=== PATIENT | female | born 2000 | race Caucasian/White ===

== ENCOUNTER 2020-01-23 21:53 | Emergency (ER) | payer OTHER, SELFPAY ==
[2020-01-23 22:02] VITALS: BP 123/88; PULSE 100; RESP 20; TEMP 37; O2SAT 99; BMI 23.3
--- NOTE | 2020-01-23 22:08 | XR_ITS ---
PROCEDURE: XR CHEST 2V CLINICAL HISTORY: SOA Cough, asthma attack COMPARISON: CXR CHEST(2 VIEWS-NOT PORTABLE) from 03/29/2011 CXR CHEST(2 VIEWS-NOT PORTABLE) from 09/23/2014 CXR1VP XR chest portable from 11/18/2017 FINDINGS: The cardiomediastinal silhouette and pulmonary vascularity are within normal limits. The lungs are clear without infiltrates, suspicious nodules, or pleural effusions. No acute bony abnormalities. IMPRESSION: No acute findings. Dictated by: Bong Norton MD 01/24/2020 07:45 Electronically signed by Bong Norton MD in [place] 01/24/2020 07:45
[2020-01-23 22:18] VITALS: BP 106/71; PULSE 100; RESP 19; O2SAT 97
[2020-01-23 22:19] LABS: Microscopic, Urine URINE MICROSCOPIC (MICROSCOPIC)
[2020-01-23 22:22] LABS: Basophils # 0.1 K/mm3 (0-0.2); Basophils % 0.4 % (0.1-2.0); Eosinophils # 0.5 K/mm3 (0.0-0.4); Eosinophils % 4.6 % (0.1-12.0); Hematocrit 39.5 % (37.0-47.0); Hemoglobin 13.9 g/dL (12.2-16.2); Lymphocytes # 3.5 K/mm3 (0.7-4.5); Lymphocytes % 32.9 % (10-50); Mean Corpuscular HGB Conc 35.1 g/dL (31.8-35.4); Mean Corpuscular Hemoglobin 30.7 pg (27.0-31.2); Mean Corpuscular Volume 87.4 fl (81-99); Mean Platelet Volume 8.8 fl (7.4-10.4); Monocytes # 0.5 K/mm3 (0.1-1.0); Monocytes % 4.6 % (1.7-9.3); Neutrophils % 57.5 % (37.0-80.0); Platelet Count 253 K/mm3 (142-424); Red Blood Count 4.52 M/mm3 (4.20-5.40); Red Cell Distribution Width 12.7 % (11.5-17.5); White Blood Count 10.5 K/mm3 (4.5-13.0)
[2020-01-23 22:25] LABS: Appearance,Urine CLEAR (Clear); Bilirubin,Urine Negative (Negative); Blood, Urine Negative (Negative); Color,Urine YELLOW (Yellow); Glucose,Urine (UA) Negative (Negative); Ketones,Urine Negative (Negative); Leukocyte Esterase,Urine TRACE (Negative); Nitrate,Urine Negative (Negative); PH,Urine 6.5 (5.0-8.5); Protein,Urine Negative (Negative); Urobilinogen,Urine 0.2 EU/dl (0.2)
--- NOTE | 2020-01-23 22:25 | HMH.EDSOB ---
ED Disposition Clinical Impression: Reactive airway disease with acute exacerbation Qualifiers: Asthma severity: mild Asthma persistence: intermittent Qualified Code(s): J45.21 - Mild intermittent asthma with (acute) exacerbation Disposition: Home, Self-Care Condition on Discharge: Good Instructions: DI for Reactive Airway Disease-Adult Additional Instructions: use meds and f/u with pcp and dr christopher Prescriptions: predniSONE [Prednisone 20mg Tab] 20 mg PO BID #10 tab Transmission Status: Pending to [facility] Referrals: Ramiro Bianchi PA [Primary Care Provider] - Alfredito Christopher [Referring] - - Critical Care Critical Care Time: No Attestation: On 01/23/20, the high probability of a clinically significant, sudden or life threatening deterioration of the following system(s) required my full and direct attention, intervention and personal management. The time I documented below is in addition to time spent performing reported procedures but includes the following listed in this critical care notation. Medical Decision Making - Medical Records Medical records reviewed: Yes: I reviewed the patient's medical records. - Sarthak Inquiry Pt receiving controlled substance: No Vital Signs: 01/23/20 22:02 01/23/20 22:18 01/23/20 22:33 Temperature 98.6 F Temperature Source Oral Pulse Rate Pulse Rate [Right Brachial] 100 H 100 H 119 H Respiratory Rate 20 19 18 Blood Pressure [Right Arm] 123/88 106/71 L 116/70 Blood Pressure Mean [Right Arm] 99 82 85 Blood Pressure Source [Right Arm] Automatic Cuff Blood Pressure Position [Right Arm] Sitting 02 Sat by Pulse Oximetry 99 97 100 Oxygen Delivery Method Room Air Room Air Room Air 01/23/20 22:36 01/23/20 23:30 Temperature Temperature Source Pulse Rate 110 H Pulse Rate [Right Brachial] 68 Respiratory Rate Blood Pressure [Right Arm] 104/55 L Blood Pressure Mean [Right Arm] 71 Blood Pressure Source [Right Arm] Automatic Cuff Blood Pressure Position [Right Arm] Sitting 02 Sat by Pulse Oximetry 100 Oxygen Delivery Method - Lab Data Lab results reviewed: Yes: I reviewed the patient's lab results. Lab Results 01/23/20 22:10: WBC 10.5, RBC 4.52, Hgb 13.9, Hct 39.5, MCV 87.4, MCH 30.7, MCHC 35.1, RDW 12.7, Plt Count 253, MPV 8.8, Neut % (Auto) 57.5, Lymph % (Auto) 32.9, [place] % (Auto) 4.6, Eos % (Auto) 4.6, Baso % (Auto) 0.4, Neut # (Auto) 6.0, Lymph # (Auto) 3.5, [place] # (Auto) 0.5, Eos # (Auto) 0.5 H, Baso # (Auto) 0.1 01/23/20 22:10: Urine HCG, Qual Negative 01/23/20 22:10: Sodium 135 L, Potassium 3.7, Chloride 105, Carbon Dioxide 26, Anion Gap 7.7, BUN 8, Creatinine 0.90, Estimated Creat Clear 101, Estimated GFR 81, Est GFR ( Amer) 98, Glucose 98, Calcium 9.1, Total Bilirubin 0.4, AST 28, ALT 17, Alkaline Phosphatase 56, Total Protein 6.8, Albumin 3.9, Globulin 2.9, Albumin/Globulin Ratio 1.3 01/23/20 22:13: Urine Color Yellow, Urine Appearance Clear, Urine pH 6.5, Ur Specific [place] 1.020, Urine Protein Negative, Urine Glucose (UA) Negative, Urine Ketones Negative, Urine Blood Negative, Urine Nitrate Negative, Urine Bilirubin Negative, Urine Urobilinogen 0.2, Ur Leukocyte Esterase Trace, Urine WBC Occasional, Ur Squamous Epith Cells Occasional, Urine Bacteria Trace Result diagrams: 01/23/20 22:10 01/23/20 22:10 Orders (Tests/Meds): ED MEDICATIONS Generic Name Dose Route Start Last Admin Trade Name Freq PRN Reason Stop Dose Admin Sodium Chloride 1,000 mls @ 999 mls/hr 01/23/20 22:30 01/23/20 22:19 Sod Chlor 0.9% 1000ml Bag IV 01/23/20 23:30 999 mls/hr .Q1H1M ELYSE Administration Levalbuterol HCl 1.25 mg 01/23/20 22:32 01/23/20 22:35 Xopenex 1.25mg/3ml Neb IH 02/22/20 22:31 1.25 mg TIDP PRN Administration Shortness Of Breath Discontinued Medications Generic Name Dose Route Start Last Admin Trade Name Freq PRN Reason Stop Dose Admin Diphenhydramine HCl 25 mg 01/23/20 22:16 0
[2020-01-23 22:28] LABS: Urine Pregnancy, HCG Qual. Negative (Negative)
[2020-01-23 22:29] LABS: Chloride 105 mmol/L (98-107); Potassium 3.7 mmoL/L (3.5-5.1); Sodium 135 mmol/L (136-145)
[2020-01-23 22:31] LABS: Alanine Aminotransferase 17 U/L (12-78); Aspartate Amino Transferase 28 U/L (14-36); Blood Urea Nitrogen 8 mg/dl (7-17); Creatinine Clearance Estimated 101 mL/min (50-200); Estimated Glomerular Filt Rate 81 ml/min (>60); GFR (African American) 98 ML/MIN (>60)
[2020-01-23 22:32] LABS: Albumin Level 3.9 g/dl (3.5-5.0); Albumin/Globulin Ratio 1.3 (1.1-1.8); Alkaline Phosphatase 56 U/L (38-126); Anion Gap 7.7 mEq/L (5-15); Bilirubin,Total 0.4 mg/dl (0.2-1.3); Calcium 9.1 mg/dl (8.4-10.2); Carbon Dioxide 26 mmol/L (22.0-30.0); Globulin 2.9 g/dL (1.3-3.2); Glucose 98 mg/dl (74-100); Total Protein,Serum 6.8 g/dl (6.3-8.2)
[2020-01-23 22:33] VITALS: BP 116/70; PULSE 119; RESP 18; O2SAT 100
[2020-01-23 22:33] LABS: Bacteria,Urine Trace /lpf; Squamous Epithelial Cell,Urine Occasional #/hpf (0-5); WBC,Urine Occasional #/hpf (0-3)
[2020-01-23 22:36] VITALS: PULSE 110; PULSE 117
[2020-01-23 23:30] VITALS: BP 104/55; PULSE 68; O2SAT 100
[2020-01-24 00:28] VITALS: BP 104/51; PULSE 69; RESP 18; TEMP 36.9; O2SAT 99
== END 2020-01-24 00:31 | disposition home or self-care (01) ==
PROVIDERS: Emergency Provider Emergency Medicine; PCP Physician Assistant
DX: J45.21 Mild intermittent asthma with (acute) exacerbation (principal); G43.709 Chronic migraine without aura, not intractable, without status migrainosus; F41.8 Other specified anxiety disorders; Z90.09 Acquired absence of other part of head and neck
CPT/HCPCS: 71046; 80053; 81001; 81025; 85025; 96365; 96375; 99284

== ENCOUNTER 2020-02-21 13:30 | Emergency (ER) | payer OTHER, SELFPAY ==
[2020-02-21 13:45] VITALS: BP 111/72; PULSE 87; RESP 19; TEMP 37.1; O2SAT 99; BMI 25.0
--- NOTE | 2020-02-21 14:05 | HMH.EDUTC ---
[facility] [place] Impression: Poison claudia Disposition: Home, Self-Care Condition on Discharge: Good Instructions: DI for Poison Claudia Allergy Additional Instructions: Avoid contact with the offending substance (poison claudia). Don't start the oral steroids until tomorrow. Don't put the topical steroids (triamcinolone) on your face or your groin. Follow up with your regular doctor. GO TO THE ER FOR ANY WORSENING SYMPTOMS OR CONCERNS Prescriptions: methylPREDNISolone [Medrol] 4 mg PO DIRECTED 6 Days #21 tab.ds.pk Transmission Status: Received by [facility] Triamcinolone Acetonide 1 applicatio TP TIDP PRN 7 Days #1 tube PRN Reason: Itching Transmission Status: Received by [facility] Referrals: Ramiro Bianchi PA [Primary Care Provider] - Time of Disposition: 14:31 Medical Decision Making - Medical Records Medical records reviewed: No: I reviewed the patient's medical records. - Sarthak Inquiry Pt receiving controlled substance: No Vital Signs: 02/21/20 13:45 02/21/20 14:35 Temperature 98.7 F 98.7 F Temperature Source Oral Pulse Rate 87 Pulse Rate [Right Brachial] 87 Respiratory Rate 19 19 Blood Pressure 111/72 Blood Pressure [Right Arm] 111/72 Blood Pressure Mean [Right Arm] 85 Blood Pressure Source [Right Arm] Automatic Cuff Blood Pressure Position [Right Arm] Sitting 02 Sat by Pulse Oximetry 99 Oxygen Delivery Method Room Air Orders (Tests/Meds): ED MEDICATIONS Discontinued Medications Generic Name Dose Route Start Last Admin Trade Name Freq PRN Reason Stop Dose Admin Methylprednisolone Sodium Succinate 125 mg 02/21/20 14:04 02/21/20 14:15 Solu-Medrol 125mg/2ml Vial IM 02/21/20 14:05 125 mg ONCE ONE Administration [facility] [place] - General Stated complaint: Rash Time Seen by Provider: 02/21/20 14:05 Mode of Arrival: Ambulatory Source of Information: Patient Limitations: No Limitations Description of Symptoms (Recalled from Triage Doc. by RN): PATIENT C/O POISON CLAUDIA X 1 WEEK. STATES SHE RECEIVED A STERIOD SHOT BUT IT IS NO BETTER HEENT Symptoms (Recalled from RN notes): No Resp Symptoms (Recalled from RN notes): No Skin Symptoms (Recalled from RN notes): Yes MS Symptoms (Recalled from RN notes): No Functional Status (Recalled from RN notes): WNL - History of Present Illness Provider Complaint: She c/o poison claudia for the past 4 days or so. She has had a steroid injection by her pcp. She states the shot did not help. The poison claudia is on her right leg and right arm. - Related Data Home Medications Medication Instructions Recorded Confirmed Venlafaxine HCl [Effexor Xr] 75 mg PO DAILY 11/18/17 08/24/19 Erenumab-Aooe [Aimovig 140 mg IM DIRECTED 09/27/18 08/24/19 Autoinjector] SUMAtriptan succinate [Imitrex] 100 mg PO NEEDED PRN 09/27/18 08/24/19 Previous Rx's Medication Instructions Recorded norgestimate 0.25 mg-ethinyl 1 tab PO DAILY #28 tab 08/24/19 estradiol 35 mcg tablet predniSONE [Prednisone 20mg 20 mg PO BID #10 tab 01/24/20 Tab] Triamcinolone Acetonide 1 applicatio TP TIDP PRN 7 Days #1 02/21/20 tube methylPREDNISolone [Medrol] 4 mg PO DIRECTED 6 Days #21 02/21/20 tab.ds.pk Allergies Allergy/AdvReac Type Severity Reaction Status Date / Time soy AdvReac Intermediate Vomiting Verified 01/23/20 22:10 SHELLFISH (FOOD) Allergy Severe S-SWELLS-OR Uncoded 08/24/19 09:54 AL/THROAT - Worker's Comp Is this a Worker's Comp case?: No H History - Hepatitis A Screen Drug use history?: No High risk sexual behaviors?: No History of sexually transmitted infection?: No Currently employed?: No Childcare worker?: No Do you have indoor plumbing?: Yes Do you have electricity?: Yes Attestation statement:: This patient has been screened for Hepatitis A risk factors. I have reviewed the patient's past medical history: Yes Medical History: Reports:: Migraine Denies
[2020-02-21 14:35] VITALS: BP 111/72; PULSE 87; RESP 19; TEMP 37.1; O2SAT 99
== END 2020-02-21 14:37 | disposition home or self-care (01) ==
PROVIDERS: Emergency Provider Nurse Practitioner Family; PCP Physician Assistant
DX: L23.7 Allergic contact dermatitis due to plants, except food (principal); G43.709 Chronic migraine without aura, not intractable, without status migrainosus
CPT/HCPCS: 96372; 99201

== ENCOUNTER 2020-03-26 16:16 | Emergency (ER) | payer OTHER, SELFPAY ==
[2020-03-26 16:25] VITALS: BP 146/79; PULSE 76; RESP 16; TEMP 36.7; O2SAT 98; BMI 23.3
[2020-03-26 16:31] VITALS: BP 109/65; PULSE 94; RESP 19; TEMP 36.7; O2SAT 100; BMI 22.6
--- NOTE | 2020-03-26 16:47 | HMH.EDUTC ---
[facility] [place] Clinical Impression: Positive test Migraine Qualifiers: Migraine type: unspecified Status migrainosus presence: without status migrainosus Intractability: not intractable Qualified Code(s): G43.909 - Migraine, unspecified, not intractable, without status migrainosus Disposition: Home, Self-Care Condition on Discharge: Good Instructions: Common Discomforts and Bodily Changes During , Medications and , Migraine -- Adult Additional Instructions: Go home and lay down and sleep off remainder of headache *Call Family Doctor that prescribes you Imitrex and make appointment Imitrex is Category C during Call OBGYN and make appointment for further evaluation and examination to see how far along you are Make sure that you are drinking plenty of fluids and eating healthy No drinking or smoking Return if needed Straight to ER if any life threatening symptoms Referrals: PCP,No [Primary Care Provider] - Kelsey Odom MD [Staff Physician] - Donnie Restrepo MD [Staff Physician] - Time of Disposition: 17:54 Medical Decision Making - Sarthak Inquiry Pt receiving controlled substance: No Sarthak was queried for this patient: No Vital Signs: 03/26/20 16:25 03/26/20 16:31 Temperature 98.0 F 98.0 F Temperature Source Temporal Artery Scan Oral Pulse Rate [Right] 76 94 H Respiratory Rate 16 19 Blood Pressure [Right Arm] 146/79 H 109/65 L Blood Pressure Mean [Right Arm] 101 79 Blood Pressure Source [Right Arm] Automatic Cuff Blood Pressure Position [Right Arm] Sitting 02 Sat by Pulse Oximetry 98 100 Oxygen Delivery Method Room Air - Lab Data Lab Results 03/26/20 16:44: [facility] Positive 03/26/20 16:58: Serum HCG, Qual Positive Orders (Tests/Meds): ED MEDICATIONS Generic Name Dose Route Start Last Admin Trade Name Freq PRN Reason Stop Dose Admin Metoclopramide HCl 5 mg 03/27/20 06:00 Reglan 5mg Tablet PO 04/26/20 05:59 AC ELYSE Discontinued Medications Generic Name Dose Route Start Last Admin Trade Name Freq PRN Reason Stop Dose Admin Acetaminophen 650 mg 03/26/20 17:51 03/26/20 18:01 Acetaminophen 325mg Tab PO 03/26/20 17:52 650 mg ONCE ONE Administration Diphenhydramine HCl 25 mg 03/26/20 16:36 03/26/20 17:52 Benadryl 50mg/1ml Vial IM 03/26/20 16:37 Not Given ONCE ONE Diphenhydramine HCl 25 mg 03/26/20 17:52 03/26/20 17:58 Benadryl 25mg Capsule PO 03/26/20 17:53 25 mg ONCE ONE Administration Ketorolac Tromethamine 30 mg 03/26/20 16:36 03/26/20 17:50 Toradol 30mg/Ml Vial IM 03/26/20 16:37 Not Given ONCE ONE Metoclopramide HCl 10 mg 03/26/20 18:02 03/26/20 18:02 Metoclopramide 10mg Tablet PO 03/26/20 18:03 10 mg ONCE ONE Administration Medical Decision Narrative: Patient denies chance of however medication held at this time Pending urine test Urine appears positive Beta HCG Qual ordered awaiting Beta HCG Qualatative test Positve discussed with patient informed her to call OBGYN tomorrow and make appointment for further evaluation and examination to see how far along she may be and further treatment, Call Prescribing physician for her imitrex and inform them of positive Beta HCG back and positive, Torodol not given awaiting pharmacy to call back with appropriate treatment, pharmacy called back and discussed prescribed imitrex and agreed patient informed of risk cat C of imitrex and recommended making appointment bautista with PCP. Tylenol, Benadryl and Reglan for migraine due to Patient states that headache is much better and patient dc'd home [facility] [place] HPI - General Stated complaint: CHONG Time Seen by Provider: 03/26/20 16:47 Mode of Arrival: Ambulatory Limitations: No Limitations Description of Symptoms (Recalled from Triage Doc. by RN): Migraine since last night, take IBU 400mg 2 hours ago. H
--- NOTE | 2020-03-26 17:00 | PC.NURSE ---
Medication held d/t pt having a positive urine preg test, blood test drawn to be certain, pt updated in POC
[2020-03-26 17:08] LABS: UTC Pregnancy Test, Urine Positive (Negative)
[2020-03-26 17:36] LABS: HCG Qualitative, Serum Positive (Negative)
[2020-03-26 18:11] VITALS: BP 102/87; PULSE 90; RESP 17; TEMP 36.7; O2SAT 100
== END 2020-03-26 18:12 | disposition home or self-care (01) ==
PROVIDERS: Emergency Provider Nurse Practitioner
DX: G43.909 Migraine, unspecified, not intractable, without status migrainosus (principal); Z32.01 Encounter for pregnancy test, result positive
CPT/HCPCS: 81025; 84703; 99202

== ENCOUNTER → 2020-03-28 16:29 | Outpatient (CLI) | payer OTHER, SELFPAY ==
[2020-03-28 17:42] LABS: HCG,Quantitative 86 mIU/ml (0-5.42)
== END ==
PROVIDERS: Visit Provider Obstetrics & Gynecology
DX: Z32.00 Encounter for pregnancy test, result unknown (principal)
CPT/HCPCS: 36415; 84702

== ENCOUNTER 2020-03-28 20:35 | Emergency (ER) | payer OTHER, SELFPAY ==
[2020-03-28 20:42] VITALS: BP 152/84; PULSE 109; RESP 18; O2SAT 98; BMI 22.6
--- NOTE | 2020-03-28 20:59 | HMH.EDUTC ---
[facility] [place] Disposition Clinical Impression: Qualifiers: Weeks of gestation: 10 weeks Qualified Code(s): Z3A.10 - 10 weeks gestation of Nausea & vomiting Qualifiers: Vomiting type: unspecified Vomiting Intractability: non-intractable Qualified Code(s): R11.2 - Nausea with vomiting, unspecified Disposition: Home, Self-Care Condition on Discharge: Good Instructions: Diet Additional Instructions: follow up with your primary care physician. 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 GO TO THE ER FOR ANY WORSENING SYMPTOMS OR CONCERNS Prescriptions: Promethazine HCl [Phenergan 25mg tab] 25 mg PO Q6H PRN #30 tab PRN Reason: Nausea And Vomiting Transmission Status: Received by [facility] Referrals: PCP,No [Primary Care Provider] - Time of Disposition: 21:11 Medical Decision Making - Medical Records Medical records reviewed: No: I reviewed the patient's medical records. - Sarthak Inquiry Pt receiving controlled substance: No Vital Signs: 03/28/20 20:42 03/28/20 21:13 03/28/20 21:16 Temperature 98.0 F 98.0 F Temperature Source Oral Pulse Rate 109 H Pulse Rate [Left] 109 H 109 H Respiratory Rate 18 18 18 Blood Pressure 152/84 H Blood Pressure [Left Arm] 152/84 H 152/84 H Blood Pressure Mean [Left Arm] 106 106 Blood Pressure Source [Left Arm] Automatic Cuff Automatic Cuff Blood Pressure Position [Left Arm] Sitting Sitting 02 Sat by Pulse Oximetry 98 98 Oxygen Delivery Method Room Air Room Air Orders (Tests/Meds): ED MEDICATIONS Discontinued Medications Generic Name Dose Route Start Last Admin Trade Name Freq PRN Reason Stop Dose Admin Promethazine HCl 25 mg 03/28/20 21:03 03/28/20 21:07 Phenergan 25mg Tablet PO 03/28/20 21:04 25 mg ONCE ONE Administration [facility] [place] HPI - General Stated complaint: vomitting and nausea Time Seen by Provider: 03/28/20 20:59 Mode of Arrival: Ambulatory Source of Information: Patient, Spouse Limitations: No Limitations Description of Symptoms (Recalled from Triage Doc. by RN): pt states she is . lmp february 23. says she had a confirmed urine last week in [facility]. states shes been n/v all day and unable to keep anything down. - History of Present Illness Provider Complaint: She c/o n/v. She just found out she is 2 days ago. She has not saw her control integration engineer doctor yet. She denies any abdominal pain or back pain. She denies any vaginal bleeding or discharge. - Related Data Home Medications Medication Instructions Recorded Confirmed Venlafaxine HCl [Effexor Xr] 75 mg PO DAILY 11/18/17 08/24/19 Erenumab-Aooe [Aimovig 140 mg IM DIRECTED 09/27/18 08/24/19 Autoinjector] SUMAtriptan succinate [Imitrex] 100 mg PO NEEDED PRN 09/27/18 08/24/19 Previous Rx's Medication Instructions Recorded norgestimate 0.25 mg-ethinyl 1 tab PO DAILY #28 tab 08/24/19 estradiol 35 mcg tablet predniSONE [Prednisone 20mg 20 mg PO BID #10 tab 01/24/20 Tab] Triamcinolone Acetonide 1 applicatio TP TIDP PRN 7 Days #1 02/21/20 tube methylPREDNISolone [Medrol] 4 mg PO DIRECTED 6 Days #21 02/21/20 tab.ds.pk Promethazine HCl [Phenergan 25mg 25 mg PO Q6H PRN #30 tab 03/28/20 tab] Allergies Allergy/AdvReac Type Severity Reaction Status Date / Time soy AdvReac Intermediate Vomiting Verified 01/23/20 22:10 SHELLFISH (FOOD) Allergy Severe S-SWELLS-OR Uncoded 08/24/19 09:54 AL/THROAT [facility] History - Hepatitis A Screen Attestation statement:: This patient has been screened for Hepatitis A risk factors. I have reviewed the patient's past medical history: Yes Medical History: Reports:: Migraine Denies:: Anxiety, Depression, Diabetes Mellitus Type 1, Diabetes Mellitus Type 2, Hyperlipidemia, Hypertension, MRSA Laterality Cases: Bilateral: Tonsillectomy Amputation: No Fractures: No Comment: Tonsilectomy - Social History Smoking Status: Never smoker Alc
[2020-03-28 21:13] VITALS: BP 152/84; PULSE 109; RESP 18; TEMP 36.7; O2SAT 98; BMI 22.5
[2020-03-28 21:16] VITALS: BP 152/84; PULSE 109; RESP 18; TEMP 36.7; O2SAT 98
== END 2020-03-28 21:18 | disposition home or self-care (01) ==
LOC: ER 20:44 → UTC 20:45
PROVIDERS: Emergency Provider Nurse Practitioner Family
DX: O21.0 Mild hyperemesis gravidarum (principal); Z3A.10 10 weeks gestation of pregnancy; G43.709 Chronic migraine without aura, not intractable, without status migrainosus; Z90.09 Acquired absence of other part of head and neck
CPT/HCPCS: 99201

== ENCOUNTER → 2020-03-31 11:21 | Outpatient (CLI) | payer OTHER, SELFPAY ==
[2020-03-31 13:32] LABS: HCG,Quantitative 294 mIU/ml (0-5.42)
== END ==
PROVIDERS: Visit Provider Obstetrics & Gynecology
DX: Z34.90 Encounter for supervision of normal pregnancy, unspecified, unspecified trimester (principal); R10.9 Unspecified abdominal pain
CPT/HCPCS: 36415; 84702

== ENCOUNTER → 2020-04-23 15:05 | Outpatient (CLI) | payer OTHER, SELFPAY ==
--- NOTE | 2020-04-23 15:05 | US_ITS ---
PROCEDURE: US OB TRANSVAGINAL CLINICAL INDICATION: OB for dates COMPARISON: No exams were available for comparison FINDINGS: An intrauterine gestational sac is present with a pole with a crown-rump length of 1.28cm correlating to gestational age of 7weeks 4days. heart tones are present with an FHR of 158bpm. Yolk sac is noted. There is a 5.6 cm left ovarian cyst. A 2.3 cm corpus luteum cyst is present on the left IMPRESSION: Live intrauterine gestation at 7 weeks 4 days Estimated due date by Ultrasound is 12/06/2020 Dictated by: Bong Norton MD 04/23/2020 16:57 Bong Norton MD in [place] 04/23/2020 16:57
== END ==
PROVIDERS: Visit Provider Obstetrics & Gynecology
DX: O26.841 Uterine size-date discrepancy, first trimester (principal)
CPT/HCPCS: 76817

== ENCOUNTER → 2020-04-28 16:24 | Outpatient (CLI) | payer OTHER, SELFPAY ==
[2020-04-28 16:49] LABS: Basophils % 0.3 % (0.1-2.0); Eosinophils # 0.2 K/mm3 (0.0-0.4); Eosinophils % 1.8 % (0.1-12.0); Hematocrit 38.1 % (37.0-47.0); Hemoglobin 13.3 g/dL (12.2-16.2); Lymphocytes # 2.1 K/mm3 (0.7-4.5); Lymphocytes % 17.9 % (10-50); Mean Corpuscular HGB Conc 34.9 g/dL (31.8-35.4); Mean Corpuscular Hemoglobin 31.2 pg (27.0-31.2); Mean Corpuscular Volume 89.3 fl (81-99); Mean Platelet Volume 7.7 fl (7.4-10.4); Monocytes # 0.5 K/mm3 (0.1-1.0); Monocytes % 4.6 % (1.7-9.3); Neutrophils # 8.7 K/mm3 (1.8-7.8); Neutrophils % 75.3 % (37.0-80.0); Platelet Count 263 K/mm3 (142-424); Red Blood Count 4.27 M/mm3 (4.20-5.40); White Blood Count 11.6 K/mm3 (4.5-13.0)
[2020-04-28 20:16] LABS: Amphetamine/Metha Screen,Urine Negative ng/ml (<1000); Benzodiazepines Screen,Urine Negative ng/ml (<200)
[2020-04-28 20:17] LABS: Barbiturates Screen,Urine Negative ng/ml (<200); Cannabinoid Screen,Urine Negative ng/ml (<50)
[2020-04-28 20:18] LABS: Cocaine Screen,Urine Negative ng/ml (<300)
[2020-04-28 20:19] LABS: Methadone Screen,Urine Negative ng/ml (<300); Opiate Screen,Urine Negative ng/ml (<300)
[2020-04-28 20:20] LABS: Phencyclidine Screen,Urine Negative ng/ml (<25)
[2020-04-30 09:19] LABS: HIV Screen 4th Generation wRfx Non Reactive (Non Reactive); Hepatitis B Surface Antigen Negative (Negative); Hepatitis C Antibody <0.1 s/co ratio (0.0-0.9); Rubella Antibodies, IgG 4.53 index (Immune >0.99)
[2020-04-30 11:44] LABS: Rapid Plasma Reagin Ab Titer Non Reactive (NonRea<1:1)
== END ==
PROVIDERS: Visit Provider Obstetrics & Gynecology
DX: Z34.90 Encounter for supervision of normal pregnancy, unspecified, unspecified trimester (principal)
CPT/HCPCS: 36415; 80305; 85025; 86592; 86703; 86762; 86850; 87340; 87380; G0432

== ENCOUNTER 2020-04-28 20:47 | Emergency (ER) | payer OTHER, SELFPAY ==
[2020-04-28 20:49] VITALS: BP 113/68; PULSE 96; RESP 16; TEMP 36.9; O2SAT 99; BMI 27.4
[2020-04-28 21:13] LABS: Microscopic, Urine URINE MICROSCOPIC (MICROSCOPIC)
[2020-04-28 21:14] LABS: Appearance,Urine CLEAR (Clear); Bilirubin,Urine Negative (Negative); Blood, Urine Negative (Negative); Color,Urine YELLOW (Yellow); Glucose,Urine (UA) Negative (Negative); Ketones,Urine Negative (Negative); Leukocyte Esterase,Urine TRACE (Negative); Nitrate,Urine Negative (Negative); PH,Urine 7.5 (5.0-8.5); Protein,Urine Negative (Negative); Urobilinogen,Urine 0.2 EU/dl (0.2)
[2020-04-28 21:15] LABS: Urine Pregnancy, HCG Qual. Positive (Negative)
--- NOTE | 2020-04-28 21:22 | HMH.EDGENADL ---
ED Disposition Clinical Impression: Qualifiers: Weeks of gestation: 8 weeks Qualified Code(s): Z3A.08 - 8 weeks gestation of Disposition: Home, Self-Care Condition on Discharge: Good Instructions: DI for -- Discomforts and Remedies Additional Instructions: see pcp and ob for follow up Referrals: PCP,No [Primary Care Provider] - - Critical Care Critical Care Time: No Attestation: On 04/28/20, the high probability of a clinically significant, sudden or life threatening deterioration of the following system(s) required my full and direct attention, intervention and personal management. The time I documented below is in addition to time spent performing reported procedures but includes the following listed in this critical care notation. Medical Decision Making - Medical Records Medical records reviewed: Yes: I reviewed the patient's medical records. - Sarthak Inquiry Pt receiving controlled substance: No Vital Signs: 04/28/20 20:49 04/28/20 21:28 Temperature 98.5 F Temperature Source Oral Pulse Rate [Left Radial] 96 H 83 Respiratory Rate 16 15 Blood Pressure [Right Arm] 113/68 110/70 Blood Pressure Mean [Right Arm] 83 83 Blood Pressure Source [Right Arm] Automatic Cuff Automatic Cuff Blood Pressure Position [Right Arm] Sitting 02 Sat by Pulse Oximetry 99 100 Oxygen Delivery Method Room Air Room Air - Lab Data Lab results reviewed: Yes: I reviewed the patient's lab results. Lab Results 04/28/20 21:08: Urine Color Yellow, Urine Appearance Clear, Urine pH 7.5, Ur Specific [employer] 1.010, Urine Protein Negative, Urine Glucose (UA) Negative, Urine Ketones Negative, Urine Blood Negative, Urine Nitrate Negative, Urine Bilirubin Negative, Urine Urobilinogen 0.2, Ur Leukocyte Esterase Trace, Urine WBC 3-5, Ur Squamous Epith Cells 10-20, Urine Bacteria 1+ 04/28/20 21:08: Urine HCG, Qual Positive Orders (Tests/Meds): ORDERS Category Date Time Status Beta HCG, Quant [HCG,Quantitative] Stat Lab 04/28/20 21:18 Received Complete Blood Count Auto Diff Stat Lab 04/28/20 21:18 Received Comprehensive Metabolic Panel Stat Lab 04/28/20 21:18 Received General Adult HPI - General Chief complaint: PAIN Stated complaint: 8 or 9 wk preg abd pain Time Seen by Provider: 04/28/20 21:05 Mode of Arrival: Ambulatory Source of Information: Patient, Significant Other, Medical Record Limitations: No Limitations Description of Symptoms (Recalled from ER Triage Doc. by RN): pt stated she is approx. 8 weeks and is complaining of right sided pelvic pain since yesterday. pt denies any abd. pain, nausea or vomiting. pt stated she took tylenol at 1900 and hasnt had any relief. - History of Present Illness HPI narrative: rt sided abd pain today w/o fever or vomiting and no diarrhea - no vag bleeding has had u/s with iup Onset (ago): hour(s) Location: abdomen Severity: moderate Associated symptoms: denies other symptoms Treatments prior to arrival: none - Related Data Home Medications Medication Instructions Recorded Confirmed Venlafaxine HCl [Effexor Xr] 75 mg PO DAILY 11/18/17 08/24/19 Erenumab-Aooe [Aimovig 140 mg IM DIRECTED 09/27/18 08/24/19 Autoinjector] SUMAtriptan succinate [Imitrex] 100 mg PO NEEDED PRN 09/27/18 08/24/19 Previous Rx's Medication Instructions Recorded norgestimate 0.25 mg-ethinyl 1 tab PO DAILY #28 tab 08/24/19 estradiol 35 mcg tablet predniSONE [Prednisone 20mg 20 mg PO BID #10 tab 01/24/20 Tab] Triamcinolone Acetonide 1 applicatio TP TIDP PRN 7 Days #1 02/21/20 tube methylPREDNISolone [Medrol] 4 mg PO DIRECTED 6 Days #21 02/21/20 tab.ds.pk Promethazine HCl [Phenergan 25mg 25 mg PO Q6H PRN #30 tab 03/28/20 tab] Allergies Allergy/AdvReac Type Severity Reaction Status Date / Time soy AdvReac Intermediate Vomiting Verified 01/23/20 22:10 SHELLFISH (FOOD) Allergy Severe S-SWELLS-OR Uncoded 08/24/19 0
[2020-04-28 21:24] LABS: Bacteria,Urine 1+ /lpf
[2020-04-28 21:28] VITALS: BP 110/70; PULSE 83; RESP 15; O2SAT 100
[2020-04-28 21:29] LABS: Basophils % 0.2 % (0.1-2.0); Eosinophils # 0.3 K/mm3 (0.0-0.4); Eosinophils % 2.2 % (0.1-12.0); Hematocrit 36.7 % (37.0-47.0); Hemoglobin 13.2 g/dL (12.2-16.2); Lymphocytes # 2.8 K/mm3 (0.7-4.5); Lymphocytes % 21.3 % (10-50); Mean Corpuscular HGB Conc 35.9 g/dL (31.8-35.4); Mean Corpuscular Hemoglobin 31.1 pg (27.0-31.2); Mean Corpuscular Volume 86.8 fl (81-99); Mean Platelet Volume 8.2 fl (7.4-10.4); Monocytes # 0.7 K/mm3 (0.1-1.0); Monocytes % 5.5 % (1.7-9.3); Neutrophils # 9.3 K/mm3 (1.8-7.8); Neutrophils % 70.9 % (37.0-80.0); Platelet Count 253 K/mm3 (142-424); Red Blood Count 4.23 M/mm3 (4.20-5.40); Red Cell Distribution Width 12.8 % (11.5-17.5); White Blood Count 13.1 K/mm3 (4.5-13.0)
[2020-04-28 21:33] LABS: Chloride 104 mmol/L (98-107); Potassium 3.7 mmoL/L (3.5-5.1); Sodium 137 mmol/L (136-145)
[2020-04-28 21:36] LABS: Alanine Aminotransferase 20 U/L (12-78); Albumin Level 3.8 g/dl (3.5-5.0); Albumin/Globulin Ratio 1.3 (1.1-1.8); Alkaline Phosphatase 60 U/L (38-126); Anion Gap 9.7 mEq/L (5-15); Aspartate Amino Transferase 31 U/L (14-36); Bilirubin,Total 0.2 mg/dl (0.2-1.3); Blood Urea Nitrogen 5 mg/dl (7-17); Carbon Dioxide 27 mmol/L (22.0-30.0); Creatinine Clearance Estimated 156 mL/min (50-200); Estimated Glomerular Filt Rate 107 ml/min (>60); GFR (African American) 129 ML/MIN (>60); Total Protein,Serum 6.8 g/dl (6.3-8.2)
[2020-04-28 21:37] LABS: Calcium 9.4 mg/dl (8.4-10.2); Glucose 93 mg/dl (74-100)
[2020-04-28 21:38] VITALS: BP 111/77; PULSE 81; RESP 16; TEMP 36.6; O2SAT 99
== END 2020-04-28 21:42 | disposition home or self-care (01) ==
PROVIDERS: Emergency Provider Emergency Medicine
DX: R10.31 Right lower quadrant pain (principal); Z3A.08 8 weeks gestation of pregnancy; G43.709 Chronic migraine without aura, not intractable, without status migrainosus
CPT/HCPCS: 80053; 81001; 81025; 84702; 85025; 99283

== ENCOUNTER → 2020-05-02 16:19 | Outpatient (CLI) | payer OTHER, SELFPAY ==
[2020-05-06 04:24] LABS: Neisseria gonorrhoeae, NAA Negative (Negative)
== END ==
PROVIDERS: Visit Provider Obstetrics & Gynecology
DX: Z34.90 Encounter for supervision of normal pregnancy, unspecified, unspecified trimester (principal)
CPT/HCPCS: 87491; 87591

== ENCOUNTER 2020-05-27 16:17 | Emergency (ER) | payer OTHER, SELFPAY ==
[2020-05-27 16:20] VITALS: BP 94/50; PULSE 77; RESP 18; TEMP 37.1; O2SAT 100; BMI 25.8
--- NOTE | 2020-05-27 16:42 | HMH.EDGENADL ---
ED Disposition Clinical Impression: Vomiting affecting Disposition: Home, Self-Care Condition on Discharge: Good Instructions: DI for Vomiting -- Adult Additional Instructions: Reglan as prescribed for May take Zofran as previously prescribed. Follow-up urine culture results with Dr. Odom's office in 2 to [address] Odom's office for worsening of symptoms or if not improving. Prescriptions: Metoclopramide HCl [Reglan 5mg Tablet] 5 mg PO TIDP PRN #10 tab PRN Reason: Nausea And Vomiting Transmission Status: Pending to [facility] Referrals: Kelsey Odom MD [Primary Care Provider] - - Critical Care Critical Care Time: No Attestation: On 05/27/20, the high probability of a clinically significant, sudden or life threatening deterioration of the following system(s) required my full and direct attention, intervention and personal management. The time I documented below is in addition to time spent performing reported procedures but includes the following listed in this critical care notation. Medical Decision Making - Sarthak Inquiry Pt receiving controlled substance: No Vital Signs: 05/27/20 16:20 05/27/20 17:30 Temperature 98.7 F Temperature Source Oral Pulse Rate [Left Brachial] 77 79 Respiratory Rate 18 18 Blood Pressure [Left Arm] 94/50 L 94/50 L Blood Pressure Mean [Left Arm] 64 64 Blood Pressure Source [Left Arm] Automatic Cuff Automatic Cuff Blood Pressure Position [Left Arm] Right Lateral Supine 02 Sat by Pulse Oximetry 100 100 Oxygen Delivery Method Room Air - Lab Data Lab Results 05/27/20 17:00: Urine Color Yellow, Urine Appearance Sl cloudy, Urine pH 7.0, Ur Specific [place] 1.020, Urine Protein Negative, Urine Glucose (UA) Negative, Urine Ketones Negative, Urine Blood Negative, Urine Nitrate Negative, Urine Bilirubin Negative, Urine Urobilinogen 0.2, Ur Leukocyte Esterase 1+ A, Urine RBC 3-5, Urine WBC 10-20, Ur Squamous Epith Cells 10-20, Urine Bacteria 4+ 05/27/20 17:15: WBC 5.4, RBC 4.85, Hgb 14.5, Hct 43.7, MCV 90.0, MCH 29.8, MCHC 33.1, RDW 12.7, Plt Count 227, MPV 8.0, Neut % (Auto) 62.9, Lymph % (Auto) 30.0, [place] % (Auto) 6.0, Eos % (Auto) 0.7, Baso % (Auto) 0.4, Neut # (Auto) 3.4, Lymph # (Auto) 1.6, [place] # (Auto) 0.3, Eos # (Auto) 0.0, Baso # (Auto) 0.0 05/27/20 17:15: Sodium 137, Potassium 3.9, Chloride 101, Carbon Dioxide 28, Anion Gap 11.9, BUN 6 L, Creatinine 0.60, Estimated Creat Clear 171, Estimated GFR 127, Est GFR ( Amer) 154, Glucose 84, Calcium 9.7, Total Bilirubin 0.3, AST 35, ALT 20, Alkaline Phosphatase 87, Total Protein 7.7, Albumin 4.2, Globulin 3.5 H, Albumin/Globulin Ratio 1.2 Result diagrams: 05/27/20 17:15 05/27/20 17:15 Orders (Tests/Meds): ED MEDICATIONS Generic Name Dose Route Start Last Admin Trade Name Freq PRN Reason Stop Dose Admin Sodium Chloride 1,000 mls @ 999 mls/hr 05/27/20 17:00 05/27/20 17:21 Sod Chlor 0.9% 1000ml Bag IV 05/27/20 18:00 999 mls/hr .[id number] ELYSE Administration Discontinued Medications Generic Name Dose Route Start Last Admin Trade Name Freq PRN Reason Stop Dose Admin Metoclopramide HCl 5 mg 05/27/20 17:39 05/27/20 17:42 Metoclopramide Hcl 10mg/2ml Vial IVP 05/27/20 17:40 5 mg ONCE ONE Administration ORDERS Category Date Time Status Urine Culture Stat Micro 05/27/20 17:00 Received - Physician Consults Physician Consulted: Lei Time: 18:23 Reason -: Obstetrical Eval/Care Comment/Response: May send home on Reglan. No antibiotics, await urine culture results. General Adult HPI - General Stated complaint: 11 wks Preg vomiting for 4 days Time Seen by Provider: 05/27/20 17:36 - History of Present Illness HPI narrative: Primigravida 11 weeks gestation complains of nausea and vomiting. Symptoms started about a week ago but worse for the past 4 days. She has been on Zofran and Phenergan, she says the Phenergan was stopped. Symptoms [place]
[2020-05-27 17:27] LABS: Basophils % 0.4 % (0.1-2.0); Eosinophils % 0.7 % (0.1-12.0); Hematocrit 43.7 % (37.0-47.0); Hemoglobin 14.5 g/dL (12.2-16.2); Lymphocytes # 1.6 K/mm3 (0.7-4.5); Mean Corpuscular HGB Conc 33.1 g/dL (31.8-35.4); Mean Corpuscular Hemoglobin 29.8 pg (27.0-31.2); Monocytes # 0.3 K/mm3 (0.1-1.0); Neutrophils # 3.4 K/mm3 (1.8-7.8); Neutrophils % 62.9 % (37.0-80.0); Platelet Count 227 K/mm3 (142-424); Red Blood Count 4.85 M/mm3 (4.20-5.40); Red Cell Distribution Width 12.7 % (11.5-17.5); White Blood Count 5.4 K/mm3 (4.5-13.0)
[2020-05-27 17:30] VITALS: BP 94/50; PULSE 79; RESP 18; O2SAT 100
[2020-05-27 17:31] LABS: Microscopic, Urine URINE MICROSCOPIC (MICROSCOPIC)
[2020-05-27 17:32] LABS: Appearance,Urine SL CLOUDY (Clear); Bilirubin,Urine Negative (Negative); Blood, Urine Negative (Negative); Color,Urine YELLOW (Yellow); Glucose,Urine (UA) Negative (Negative); Ketones,Urine Negative (Negative); Leukocyte Esterase,Urine 1+ (Negative); Nitrate,Urine Negative (Negative); Protein,Urine Negative (Negative); Urobilinogen,Urine 0.2 EU/dl (0.2)
[2020-05-27 17:34] LABS: Alanine Aminotransferase 20 U/L (12-78); Albumin Level 4.2 g/dl (3.5-5.0); Albumin/Globulin Ratio 1.2 (1.1-1.8); Alkaline Phosphatase 87 U/L (38-126); Anion Gap 11.9 mEq/L (5-15); Aspartate Amino Transferase 35 U/L (14-36); Bilirubin,Total 0.3 mg/dl (0.2-1.3); Blood Urea Nitrogen 6 mg/dl (7-17); Calcium 9.7 mg/dl (8.4-10.2); Carbon Dioxide 28 mmol/L (22.0-30.0); Chloride 101 mmol/L (98-107); Creatinine Clearance Estimated 171 mL/min (50-200); Estimated Glomerular Filt Rate 127 ml/min (>60); GFR (African American) 154 ML/MIN (>60); Globulin 3.5 g/dL (1.3-3.2); Glucose 84 mg/dl (74-100); Potassium 3.9 mmoL/L (3.5-5.1); Sodium 137 mmol/L (136-145); Total Protein,Serum 7.7 g/dl (6.3-8.2)
--- NOTE | 2020-05-27 18:01 | PC.NURSE ---
1800 FHTs audible with doppler at 159.
[2020-05-27 18:12] LABS: Bacteria,Urine 4+ /lpf
[2020-05-27 18:37] VITALS: BP 92/44; PULSE 78; RESP 18; O2SAT 100
[2020-05-27 18:51] VITALS: BP 92/44; PULSE 78; RESP 20; TEMP 37.1; O2SAT 100
== END 2020-05-27 18:55 | disposition home or self-care (01) ==
PROVIDERS: Emergency Provider Emergency Medicine; PCP Obstetrics & Gynecology
DX: O21.9 Vomiting of pregnancy, unspecified (principal); Z3A.11 11 weeks gestation of pregnancy; G43.709 Chronic migraine without aura, not intractable, without status migrainosus
CPT/HCPCS: 80053; 81001; 85025; 87086; 99283

== ENCOUNTER 2020-07-15 18:56 | Emergency (ER) | payer OTHER, SELFPAY ==
[2020-07-15 18:57] VITALS: BP 110/62; PULSE 94; RESP 16; TEMP 36.8; O2SAT 99; BMI 29.3
--- NOTE | 2020-07-15 19:25 | HMH.EDGENADL ---
ED Disposition Condition on Discharge: Good - Critical Care Critical Care Time: No <Mikhail Torres - Last Filed: 07/15/20 20:07> <Bear Marks - Last Filed: 07/15/20 20:34> Clinical Impression: Abdominal pain affecting Disposition: Home, Self-Care Instructions: DI for -- Discomforts and Remedies Additional Instructions: call dr odom for follow up and urine culture results Referrals: PCP,No [Primary Care Provider] - Attestation: On 07/15/20, the high probability of a clinically significant, sudden or life threatening deterioration of the following system(s) required my full and direct attention, intervention and personal management. The time I documented below is in addition to time spent performing reported procedures but includes the following listed in this critical care notation. Medical Decision Making - Medical Records Medical records reviewed: Yes: I reviewed the patient's medical records. MR Comment: Reviewed last OB visit to Dr. Odom on 06/26/2020. - Sarthak Inquiry Pt receiving controlled substance: No - Physician Consults Physician Consulted: Lei Time: 20:08 Reason -: Obstetrical Eval/Care Comment/Response: If labs negative, discharged for follow-up in the office <Mikhail Torres - Last Filed: 07/15/20 20:07> - Lab Data Result diagrams: 07/15/20 19:44 07/15/20 19:44 <Bear Marks - Last Filed: 07/15/20 20:34> Vital Signs: 07/15/20 18:57 Temperature 98.2 F Temperature Source Oral Pulse Rate [Left Radial] 94 H Respiratory Rate 16 Blood Pressure [Right Arm] 110/62 Blood Pressure Mean [Right Arm] 78 Blood Pressure Source [Right Arm] Automatic Cuff Blood Pressure Position [Right Arm] Sitting 02 Sat by Pulse Oximetry 99 Oxygen Delivery Method Room Air - Lab Data Lab Results 07/15/20 19:00: Urine Color Yellow, Urine Appearance Sl cloudy, Urine pH 8.5, Ur Specific [place] 1.020, Urine Protein Negative, Urine Glucose (UA) Negative, Urine Ketones Negative, Urine Blood Negative, Urine Nitrate Negative, Urine Bilirubin Negative, Urine Urobilinogen 0.2, Ur Leukocyte Esterase Trace, Urine WBC 3-5, Ur Squamous Epith Cells 3-5, Amorphous Sediment 2+, Urine Bacteria 3+ 07/15/20 19:44: WBC 11.9, RBC 4.14 L, Hgb 12.5, Hct 36.0 L, MCV 87.0, MCH 30.2, MCHC 34.7, RDW 13.7, Plt Count 275, MPV 8.6, Neut % (Auto) 70.7, Lymph % (Auto) 22.9, [place] % (Auto) 4.7, Eos % (Auto) 1.4, Baso % (Auto) 0.3, Neut # (Auto) 8.4 H, Lymph # (Auto) 2.7, [place] # (Auto) 0.6, Eos # (Auto) 0.2, Baso # (Auto) 0.0 07/15/20 19:44: Sodium 135 L, Potassium 3.6, Chloride 106, Carbon Dioxide 25, Anion Gap 7.6, BUN 5 L, Creatinine 0.60, Estimated Creat Clear 195, Estimated GFR 127, Est GFR ( Amer) 154, Glucose 96, Calcium 8.9, Total Bilirubin 0.2, AST 27, ALT 14, Alkaline Phosphatase 67, Total Protein 6.3, Albumin 3.4 L, Globulin 2.9, Albumin/Globulin Ratio 1.2, Amylase 63, Lipase 110 Orders (Tests/Meds): ORDERS Category Date Time Status Urine Culture Stat Micro 07/15/20 19:00 Received Medical Decision Narrative: 8:00 PM: At shift change, I have discussed the patient with Dr. Marks, who will assume care of the patient at this time. I have discussed all clinical information including history, physical and diagnostic study results. Preliminary diagnoses based on information available at this point have been recorded by me. Controlled substance administration and critical care statement are also preliminary, as of the time of handoff. (Mikhail Torres) General Adult HPI <Mikhail Torres - Last Filed: 07/15/20 20:07> <Bear Marks - Last Filed: 07/15/20 20:34> - General Stated complaint: 19 weeks abdominal pain Time Seen by Provider: 07/15/20 19:25 - History of Present Illness HPI narrative: Prima 19 weeks gestation with last menstrual period of 01/18/2020, her registered medical transcriptionist is Dr. Odom. Now complains of generalized abdominal discomfort all d
--- NOTE | 2020-07-15 19:32 | PC.NURSE ---
heart tones 155bpm at this time.
[2020-07-15 19:40] LABS: Microscopic, Urine URINE MICROSCOPIC (MICROSCOPIC)
[2020-07-15 19:42] LABS: Appearance,Urine SL CLOUDY (Clear); Bilirubin,Urine Negative (Negative); Blood, Urine Negative (Negative); Color,Urine YELLOW (Yellow); Glucose,Urine (UA) Negative (Negative); Ketones,Urine Negative (Negative); Leukocyte Esterase,Urine TRACE (Negative); Nitrate,Urine Negative (Negative); PH,Urine 8.5 (5.0-8.5); Protein,Urine Negative (Negative); Urobilinogen,Urine 0.2 EU/dl (0.2)
[2020-07-15 19:54] LABS: Basophils % 0.3 % (0.1-2.0); Eosinophils # 0.2 K/mm3 (0.0-0.4); Eosinophils % 1.4 % (0.1-12.0); Hemoglobin 12.5 g/dL (12.2-16.2); Lymphocytes # 2.7 K/mm3 (0.7-4.5); Lymphocytes % 22.9 % (10-50); Mean Corpuscular HGB Conc 34.7 g/dL (31.8-35.4); Mean Corpuscular Hemoglobin 30.2 pg (27.0-31.2); Mean Platelet Volume 8.6 fl (7.4-10.4); Monocytes # 0.6 K/mm3 (0.1-1.0); Monocytes % 4.7 % (1.7-9.3); Neutrophils # 8.4 K/mm3 (1.8-7.8); Neutrophils % 70.7 % (37.0-80.0); Platelet Count 275 K/mm3 (142-424); Red Blood Count 4.14 M/mm3 (4.20-5.40); Red Cell Distribution Width 13.7 % (11.5-17.5); White Blood Count 11.9 K/mm3 (4.5-13.0)
[2020-07-15 19:56] LABS: Chloride 106 mmol/L (98-107)
[2020-07-15 19:57] LABS: Potassium 3.6 mmoL/L (3.5-5.1); Sodium 135 mmol/L (136-145)
[2020-07-15 19:59] LABS: Alanine Aminotransferase 14 U/L (12-78); Alkaline Phosphatase 67 U/L (38-126); Amylase 63 U/L (30-110); Anion Gap 7.6 mEq/L (5-15); Aspartate Amino Transferase 27 U/L (14-36); Bilirubin,Total 0.2 mg/dl (0.2-1.3); Blood Urea Nitrogen 5 mg/dl (7-17); Carbon Dioxide 25 mmol/L (22.0-30.0); Creatinine Clearance Estimated 195 mL/min (50-200); Estimated Glomerular Filt Rate 127 ml/min (>60); GFR (African American) 154 ML/MIN (>60)
[2020-07-15 20:00] LABS: Albumin Level 3.4 g/dl (3.5-5.0); Albumin/Globulin Ratio 1.2 (1.1-1.8); Calcium 8.9 mg/dl (8.4-10.2); Globulin 2.9 g/dL (1.3-3.2); Glucose 96 mg/dl (74-100); Lipase 110 U/L (23-300); Total Protein,Serum 6.3 g/dl (6.3-8.2)
--- NOTE | 2020-07-15 20:04 | PC.NURSE ---
speaking to at this time
[2020-07-15 20:18] LABS: Amorphous Sediment,Urine 2+ /lpf; Bacteria,Urine 3+ /lpf
[2020-07-15 20:43] VITALS: BP 102/63; PULSE 74; RESP 14; TEMP 36.6; O2SAT 97
== END 2020-07-15 20:45 | disposition home or self-care (01) ==
PROVIDERS: Emergency Provider Emergency Medicine
DX: O26.892 Other specified pregnancy related conditions, second trimester (principal); R10.84 Generalized abdominal pain; J45.909 Unspecified asthma, uncomplicated; F41.8 Other specified anxiety disorders
CPT/HCPCS: 80053; 81001; 82150; 83690; 85025; 87086; 99282

== ENCOUNTER → 2020-07-25 14:34 | Outpatient (CLI) | payer OTHER, SELFPAY ==
--- NOTE | 2020-07-25 14:35 | US_ITS ---
PROCEDURE: US OB >= 14 WEEKS FETUS CLINICAL INDICATION: US OB Complete COMPARISON: US US OB TRANSVAGINAL from 04/23/2020 FINDINGS: There is a single live fetus which is in cephalic presentation. heart and body motion noted. The placenta is anterior in implantation and grade 1. Cervix is closed and measures 3.4 cm in length. Complete survey performed and was unremarkable on the submitted images as in PACS. No discrete anomalies identified on survey imaging by technologist. Active fetus. Three-vessel cord with satisfactory umbilical cord insertion. 4- chamber heart noted. Survey of brain & ventricles Unremarkable. Face and neck survey unremarkable. Diaphragm and chest views unremarkable. Abdomen: Both kidneys noted and unremarkable. Stomach noted and satisfactory. Spine: Survey of the spine satisfactory with no anomalies identified nor imaged. Both arms and legs noted. Amniotic Fluid: Adequate. Maternal adnexa: No significant findings. Measurements: Average ultrasound age 20weeks 6days. Gestational Age 20weeks 6days Estimated due date by ultrasound age 0412/06/2020. Estimated weight 370g BPD = 20weeks 6days OFD = 21 weeks 6 days HC = 20weeks 5days AC = 20weeks 5days FL = 20weeks 6days Growth Percentile= 35% Heart Rate = 156bpm Cerebellum = 20weeks 6days Humerus = 21weeks 1day HC/AC is 1.19 CI is 0.74 FL/BPD is 0.7 FL/AC is 0.22 IMPRESSION: Live IUP in cephalic presentation at 20 weeks 6 days. No obvious anomalies. Please see above for detail. Dictated by: Bong Norton MD 07/26/2020 06:47 Bong Norton MD in [place] 07/26/2020 06:47
== END ==
PROVIDERS: Visit Provider Obstetrics & Gynecology
DX: Z34.90 Encounter for supervision of normal pregnancy, unspecified, unspecified trimester (principal); Z36.0 Encounter for antenatal screening for chromosomal anomalies
CPT/HCPCS: 76805

== ENCOUNTER → 2020-09-18 09:59 | Outpatient (CLI) | payer OTHER, SELFPAY ==
[2020-09-18 11:01] LABS: Glucose,Fasting 102 mg/dl (74-100)
[2020-09-18 12:13] LABS: Glucose 1 Hour 132 mg/dL (74-100)
== END ==
PROVIDERS: Visit Provider Obstetrics & Gynecology
DX: Z34.90 Encounter for supervision of normal pregnancy, unspecified, unspecified trimester (principal)
CPT/HCPCS: 36415; 82951

== ENCOUNTER 2020-10-07 19:43 | Emergency (ER) | payer OTHER, SELFPAY ==
[2020-10-07 19:44] VITALS: BP 119/71; PULSE 112; RESP 14; TEMP 36.4; O2SAT 99; BMI 33.6
[2020-10-07 20:00] LABS: Microscopic, Urine URINE MICROSCOPIC (MICROSCOPIC)
[2020-10-07 20:05] LABS: Basophils % 0.1 % (0.1-2.0); Eosinophils # 0.1 K/mm3 (0.0-0.4); Eosinophils % 0.6 % (0.1-12.0); Hematocrit 33.9 % (37.0-47.0); Lymphocytes # 2.4 K/mm3 (0.7-4.5); Lymphocytes % 16.9 % (10-50); Mean Corpuscular HGB Conc 32.5 g/dL (31.8-35.4); Mean Corpuscular Hemoglobin 29.3 pg (27.0-31.2); Mean Corpuscular Volume 90.4 fl (81-99); Mean Platelet Volume 10.1 fl (7.4-10.4); Monocytes # 0.8 K/mm3 (0.1-1.0); Monocytes % 5.4 % (1.7-9.3); Neutrophils # 11.2 K/mm3 (1.8-7.8); Neutrophils % 76.9 % (37.0-80.0); Platelet Count 188 K/mm3 (142-424); Red Blood Count 3.75 M/mm3 (4.20-5.40); Red Cell Distribution Width 13.5 % (11.5-17.5); White Blood Count 14.5 K/mm3 (4.5-13.0)
--- NOTE | 2020-10-07 20:06 | XR_ITS ---
PROCEDURE: XR CHEST 2V CLINICAL HISTORY: chest pain COMPARISON: CR CXR CHEST(2 VIEWS-NOT PORTABLE) from 09/23/2014 CR CXR1VP XR chest portable from 11/18/2017 CR XR CHEST 2V from 01/23/2020 FINDINGS: The cardiomediastinal silhouette and pulmonary vascularity are within normal limits. Increased markings are present in the left lung base consistent with left basilar infiltrate. The remaining lungs are clear. No acute bony abnormalities. IMPRESSION: Left lower lobe infiltrate Dictated by: Bong Norton MD 10/08/2020 06:12 Bong Norton MD in [place] 10/08/2020 06:12
[2020-10-07 20:07] LABS: Appearance,Urine CLEAR (Clear); Bilirubin,Urine Negative (Negative); Blood, Urine Negative (Negative); Color,Urine YELLOW (Yellow); Glucose,Urine (UA) Negative (Negative); Ketones,Urine Negative (Negative); Leukocyte Esterase,Urine Negative (Negative); Nitrate,Urine Negative (Negative); PH,Urine 6.5 (5.0-8.5); Protein,Urine Negative (Negative); Specific Gravity, Urine <= 1.005 (1.005-1.030); Urobilinogen,Urine 0.2 EU/dl (0.2)
[2020-10-07 20:08] LABS: Chloride 106 mmol/L (98-107); Sodium 136 mmol/L (136-145)
[2020-10-07 20:09] LABS: Potassium 3.2 mmoL/L (3.5-5.1)
[2020-10-07 20:11] LABS: Blood Urea Nitrogen 2 mg/dl (7-17)
[2020-10-07 20:12] LABS: Anion Gap 8.2 mEq/L (5-15); Calcium 9.4 mg/dl (8.4-10.2); Carbon Dioxide 25 mmol/L (22.0-30.0); Creatinine Clearance Estimated 216 mL/min (50-200); Estimated Glomerular Filt Rate 127 ml/min (>60); GFR (African American) 154 ML/MIN (>60); Glucose 104 mg/dl (74-100)
[2020-10-07 20:17] LABS: C-Reactive Protein 21.6 mg/L (0-4)
--- NOTE | 2020-10-07 20:18 | ECG_ITS ---
APPROVED REPORT Exam: Resting ECG HR:102 bpm ECG Measurements Heart Rate 102 AXES VA 144 P 46 QRSd 82 QRS 76 QT 352 T 31 QTc 458 Conclusion Sinus tachycardia Otherwise normal ECG Electronically signed by : Mauricio Valle, 10/08/2020 17:47:20
--- NOTE | 2020-10-07 20:18 | HMH.EDCP ---
ED Disposition Clinical Impression: Atypical chest pain Qualifiers: Weeks of gestation: 31 weeks Qualified Code(s): Z3A.31 - 31 weeks gestation of Disposition: Home, Self-Care Condition on Discharge: Good Instructions: DI for Atypical Chest Pain Additional Instructions: call pcp and ob in am Referrals: PCP,Aracely [Primary Care Provider] - Kelsey Odom MD [Staff Physician] - - Critical Care Critical Care Time: No Attestation: On 10/07/20, the high probability of a clinically significant, sudden or life threatening deterioration of the following system(s) required my full and direct attention, intervention and personal management. The time I documented below is in addition to time spent performing reported procedures but includes the following listed in this critical care notation. Medical Decision Making - Medical Records Medical records reviewed: Yes: I reviewed the patient's medical records. - Sarthak Inquiry Pt receiving controlled substance: No Vital Signs: 10/07/20 19:44 Temperature 97.6 F Temperature Source Oral Pulse Rate [Right] 112 H Respiratory Rate 14 Blood Pressure [Right Arm] 119/71 Blood Pressure Mean [Right Arm] 87 02 Sat by Pulse Oximetry 99 - Lab Data Lab results reviewed: Yes: I reviewed the patient's lab results. Lab Results 10/07/20 19:55: Urine Color Yellow, Urine Appearance Clear, Urine pH 6.5, Ur Specific [place] <= 1.005, Urine Protein Negative, Urine Glucose (UA) Negative, Urine Ketones Negative, Urine Blood Negative, Urine Nitrate Negative, Urine Bilirubin Negative, Urine Urobilinogen 0.2, Ur Leukocyte Esterase Negative, Urine WBC 3-5, Ur Squamous Epith Cells 3-5, Urine Bacteria 1+ 10/07/20 19:55: WBC 14.5 H, RBC 3.75 L, Hgb 11.0 L, Hct 33.9 L, MCV 90.4, MCH 29.3, MCHC 32.5, RDW 13.5, Plt Count 188, MPV 10.1, Neut % (Auto) 76.9, Lymph % (Auto) 16.9, [place] % (Auto) 5.4, Eos % (Auto) 0.6, Baso % (Auto) 0.1, Neut # (Auto) 11.2 H, Lymph # (Auto) 2.4, [place] # (Auto) 0.8, Eos # (Auto) 0.1, Baso # (Auto) 0.0 10/07/20 19:55: Sodium 136, Potassium 3.2 L, Chloride 106, Carbon Dioxide 25, Anion Gap 8.2, BUN 2 L, Creatinine 0.60, Estimated Creat Clear 216, Estimated GFR 127, Est GFR ( Amer) 154, Glucose 104 H, Calcium 9.4, Troponin I < 0.01, C-Reactive Protein 21.6 H 10/07/20 19:55: ESR 134 H 10/07/20 19:55: Procalcitonin 0.057 Result diagrams: 10/07/20 19:55 10/07/20 19:55 Orders (Tests/Meds): ORDERS Category Date Time Status Chest XR 2 view (NOT portable) [XR chest 2V] Stat Exams 10/07/20 20:06 Taken Troponin I Q3H Lab 10/07/20 23:00 Ordered Troponin I Q3H Lab 10/08/20 02:00 Ordered - Radiology Data #1 Image(s): Chest Image Reviewed: Yes I reviewed the patient's radiology image Preliminary Findings: Normal/NAD - ECG Data Tracing #1 Arrhythmias present: sinus tach Ischemic changes: non-specific ST-T wave changes - Physician Consults Physician Consulted: kanika Reason -: Pt condition Medical Decision Narrative: pt with no evid of cardiac disease Chest Pain HPI - General Chief Complaint: Chest Pain Stated Complaint: CP Time Seen by Provider: 10/07/20 20:00 Mode of Arrival: Ambulatory Source of Information: Patient, Medical Record Limitations: No Limitations Description of Symptoms (Recalled from ER Triage Doc. by RN): pt states been having CP for 2 days at intervals. today @ 6pm CP that midline that doesn't radiate started and hasn't went away/ pain rating 6/10. pt is 31 weeks . - History of Present Illness HPI narrative: over the last 2 days has upper abd pain/lower chest pain with no fever or sig cough and no positional issues - she has no known trauma or recent viral illness and no rash - she is 31 weeks MD complaint: chest pain Onset (ago): day(s) Duration: intermittent Activity at onset: during rest Pain location: epigastric Severity: moderate Quality: sharp - RICH Score for Non-Stemi
[2020-10-07 20:31] LABS: Procalcitonin 0.057 ng/mL (0.0-2.0)
[2020-10-07 20:43] LABS: Troponin I < 0.01 ng/ml (0.00-0.034)
--- NOTE | 2020-10-07 20:44 | PC.NURSE ---
FHT 161
[2020-10-07 20:54] LABS: Erythrocyte Sedimentation Rate 134 mm/hr (0-20)
[2020-10-07 21:19] LABS: Bacteria,Urine 1+ /lpf
--- NOTE | 2020-10-07 21:39 | PC.NURSE ---
Dr pérez spoke with pharmacy and Dr boudreaux for dosing on Pepcid and reglan
[2020-10-07 21:54] VITALS: BP 124/74; PULSE 100; RESP 14; TEMP 36.4; O2SAT 99
== END 2020-10-07 21:56 | disposition home or self-care (01) ==
PROVIDERS: Emergency Provider Emergency Medicine
DX: R07.89 Other chest pain (principal); Z3A.31 31 weeks gestation of pregnancy; F41.8 Other specified anxiety disorders; G43.709 Chronic migraine without aura, not intractable, without status migrainosus; Z79.899 Other long term (current) drug therapy
CPT/HCPCS: 71046; 80048; 81001; 84145; 84484; 85025; 85651; 86140; 93005; 96375; 99283

== ENCOUNTER 2020-10-13 11:27 | Observation (INO) | payer OTHER, SELFPAY ==
--- NOTE | 2020-10-13 10:10 | XR_ITS ---
PROCEDURE: XR CHEST 2V CLINICAL HISTORY: Chest XRay- Shortness of Breath/pain COMPARISON: CR CXR1VP XR chest portable from 11/18/2017 CR XR CHEST 2V from 01/23/2020 CR XR CHEST 2V from 10/07/2020 FINDINGS: The cardiomediastinal silhouette and pulmonary vascularity are within normal limits. There remains patchy infiltrate in the left lower lobe not significantly changed. Increased markings are also present in the right lower lobe suspicious for atelectasis or infiltrate which has developed since the previous exam. IMPRESSION: No change patchy infiltrate left lower lobe with new infiltrate in the right lower lobe medially. Dictated by: Bong Norton MD 10/13/2020 11:09 Bong Norton MD in [place] 10/13/2020 11:09
[2020-10-13 11:48] VITALS: BMI 33.9
[2020-10-13 12:35] VITALS: BP 99/62; PULSE 96; RESP 19; TEMP 37; O2SAT 97; BMI 33.9
[2020-10-13 12:38] LABS: Appearance,Urine CLEAR (Clear); Bilirubin,Urine Negative (Negative); Blood, Urine Negative (Negative); Color,Urine YELLOW (Yellow); Glucose,Urine (UA) Negative (Negative); Ketones,Urine Negative (Negative); Leukocyte Esterase,Urine 3+ (Negative); Nitrate,Urine Negative (Negative); Protein,Urine Negative (Negative); Specific Gravity, Urine 1.015 (1.005-1.030); Urobilinogen,Urine 0.2 EU/dl (0.2)
[2020-10-13 12:39] LABS: Microscopic, Urine URINE MICROSCOPIC (MICROSCOPIC)
[2020-10-13 12:43] LABS: Basophils % 0.2 % (0.1-2.0); Eosinophils # 0.1 K/mm3 (0.0-0.4); Eosinophils % 0.6 % (0.1-12.0); Hematocrit 32.8 % (37.0-47.0); Hemoglobin 11.3 g/dL (12.2-16.2); Lymphocytes # 2.1 K/mm3 (0.7-4.5); Lymphocytes % 16.7 % (10-50); Mean Corpuscular HGB Conc 34.4 g/dL (31.8-35.4); Mean Corpuscular Hemoglobin 29.7 pg (27.0-31.2); Mean Corpuscular Volume 86.6 fl (81-99); Mean Platelet Volume 9.8 fl (7.4-10.4); Monocytes # 0.6 K/mm3 (0.1-1.0); Monocytes % 4.4 % (1.7-9.3); Neutrophils # 9.9 K/mm3 (1.8-7.8); Neutrophils % 78.1 % (37.0-80.0); Platelet Count 187 K/mm3 (142-424); Red Blood Count 3.79 M/mm3 (4.20-5.40); Red Cell Distribution Width 13.5 % (11.5-17.5); White Blood Count 12.6 K/mm3 (4.5-13.0)
[2020-10-13 12:49] LABS: Chloride 108 mmol/L (98-107); Sodium 135 mmol/L (136-145)
[2020-10-13 12:50] LABS: Potassium 3.9 mmoL/L (3.5-5.1)
[2020-10-13 12:50] LABS: Amphetamine/Metha Screen,Urine Negative ng/ml (<1000)
[2020-10-13 12:51] LABS: Barbiturates Screen,Urine Negative ng/ml (<200)
[2020-10-13 12:52] LABS: Benzodiazepines Screen,Urine Negative ng/ml (<200); Cannabinoid Screen,Urine Negative ng/ml (<50)
[2020-10-13 12:52] LABS: Alanine Aminotransferase 11 U/L (12-78); Albumin Level 3.3 g/dl (3.5-5.0); Alkaline Phosphatase 139 U/L (38-126); Aspartate Amino Transferase 26 U/L (14-36); Bilirubin,Total 0.4 mg/dl (0.2-1.3); Blood Urea Nitrogen 3 mg/dl (7-17); Creatinine Clearance Estimated 262 mL/min (50-200); Estimated Glomerular Filt Rate 157 ml/min (>60); GFR (African American) 190 ML/MIN (>60)
[2020-10-13 12:53] LABS: Cocaine Screen,Urine Negative ng/ml (<300); Methadone Screen,Urine Negative ng/ml (<300)
[2020-10-13 12:53] LABS: Anion Gap 5.9 mEq/L (5-15); Calcium 9.2 mg/dl (8.4-10.2); Carbon Dioxide 25 mmol/L (22.0-30.0); Globulin 3.2 g/dL (1.3-3.2); Glucose 103 mg/dl (74-100); Total Protein,Serum 6.5 g/dl (6.3-8.2)
[2020-10-13 12:54] LABS: Opiate Screen,Urine Negative ng/ml (<300)
[2020-10-13 12:55] LABS: Phencyclidine Screen,Urine Negative ng/ml (<25)
[2020-10-13 13:01] LABS: Bacteria,Urine 2+ /lpf
--- NOTE | 2020-10-13 13:11 | HMH.OBAPHP ---
OB - H&P: HPI Antepartum - History of Present Illness Chief complaint: chest pain History of present illness: 20 yo G1 @ 32 09/21 admitted with bilateral lower lobe pneumonia patient was seen in ED 10/07/20 with complaint of chest pain work up included EKG and CXR, which were both read as normal by ED physician and she was discharged home with diagnosis of GERD During follow up appointment in office a few days later, official CXR report indicated LLL pneumonia, which was confirmed by speaking to radiologist she was clinically well at that time, although WBC in ED had been mildly elevated at 14 vital signs were normal, she was afebrile and SaO2 was 100% she was given po zithromax to treat as outpatient she reports increasing symptoms of chest discomfort and was brought into office today for follow up imaging and clinical assessment she denies any fever and doesn't report significant shortness of breath, but mostly complains of pain in chest region in office today pulse 114 and SaO2 97%, with BP 92/64 previous bp readings during this normal but not this low (106-110/68-74) CXR was repeated today and reports new consolidation in RLQ, with minimal change to previous LLL lesion; she is on day 5 of zithromax today status reassuring has otherwise been uncomplicated current medical management for depression with effexor and recent Rx omeprazole for presumed GERD symptoms in ED labs 04/28/20: blood type B positive, antibody negative, Rubella immune, HBsAg negative, HCV negative, HIV negative, RPR negative, GC/CT negative 20 wk ultrasound showed normal anatomy, anterior placenta and 3VC 1 hr GCT: 132 [facility] History I have reviewed the patient's past medical history: Yes Medical History: Reports:: Anxiety, Asthma, Depression, Migraine Denies:: Diabetes Mellitus Type 1, Diabetes Mellitus Type 2, Hyperlipidemia, Hypertension, MRSA *Have you ever received a pneumonia vaccine?: No *Have you received a flu vaccine this season?: No Laterality Cases: Bilateral: Tonsillectomy Other Surgeries: No: Amputation: No Fractures: No - *Social History Smoking Status: Never smoker Alcohol Intake: never Substance Use Type: denies use *Occupational Status:: employed Housing: house Household Members: family *Travel in the last 8 weeks: None - Psychiatric History Pschychiatric History:: Reports:: Anxiety, Depression Family Hx:: Diabetes, Cancer Para: 0 Review of Systems - Review of Systems Review of systems:: pertinent systems reviewed and negative unless documented below - Constitutional Denies chills, Denies fever(s) - *Cardiovascular Reports chest pain - *Respiratory Reports chest congestion, Reports shortness of breath - *Genitourinary Denies abnormal vaginal bleeding - Integumentary/Breasts Denies rash - Psychiatric Reports anxiety, Reports depression Meds Home Medications Medication Instructions Recorded Confirmed Type buspirone 7.5 mg tablet 7.5 mg PO ONCE tab 05/02/20 10/13/20 History cetirizine 10 mg capsule 10 mg PO DAILY 05/02/20 10/13/20 History vcibmarjot-ugdfbxfbubysn-pqwjnnzo 1 cap PO Q8H PRN #20 cap 05/20/20 10/13/20 Rx 50 mg-300 mg-40 mg capsule magnesium hydroxide 400 mg (170 mg 400 mg PO DAILY tab 06/03/20 10/13/20 History magnesium) chewable tablet ondansetron 4 mg disintegrating 4 mg PO Q4H PRN #30 tab 06/13/20 10/13/20 Rx tablet albuterol sulfate 90 mcg/actuation 2 puff INHALATION Q4-6H PRN #6.7 g 10/09/20 10/13/20 Rx aerosol inhaler Azithromycin See Rx Instructions PO .COMPLEX 10/13/20 10/13/20 History Labetalol HCl 50 mg PO BID 10/13/20 10/13/20 History Metoclopramide HCl [Metoclopramide 5 mg PO ONCE MDD 5 mg 10/13/20 10/13/20 History 5mg Tab] Omeprazole 20 mg PO DAILY 10/13/20 10/13/20 History Vit Calc,Iron,Folic [Kpn] 1 tab PO DAILY 10/13/20 10/13/20 History Venlafaxine HCl [Effexor Xr] 75 mg PO DAILY 10/13/20 10/13/20 History Allergies
[2020-10-13 16:19] VITALS: BP 98/56; PULSE 89; RESP 18; TEMP 37; O2SAT 99
--- NOTE | 2020-10-13 16:44 | HMH.HP ---
*Admission Date: 10/13/20 *Chief complaint: cough *History of present illness: Ms. Resendiz is a 20-year-old G1, P0 female who presented to clinic today for follow-up after recent visit to the ER. Was diagnosed with pneumonia based on chest tightness and imaging. Treated as an outpatient with azithromycin. On follow-up today, still has some mild chest tightness across her lower anterior thorax. Denies significant cough, shortness of breath, productive of sputum. Afebrile. Repeat imaging showed questionable progression with bilateral airspace disease. Patient was admitted for concern for pneumonia complicating her . Labs on admission with normal white cell count. Patient is stable on room air. Blood pressure little soft for her but no changes in mentation, dizziness, fatigue, palpitations. Medicine was consulted to assist with management of her pneumonia by [employer]. We appreciate their consult. Of note, patient is on medications at home consisting of an albuterol inhaler (history of asthma), BuSpar for anxiety, Zyrtec for allergies, magnesium, vitamins, omeprazole, and Effexor for migraine prophylaxis and mood. [facility] History I have reviewed the patient's past medical history: Yes Medical History: Reports:: Anxiety, Asthma, Depression, Migraine Denies:: Diabetes Mellitus Type 1, Diabetes Mellitus Type 2, Hyperlipidemia, Hypertension, MRSA *Have you ever received a pneumonia vaccine?: No *Have you received a flu vaccine this season?: No Laterality Cases: Bilateral: Tonsillectomy Other Surgeries: No: Amputation: No Fractures: No - *Social History Smoking Status: Never smoker Alcohol Intake: never Substance Use Type: denies use *Occupational Status:: employed Housing: house Household Members: family *Travel in the last 8 weeks: None - Psychiatric History Pschychiatric History:: Reports:: Anxiety, Depression Family Hx:: Diabetes, Cancer Para: 0 Review of Systems - Review of Systems Review of systems:: pertinent systems reviewed and negative unless documented below (14 point review of systems performed, pertinent positives and negatives as per HPI) Meds Home Medications Medication Instructions Recorded Confirmed Type buspirone 7.5 mg tablet 7.5 mg PO ONCE tab 05/02/20 10/13/20 History cetirizine 10 mg capsule 10 mg PO DAILY 05/02/20 10/13/20 History obfcdpgeyu-krfmjrpfkavue-fjcxlvig 1 cap PO Q8H PRN #20 cap 05/20/20 10/13/20 Rx 50 mg-300 mg-40 mg capsule magnesium hydroxide 400 mg (170 mg 400 mg PO DAILY tab 06/03/20 10/13/20 History magnesium) chewable tablet ondansetron 4 mg disintegrating 4 mg PO Q4H PRN #30 tab 06/13/20 10/13/20 Rx tablet albuterol sulfate 90 mcg/actuation 2 puff INHALATION Q4-6H PRN #6.7 g 10/09/20 10/13/20 Rx aerosol inhaler Azithromycin See Rx Instructions PO .COMPLEX 10/13/20 10/13/20 History Labetalol HCl 50 mg PO BID 10/13/20 10/13/20 History Metoclopramide HCl [Metoclopramide 5 mg PO ONCE MDD 5 mg 10/13/20 10/13/20 History 5mg Tab] Omeprazole 20 mg PO DAILY 10/13/20 10/13/20 History Vit Calc,Iron,Folic [Kpn] 1 tab PO DAILY 10/13/20 10/13/20 History Venlafaxine HCl [Effexor Xr] 75 mg PO DAILY 10/13/20 10/13/20 History Allergies Allergy/AdvReac Type Severity Reaction Status Date / Time povidone-iodine Allergy Severe anaphylaxis Verified 10/13/20 10:53 [From Betadine] soap [From Betadine] Allergy Severe anaphylaxis Verified 10/13/20 10:53 shellfish derived Allergy Swelling Verified 10/13/20 14:08 of Lip/Tongue/Throat soy AdvReac Intermediate Vomiting Verified 10/13/20 10:53 Exam Vital signs and Labs for Last 24 Hours: Temp Pulse Resp BP Pulse Ox 98.6 F 89 18 98/56 L 99 10/13/20 16:19 10/13/20 16:19 10/13/20 16:19 10/13/20 16:19 10/13/20 16:19 Laboratory Results - last 24 hr 10/13/20 11:45: Urine Color Yellow, Urine Appearance Clear, Urine pH 7.0, Ur Specific [place] 1.015, Urine Protein Negative, Ur
[2020-10-13 19:34] VITALS: BP 109/65; PULSE 106; RESP 18; TEMP 36.8; O2SAT 100
[2020-10-13 23:20] VITALS: BP 89/52; PULSE 90; RESP 18; TEMP 36.4; O2SAT 98
[2020-10-14 05:13] VITALS: BP 95/50; PULSE 89; RESP 18; TEMP 36.6; O2SAT 99
[2020-10-14 08:00] VITALS: BP 102/67; PULSE 89; RESP 18; TEMP 36.7; O2SAT 100
--- NOTE | 2020-10-14 09:04 | HMH.ACPN2 ---
Internal Medicine - PN: Subj *Date: 10/14/20 *Time: 09:04 Interval history: 20-year-old G1, P0 female who remained hemodynamically stable overnight. Afebrile. Tolerating good p.o. intake. Stable oxygen saturations on room air. No cough. No acute events. Denies any chest pain, fever, shortness of breath, nausea or vomiting this morning Exam Vital signs and Labs for Last 24 Hours: Temp Pulse Resp BP Pulse Ox 98.0 F 89 18 102/67 L 100 10/14/20 08:00 10/14/20 08:00 10/14/20 08:00 10/14/20 08:00 10/14/20 08:00 Laboratory Results - last 24 hr 10/13/20 11:45: Urine Color Yellow, Urine Appearance Clear, Urine pH 7.0, Ur Specific [place] 1.015, Urine Protein Negative, Urine Glucose (UA) Negative, Urine Ketones Negative, Urine Blood Negative, Urine Nitrate Negative, Urine Bilirubin Negative, Urine Urobilinogen 0.2, Ur Leukocyte Esterase 3+ A, Urine RBC 5-10, Urine WBC 10-20, Ur Squamous Epith Cells 5-10, Urine Bacteria 2+ 10/13/20 11:45: Urine Opiates Screen Negative, Urine Methadone Screen Negative, Ur Barbituates Screen Negative, Ur Phencyclidine Scrn Negative, Ur Amphetamines Screen Negative, U Benzodiazepines Scrn Negative, Urine Cocaine Screen Negative, U Marijuana (THC) Screen Negative 10/13/20 12:15: WBC 12.6, RBC 3.79 L, Hgb 11.3 L, Hct 32.8 L, MCV 86.6, MCH 29.7, MCHC 34.4, RDW 13.5, Plt Count 187, MPV 9.8, Neut % (Auto) 78.1, Lymph % (Auto) 16.7, [place] % (Auto) 4.4, Eos % (Auto) 0.6, Baso % (Auto) 0.2, Neut # (Auto) 9.9 H, Lymph # (Auto) 2.1, [place] # (Auto) 0.6, Eos # (Auto) 0.1, Baso # (Auto) 0.0 10/13/20 12:15: Sodium 135 L, Potassium 3.9, Chloride 108 H, Carbon Dioxide 25, Anion Gap 5.9, BUN 3 L, Creatinine 0.50 L, Estimated Creat Clear 262, Estimated GFR 157, Est GFR ( Amer) 190, Glucose 103 H, Calcium 9.2, Total Bilirubin 0.4, AST 26, ALT 11 L, Alkaline Phosphatase 139 H, Total Protein 6.5, Albumin 3.3 L, Globulin 3.2, Albumin/Globulin Ratio 1.0 L I & O for Last 24 hours: Intake & Output 10/11/20 10/12/20 10/13/20 10/14/20 23:59 23:59 23:59 23:59 Weight 92.533 kg Microbiology Reports for the Last 24 Hours: Microbiology 10/13/20 11:50 Nasopharyngeal Coronavirus COVID-19 PCR - Final Narrative: - Constitutional no acute distress - *Routine HEENT Exam Head: Present: normocephalic Eye: Present: EOMI, PERRL ENT: Present: mucous membranes moist - *Routine Neck Exam Present: supple. Absent: lymphadenopathy - *Routine Respiratory Exam Present: CTA bilaterally. Absent: rhonchi, wheezes, crackles - *Routine Cardiovascular Exam Present: RRR - *Routine Abdominal Exam Present: normoactive bowel sounds, tenderness Comments: Gravid abdomen - *Routine Extremities Exam Present: edema (trace BLE). Absent: cyanosis, clubbing - *Routine Skin Exam Present: warm. Absent: rash - *Routine Neurological Exam Present: alert, oriented X3 Assessment and Plan (1) 32 weeks gestation of Status: Acute Category: Medical Code(s): Z3A.32 - 32 weeks gestation of (2) Pneumonia affecting Problem details: LLL Status: Acute Category: Medical Code(s): O99.519 - Diseases of the respiratory system complicating , unspecified trimester; J18.9 - Pneumonia, unspecified organism (3) UTI in Status: Acute Category: Medical Code(s): O23.40 - Unspecified infection of urinary tract in , unspecified trimester (4) Anxiety and depression Status: Acute Category: Medical Code(s): F41.9 - Anxiety disorder, unspecified; F32.9 - Major depressive disorder, single episode, unspecified - Assessment and plan all Dx Assessment and Plan for all problems:: 20-year-old G1, P0 female admitted for concern for failure of outpatient therapy for pneumonia. Exam benign. Has remained afebrile without an oxygen requirement during admission. Switched antibiotics to ceftriaxone for an additional dose today as this will provide c
--- NOTE | 2020-10-14 09:13 | HMH.ACPN2 ---
Internal Medicine - PN: Subj *Date: 10/14/20 *Time: 09:13 Interval history: HD #2 32 10/19 admitted with unresolved LLQ pneumonia and new onset RLQ pneumonia clinically, she has been well, with stable vital signs and no O2 requirement chest pain is improved and she denies this symptom today WBC had actually decreased from 14 in ED to 12 at admission yesterday No new complaints Reassuring status on NST Exam Vital signs and Labs for Last 24 Hours: Temp Pulse Resp BP Pulse Ox 98.0 F 89 18 102/67 L 100 10/14/20 08:00 10/14/20 08:00 10/14/20 08:00 10/14/20 08:00 10/14/20 08:00 Laboratory Results - last 24 hr 10/13/20 11:45: Urine Color Yellow, Urine Appearance Clear, Urine pH 7.0, Ur Specific [place] 1.015, Urine Protein Negative, Urine Glucose (UA) Negative, Urine Ketones Negative, Urine Blood Negative, Urine Nitrate Negative, Urine Bilirubin Negative, Urine Urobilinogen 0.2, Ur Leukocyte Esterase 3+ A, Urine RBC 5-10, Urine WBC 10-20, Ur Squamous Epith Cells 5-10, Urine Bacteria 2+ 10/13/20 11:45: Urine Opiates Screen Negative, Urine Methadone Screen Negative, Ur Barbituates Screen Negative, Ur Phencyclidine Scrn Negative, Ur Amphetamines Screen Negative, U Benzodiazepines Scrn Negative, Urine Cocaine Screen Negative, U Marijuana (THC) Screen Negative 10/13/20 12:15: WBC 12.6, RBC 3.79 L, Hgb 11.3 L, Hct 32.8 L, MCV 86.6, MCH 29.7, MCHC 34.4, RDW 13.5, Plt Count 187, MPV 9.8, Neut % (Auto) 78.1, Lymph % (Auto) 16.7, [place] % (Auto) 4.4, Eos % (Auto) 0.6, Baso % (Auto) 0.2, Neut # (Auto) 9.9 H, Lymph # (Auto) 2.1, [place] # (Auto) 0.6, Eos # (Auto) 0.1, Baso # (Auto) 0.0 10/13/20 12:15: Sodium 135 L, Potassium 3.9, Chloride 108 H, Carbon Dioxide 25, Anion Gap 5.9, BUN 3 L, Creatinine 0.50 L, Estimated Creat Clear 262, Estimated GFR 157, Est GFR ( Amer) 190, Glucose 103 H, Calcium 9.2, Total Bilirubin 0.4, AST 26, ALT 11 L, Alkaline Phosphatase 139 H, Total Protein 6.5, Albumin 3.3 L, Globulin 3.2, Albumin/Globulin Ratio 1.0 L I & O for Last 24 hours: Intake & Output 10/11/20 10/12/20 10/13/20 10/14/20 11:59 11:59 11:59 11:59 Weight 204 lb 204 lb Microbiology Reports for the Last 24 Hours: Microbiology 10/13/20 11:50 Nasopharyngeal Coronavirus COVID-19 PCR - Final Narrative: CONSTITUTIONAL: no acute distress HEENT: mucous membranes moist PULMONARY: breathing unlabored without rales, ronchi or wheezes CV: no tachycardia or visible JVD; normal LE peripheral pulses ABD: soft, NT/ND, no guarding : fundal height approppriate 32cm SKIN: no visible rash or lesions EXT: no edema LEs NEURO: alert/oriented, no altered mental status PSYCH: appropriate mood and demeanor without visible anxiety/depression Assessment and Plan (1) 32 weeks gestation of Status: Acute Category: Medical Code(s): Z3A.32 - 32 weeks gestation of (2) Pneumonia affecting Problem details: LLL Status: Acute Category: Medical Code(s): O99.519 - Diseases of the respiratory system complicating , unspecified trimester; J18.9 - Pneumonia, unspecified organism (3) UTI in Status: Acute Category: Medical Code(s): O23.40 - Unspecified infection of urinary tract in , unspecified trimester (4) Anxiety and depression Status: Acute Category: Medical Code(s): F41.9 - Anxiety disorder, unspecified; F32.9 - Major depressive disorder, single episode, unspecified - Assessment and plan all Dx Assessment and Plan for all problems:: Antibiotic coverage changed from levaquin to ceftriaxone, to accomodate urinary coverage in addition to pulmonary Second dose will be today at 1300 Per medicine consult, reasonable for discharge home later today, with 5 days po omnicef will reassess for possible discharge later this afternoon
--- NOTE | 2020-10-14 10:55 | P.CONPHA_ITS ---
[facility] Pharmacy VTE Monitoring - Patient Demographics Admission date: 10/13/20 Report Date: 10/14/20 Time: 10:55 Allergies/Adverse Reactions: Patient Allergies povidone-iodine [From Betadine] Allergy (Severe, Verified 10/13/20 10:53) anaphylaxis soap [From Betadine] Allergy (Severe, Verified 10/13/20 10:53) anaphylaxis shellfish derived Allergy (Verified 10/13/20 14:08) Swelling of Lip/Tongue/Throat soy Adverse Reaction (Intermediate, Verified 10/13/20 10:53) Vomiting Height: 1.65 m Weight: 92.533 kg Patient Problems: Current Active Problems UTI in (Acute) 32 weeks gestation of (Acute) Pneumonia affecting (Acute) Anxiety and depression (Acute) - VTE Risk Labs: VTE Related Lab Results Hgb 11.3 g/dL (12.2-16.2) L 10/13/20 12:15 Hct 32.8 % (37.0-47.0) L 10/13/20 12:15 Plt Count 187 K/mm3 (142-424) 10/13/20 12:15 BUN 3 mg/dl (7-17) L 10/13/20 12:15 Creatinine 0.50 mg/dl (0.52-1.04) L 10/13/20 12:15 Estimated Creat Clear 262 mL/min (50-200) 10/13/20 12:15 - Prophylaxis VTE Prophylaxis Ordered?: Yes Types of VTE Prophylaxis: TEDS Knee High Location of Applied Device: Bilateral Lower Extremeties
--- NOTE | 2020-10-14 11:36 | HMH.PHAINT ---
MEDICATION RECONCILIATION COMPLETED ON PATIENT USING EXTERNAL FILL HISTORY FROM PHARMACY. -LAURYN RIGGS, WESLEYD
[2020-10-14 12:00] VITALS: BP 109/67; PULSE 96; RESP 18; TEMP 36.7; O2SAT 99
--- NOTE | 2020-10-14 16:20 | HMH.DCSUM ---
General - General Admission date:: 10/13/20 Discharge date: 10/14/20 HPI HPI: Ms. Resendiz is a 20-year-old G1, P0 female who presented to clinic today for follow-up after recent visit to the ER. Was diagnosed with pneumonia based on chest tightness and imaging. Treated as an outpatient with azithromycin. On follow-up today, still has some mild chest tightness across her lower anterior thorax. Denies significant cough, shortness of breath, productive of sputum. Afebrile. Repeat imaging showed questionable progression with bilateral airspace disease. Patient was admitted for concern for pneumonia complicating her . Labs on admission with normal white cell count. Patient is stable on room air. Blood pressure little soft for her but no changes in mentation, dizziness, fatigue, palpitations. Medicine was consulted to assist with management of her pneumonia by TRAINING DESIGNER. We appreciate their consult. Of note, patient is on medications at home consisting of an albuterol inhaler (history of asthma), BuSpar for anxiety, Zyrtec for allergies, magnesium, vitamins, omeprazole, and Effexor for migraine prophylaxis and mood. Hospital Course Hospital Course: Admitted at 32 2/7 with bilateral lower lobe pneumonia started on IV levaquin but converted to rocephin for better urinary coverage vital signs have remained stable since admission and labs normal no oxygen requirement since admission inpatient medicine consult obtained and assessment is that she is stable for discharge home on po antibiotics on HD #2 status reassuring with reactive NST Rhogam Administration: Not Indicated Objective Vital signs: Temp Pulse Resp BP Pulse Ox 98.0 F 96 H 18 109/67 L 99 10/14/20 12:00 10/14/20 12:00 10/14/20 12:00 10/14/20 12:00 10/14/20 12:00 Narrative: CONSTITUTIONAL: no acute distress HEENT: mucous membranes moist PULMONARY: breathing unlabored without rales, ronchi or wheezes CV: no tachycardia or visible JVD; normal LE peripheral pulses ABD: soft, NT/ND, no guarding SKIN: no visible rash or lesions EXT: no edema LEs NEURO: alert/oriented, no altered mental status PSYCH: appropriate mood and demeanor without visible anxiety/depression Results Labs on day of discharge: Preliminary micro results at discharge 10/13/20 11:45 Urine Culture - Preliminary Urine,Clean Catch DS: Diagnosis - Discharge Diagnosis (1) 32 weeks gestation of Status: Acute (2) Pneumonia affecting Status: Acute Problem details: LLL (3) UTI in Status: Acute (4) Anxiety and depression Status: Acute Discharge Plan - Patient Discharge Instructions ACTIVITY: Continue current activity DIET: regular diet - Follow up Plan Disposition: Home, Self-Snf Medications: Home Medications Medication Instructions Recorded Confirmed Type buspirone 7.5 mg tablet 7.5 mg PO TID tab 05/02/20 10/14/20 History cetirizine 10 mg capsule 10 mg PO DAILY 05/02/20 10/13/20 History nalzqpypwv-ihtbmnshowluj-nqrdvmro 1 cap PO Q8H PRN #20 cap 05/20/20 10/13/20 Rx 50 mg-300 mg-40 mg capsule magnesium hydroxide 400 mg (170 mg 400 mg PO DAILY tab 06/03/20 10/13/20 History magnesium) chewable tablet ondansetron 4 mg disintegrating 4 mg PO Q4H PRN #30 tab 06/13/20 10/13/20 Rx tablet Azithromycin See Rx Instructions PO .COMPLEX 10/13/20 10/13/20 History Labetalol HCl 50 mg PO BID 10/13/20 10/13/20 History Metoclopramide HCl [Metoclopramide 5 mg PO DAILYP PRN 10/13/20 10/14/20 History 5mg Tab] Omeprazole 20 mg PO DAILY 10/13/20 10/13/20 History Vit Calc,Iron,Folic [Kpn] 1 tab PO DAILY 10/13/20 10/13/20 History Venlafaxine HCl [Effexor Xr] 75 mg PO DAILY 10/13/20 10/13/20 History Albuterol Sulfate [Proventil Hfa] 2 puff IH Q4-6H PRN 10/14/20 10/14/20 History Cefdinir [Omnicef 300mg Capsule] 300 mg PO BID 5 Days #10 cap 10/14/20 Rx Presc
== END 2020-10-14 16:56 | disposition home or self-care (01) ==
LOC: OB 11:27
PROVIDERS: Admitting Provider Obstetrics & Gynecology; Visit Provider Obstetrics & Gynecology
DX: O99.513 Diseases of the respiratory system complicating pregnancy, third trimester (principal); O23.43 Unspecified infection of urinary tract in pregnancy, third trimester; Z3A.32 32 weeks gestation of pregnancy; J18.9 Pneumonia, unspecified organism
CPT/HCPCS: 59025; 71046; 80053; 80305; 81001; 85025; 87040; 87086; G0378; J1956; J2405; U0003

== ENCOUNTER 2020-10-20 17:04 | Outpatient (CLI) | payer OTHER, SELFPAY ==
[2020-10-20 17:35] VITALS: BMI 33.9
[2020-10-20 18:01] LABS: Microscopic, Urine URINE MICROSCOPIC (MICROSCOPIC)
[2020-10-20 18:09] VITALS: BP 111/69; PULSE 106; RESP 16; TEMP 36.7; O2SAT 97; BMI 33.9
[2020-10-20 18:19] LABS: Appearance,Urine CLEAR (Clear); Bilirubin,Urine Negative (Negative); Blood, Urine Negative (Negative); Color,Urine YELLOW (Yellow); Glucose,Urine (UA) Negative (Negative); Ketones,Urine Negative (Negative); Leukocyte Esterase,Urine Negative (Negative); Nitrate,Urine Negative (Negative); Protein,Urine Negative (Negative); Specific Gravity, Urine 1.015 (1.005-1.030); Urobilinogen,Urine 0.2 EU/dl (0.2)
[2020-10-20 18:25] LABS: WBC,Urine Occasional #/hpf (0-3)
[2020-10-20 18:31] LABS: Amphetamine/Metha Screen,Urine Negative ng/ml (<1000)
[2020-10-20 18:32] LABS: Barbiturates Screen,Urine Negative ng/ml (<200); Benzodiazepines Screen,Urine Negative ng/ml (<200)
[2020-10-20 18:33] LABS: Cannabinoid Screen,Urine Negative ng/ml (<50); Cocaine Screen,Urine Negative ng/ml (<300)
[2020-10-20 18:34] LABS: Methadone Screen,Urine Negative ng/ml (<300)
[2020-10-20 18:35] LABS: Opiate Screen,Urine Negative ng/ml (<300)
[2020-10-20 18:36] LABS: Phencyclidine Screen,Urine Negative ng/ml (<25)
--- NOTE | 2020-10-20 19:26 | HMH.ACPN2 ---
Internal Medicine - PN: Subj *Date: 10/20/20 *Time: 19:26 Interval history: She is a 20-year-old 1 para 0 at 33 weeks gestational age. She was feeling contractions and came into labor and delivery. Urinalysis was negative for UTI. Examination revealed that her cervix was long and closed. She was having a few contractions on the monitor. Exam Vital signs and Labs for Last 24 Hours: Temp Pulse Resp BP Pulse Ox 98.1 F 106 H 16 111/69 97 10/20/20 18:09 10/20/20 18:09 10/20/20 18:09 10/20/20 18:09 10/20/20 18:09 Laboratory Results - last 24 hr 10/20/20 17:36: Urine Color Yellow, Urine Appearance Clear, Urine pH 7.0, Ur Specific [place] 1.015, Urine Protein Negative, Urine Glucose (UA) Negative, Urine Ketones Negative, Urine Blood Negative, Urine Nitrate Negative, Urine Bilirubin Negative, Urine Urobilinogen 0.2, Ur Leukocyte Esterase Negative, Urine RBC None, Urine WBC Occasional, Ur Squamous Epith Cells 3-5, Urine Bacteria None 10/20/20 17:36: Urine Opiates Screen Negative, Urine Methadone Screen Negative, Ur Barbituates Screen Negative, Ur Phencyclidine Scrn Negative, Ur Amphetamines Screen Negative, U Benzodiazepines Scrn Negative, Urine Cocaine Screen Negative, U Marijuana (THC) Screen Negative I & O for Last 24 hours: Intake & Output 10/18/20 10/19/20 10/20/20 10/21/20 11:59 11:59 11:59 11:59 Weight 204 lb - Constitutional no acute distress - *Routine HEENT Exam Head: Present: normocephalic Eye: Present: EOMI, PERRL ENT: Present: mucous membranes moist Assessment and Plan (1) False labor before 37 completed weeks of gestation during in second trimester, antepartum Status: Acute Category: Medical Code(s): O47.02 - False labor before 37 completed weeks of gestation, second trimester - Assessment and plan all Dx Assessment and Plan for all problems:: She was having a few contractions and received IV fluids. This settled her contractions. Her cervix has not changed. Given the fact that she was having contractions and she has before 36 weeks we elected to give her steroids. She will return for second dose tomorrow. She will continue on bedrest and will drink plenty of fluids. She has an appoint with Dr. Odom in 48 hours.
== END 2020-10-20 19:10 | disposition home or self-care (01) ==
LOC: OBOUT 17:07 → OB 17:14
PROVIDERS: PCP Nurse Practitioner Obstetrics & Gynecology; Visit Provider Obstetrics & Gynecology
DX: O47.03 False labor before 37 completed weeks of gestation, third trimester (principal); Z3A.33 33 weeks gestation of pregnancy
CPT/HCPCS: 59025; 80305; 81001; 96365; 96372; G0463

== ENCOUNTER 2020-10-21 17:02 | Outpatient (CLI) | payer OTHER, SELFPAY ==
[2020-10-21 17:10] VITALS: BP 119/68; PULSE 102; RESP 20; TEMP 36.5; O2SAT 99; BMI 36.1
== END 2020-10-21 17:28 | disposition home or self-care (01) ==
LOC: OBOUT 17:04 → OB 17:17
PROVIDERS: PCP Obstetrics & Gynecology; Visit Provider Obstetrics & Gynecology
DX: O47.03 False labor before 37 completed weeks of gestation, third trimester (principal); Z3A.33 33 weeks gestation of pregnancy
CPT/HCPCS: 96372; G0463

== ENCOUNTER 2020-10-27 17:44 | Outpatient (CLI) | payer OTHER, SELFPAY ==
[2020-10-27 18:21] VITALS: BP 110/62; PULSE 105; RESP 18; TEMP 36.9; O2SAT 96; BMI 35.1
[2020-10-27 18:54] LABS: Microscopic, Urine URINE MICROSCOPIC (MICROSCOPIC)
[2020-10-27 18:54] LABS: Basophils % 0.2 % (0.1-2.0); Eosinophils # 0.1 K/mm3 (0.0-0.4); Eosinophils % 0.9 % (0.1-12.0); Hematocrit 31.3 % (37.0-47.0); Hemoglobin 10.4 g/dL (12.2-16.2); Lymphocytes % 19.8 % (10-50); Mean Corpuscular HGB Conc 33.3 g/dL (31.8-35.4); Mean Corpuscular Hemoglobin 28.5 pg (27.0-31.2); Mean Corpuscular Volume 85.6 fl (81-99); Mean Platelet Volume 10.5 fl (7.4-10.4); Monocytes # 0.8 K/mm3 (0.1-1.0); Monocytes % 5.5 % (1.7-9.3); Neutrophils % 73.6 % (37.0-80.0); Platelet Count 189 K/mm3 (142-424); Red Blood Count 3.65 M/mm3 (4.20-5.40); Red Cell Distribution Width 13.3 % (11.5-17.5)
[2020-10-27 18:56] LABS: MANUAL DIFFERENTIAL MANUAL DIFFERENTIAL (MANUAL DIFF)
[2020-10-27 18:57] LABS: Chloride 105 mmol/L (98-107); Potassium 3.7 mmoL/L (3.5-5.1); Sodium 134 mmol/L (136-145)
[2020-10-27 19:00] LABS: Alanine Aminotransferase 14 U/L (12-78); Albumin Level 3.1 g/dl (3.5-5.0); Alkaline Phosphatase 160 U/L (38-126); Anion Gap 6.7 mEq/L (5-15); Aspartate Amino Transferase 28 U/L (14-36); Bilirubin,Total 0.4 mg/dl (0.2-1.3); Blood Urea Nitrogen 3 mg/dl (7-17); Carbon Dioxide 26 mmol/L (22.0-30.0); Creatinine Clearance Estimated 271 mL/min (50-200); Estimated Glomerular Filt Rate 157 ml/min (>60); GFR (African American) 190 ML/MIN (>60); Total Protein,Serum 6.1 g/dl (6.3-8.2)
[2020-10-27 19:01] LABS: Glucose 92 mg/dl (74-100)
[2020-10-27 19:05] LABS: Appearance,Urine CLEAR (Clear); Bilirubin,Urine Negative (Negative); Blood, Urine Negative (Negative); Color,Urine YELLOW (Yellow); Glucose,Urine (UA) Negative (Negative); Ketones,Urine Negative (Negative); Leukocyte Esterase,Urine TRACE (Negative); Nitrate,Urine Negative (Negative); PH,Urine 7.5 (5.0-8.5); Protein,Urine Negative (Negative); Urobilinogen,Urine 0.2 EU/dl (0.2)
[2020-10-27 19:17] LABS: Amphetamine/Metha Screen,Urine Negative ng/ml (<1000); Barbiturates Screen,Urine Positive ng/ml (<200)
[2020-10-27 19:18] LABS: Benzodiazepines Screen,Urine Negative ng/ml (<200)
[2020-10-27 19:19] LABS: Cannabinoid Screen,Urine Negative ng/ml (<50); Cocaine Screen,Urine Negative ng/ml (<300)
[2020-10-27 19:20] LABS: Methadone Screen,Urine Negative ng/ml (<300)
[2020-10-27 19:21] LABS: Opiate Screen,Urine Negative ng/ml (<300); Phencyclidine Screen,Urine Negative ng/ml (<25)
[2020-10-27 19:53] LABS: Eosinophils % 3 % (0-3); Lymphocytes % 12 % (10-50); Monocytes % 8 % (2-9); Neutrophils % 77 % (42-76); Platelet Estimate Normal; RBC Morphology Normal; Total Cells Counted 100
[2020-10-27 20:04] LABS: Bacteria,Urine 2+ /lpf
== END 2020-10-27 20:00 | disposition home or self-care (01) ==
LOC: OBOUT 17:45 → OB 17:47
PROVIDERS: Visit Provider Obstetrics & Gynecology
DX: O47.03 False labor before 37 completed weeks of gestation, third trimester (principal); Z3A.34 34 weeks gestation of pregnancy
CPT/HCPCS: 36415; 59025; 80053; 80305; 81001; 85007; 85025; 87086; 96365; G0463

== ENCOUNTER → 2020-10-29 09:16 | Outpatient (CLI) | payer OTHER, SELFPAY ==
--- NOTE | 2020-10-29 09:20 | US_ITS ---
PROCEDURE: US OB BIOPHYSICAL PROFILE CLINICAL INDICATION: tachcardia TECHNIQUE: FINDINGS: There is a single live fetus present which is in cephalic presentation. heart and body motion is noted. Heart rate is 152 BPM. Placenta is anterior in implantation and grade 2. The cervix is closed and measures 5 cm. Amniotic fluid index: 11.52cm Qualitative AFV: 2 breathing movements: 2 Gross body movements: 2 Tone: 2 Biophysical profile score: 8 IMPRESSION: Live IUP in cephalic presentation. TERENCE is 12 cm. Biophysical profile 8 of 8 Dictated by: Bong Norton MD 10/29/2020 18:38 Bong Norton MD in [place] 10/29/2020 18:38
== END ==
PROVIDERS: Visit Provider Obstetrics & Gynecology
DX: O36.8390 Maternal care for abnormalities of the fetal heart rate or rhythm, unspecified trimester, not applicable or unspecified (principal)
CPT/HCPCS: 76819

== ENCOUNTER → 2020-11-03 10:05 | Outpatient (CLI) | payer OTHER, SELFPAY ==
--- NOTE | 2020-11-03 10:05 | US_ITS ---
PROCEDURE: US OB BIOPHYSICAL PROFILE CLINICAL INDICATION: BPP Growth Evaluate growth TECHNIQUE: FINDINGS: There is a single live fetus present which is in cephalic presentation. The cervix is closed and measures 3 cm. The placenta is anterior and grade 2-3. The following parameters are obtained: Average ultrasound age is Average 36weeks 2days estimated due date by ultrasound is 11/29/2020. Estimated weight is 2855g. This is 72 percentile. BPD: 36 weeks 3 days HC: 36 weeks 1 day AC: 36 weeks 1 day FL: 35 weeks 6 days heart rate: 149 bpm. HC/AC: 0.99 Cephalic index: 0.81 FL/BPD: 0.77 FL/AC: 0.22 Amniotic fluid index: 11 cm Qualitative AFV: 2 breathing movements: 2 Gross body movements: 2 Tone: 2 Biophysical profile score: 8 IMPRESSION: Live IUP with an average ultrasound age of 36 weeks 2 days. Estimated weight is 2855 g which is 72 percentile. Biophysical profile 8 of 8 with normal amniotic fluid index of 11 cm. Anterior placenta grade 2-3 Dictated by: Bong Norton MD 11/04/2020 10:41 Bong Norton MD in [place] 11/04/2020 10:41
== END ==
PROVIDERS: Visit Provider Obstetrics & Gynecology
DX: O36.5990 Maternal care for other known or suspected poor fetal growth, unspecified trimester, not applicable or unspecified (principal); Z34.90 Encounter for supervision of normal pregnancy, unspecified, unspecified trimester
CPT/HCPCS: 76816; 76819

== ENCOUNTER 2020-11-03 19:10 | Outpatient (CLI) | payer OTHER, SELFPAY ==
[2020-11-03 19:22] VITALS: BMI 34.4
[2020-11-03 19:29] LABS: Microscopic, Urine URINE MICROSCOPIC (MICROSCOPIC)
[2020-11-03 19:34] VITALS: BP 113/65; PULSE 111; RESP 18; TEMP 36.8; O2SAT 95; BMI 34.4
[2020-11-03 19:34] LABS: Appearance,Urine CLEAR (Clear); Bilirubin,Urine Negative (Negative); Blood, Urine Negative (Negative); Color,Urine YELLOW (Yellow); Glucose,Urine (UA) Negative (Negative); Ketones,Urine Negative (Negative); Leukocyte Esterase,Urine 1+ (Negative); Nitrate,Urine Negative (Negative); Protein,Urine Negative (Negative); Urobilinogen,Urine 0.2 EU/dl (0.2)
[2020-11-03 19:45] LABS: Barbiturates Screen,Urine Negative ng/ml (<200)
[2020-11-03 19:46] LABS: Amphetamine/Metha Screen,Urine Negative ng/ml (<1000); Benzodiazepines Screen,Urine Negative ng/ml (<200)
[2020-11-03 19:47] LABS: Methadone Screen,Urine Negative ng/ml (<300)
[2020-11-03 19:48] LABS: Cannabinoid Screen,Urine Negative ng/ml (<50); Cocaine Screen,Urine Negative ng/ml (<300)
[2020-11-03 19:49] LABS: Opiate Screen,Urine Negative ng/ml (<300)
[2020-11-03 19:50] LABS: Phencyclidine Screen,Urine Negative ng/ml (<25)
[2020-11-03 20:23] LABS: Bacteria,Urine 2+ /lpf
== END 2020-11-03 20:50 | disposition home or self-care (01) ==
LOC: OBOUT 19:11 → OB 19:12
PROVIDERS: Visit Provider Nurse Practitioner Obstetrics & Gynecology
DX: O47.03 False labor before 37 completed weeks of gestation, third trimester (principal); Z3A.35 35 weeks gestation of pregnancy
CPT/HCPCS: 59025; 80305; 81001; 87086; 96365; G0463

== ENCOUNTER 2020-11-05 17:06 | Outpatient (CLI) | payer OTHER, SELFPAY ==
[2020-11-05 17:11] VITALS: BMI 35.1
[2020-11-05 17:20] VITALS: BP 105/66; PULSE 98; RESP 20; TEMP 36.7; O2SAT 98; BMI 35.1
[2020-11-05 17:29] LABS: Microscopic, Urine URINE MICROSCOPIC (MICROSCOPIC)
[2020-11-05 17:42] LABS: Appearance,Urine CLEAR (Clear); Bilirubin,Urine Negative (Negative); Blood, Urine Negative (Negative); Color,Urine STRAW (Yellow); Glucose,Urine (UA) Negative (Negative); Ketones,Urine Negative (Negative); Leukocyte Esterase,Urine Negative (Negative); Nitrate,Urine Negative (Negative); Protein,Urine Negative (Negative); Urobilinogen,Urine 0.2 EU/dl (0.2)
[2020-11-05 17:45] LABS: Amphetamine/Metha Screen,Urine Negative ng/ml (<1000); Benzodiazepines Screen,Urine Negative ng/ml (<200)
[2020-11-05 17:46] LABS: Barbiturates Screen,Urine Negative ng/ml (<200)
[2020-11-05 17:47] LABS: Cannabinoid Screen,Urine Negative ng/ml (<50); Cocaine Screen,Urine Negative ng/ml (<300)
[2020-11-05 17:48] LABS: Methadone Screen,Urine Negative ng/ml (<300)
[2020-11-05 17:49] LABS: Opiate Screen,Urine Negative ng/ml (<300); Phencyclidine Screen,Urine Negative ng/ml (<25)
[2020-11-05 18:00] LABS: Bacteria,Urine 1+ /lpf; WBC,Urine Occasional #/hpf (0-3)
== END 2020-11-05 18:10 | disposition home or self-care (01) ==
LOC: OBOUT 17:09 → OB 17:10
PROVIDERS: Visit Provider Obstetrics & Gynecology
DX: Z3A.35 35 weeks gestation of pregnancy; O47.03 False labor before 37 completed weeks of gestation, third trimester; R11.0 Nausea
CPT/HCPCS: 59025; 80305; 81001; G0463

== ENCOUNTER → 2020-11-06 16:57 | Outpatient (CLI) | payer OTHER, SELFPAY | PROVIDERS: Visit Provider Obstetrics & Gynecology | DX: Z34.90 Encounter for supervision of normal pregnancy, unspecified, unspecified trimester (principal) | CPT/HCPCS: 86403 ==

== ENCOUNTER 2020-11-07 17:43 | Outpatient (CLI) | payer OTHER, SELFPAY ==
[2020-11-07 17:51] VITALS: BMI 35.2
[2020-11-07 18:15] VITALS: BP 113/70; PULSE 105; RESP 18; TEMP 36.7; O2SAT 96; BMI 35.2
[2020-11-07 18:36] LABS: Microscopic, Urine URINE MICROSCOPIC (MICROSCOPIC)
[2020-11-07 18:43] LABS: Appearance,Urine CLEAR (Clear); Bilirubin,Urine Negative (Negative); Blood, Urine Negative (Negative); Color,Urine YELLOW (Yellow); Glucose,Urine (UA) Negative (Negative); Ketones,Urine Negative (Negative); Leukocyte Esterase,Urine TRACE (Negative); Nitrate,Urine Negative (Negative); PH,Urine 6.5 (5.0-8.5); Protein,Urine Negative (Negative); Specific Gravity, Urine 1.015 (1.005-1.030); Urobilinogen,Urine 0.2 EU/dl (0.2)
[2020-11-07 18:49] LABS: Barbiturates Screen,Urine Negative ng/ml (<200); Benzodiazepines Screen,Urine Negative ng/ml (<200)
[2020-11-07 18:50] LABS: Amphetamine/Metha Screen,Urine Negative ng/ml (<1000)
[2020-11-07 18:51] LABS: Cannabinoid Screen,Urine Negative ng/ml (<50); Cocaine Screen,Urine Negative ng/ml (<300)
[2020-11-07 18:52] LABS: Methadone Screen,Urine Negative ng/ml (<300); Opiate Screen,Urine Negative ng/ml (<300)
[2020-11-07 18:53] LABS: Phencyclidine Screen,Urine Negative ng/ml (<25)
== END 2020-11-07 19:00 | disposition home or self-care (01) ==
LOC: OBOUT 17:46 → OB 17:46
PROVIDERS: PCP Obstetrics & Gynecology; Visit Provider Obstetrics & Gynecology
DX: Z34.90 Encounter for supervision of normal pregnancy, unspecified, unspecified trimester (principal)
CPT/HCPCS: 80305; 81001

== ENCOUNTER 2020-11-09 20:30 | Outpatient (CLI) | payer OTHER, SELFPAY ==
[2020-11-09 20:43] VITALS: BMI 35.1
[2020-11-09 20:52] LABS: Microscopic, Urine URINE MICROSCOPIC (MICROSCOPIC)
[2020-11-09 21:17] VITALS: BP 116/70; PULSE 99; RESP 18; O2SAT 97; BMI 35.1
[2020-11-09 21:17] LABS: Appearance,Urine CLEAR (Clear); Bilirubin,Urine Negative (Negative); Blood, Urine Negative (Negative); Color,Urine YELLOW (Yellow); Glucose,Urine (UA) Negative (Negative); Ketones,Urine Negative (Negative); Leukocyte Esterase,Urine Negative (Negative); Nitrate,Urine Negative (Negative); Protein,Urine Negative (Negative); Specific Gravity, Urine 1.015 (1.005-1.030); Urobilinogen,Urine 0.2 EU/dl (0.2)
[2020-11-09 21:26] LABS: Amphetamine/Metha Screen,Urine Negative ng/ml (<1000)
[2020-11-09 21:27] LABS: Barbiturates Screen,Urine Negative ng/ml (<200)
[2020-11-09 21:28] LABS: Benzodiazepines Screen,Urine Negative ng/ml (<200); Cannabinoid Screen,Urine Negative ng/ml (<50)
[2020-11-09 21:29] LABS: Cocaine Screen,Urine Negative ng/ml (<300); Methadone Screen,Urine Negative ng/ml (<300)
[2020-11-09 21:30] LABS: Phencyclidine Screen,Urine Negative ng/ml (<25)
[2020-11-09 21:31] LABS: Opiate Screen,Urine Negative ng/ml (<300)
== END 2020-11-09 22:40 | disposition home or self-care (01) ==
LOC: OBOUT 20:32 → OB 20:32
PROVIDERS: PCP Obstetrics & Gynecology; Visit Provider Obstetrics & Gynecology
DX: O26.892 Other specified pregnancy related conditions, second trimester (principal); Z3A.36 36 weeks gestation of pregnancy; R10.30 Lower abdominal pain, unspecified; M54.5 Low back pain; R11.2 Nausea with vomiting, unspecified
CPT/HCPCS: 59025; 80305; 81001; 96365; 96367; G0463; J2405

== ENCOUNTER 2020-11-12 06:33 | Outpatient (CLI) | payer OTHER, SELFPAY ==
[2020-11-12 07:33] VITALS: BP 114/84; PULSE 99; RESP 17; TEMP 36.8; O2SAT 99
[2020-11-12 07:35] VITALS: BMI 35.1
[2020-11-12 07:54] LABS: Microscopic, Urine URINE MICROSCOPIC (MICROSCOPIC)
[2020-11-12 07:56] LABS: Appearance,Urine CLEAR (Clear); Bilirubin,Urine Negative (Negative); Blood, Urine Negative (Negative); Color,Urine YELLOW (Yellow); Glucose,Urine (UA) Negative (Negative); Ketones,Urine Negative (Negative); Leukocyte Esterase,Urine 2+ (Negative); Nitrate,Urine Negative (Negative); Protein,Urine Negative (Negative); Urobilinogen,Urine 0.2 EU/dl (0.2)
[2020-11-12 08:07] LABS: Bacteria,Urine Trace /lpf; RBC,Urine Occasional #/hpf (0-3)
[2020-11-12 08:17] LABS: Amphetamine/Metha Screen,Urine Negative ng/ml (<1000); Barbiturates Screen,Urine Negative ng/ml (<200)
[2020-11-12 08:18] LABS: Benzodiazepines Screen,Urine Negative ng/ml (<200)
[2020-11-12 08:21] LABS: Cannabinoid Screen,Urine Negative ng/ml (<50); Cocaine Screen,Urine Negative ng/ml (<300)
[2020-11-12 08:22] LABS: Methadone Screen,Urine Negative ng/ml (<300); Opiate Screen,Urine Negative ng/ml (<300)
[2020-11-12 08:23] LABS: Phencyclidine Screen,Urine Negative ng/ml (<25)
== END 2020-11-12 10:15 | disposition home or self-care (01) ==
LOC: OBOUT 06:35 → OB 06:37
PROVIDERS: Visit Provider Obstetrics & Gynecology
DX: Z34.90 Encounter for supervision of normal pregnancy, unspecified, unspecified trimester (principal)
CPT/HCPCS: 59025; 80305; 81001; 87086; 96365; G0463

== ENCOUNTER 2020-11-13 18:32 | Inpatient (IN) | payer OTHER, SELFPAY ==
[2020-11-13 17:51] VITALS: BMI 45.1
[2020-11-13 17:52] VITALS: BMI 45.1
[2020-11-13 18:01] VITALS: BP 122/69; PULSE 106; RESP 18; TEMP 36.4; O2SAT 99
--- NOTE | 2020-11-13 19:00 | HMH.OBAPHP ---
OB - H&P: HPI Antepartum - History of Present Illness Chief complaint: leakage of fluid History of present illness: 20 yo G1 @ 36 5/7 presented with complaint of leakage of fluid approximately 4:30pm on 11/13/20 irregular contractions; denies vaginal bleeding grossly ruptured on exam, clear fluid; cervix 1cm dilated and 75% effaced tracing category 1 Good care; complicated by mild anemia and depression (stable on meds) [facility] History I have reviewed the patient's past medical history: Yes Medical History: Reports:: Anxiety, Asthma, Depression, Migraine Denies:: Diabetes Mellitus Type 1, Diabetes Mellitus Type 2, Hyperlipidemia, Hypertension, MRSA *Have you ever received a pneumonia vaccine?: No *Have you received a flu vaccine this season?: No Anesthesia experience/problems:: None Laterality Cases: Bilateral: Tonsillectomy Other Surgeries: No: Amputation: No Fractures: No - *Social History Smoking Status: Never smoker Alcohol Intake: never Substance Use Type: denies use *Occupational Status:: other Housing: house Household Members: family *Travel in the last 8 weeks: None - Psychiatric History Pschychiatric History:: Reports:: Anxiety, Depression Family Hx:: Diabetes, Cancer Review of Systems - Review of Systems Review of systems:: pertinent systems reviewed and negative unless documented below - Constitutional Denies chills, Denies fever(s) - *Genitourinary Reports other (+ leakage of fluid + irregular contractions), Denies abnormal vaginal bleeding Meds Home Medications Medication Instructions Recorded Confirmed Type buspirone 7.5 mg tablet 7.5 mg PO TID tab 05/02/20 11/14/20 History cetirizine 10 mg capsule 10 mg PO DAILY 05/02/20 11/13/20 History magnesium hydroxide 400 mg (170 mg 400 mg PO HS tab 06/03/20 11/13/20 History magnesium) chewable tablet Omeprazole 20 mg PO DAILY 10/13/20 11/13/20 History Vit Calc,Iron,Folic [Kpn] 1 tab PO DAILY 10/13/20 11/13/20 History Albuterol Sulfate [Proventil Hfa] 2 puff IH Q4-6H PRN 10/14/20 11/13/20 History Ferrous Sulfate [Ferrous Sulfate 325 mg PO DAILY 11/13/20 11/13/20 History 325mg Tab] Venlafaxine HCl [Effexor Xr] 75 mg PO DAILY 11/13/20 11/13/20 History Ondansetron [Zofran 4mg ODT] 4 mg PO TIDP PRN 11/14/20 11/14/20 History Allergies Allergy/AdvReac Type Severity Reaction Status Date / Time povidone-iodine Allergy Severe anaphylaxis Verified 11/13/20 09:04 [From Betadine] soap [From Betadine] Allergy Severe anaphylaxis Verified 11/13/20 09:04 shellfish derived Allergy Swelling Verified 11/13/20 09:04 of Lip/Tongue/Throat soy AdvReac Intermediate Vomiting Verified 11/13/20 09:04 OB - H&P: Exam - Physical Exam Vital signs: Temp Pulse Resp BP Pulse Ox 97.9 F 94 H 18 108/57 L 100 11/14/20 08:00 11/14/20 08:00 11/14/20 08:00 11/14/20 08:00 11/14/20 08:00 - Constitutional no acute distress - Routine HEENT Exam Head: Present: normocephalic, atraumatic Eye: Absent: conjunctival icterus, scleral injection ENT: Present: mucous membranes moist - Routine Neck Exam Present: supple - Routine Chest/Breast/Axilla Exam Chest wall: Absent: tenderness - Routine Respiratory Exam Present: CTA bilaterally - Routine Cardiovascular Exam Present: RRR - Routine Abdominal Exam Present: soft. Absent: tenderness, distended - Routine Exam Comments: cervix 1/75 - Routine Extremities Exam Present: edema (1+) - Routine Back/Spine/Pelvis Exam Back/Spine: Absent: CVA tenderness - Routine Skin Exam Absent: rash - Routine Neurological Exam Present: alert, oriented X3 - Routine Psychiatric Exam Present: normal affect OB - Results - Labs Labs: Short CBC 11/13/20 Range/Units 19:07 WBC 10.0 (4.5-13.0) K/mm3 Hgb 11.6 L (12.2-16.2) g/dL Hct 34.1 L (37.0-47.0) % Plt Count 172 (142-424) K/mm3 OB - A/P Antepa
[2020-11-13 19:18] LABS: Basophils % 0.2 % (0.1-2.0); Eosinophils # 0.1 K/mm3 (0.0-0.4); Eosinophils % 0.9 % (0.1-12.0); Hematocrit 34.1 % (37.0-47.0); Hemoglobin 11.6 g/dL (12.2-16.2); Lymphocytes # 2.7 K/mm3 (0.7-4.5); Lymphocytes % 26.8 % (10-50); Mean Corpuscular HGB Conc 33.9 g/dL (31.8-35.4); Mean Corpuscular Hemoglobin 28.8 pg (27.0-31.2); Mean Corpuscular Volume 84.9 fl (81-99); Mean Platelet Volume 11.2 fl (7.4-10.4); Monocytes # 0.6 K/mm3 (0.1-1.0); Monocytes % 5.8 % (1.7-9.3); Neutrophils # 6.6 K/mm3 (1.8-7.8); Neutrophils % 66.3 % (37.0-80.0); Platelet Count 172 K/mm3 (142-424); Red Blood Count 4.01 M/mm3 (4.20-5.40); Red Cell Distribution Width 14.6 % (11.5-17.5)
[2020-11-14] VITALS (18 sets, daily range): BP systolic 94–123; BP diastolic 51–70; PULSE 93–114; RESP 12–18; TEMP 36.1–36.8; O2SAT 97–100
--- NOTE | 2020-11-14 07:50 | HMH.ANESCL ---
[facility] Anesthesia Checklist - Patient Identification Patient Identification: Arm Band - Structural Data Admitted From: Inpatient Planned Operative Procedure/s: Labor epidural Consent for Planned Operative Procedure(s) Verified: Yes - Airway Assessment C-Spine Mobility Assessed: Yes TMJ Mobility Assessed: Yes Dentition: Good Dentition - Neurological Assessment Level of Consciousness: Awake, Alert, Appropriate - Anesthesia Plan Anesthesia Risk discussed: Yes Anesthesia Plan: Verified ASA Class: II Anesthesia Type: Epidural [facility] History I have reviewed the patient's past medical history: Yes Medical History: Reports:: Anxiety, Asthma, Depression, Migraine Denies:: Diabetes Mellitus Type 1, Diabetes Mellitus Type 2, Hyperlipidemia, Hypertension, MRSA *Have you ever received a pneumonia vaccine?: No *Have you received a flu vaccine this season?: No Comment:: None Anesthesia experience/problems:: None Laterality Cases: Bilateral: Tonsillectomy Other Surgeries: No: Amputation: No Fractures: No - *Social History Smoking Status: Never smoker Alcohol Intake: never Substance Use Type: denies use *Occupational Status:: other Housing: house Household Members: family *Travel in the last 8 weeks: None - Psychiatric History Pschychiatric History:: Reports:: Anxiety, Depression Family Hx:: Diabetes, Cancer
--- NOTE | 2020-11-14 08:22 | HMH.PHAINT ---
MEDICATION RECONCILIATION COMPLETED ON PATIENT USING EXTERNAL FILL HISTORY FROM PHARMACY, LIST FROM MD OFFICE, AND DISCHARGE SUMMARY FROM PREVIOUS ADMISSION. -WESLEY CASTROD
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
[2020-11-14 11:07] LABS: Microscopic, Urine URINE MICROSCOPIC (MICROSCOPIC)
[2020-11-14 11:11] LABS: Appearance,Urine CLEAR (Clear); Bilirubin,Urine Negative (Negative); Blood, Urine 2+ (Negative); Color,Urine YELLOW (Yellow); Glucose,Urine (UA) Negative (Negative); Ketones,Urine Negative (Negative); Leukocyte Esterase,Urine Negative (Negative); Nitrate,Urine Negative (Negative); Protein,Urine Negative (Negative); Specific Gravity, Urine <= 1.005 (1.005-1.030); Urobilinogen,Urine 0.2 EU/dl (0.2)
[2020-11-14 11:22] LABS: Phencyclidine Screen,Urine Negative ng/ml (<25)
[2020-11-14 11:29] LABS: Amphetamine/Metha Screen,Urine Negative ng/ml (<1000)
[2020-11-14 11:30] LABS: Barbiturates Screen,Urine Negative ng/ml (<200); Benzodiazepines Screen,Urine Negative ng/ml (<200)
[2020-11-14 11:31] LABS: Cannabinoid Screen,Urine Negative ng/ml (<50)
[2020-11-14 11:32] LABS: Cocaine Screen,Urine Negative ng/ml (<300); Opiate Screen,Urine Negative ng/ml (<300)
[2020-11-14 11:33] LABS: Methadone Screen,Urine Negative ng/ml (<300)
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
[2020-11-14 12:28] LABS: Chloride 111 mmol/L (98-107); Potassium 3.8 mmoL/L (3.5-5.1); Sodium 139 mmol/L (136-145)
[2020-11-14 12:30] LABS: Blood Urea Nitrogen 2 mg/dl (7-17); Creatinine Clearance Estimated 115 mL/min (50-200); Estimated Glomerular Filt Rate 107 ml/min (>60); GFR (African American) 129 ML/MIN (>60)
[2020-11-14 12:31] LABS: Anion Gap 3.8 mEq/L (5-15); Calcium 9.4 mg/dl (8.4-10.2); Carbon Dioxide 28 mmol/L (22.0-30.0); Glucose 105 mg/dl (74-100)
--- NOTE | 2020-11-14 14:26 | HMH.OPNOTE ---
Date of procedure: 11/14/20 Pre-op Diagnosis:: 1. PROM @ 36 12/19 2. Failure to progress in labor Post-op Diagnosis:: same Procedure performed:: Primary Low Transverse C Section Surgeon:: Kelsey Odom MD RECYCLING TECHNICIAN:: Guille Chatterjee Anesthesia: epidural Estimated blood loss (mL): 900 Operative findings:: male infant vertex presentation nuchal cord x 1 Operative note:: The patient was taken to the OR and prepped and draped in normal sterile fashion. Adequate epidural anesthesia was confirmed. A pfannenstiel skin incision was made with the scalpel and carried down to the fascia. The fascia was incised in the midline and sharply dissected off the rectus muscles. The muscles were in the midline and the peritoneum was entered sharply and extended bluntly. The Yonsa-O self retaining retractor was placed in the abdomen and a bladder flap was created. The uterus was incised in the lower uterine segment in a transverse fashion and extended bluntly. The was delivered in controlled fashion, without complication or shoulder dystocia. Nuchal cord x 1 was noted and reduced at delivery. The was vigorous at and handed to awaiting cardiopulmonary specialist & nursing staff for evaluation after cord clamped and cut. Cord blood was collected and a cord segment was preserved. The placenta was manually extracted and noted to be intact. The uterus was repaired with 0-vicryl in a running/locked fashion. The bladder flap was closed with 2-0 vicryl in running fashion. The peritoneum was closed with 2-0 vicryl in a running fashion. The fascia was closed with #1 vicryl in a running fashion. The subcutaneous fat was closed with 2-0 vicryl in an interrupted fashion. The skin was closed with 3-0 stratafix barbed suture. The patient tolerated the procedure well. Sponge, lap, needle and instrument counts were correct x 2. She was taken to PACU awake and in stable condition. Condition: stable Disposition: PACU Specimens:: placenta Complications:: none
--- NOTE | 2020-11-14 14:31 | P.PN_ITS ---
[facility] Anesthesia Record Part I Intake, IV Amount: 1,700 Estimated blood loss (mL): 900 Urine output (mL): 250 Blood Pressure: 102/53 SaO2: 100 Pulse Rate: 108 Respiratory Rate: 12 Temperature: 97.8 F Patient is:: Awake, Stable Stable to PACU at:: 14:25
--- NOTE | 2020-11-14 15:39 | SUR.OPER ---
1330-viable infant male born at this time
--- NOTE | 2020-11-14 15:48 | SUR.PHASEI ---
1429-Pt's QBL noted to be 1499.6 ml in OR - 2nd IV started in pacu #20 ga to left hand per MARY Milligan, LR's with Pitocin 30 units infusing to right hand w/out difficulty, pt's vss, fundal massage performed and noted to be firm @ 1 below umbilicus small-mod blood tinged lochia noted w/small blood clot, notified Dr. Odom at this time who ordered for pt to be type and crossmatched for 2 units to be put on hold, ordered for pt to have h/h @ 1800 and continue to monitor fundus and pt vital signs. Dr. Odom did not want to initiate any further orders based on PPH protocol at this time, notified MARY Powell who will be assuming care of pt upon arrival to OB floor. Willl continue to monitor. 1500-detailed report called to MARY Powell. Pt's fundus remains firm and @ 1 below umbilicus, scant blood tinged lochia noted w/out blood clots, vss, pt has had total of 63.0 ml QBL noted, notified Dr. Odom-did not further order anything at this time, pt stable. 1505-pt transported to OB department room 276 via hospital bed w/raulito rails up, pt left in care of MARY Powell with bed locked in lowest position, vss, family at bedside, pt stable
[2020-11-14 18:15] LABS: Hematocrit 29.2 % (37.0-47.0)
[2020-11-14 18:51] LABS: Hemoglobin 9.5 g/dL (12.2-16.2)
--- NOTE | 2020-11-15 06:33 | P.PN_ITS ---
Internal Medicine - PN: Subj *Date: 11/15/20 *Time: 06:33 (This is and postop day #1. The patient is afebrile. Vital signs stable. Wound clean. Abdomen soft. Lochia normal. Hemoglobin 9.5 g, but clinically stable. The baby is being worked up for sepsis by Dr. Ricks, status uncertain at this time. Maternal impression: Stable.) Exam Vital signs and Labs for Last 24 Hours: Temp Pulse Resp BP Pulse Ox 97.6 F 107 H 18 115/68 100 11/14/20 17:15 11/14/20 19:05 11/14/20 19:05 11/14/20 19:05 11/14/20 19:05 Laboratory Results - last 24 hr 11/13/20 10:30: Urine Color Yellow, Urine Appearance Clear, Urine pH 7.0, Ur Specific [place] <= 1.005, Urine Protein Negative, Urine Glucose (UA) Negative, Urine Ketones Negative, Urine Blood 2+, Urine Nitrate Negative, Urine Bilirubin Negative, Urine Urobilinogen 0.2, Ur Leukocyte Esterase Negative, Urine RBC 5- 10, Urine WBC None, Ur Squamous Epith Cells 3-5, Urine Bacteria None 11/13/20 10:30: Urine Opiates Screen Negative, Urine Methadone Screen Negative, Ur Barbituates Screen Negative, Ur Phencyclidine Scrn Negative, Ur Amphetamines Screen Negative, U Benzodiazepines Scrn Negative, Urine Cocaine Screen Negative, U Marijuana (THC) Screen Negative 11/13/20 19:07: Blood Type B Positive, Antibody Screen Negative, Crossmatch (AHG) See Detail 11/14/20 12:05: Sodium 139, Potassium 3.8, Chloride 111 H, Carbon Dioxide 28, Anion Gap 3.8 L, BUN 2 L, Creatinine 0.70, Estimated Creat Clear 115, Estimated GFR 107, Est GFR ( Amer) 129, Glucose 105 H, Calcium 9.4 11/14/20 18:03: Hgb 9.5 L D, Hct 29.2 L I & O for Last 24 hours: Intake & Output 11/12/20 11/13/20 11/14/20 11/15/20 11:59 11:59 11:59 11:59 Intake Total 2074 / 2074 Output Total 700 / 700 Balance 1375 / 1375 Weight 271 lb
[2020-11-15 08:00] VITALS: BP 91/51; PULSE 93; RESP 18; TEMP 36.5; O2SAT 100
[2020-11-15 10:01] LABS: Hemoglobin 8.7 g/dL (12.2-16.2)
--- NOTE | 2020-11-15 12:11 | P.CONPHA_ITS ---
[facility] Pharmacy VTE Monitoring - Patient Demographics Admission date: 11/14/20 Report Date: 11/15/20 Time: 12:11 Allergies/Adverse Reactions: Patient Allergies povidone-iodine [From Betadine] Allergy (Severe, Verified 11/13/20 09:04) anaphylaxis soap [From Betadine] Allergy (Severe, Verified 11/13/20 09:04) anaphylaxis shellfish derived Allergy (Verified 11/13/20 09:04) Swelling of Lip/Tongue/Throat soy Adverse Reaction (Intermediate, Verified 11/13/20 09:04) Vomiting Height: 1.65 m Weight: 122.924 kg - VTE Risk Labs: VTE Related Lab Results Hgb 8.7 g/dL (12.2-16.2) L 11/15/20 09:48 Hct 27.0 % (37.0-47.0) L 11/15/20 09:48 Plt Count 172 K/mm3 (142-424) 11/13/20 19:07 BUN 2 mg/dl (7-17) L 11/14/20 12:05 Creatinine 0.70 mg/dl (0.52-1.04) 11/14/20 12:05 Estimated Creat Clear 115 mL/min (50-200) 11/14/20 12:05 - Prophylaxis VTE Prophylaxis Ordered?: Yes Types of VTE Prophylaxis: IPCS Thigh High Location of Applied Device: Bilateral Lower Extremeties
[2020-11-15 16:00] VITALS: BP 99/59; PULSE 79; RESP 20; TEMP 36.8; O2SAT 100
[2020-11-16 08:00] VITALS: BP 103/62; PULSE 114; RESP 20; TEMP 36.8; O2SAT 97
--- NOTE | 2020-11-16 08:45 | HMH.ACPN2 ---
Internal Medicine - PN: Subj *Date: 11/16/20 *Time: 08:45 (This is and postop day #2. The patient is afebrile. Her vital signs are stable. Her wound is clean. Abdomen soft. Lochia normal. Uterine fundus is involuting well. Her hemoglobin is 8.7 g, but she is clinically stable. The baby has been transferred to , where we understand he is improving. The patient had been waiting for a compassionate care bed but none has become available. She is anxious for early discharge and I will discharge her today on oral iron and with appropriate instructions.) Exam Vital signs and Labs for Last 24 Hours: Temp Pulse Resp BP Pulse Ox 98.3 F 79 20 99/59 L 100 11/15/20 16:00 11/15/20 16:00 11/15/20 16:00 11/15/20 16:00 11/15/20 16:00 Laboratory Results - last 24 hr 11/15/20 09:48: Hgb 8.7 L, Hct 27.0 L I & O for Last 24 hours: Intake & Output 11/13/20 11/14/20 11/15/20 11/16/20 11:59 11:59 11:59 11:59 Intake Total 2074 / 2075 Output Total 700 / 700 Balance 1375 / 1375 Weight 271 lb
--- NOTE | 2020-11-16 08:55 | HMH.DCSUM ---
General - General Admission date:: 11/13/20 Discharge date: 11/16/20 (20-year-old 1, now para 1, Ab0 white female was admitted after spontaneous rupture of membranes at home at 36-5/7 weeks of gestation. She was subsequently augmented with intravenous Pitocin, but failed to progress appropriately and was taken to the operating room for a primary section, which was accomplished without complications. The baby was an 5, 6, 7 (at 1, 5, 10 minutes) male infant, born at 1338 on 11/14/2020, who was subsequently has been transferred to because of respiratory issues. Patient's initial hemoglobin was 11.6 g, postoperatively it is 8.7 g, but she is clinically stable. and postoperatively, the patient is clinically done well. Her wound is clean. Her abdomen is soft. Her lochia is normal. She is eating and ambulating and passing flatus. Because the baby was transferred to , the patient had been waiting for a compassionate care bed, but none has become available and she is anxious for early discharge. I feel she is clinically stable and am discharging her on postop and day #2, on iron 3 times a day and vitamins once a day, and Tylenol and Motrin, as needed for pain. She is given appropriate instructions as to diet, exercise, and wound care, and she is to return to Dr. Chamberlain's office in 1 week for follow-up. Her blood type is B+. Her rubella titer is immune. She is bottlefeeding.) Hospital Course Rhogam Administration: Not Indicated Objective Vital signs: Temp Pulse Resp BP Pulse Ox 98.3 F 79 20 99/59 L 100 11/15/20 16:00 11/15/20 16:00 11/15/20 16:00 11/15/20 16:00 11/15/20 16:00 Results Labs on day of discharge: Labs from last 24 hours 11/15/20 09:48 Hgb 8.7 L Hct 27.0 L Discharge Plan - Patient Discharge Instructions ACTIVITY: Limited activity DIET: advance to your usual diet Additional Instructions: *NO Heavy Lifting *NO Strenuous activity *NOTHING in the Vagina for 6 WEEKS Call the office Tuesday to setup a appointment Patient Instructions: Depression, Hemorrhage, DI for , DI for Pre-eclampsia, [facility] Post Discharge Instructions, Preventing the Spread of Coronavirus Discharge Instructions - Follow up Plan Follow up with: Kelsey Odom MD [Primary Care Provider] - 1 week Disposition: Home, Self-Residential Medications: Home Medications Medication Instructions Recorded Confirmed Type buspirone 7.5 mg tablet 7.5 mg PO TID tab 05/02/20 11/14/20 History cetirizine 10 mg capsule 10 mg PO DAILY 05/02/20 11/13/20 History magnesium hydroxide 400 mg (170 mg 400 mg PO HS tab 06/03/20 11/13/20 History magnesium) chewable tablet Omeprazole 20 mg PO DAILY 10/13/20 11/13/20 History Vit Calc,Iron,Folic [Kpn] 1 tab PO DAILY 10/13/20 11/13/20 History Albuterol Sulfate [Proventil Hfa] 2 puff IH Q4-6H PRN 10/14/20 11/13/20 History Ferrous Sulfate [Ferrous Sulfate 325 mg PO DAILY 11/13/20 11/13/20 History 325mg Tab] Venlafaxine HCl [Effexor Xr] 75 mg PO DAILY 11/13/20 11/13/20 History Ondansetron [Zofran 4mg ODT] 4 mg PO TIDP PRN 11/14/20 11/14/20 History Prescriptions/Medication Reconciliation: Continued buspirone 7.5 mg tablet 7.5 mg PO TID tab cetirizine 10 mg capsule 10 mg PO DAILY Vit Calc,Iron,Folic [Kpn] 1 tab PO DAILY Albuterol Sulfate [Proventil Hfa] 2 puff IH Q4-6H PRN PRN Reason: shortness of breath or wheezing Venlafaxine HCl [Effexor Xr] 75 mg PO DAILY Ferrous Sulfate [Ferrous Sulfate 325mg Tab] 325 mg PO DAILY Discontinued magnesium hydroxide 400 mg (170 mg magnesium) chewable tablet 400 mg PO HS tab Omeprazole 20 mg PO DAILY Ondansetron [Zofran 4mg ODT] 4 mg PO TIDP PRN PRN Reason: nausea and vomiting - Problem Reconciliation Problems Reviewed?: Yes
--- NOTE | 2020-11-16 09:03 | HMH.DCSUM ---
General - General Admission date:: 11/13/20 Hospital Course Rhogam Administration: Not Indicated Objective Vital signs: Temp Pulse Resp BP Pulse Ox 98.3 F 79 20 99/59 L 100 11/15/20 16:00 11/15/20 16:00 11/15/20 16:00 11/15/20 16:00 11/15/20 16:00 no acute distress - *Routine HEENT Exam Head: Present: normocephalic Eye: Present: EOMI, PERRL ENT: Present: mucous membranes moist - *Routine Neck Exam Present: supple - *Routine Respiratory Exam Present: CTA bilaterally - *Routine Cardiovascular Exam Present: RRR - *Routine Abdominal Exam Present: soft, normoactive bowel sounds. Absent: tenderness - *Routine Extremities Exam Absent: cyanosis, clubbing, edema - *Routine Skin Exam Present: warm. Absent: rash - Detailed Eye Exam Eyelids: Bilateral normal inspection Results Labs on day of discharge: Labs from last 24 hours 11/15/20 09:48 Hgb 8.7 L Hct 27.0 L Discharge Plan - Patient Discharge Instructions ACTIVITY: Limited activity DIET: advance to your usual diet Additional Instructions: *NO Heavy Lifting *NO Strenuous activity *NOTHING in the Vagina for 6 WEEKS Call the office Tuesday to setup a appointment Patient Instructions: Depression, Hemorrhage, DI for , DI for Pre-eclampsia, [facility] Post Discharge Instructions, Preventing the Spread of Coronavirus Discharge Instructions - Follow up Plan Follow up with: Kelsey Odom MD [Primary Care Provider] - 1 week Disposition: Home, Self-Fci Medications: Home Medications Medication Instructions Recorded Confirmed Type buspirone 7.5 mg tablet 7.5 mg PO TID tab 05/02/20 11/14/20 History cetirizine 10 mg capsule 10 mg PO DAILY 05/02/20 11/13/20 History magnesium hydroxide 400 mg (170 mg 400 mg PO HS tab 06/03/20 11/13/20 History magnesium) chewable tablet Omeprazole 20 mg PO DAILY 10/13/20 11/13/20 History Vit Calc,Iron,Folic [Kpn] 1 tab PO DAILY 10/13/20 11/13/20 History Albuterol Sulfate [Proventil Hfa] 2 puff IH Q4-6H PRN 10/14/20 11/13/20 History Ferrous Sulfate [Ferrous Sulfate 325 mg PO DAILY 11/13/20 11/13/20 History 325mg Tab] Venlafaxine HCl [Effexor Xr] 75 mg PO DAILY 11/13/20 11/13/20 History Ondansetron [Zofran 4mg ODT] 4 mg PO TIDP PRN 11/14/20 11/14/20 History Prescriptions/Medication Reconciliation: Continued buspirone 7.5 mg tablet 7.5 mg PO TID tab cetirizine 10 mg capsule 10 mg PO DAILY Vit Calc,Iron,Folic [Kpn] 1 tab PO DAILY Albuterol Sulfate [Proventil Hfa] 2 puff IH Q4-6H PRN PRN Reason: shortness of breath or wheezing Venlafaxine HCl [Effexor Xr] 75 mg PO DAILY Ferrous Sulfate [Ferrous Sulfate 325mg Tab] 325 mg PO DAILY Discontinued magnesium hydroxide 400 mg (170 mg magnesium) chewable tablet 400 mg PO HS tab Omeprazole 20 mg PO DAILY Ondansetron [Zofran 4mg ODT] 4 mg PO TIDP PRN PRN Reason: nausea and vomiting - Problem Reconciliation Problems Reviewed?: Yes
--- NOTE | 2020-11-17 07:30 | HMH.ANESII ---
[facility] [place] Anesthesia Record Part II Discharge Time: 15:05 Destination: Obstetric PACU nurse assessment reviewed?: Yes Patient Condition:: Good Anesthesia Complications:: None Swallowing reflex intact?: Yes Cyanosis?: No Blood Pressure: 104/60 Pulse Rate: 102 Temperature: 97.7 F Mental Status: Alert & Oriented Pain level:: 0 Nausea and/or vomitting:: None Intake, IV Amount: 0
[2020-11-17 07:31] VITALS: BP 104/60; PULSE 102; TEMP 36.5
== END 2020-11-16 09:56 | disposition home or self-care (01) | DRG 788 ==
LOC: OBOUT 18:34 → OB 18:34
PROVIDERS: Admitting Provider Obstetrics & Gynecology; PCP Obstetrics & Gynecology; Visit Provider Obstetrics & Gynecology
PROC: (CPT 59514; principal; 2020-11-14 12:55)
DX: O42.013 Preterm premature rupture of membranes, onset of labor within 24 hours of rupture, third trimester (principal); Z3A.36 36 weeks gestation of pregnancy; Z37.0 Single live birth; O69.81X0 Labor and delivery complicated by cord around neck, without compression, not applicable or unspecified
CPT/HCPCS: 59514; 36415; 59025; 80048; 80305; 81001; 85014; 85018; 85025; 86850; 87086; 94761; 96365; C1758; G0283; G0463; J0290; J2405; U0003

== ENCOUNTER 2021-01-12 15:33 | Emergency (ER) | payer OTHER, SELFPAY ==
[2021-01-12 15:50] VITALS: BP 109/69; PULSE 108; RESP 20; TEMP 37.1; O2SAT 99; BMI 33.3
--- NOTE | 2021-01-12 16:04 | HMH.EDUTC ---
[facility] [place] Clinical Impression: Strep throat UTI (urinary tract infection) Qualifiers: Urinary tract infection type: site unspecified Hematuria presence: with hematuria Qualified Code(s): N39.0 - Urinary tract infection, site not specified Disposition: Home, Self-Care Condition on Discharge: Good Instructions: Urine Culture, DI for Strep Throat, DI for Urinary Tract Infection (UTI) Additional Instructions: Drink plenty of fluids. Take tylenol or ibuprofen for pain or fever. Take the medications as directed. Follow up with your regular doctor. GO TO THE ER FOR ANY WORSENING SYMPTOMS The pyridium will make your urine turn orange, this is an expected side effect. It will stain your clothes if it comes into contact with them. Prescriptions: Cefdinir [Omnicef 300mg Capsule] 300 mg PO BID #20 cap Transmission Status: Received by [facility] Phenazopyridine HCl [Pyridium 200mg Tablet] 200 pow PO TID #6 tab Transmission Status: Received by [facility] Referrals: Provider,Referral, [Primary Care Provider] - Forms: Work/School Release Time of Disposition: 16:36 Medical Decision Making - Medical Records Medical records reviewed: No: I reviewed the patient's medical records. - Sarthak Inquiry Pt receiving controlled substance: No Vital Signs: 01/12/21 15:50 01/12/21 16:34 Temperature 98.8 F 98.8 F Temperature Source Oral Pulse Rate 108 H Pulse Rate [Right Brachial] 108 H Respiratory Rate 20 20 Blood Pressure 109/69 L Blood Pressure [Right Arm] 109/69 L Blood Pressure Mean [Right Arm] 82 Blood Pressure Source [Right Arm] Automatic Cuff Blood Pressure Position [Right Arm] Sitting 02 Sat by Pulse Oximetry 99 Oxygen Delivery Method Room Air - Lab Data Lab results reviewed: Yes: I reviewed the patient's lab results. Orders (Tests/Meds): ED MEDICATIONS Discontinued Medications Generic Name Dose Route Start Last Admin Trade Name Freq PRN Reason Stop Dose Admin Ceftriaxone Sodium 1 gm 01/12/21 16:07 01/12/21 16:24 Ceftriaxone 1gm Vial IM 01/12/21 16:08 1 gm ONCE ONE Administration Protocol Lidocaine HCl 0 ml 01/12/21 16:07 01/12/21 16:24 Lidocaine 1% 5ml Pf Vial IM 01/12/21 16:08 2.1 ml ONCE ONE Administration ORDERS Category Date Time Status Urine Culture Stat Micro 01/12/21 15:45 Received [facility] [place] HPI - General Stated complaint: possible UTI Time Seen by Provider: 01/12/21 16:04 - History of Present Illness Provider Complaint: She states that since yesterday she has had sore throat and burning while urinating. - Related Data Home Medications Medication Instructions Recorded Confirmed buspirone 7.5 mg tablet 7.5 mg PO TID tab 05/02/20 11/14/20 cetirizine 10 mg capsule 10 mg PO DAILY 05/02/20 11/13/20 Vit Calc,Iron,Folic [Kpn] 1 tab PO DAILY 10/13/20 11/13/20 Albuterol Sulfate [Proventil Hfa] 2 puff IH Q4-6H PRN 10/14/20 11/13/20 Ferrous Sulfate [Ferrous Sulfate 325 mg PO DAILY 11/13/20 11/13/20 325mg Tablet] Venlafaxine HCl [Effexor Xr] 75 mg PO DAILY 11/13/20 11/13/20 Previous Rx's Medication Instructions Recorded Cefdinir [Omnicef 300mg Capsule] 300 mg PO BID #20 cap 01/12/21 Phenazopyridine HCl [Pyridium 200 pow PO TID #6 tab 01/12/21 200mg Tablet] Allergies Allergy/AdvReac Type Severity Reaction Status Date / Time povidone-iodine Allergy Severe anaphylaxis Verified 01/02/21 11:19 [From Betadine] soap [From Betadine] Allergy Severe anaphylaxis Verified 01/02/21 11:19 shellfish derived Allergy Swelling Verified 01/02/21 11:19 of Lip/Tongue/Throat soy AdvReac Intermediate Vomiting Verified 01/02/21 11:19 [facility] History - Hepatitis A Screen Attestation statement:: This patient has been screened for Hepatitis A risk factors. I have reviewed the patient's past medical history: Yes Medical History: Reports:: Anxiety, Asthma, Depressio
[2021-01-12 16:34] VITALS: BP 109/69; PULSE 108; RESP 20; TEMP 37.1; O2SAT 99
[2021-01-12 19:52] LABS: UTC Strep Screen (Rapid) Positive (Negative)
[2021-01-12 20:51] LABS: Apearance,Urine Clear (Clear); Blood, Urine 3+ (Negative); Color,Urine Orange (Yellow); Glucose,Urine (UA) 250 (Negative); Ketones,Urine 40 (Negative); Protein,Urine 3+ (Negative)
[2021-01-12 20:52] LABS: Bilirubin,Urine 2+ (Negative); UTC Leukocyte Esterase,Urine 3+ (Negative); UTC Nitrate,Urine Positive (Negative); Urobilinogen,Urine >=8 EU/dl (0.2)
== END 2021-01-12 16:44 | disposition home or self-care (01) ==
PROVIDERS: Emergency Provider Nurse Practitioner Family
DX: N30.00 Acute cystitis without hematuria (principal); J02.0 Streptococcal pharyngitis; F41.8 Other specified anxiety disorders; J45.909 Unspecified asthma, uncomplicated
CPT/HCPCS: 81003; 87086; 87880; 96372; 99202; G0463

== ENCOUNTER 2021-01-27 17:15 | Emergency (ER) | payer OTHER, SELFPAY ==
[2021-01-27 17:25] VITALS: BP 133/80; PULSE 76; RESP 16; TEMP 36.9; O2SAT 100; BMI 32.3
[2021-01-27 17:30] VITALS: BP 145/89; PULSE 89; RESP 20; O2SAT 100
--- NOTE | 2021-01-27 17:45 | HMH.EDGENADL ---
ED Disposition Clinical Impression: Vertigo Disposition: Home, Self-Care Condition on Discharge: Good Instructions: Nausea and Vomiting-Adult Prescriptions: Meclizine HCl [Meclizine 25mg Tab] 50 mg PO Q6 PRN #20 tab PRN Reason: Dizziness Prescription Printed Ondansetron [Zofran 4mg ODT] 4 mg PO TIDP PRN #14 tab PRN Reason: Nausea And Vomiting Prescription Printed Referrals: Provider,Referral, MD [Primary Care Provider] - - Critical Care Critical Care Time: No Attestation: On 01/27/21, the high probability of a clinically significant, sudden or life threatening deterioration of the following system(s) required my full and direct attention, intervention and personal management. The time I documented below is in addition to time spent performing reported procedures but includes the following listed in this critical care notation. Medical Decision Making - Medical Records Medical records reviewed: Yes: I reviewed the patient's medical records. - Sarthak Inquiry Pt receiving controlled substance: No Vital Signs: 01/27/21 17:25 01/27/21 17:30 01/27/21 18:22 Temperature 98.4 F Temperature Source Oral Pulse Rate 89 81 Pulse Rate [Right] 76 Respiratory Rate 16 20 20 Blood Pressure 145/89 H 162/90 H Blood Pressure [Right Arm] 133/80 Blood Pressure Mean [Right Arm] 97 Blood Pressure Source [Right Arm] Automatic Cuff Blood Pressure Position [Right Arm] Sitting 02 Sat by Pulse Oximetry 100 100 99 01/27/21 19:06 Temperature 98.6 F Temperature Source Pulse Rate 79 Pulse Rate [Right] Respiratory Rate 16 Blood Pressure 162/90 H Blood Pressure [Right Arm] Blood Pressure Mean [Right Arm] Blood Pressure Source [Right Arm] Blood Pressure Position [Right Arm] 02 Sat by Pulse Oximetry - Lab Data Lab Results 01/27/21 18:11: Urine HCG, Qual Negative Orders (Tests/Meds): ED MEDICATIONS Discontinued Medications Generic Name Dose Route Start Last Admin Trade Name Freq PRN Reason Stop Dose Admin Meclizine HCl 50 mg 01/27/21 17:44 01/27/21 17:58 Meclizine 25mg Tablet PO 01/27/21 17:45 50 mg ONCE ONE Administration Ondansetron HCl 4 mg 01/27/21 17:44 01/27/21 17:58 Ondansetron 4mg Odt SL 01/27/21 17:45 4 mg ONCE ONE Administration Medical Decision Narrative: Patient presents with vertigo, nausea and vomiting. Most likely inner ear vestibular labyrinthitis. No other signs of respiratory infection, otitis media on exam. No stroke symptoms. Patient is not ataxic. Will treat symptomatically and reassess. improved on reassessment. tolerating po. will dc with meclizine and zofran rx and f/u withy pcp. return indications reviewed General Adult HPI - General Chief complaint: Nausea/Vomiting/Diarrhea Stated complaint: Vomiting,dizziness Time Seen by Provider: 01/27/21 17:45 Mode of Arrival: Ambulatory Limitations: No Limitations Description of Symptoms (Recalled from ER Triage Doc. by RN): pt c/o something in her throat since she tried to eat pot pie for lunch. pt also c/o cough, the room spinning, and N/V. pt is unable to even drink water. - History of Present Illness HPI narrative: 20-year-old female presents emergency department with 5 hours of nausea, vomiting and vertigo. She reports the vertigo occurs when she is up and walking and moving her head. She has never had this happen before. No medicines taken at home. No sick contacts. Reports that her throat is sore now since vomiting. Also has a mild cough. Denies abdominal pain, headache, difficulty breathing, chest pain. - Related Data Home Medications Medication Instructions Recorded Confirmed buspirone 7.5 mg tablet 7.5 mg PO TID tab 05/02/20 11/14/20 cetirizine 10 mg capsule 10 mg PO DAILY 05/02/20 11/13/20 Vit Calc,Iron,Folic [Kpn] 1 tab PO DAILY 10/13/20 11/13/20 Albuterol Sulfate [Proventil Hfa] 2 puff IH Q4-6H PRN 10/14/20 11/13/20 Ferrous Sulfate
[2021-01-27 18:22] VITALS: BP 162/90; PULSE 81; RESP 20; O2SAT 99
[2021-01-27 18:32] LABS: Urine Pregnancy, HCG Qual. Negative (Negative)
[2021-01-27 19:06] VITALS: BP 162/90; PULSE 79; RESP 16; TEMP 37
== END 2021-01-27 19:11 | disposition home or self-care (01) ==
PROVIDERS: Emergency Provider Emergency Medicine
DX: H83.03 Labyrinthitis, bilateral (principal); F41.8 Other specified anxiety disorders; Z79.899 Other long term (current) drug therapy
CPT/HCPCS: 81025; 99281

== ENCOUNTER 2021-04-06 16:04 | Emergency (ER) | payer OTHER, SELFPAY ==
[2021-04-06 16:06] VITALS: BP 102/89; PULSE 96; RESP 16; TEMP 36.7; O2SAT 97; BMI 28.3
--- NOTE | 2021-04-06 16:40 | HMH.EDGENADL ---
ED Disposition Clinical Impression: Migraine Qualifiers: Migraine type: without aura Status migrainosus presence: without status migrainosus Intractability: not intractable Qualified Code(s): G43.009 - Migraine without aura, not intractable, without status migrainosus Disposition: Home, Self-Care Condition on Discharge: Good Instructions: Migraine -- Adult Prescriptions: Promethazine HCl 12.5 mg PO BID #10 tab Transmission Status: Pending to [facility] Referrals: Ramiro Bianchi PA [Primary Care Provider] - - Critical Care Critical Care Time: No Attestation: On 04/06/21, the high probability of a clinically significant, sudden or life threatening deterioration of the following system(s) required my full and direct attention, intervention and personal management. The time I documented below is in addition to time spent performing reported procedures but includes the following listed in this critical care notation. Medical Decision Making - Medical Records Medical records reviewed: Yes: I reviewed the patient's medical records. - Sarthak Inquiry Pt receiving controlled substance: No Vital Signs: 04/06/21 16:06 Temperature 98.1 F Temperature Source Oral Pulse Rate [Right] 96 H Respiratory Rate 16 Blood Pressure [Right Arm] 102/89 L Blood Pressure Mean [Right Arm] 93 02 Sat by Pulse Oximetry 97 - Lab Data Lab Results 04/06/21 16:51: WBC 11.2 H, RBC 4.89, Hgb 14.1, Hct 42.6, MCV 87.1, MCH 28.8, MCHC 33.0, RDW 13.5, Plt Count 250, MPV 8.8, Neut % (Auto) 76.3, Lymph % (Auto) 17.6, [place] % (Auto) 4.6, Eos % (Auto) 1.1, Baso % (Auto) 0.5, Neut # (Auto) 8.6 H, Lymph # (Auto) 2.0, [place] # (Auto) 0.5, Eos # (Auto) 0.1, Baso # (Auto) 0.1 04/06/21 16:51: Urine HCG, Qual Negative 04/06/21 16:51: Sodium 139, Potassium 3.9, Chloride 103, Carbon Dioxide 29, Anion Gap 10.9, BUN 9, Creatinine 0.90, Estimated Creat Clear 120, Estimated GFR 79, Est GFR ( Amer) 96, Glucose 96, Calcium 9.2, Total Bilirubin 0.6, AST 36, ALT 35, Alkaline Phosphatase 112, Total Protein 7.2, Albumin 4.2, Globulin 3.0, Albumin/Globulin Ratio 1.4, Lipase 105 04/06/21 17:00: Urine Color Yellow, Urine Appearance Sl cloudy, Urine pH 6.0, Ur Specific Elmo >= 1.030, Urine Protein Trace, Urine Glucose (UA) Negative, Urine Ketones Trace, Urine Blood Trace-i, Urine Nitrate Negative, Urine Bilirubin Negative, Urine Urobilinogen 0.2, Ur Leukocyte Esterase Negative, Urine RBC None, Urine WBC Occasional, Ur Squamous Epith Cells 3-5, Urine Bacteria None Result diagrams: 04/06/21 16:51 04/06/21 16:51 Orders (Tests/Meds): ED MEDICATIONS Discontinued Medications Generic Name Dose Route Start Last Admin Trade Name Freq PRN Reason Stop Dose Admin Diphenhydramine HCl 25 mg 04/06/21 16:20 04/06/21 17:04 Diphenhydramine 50mg/Ml Vial IV 04/06/21 16:21 25 mg ONCE ONE Administration Sodium Chloride 1,000 mls @ 999 mls/hr 04/06/21 16:30 04/06/21 17:04 Sod Chlor 0.9% 1000ml Bag IV 04/06/21 17:30 999 mls/hr .Q1H1M ELYSE Administration Ketorolac Tromethamine 30 mg 04/06/21 16:20 04/06/21 17:04 Ketorolac 30mg/Ml Vial IV 04/06/21 16:21 30 mg ONCE ONE Administration Ondansetron HCl 4 mg 04/06/21 16:20 04/06/21 17:04 Ondansetron 4mg/2ml Vial IV 04/06/21 16:21 4 mg ONCE ONE Administration - Reevaluation(s) Time: 17:55 Reevaluation #1: On reevaluation, the patient is feeling much better. Headache is improved. Repeat neurologic exam is normal. Patient would like to be discharged home and follow-up with her PCP. She has no evidence of subarachnoid or meningitis. Patient was given strict return precautions. Verbalized understanding. Medical Decision Narrative: 21-year-old female with history of migraines. Symptoms are consistent with acute exacerbation of chronic migraines. There is no neurologic deficit. Patient treated symptomatically. Work-up initiated. General Adult HPI - General C
[2021-04-06 17:04] LABS: Chloride 103 mmol/L (98-107)
[2021-04-06 17:05] LABS: Potassium 3.9 mmoL/L (3.5-5.1); Sodium 139 mmol/L (136-145)
[2021-04-06 17:08] LABS: Microscopic, Urine URINE MICROSCOPIC (MICROSCOPIC)
[2021-04-06 17:08] LABS: Alanine Aminotransferase 35 U/L (12-78); Albumin Level 4.2 g/dl (3.5-5.0); Albumin/Globulin Ratio 1.4 (1.1-1.8); Alkaline Phosphatase 112 U/L (38-126); Anion Gap 10.9 mEq/L (5-15); Aspartate Amino Transferase 36 U/L (14-36); Bilirubin,Total 0.6 mg/dl (0.2-1.3); Blood Urea Nitrogen 9 mg/dl (7-17); Calcium 9.2 mg/dl (8.4-10.2); Carbon Dioxide 29 mmol/L (22.0-30.0); Creatinine Clearance Estimated 120 mL/min (50-200); Estimated Glomerular Filt Rate 79 ml/min (>60); GFR (African American) 96 ML/MIN (>60); Glucose 96 mg/dl (74-100); Lipase 105 U/L (23-300); Total Protein,Serum 7.2 g/dl (6.3-8.2)
[2021-04-06 17:14] LABS: Appearance,Urine SL CLOUDY (Clear); Bilirubin,Urine Negative (Negative); Blood, Urine TRACE-I (Negative); Color,Urine YELLOW (Yellow); Glucose,Urine (UA) Negative (Negative); Ketones,Urine TRACE (Negative); Leukocyte Esterase,Urine Negative (Negative); Nitrate,Urine Negative (Negative); Protein,Urine TRACE (Negative); Specific Gravity, Urine >= 1.030 (1.005-1.030); Urobilinogen,Urine 0.2 EU/dl (0.2)
[2021-04-06 17:16] LABS: Urine Pregnancy, HCG Qual. Negative (Negative)
[2021-04-06 17:33] LABS: WBC,Urine Occasional #/hpf (0-3)
[2021-04-06 17:36] LABS: Basophils # 0.1 K/mm3 (0-0.2); Basophils % 0.5 % (0.1-2.0); Eosinophils # 0.1 K/mm3 (0.0-0.4); Eosinophils % 1.1 % (0.1-12.0); Hematocrit 42.6 % (37.0-47.0); Hemoglobin 14.1 g/dL (12.2-16.2); Lymphocytes % 17.6 % (10-50); Mean Corpuscular Hemoglobin 28.8 pg (27.0-31.2); Mean Corpuscular Volume 87.1 fl (81-99); Mean Platelet Volume 8.8 fl (7.4-10.4); Monocytes # 0.5 K/mm3 (0.1-1.0); Monocytes % 4.6 % (1.7-9.3); Neutrophils # 8.6 K/mm3 (1.8-7.8); Neutrophils % 76.3 % (37.0-80.0); Platelet Count 250 K/mm3 (142-424); Red Blood Count 4.89 M/mm3 (4.20-5.40); Red Cell Distribution Width 13.5 % (11.5-17.5); White Blood Count 11.2 K/mm3 (4.8-10.8)
[2021-04-06 18:09] VITALS: BP 95/48; PULSE 80; RESP 16; TEMP 36.9; O2SAT 100
== END 2021-04-06 18:11 | disposition home or self-care (01) ==
PROVIDERS: Emergency Provider Emergency Medicine; PCP Physician Assistant
DX: G43.009 Migraine without aura, not intractable, without status migrainosus (principal); F41.8 Other specified anxiety disorders
CPT/HCPCS: 80053; 81001; 81025; 83690; 85025; 96365; 96375; 99281; J2405

== ENCOUNTER → 2021-07-27 12:08 | Outpatient (CLI) | payer OTHER, SELFPAY | PROVIDERS: Visit Provider Nurse Practitioner | DX: Z20.822 Contact with and (suspected) exposure to COVID-19 (principal) | CPT/HCPCS: C9803; U0003; U0005 ==

== ENCOUNTER → 2021-07-29 11:05 | Outpatient (CLI) | payer OTHER, SELFPAY | PROVIDERS: Visit Provider Nurse Practitioner | DX: U07.1 COVID-19 (principal) | CPT/HCPCS: C9803; U0003; U0005 ==

== ENCOUNTER 2021-09-28 11:02 | Emergency (ER) | payer OTHER, SELFPAY ==
[2021-09-28 11:17] VITALS: BP 112/71; PULSE 109; RESP 18; TEMP 36.8; O2SAT 95; BMI 25.8
[2021-09-28 11:28] VITALS: BP 112/71; PULSE 109; O2SAT 97
--- NOTE | 2021-09-28 12:49 | HMH.EDGENADL ---
ED Disposition Clinical Impression: Viral gastroenteritis Disposition: Home, Self-Care Condition on Discharge: Good Instructions: Viral Gastroenteritis Prescriptions: Ondansetron [Zofran 4mg ODT] 4 mg PO TIDP PRN #20 tab PRN Reason: Vomiting Transmission Status: Received by [facility] Referrals: Ramiro Bianchi PA [Primary Care Provider] - Time of Disposition: 13:20 - Critical Care Critical Care Time: No Attestation: On 09/28/21, the high probability of a clinically significant, sudden or life threatening deterioration of the following system(s) required my full and direct attention, intervention and personal management. The time I documented below is in addition to time spent performing reported procedures but includes the following listed in this critical care notation. Medical Decision Making - Medical Records Medical records reviewed: Yes: I reviewed the patient's medical records. - Sarthak Inquiry Pt receiving controlled substance: No Vital Signs: 09/28/21 11:17 09/28/21 11:28 09/28/21 13:09 Temperature 98.2 F 98.3 F Temperature Source Oral Oral Pulse Rate 109 H 70 Pulse Rate [Left Radial] 109 H Respiratory Rate 18 16 Blood Pressure 112/71 114/64 Blood Pressure [Right Arm] 112/71 Blood Pressure Mean [Right Arm] 84 Blood Pressure Source Automatic Cuff Blood Pressure Source [Right Arm] Automatic Cuff Blood Pressure Position Sitting Blood Pressure Position [Right Arm] Sitting 02 Sat by Pulse Oximetry 95 97 Oxygen Delivery Method Room Air Room Air Room Air - Lab Data Lab results reviewed: Yes: I reviewed the patient's lab results. Lab Results 09/28/21 11:35: Serum HCG, Qual Negative 09/28/21 11:35: Influenza Type A Ag Negative, Influenza Type B Ag Negative Orders (Tests/Meds): ED MEDICATIONS Discontinued Medications Generic Name Dose Route Start Last Admin Trade Name Freq PRN Reason Stop Dose Admin Lactated Ringer's 1,000 mls @ 999 mls/hr 09/28/21 11:30 09/28/21 11:26 Lactated Ringer's 1000 Ml Bag IV 09/28/21 12:30 999 mls/hr .Q1H1M ELYSE Administration Ondansetron HCl 4 mg 09/28/21 11:23 09/28/21 11:26 Ondansetron 4mg/2ml Vial IV 09/28/21 11:24 4 mg ONCE ONE Administration Ondansetron HCl 4 mg 09/28/21 12:19 09/28/21 12:39 Ondansetron 4mg/2ml Vial IV 09/28/21 12:20 4 mg ONCE ONE Administration ORDERS Category Date Time Status Covid-19 Nasal PCR ([facility]) Routine Lab 09/28/21 11:35 Received Medical Decision Narrative: Miss Resendiz is a 21 yo female w/ no significant PMH who presents to the ED with N/V, cough and diffuse myalgias. Patient is afebrile and hemodynamically stable on arrival, non toxic appearing. Physical exam patient has no clinical signs of dehydration. Abdomen is non tender to palpation. Patient is otherwise well appearing. Differentials to consider include: Viral mediated illness including covid 19, test. Patient is swabbed for COVID 19 and flu. Flu negative. COVID pending patient instructed to follow up on results in 24 hours. Patient is given bolus of fluid and zofran 4mg IV for symptomatic relief. Patient reports symptoms have completelyt resolved. Patient is given script for zofran and instructed to take as prescribed. Patient is discharged in stable condition and informed to return if unable to tolerate po or if symptoms don't improve. Patient is discharged in stable condition. General Adult HPI - General Chief complaint: Headache Stated complaint: vomiting, headache, chest tightness Time Seen by Provider: 09/28/21 11:25 Mode of Arrival: Ambulatory Source of Information: Patient Limitations: No Limitations Description of Symptoms (Recalled from ER Triage Doc. by RN): c/o CHONG, back pain when moving, cough, vomiting, dry hives and weak since last night - History of Present Illness HPI narrative: Miss resendiz is a 21 yo female w/ no significant PMH who presents to the ED for hea
[2021-09-28 13:09] VITALS: BP 114/64; PULSE 70; RESP 16; TEMP 36.8; O2SAT 98
[2021-09-28 13:09] LABS: HCG Qualitative, Serum Negative (Negative)
== END 2021-09-28 13:10 | disposition home or self-care (01) ==
PROVIDERS: Emergency Provider Student in an Organized Health Care Education/Training Program; PCP Physician Assistant
DX: K52.9 Noninfective gastroenteritis and colitis, unspecified (principal); F41.8 Other specified anxiety disorders; F33.1 Major depressive disorder, recurrent, moderate; Z20.822 Contact with and (suspected) exposure to COVID-19
CPT/HCPCS: 84703; 87275; 87276; 96365; 96375; 96376; 99283; C9803; J2405; U0003; U0005

== ENCOUNTER 2021-12-11 11:07 | Emergency (ER) | payer OTHER, SELFPAY ==
[2021-12-11 11:18] VITALS: BP 102/58; PULSE 86; RESP 16; TEMP 36.8; O2SAT 98; BMI 32.4
--- NOTE | 2021-12-11 11:30 | XR_ITS ---
FINAL REPORT CLINICAL HISTORY: PAIN. pt fell and twisted ankle. heard a pop. lateral sided foot and ankle pain. pt shielded. FINDINGS: RIGHT ANKLE: Three views of the right ankle were obtained. There is no acute ankle fracture or dislocation. The joint spaces and mortise are intact. There is no soft tissue abnormality. IMPRESSION: No acute process. Reviewed, Interpreted and Dictated by Law Rao MD Transcribed by Hossein Chaves Authenticated by Law Rao MD on 12/11/2021 01:27:12 PM [facility]
--- NOTE | 2021-12-11 11:30 | XR_ITS ---
FINAL REPORT CLINICAL HISTORY: PAIN. pt fell and twisted ankle. heard a pop. lateral sided foot and ankle pain. pt shielded. FINDINGS: 3 views of the right foot were obtained. There is a transverse nondisplaced fracture through the base of the 5th metatarsal. The joint spaces are intact. The soft tissues are unremarkable. IMPRESSION: Nondisplaced 5th metatarsal fracture. Reviewed, Interpreted and Dictated by Law Rao MD Transcribed by Hossein Chaves Authenticated by Law Rao MD on 12/11/2021 01:27:01 PM [facility]
[2021-12-11 11:40] VITALS: BP 102/58; PULSE 86; RESP 16; TEMP 36.8; O2SAT 98; BMI 32.3
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
[2021-12-11 12:05] VITALS: BP 102/58; PULSE 86; RESP 16; TEMP 36.8; O2SAT 98
== END 2021-12-11 12:15 | disposition home or self-care (01) ==
PROVIDERS: Emergency Provider Nurse Practitioner; PCP Physician Assistant
DX: S93.401A Sprain of unspecified ligament of right ankle, initial encounter (principal); S92.351A Displaced fracture of fifth metatarsal bone, right foot, initial encounter for closed fracture; W17.89XA Other fall from one level to another, initial encounter; Y92.019 Unspecified place in single-family (private) house as the place of occurrence of the external cause; F41.8 Other specified anxiety disorders
CPT/HCPCS: 73610; 73630; 99212; G0463

== ENCOUNTER → 2021-12-23 14:23 | Outpatient (CLI) | payer OTHER, SELFPAY ==
--- NOTE | 2021-12-23 14:29 | XR_ITS ---
FINAL REPORT CLINICAL HISTORY: foot fx. f/u to initial fracture which was 12/11/2021. Patient has mirena IUD device. States not . Shielded. COMPARISON: December 11, 2021 FINDINGS: RIGHT FOOT Three views of the left foot demonstrate a stable nondisplaced transverse fracture of the proximal 5th metatarsal. There is no significant callus formation at the fracture site. The visualized joint spaces are normally aligned. The soft tissues are unremarkable. IMPRESSION: Stable fracture as above. Reviewed, Interpreted and Dictated by Shay Mojica III, MD Transcribed by Suzie Rosen Authenticated by Shay Mojica III, MD on 12/23/2021 03:21:16 PM [facility]
== END ==
PROVIDERS: PCP Physician Assistant; Visit Provider Orthopaedic Surgery
DX: S92.901A Unspecified fracture of right foot, initial encounter for closed fracture (principal)
CPT/HCPCS: 73630

== ENCOUNTER → 2022-02-04 15:04 | Outpatient (CLI) | payer OTHER, SELFPAY ==
--- NOTE | 2022-02-04 15:04 | US_ITS ---
FINAL REPORT CLINICAL HISTORY: Acute pelvic pain FINDINGS: Transvaginal sonographic images of the pelvis were obtained. The uterus is retroverted and measures 6.7 x 4.4 x 3.8 cm. The endometrium measures 7 mm, which is within normal limits. An IUD is present within the uterus. The right ovary measures 3.3 cm in length and left ovary measures 3.4 cm in length. Normal blood flow seen to the ovaries. There is a 1.4 cm follicle in the left ovary. There is a small amount of free fluid which may be physiologic. IMPRESSION: IUD present within the uterus. 1.4 cm follicle in the left ovary. Small amount of free fluid, may be physiologic. Reviewed, Interpreted and Dictated by Shay Mojica III, MD Transcribed by Melia Dinh Authenticated and . [facility]
== END ==
PROVIDERS: PCP Physician Assistant; Visit Provider Obstetrics & Gynecology
DX: R10.2 Pelvic and perineal pain (principal)
CPT/HCPCS: 76830

== ENCOUNTER 2022-03-18 12:39 | Emergency (ER) | payer OTHER, SELFPAY ==
[2022-03-18 13:01] VITALS: BP 118/69; PULSE 86; RESP 18; TEMP 37.1; O2SAT 98; BMI 29.8
--- NOTE | 2022-03-18 13:03 | HMH.EDUTC ---
[facility] [place] Disposition Clinical Impression: Viral syndrome Sinusitis Qualifiers: Sinusitis location: unspecified location Chronicity: acute Recurrence: non-recurrent Qualified Code(s): J01.90 - Acute sinusitis, unspecified Disposition: Home, Self-Care Condition on Discharge: Good Instructions: DI for COVID-19 (Suspected or Confirmed ), Preventing the Spread of Coronavirus Discharge Instructions Additional Instructions: Drink plenty of fluids. Take tylenol or ibuprofen for pain or fever. Take the medications as directed. Follow up with your regular doctor. GO TO THE ER FOR ANY WORSENING SYMPTOMS Quarantine until you know the results of your covid-19 test. Notify your school or workplace of your results and follow their instructions regarding return to work/school. Prescriptions: Brompheniramine/Pseudoephed/Dm [Bromfed Dm Cough Syrup] 5 ml PO Q6HP PRN #240 ml PRN Reason: Cough Transmission Status: Received by [facility] methylPREDNISolone [Medrol] 4 mg PO DIRECTED 6 Days #21 packet Transmission Status: Received by [facility] Azithromycin [Z-Ethan 250mg Tab*] 250 mg PO UD DOSE PK #6 tab Transmission Status: Received by [facility] Referrals: Ramiro Bianchi PA [Primary Care Provider] - Time of Disposition: 13:31 Medical Decision Making - Medical Records Medical records reviewed: No: I reviewed the patient's medical records. - Sarthak Inquiry Pt receiving controlled substance: No Vital Signs: 03/18/22 13:01 03/18/22 13:36 Temperature 98.7 F 98.7 F Temperature Source Oral Pulse Rate 86 Pulse Rate [Left] 86 Respiratory Rate 18 18 Blood Pressure 118/69 Blood Pressure [Right Arm] 118/69 Blood Pressure Mean [Right Arm] 85 02 Sat by Pulse Oximetry 98 - Lab Data Lab Results 03/18/22 12:49: Strep Scn Rapid Clinic Negative Orders (Tests/Meds): ORDERS Category Date Time Status Covid-19 Nasal PCR ([facility]) Routine Lab 03/18/22 12:47 Received Strep Screen Confirmation Stat Micro 03/18/22 12:49 Received [facility] HPI - General Stated complaint: Sinus pressure; congestion Time Seen by Provider: 03/18/22 13:03 Mode of Arrival: Ambulatory Source of Information: Patient Limitations: No Limitations Description of Symptoms (Recalled from Triage Doc. by RN): patient comes in with complaints of headache, nasal drainage. symptoms began today. patient was exposed to covid last week. HEENT Symptoms (Recalled from RN notes): Yes Resp Symptoms (Recalled from RN notes): No Skin Symptoms (Recalled from RN notes): No MS Symptoms (Recalled from RN notes): No Functional Status (Recalled from RN notes): n/a - History of Present Illness Provider Complaint: She states that she has been having sinus congestion and sinus pressure for the past 2 days. She believes she is getting a sinus infection. She denies any known exposure to covid-19 - Related Data Home Medications Medication Instructions Recorded Confirmed buspirone 7.5 mg tablet 7.5 mg PO TID tab 05/02/20 02/01/22 cetirizine 10 mg capsule 10 mg PO DAILY 05/02/20 02/01/22 Albuterol Sulfate [Proventil Hfa] 2 puff IH Q4-6H PRN 10/14/20 02/01/22 Venlafaxine HCl [Effexor Xr] 75 mg PO DAILY 11/13/20 02/01/22 levonorgestrel 20 mcg/24 hours (7 INTRAUTERI 02/02/21 02/01/22 yrs) 52 mg intrauterine device Previous Rx's Medication Instructions Recorded Meclizine HCl [Meclizine 25mg Tab] 50 mg PO Q6 PRN #20 tab 01/27/21 doxycycline hyclate 100 mg capsule 100 mg PO BID #14 cap 02/05/22 fluconazole 150 mg tablet 150 mg PO ONCE #2 tab 03/12/22 Azithromycin [Z-Ethan 250mg Tab*] 250 mg PO UD DOSE PK #6 tab 03/18/22 Brompheniramine/Pseudoephed/Dm 5 ml PO Q6HP PRN #240 ml 03/18/22 [Bromfed Dm Cough Syrup] methylPREDNISolone [Medrol] 4 mg PO DIRECTED 6 Days #21 03/18/22 packet Allergies Allergy/AdvReac Type Severity Reaction Status Date / Time povidone-iodine Allergy Severe anaphylaxis Verified
[2022-03-18 13:04] LABS: UTC Strep Screen (Rapid) Negative (Negative)
[2022-03-18 13:36] VITALS: BP 118/69; PULSE 86; RESP 18; TEMP 37.1
== END 2022-03-18 13:40 | disposition home or self-care (01) ==
PROVIDERS: Emergency Provider Nurse Practitioner Family; PCP Physician Assistant
DX: J01.90 Acute sinusitis, unspecified (principal); B34.9 Viral infection, unspecified
CPT/HCPCS: 87880; 99212; C9803; G0463; U0003; U0005

== ENCOUNTER 2022-04-14 13:18 | Emergency (ER) | payer OTHER, SELFPAY ==
[2022-04-14 13:19] VITALS: BP 121/78; PULSE 96; RESP 18; TEMP 36.8; O2SAT 100; BMI 32.3
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
[2022-04-14 14:56] VITALS: BP 109/74; PULSE 95; O2SAT 99
[2022-04-14 16:50] VITALS: BP 110/75; PULSE 101; RESP 18; TEMP 36.8; O2SAT 97
== END 2022-04-14 16:52 | disposition home or self-care (01) ==
PROVIDERS: Emergency Provider Emergency Medicine; PCP Physician Assistant
DX: M54.50 Low back pain, unspecified (principal); R51.9 Headache, unspecified; V43.53XA Car driver injured in collision with pick-up truck in traffic accident, initial encounter
CPT/HCPCS: 99283

== ENCOUNTER 2022-04-21 11:08 | Emergency (ER) | payer OTHER, SELFPAY ==
[2022-04-21 11:45] VITALS: BP 108/67; PULSE 82; RESP 18; TEMP 36.8; O2SAT 99; BMI 33.4
--- NOTE | 2022-04-21 12:11 | EXP.UTC ---
Discharge Plan Disposition Patient Disposition: Home, Self-Care Condition: Good Prescriptions Prescriptions: New cefdinir 300 mg capsule 300 mg PO BID 7 Days Qty: 14 0RF methylprednisolone [Medrol (Ethan)] 4 mg tablets,dose pack See Rx Instructions .Route .COMPLEX 6 Days Qty: 21 0RF Rx Instructions: taper pack; ondansetron 4 mg tablet,disintegrating 4 mg PO Q8H PRN (Reason: Nausea) Qty: 20 0RF No Action Mirena 20 mcg/24 hours (6 yrs) 52 mg intrauterine device INTRAUTERI doxycycline hyclate 100 mg capsule 100 mg PO BID Qty: 14 0RF buspirone 7.5 mg tablet 7.5 mg PO TID cetirizine 10 mg capsule 10 mg PO DAILY fluconazole [Diflucan] 150 mg tablet 150 mg PO ONCE Qty: 2 0RF Rx Instructions: may repeat second dose 72 hrs after first dose if symptoms persist meclizine 25 MG tablet,chewable 50 mg PO Q6 PRN (Reason: Dizziness) Qty: 20 0RF azithromycin 250 MG tablet 250 mg PO UD DOSE PK Qty: 6 0RF Rx Instructions: Take two (2) tablets today, then one (1) tablet days #2 thru #5 methylprednisolone 4 MG tablets,dose pack 4 mg PO DIRECTED 6 Days Qty: 21 0RF [id number]-haxbjnhjr-JR 118 ML syrup 5 ml PO Q6HP PRN (Reason: Cough) Qty: 240 0RF methocarbamol 500 mg tablet 500 mg PO TID Qty: 10 0RF albuterol sulfate 6.7 GM HFA aerosol inhaler 2 puff IH Q4-6H PRN (Reason: shortness of breath or wheezing) venlafaxine 75 MG capsule,extended release 24hr 75 mg PO DAILY Referrals Follow up/Referrals: Provider,Referral, MD [Primary Care Provider] - See instructions Activity Restrictions/Add. Instructions Additional Instructions/Restrictions: *Monitor Temp, Over the counter Motrin or Tylenol as directed/as needed Tylenol every 4 hours and Motrin every 6 hours (as long as your family doctor has told you that you can take it) for fever or pain. and straight to ER if unable to lower temp less than 101.0 after medication given *Warm salt water gargles may help to soothe the throat *Throat Lozenges? *Warm fluids like tea with honey may help to soothe the throat? *Sleep elevated *Humidifier/Vaporizer Take medication as prescribed Follow up IMMEDIATELY for new or worsening symptoms or no Noticeable improvement over the next 48-72 hours. 911 for difficulty breathing or swallowing Clinical Impressions Clinical Impression: Sinusitis Instructions Patient Instructions: DI for Sinusitis, Sinusitis Discharge ED Provider: Rosa Elena Lawler [facility] [place] HPI General Stated complaint: head congestion,headache,vomiting Mode of Arrival: Ambulatory Source of Information: Patient Limitations: No Limitations Time Seen by Provider: 04/21/22 12:11 Description of Symptoms (Recalled from Triage Doc. by RN): PATIENT C/O VOMITING, HEADACHE, CONGESTION, AND SINUS PRESSURE SINCE TUESDAY HEENT Symptoms (Recalled from RN notes): Yes Resp Symptoms (Recalled from RN notes): No Skin Symptoms (Recalled from RN notes): No MS Symptoms (Recalled from RN notes): No Functional Status (Recalled from RN notes): WNL History of Present Illness Provider Complaint: Patient states that she has been having sinus congestion for close to a week that got worse on Tuesday States that she is having sinus pain and pressure along with headache and N/V States that her stomach feels upset Related Data Home Medications Medication Instructions Recorded Confirmed buspirone 7.5 mg tablet 7.5 mg PO TID Depression 05/02/20 02/01/22 cetirizine 10 mg capsule 10 mg PO DAILY Allergy symptoms 05/02/20 02/01/22 albuterol sulfate 90 mcg/actuation 2 puff inhalation Q4-6H PRN 10/14/20 02/01/22 aerosol inhaler shortness of breath or wheezing venlafaxine 75 mg capsule,extended 75 mg PO DAILY Depression 11/13/20 02/01/22 release 24 hr levonorgestrel 20 mcg/24 hours (7 intrauterine 02/02/21 02/01/22 yrs) 52 mg intrauterine device (Mirena) Previous Rx's
[2022-04-21 12:16] VITALS: BP 108/67; PULSE 82; RESP 18; TEMP 36.8; O2SAT 99
== END 2022-04-21 12:19 | disposition home or self-care (01) ==
PROVIDERS: Emergency Provider Nurse Practitioner
DX: J32.9 Chronic sinusitis, unspecified (principal)
CPT/HCPCS: 99212; G0463

== ENCOUNTER → 2022-06-16 12:09 | Outpatient (CLI) | payer OTHER, SELFPAY ==
--- NOTE | 2022-06-16 12:20 | XR_ITS ---
FINAL REPORT CLINICAL HISTORY: RT KNEE PAIN x1 WEEK FINDINGS: RIGHT KNEE Two views of the right knee were obtained. There is no evidence of fracture or dislocation. The bony alignment is normal. The joint spaces are preserved. There is no evidence of joint effusion. No localized soft tissue abnormality is identified. IMPRESSION: No acute abnormality identified. Reviewed, Interpreted and Dictated by Shay Mojica III, MD Transcribed by Melia Dinh Authenticated and [facility]
== END ==
PROVIDERS: PCP Physician Assistant; Visit Provider Physician Assistant
DX: M25.561 Pain in right knee (principal); V89.2XXD Person injured in unspecified motor-vehicle accident, traffic, subsequent encounter
CPT/HCPCS: 73560

== ENCOUNTER 2022-06-17 16:17 | Emergency (ER) | payer OTHER, SELFPAY ==
[2022-06-17 16:30] VITALS: BP 120/71; PULSE 99; RESP 18; TEMP 36.8; O2SAT 96; BMI 32.3
--- NOTE | 2022-06-17 16:57 | PC.NURSE ---
PATIENT SENT BACK TO ER PER Russ TALAMANTES APRN FOR C/O RLQ PAIN AND NAUSEA THAT STARTED LAST NIGHT
[2022-06-17 17:06] VITALS: BP 120/71; PULSE 99; RESP 18; TEMP 36.8; O2SAT 96; BMI 32.3
--- NOTE | 2022-06-17 17:21 | HMH.EDGENADL ---
Discharge Plan Disposition Patient Disposition: Home, Self-Care Condition: Good Chief Complaint: Abdominal Pain Prescriptions Prescriptions: No Action Mirena 20 mcg/24 hours (6 yrs) 52 mg intrauterine device INTRAUTERI doxycycline hyclate 100 mg capsule 100 mg PO BID Qty: 14 0RF buspirone 7.5 mg tablet 7.5 mg PO TID cetirizine 10 mg capsule 10 mg PO DAILY fluconazole [Diflucan] 150 mg tablet 150 mg PO ONCE Qty: 2 0RF Rx Instructions: may repeat second dose 72 hrs after first dose if symptoms persist meclizine 25 MG tablet,chewable 50 mg PO Q6 PRN (Reason: Dizziness) Qty: 20 0RF azithromycin 250 MG tablet 250 mg PO UD DOSE PK Qty: 6 0RF Rx Instructions: Take two (2) tablets today, then one (1) tablet days #2 thru #5 methylprednisolone 4 MG tablets,dose pack 4 mg PO DIRECTED 6 Days Qty: 21 0RF [id number] 118 ML syrup 5 ml PO Q6HP PRN (Reason: Cough) Qty: 240 0RF methocarbamol 500 mg tablet 500 mg PO TID Qty: 10 0RF cefdinir 300 mg capsule 300 mg PO BID 7 Days Qty: 14 0RF methylprednisolone [Medrol (Ethan)] 4 mg tablets,dose pack See Rx Instructions .Route .COMPLEX 6 Days Qty: 21 0RF Rx Instructions: taper pack; ondansetron 4 mg tablet,disintegrating 4 mg PO Q8H PRN (Reason: Nausea) Qty: 20 0RF albuterol sulfate 6.7 GM HFA aerosol inhaler 2 puff IH Q4-6H PRN (Reason: shortness of breath or wheezing) venlafaxine 75 MG capsule,extended release 24hr 75 mg PO DAILY Referrals Follow up/Referrals: Ramiro Bianchi PA [Primary Care Provider] - See instructions Activity Restrictions/Add. Instructions Additional Instructions/Restrictions: Ibuprofen as needed for pain. Additional instructions for ABDOMINAL PAIN: See your physician as soon as possible for further evaluation. Return immediately if worsening abdominal pain, vomiting, shortness of breath, fever, vomiting of blood or abdominal distention. Clinical Impressions Clinical Impression: Abdominal pain, right lower quadrant Instructions Patient Instructions: DI for Acute Abdominal Pain Discharge ED Provider: Lawler,Erin General Adult HPI General Chief complaint: Abdominal Pain Stated complaint: RIGHT SIDE PAIN AND NA Time Seen by Provider: 06/17/22 17:21 Mode of Arrival: Ambulatory Source of Information: Patient Limitations: No Limitations Description of Symptoms (Recalled from ER Triage Doc. by RN): Patient reports constant right sided pain and being neuseous since last night. History of Present Illness HPI narrative: States she has had severe right lower quadrant pain since last night. She has nausea, but no vomiting. No fever. No urinary symptoms. No diarrhea. She states she does not have menses because she has an IUD. Denies previous similar pain. She has had previous section, no other abdominal surgeries. She last ate at about 1 PM, states that she had chicken from [employer]. No vomiting afterwards. No worsening of pain afterwards. Related Data Home Medications Medication Instructions Recorded Confirmed buspirone 7.5 mg tablet 7.5 mg PO TID Depression 05/02/20 02/01/22 cetirizine 10 mg capsule 10 mg PO DAILY Allergy symptoms 05/02/20 02/01/22 albuterol sulfate 90 mcg/actuation 2 puff inhalation Q4-6H PRN 10/14/20 02/01/22 aerosol inhaler shortness of breath or wheezing venlafaxine 75 mg capsule,extended 75 mg PO DAILY Depression 11/13/20 02/01/22 release 24 hr levonorgestrel 20 mcg/24 hours (8 intrauterine 02/02/21 02/01/22 yrs) 52 mg intrauterine device (Mirena) Previous Rx's Medication Instructions Recorded meclizine 25 mg chewable tablet 50 mg PO Q6 PRN Dizziness #20 tabs 01/27/21 doxycycline hyclate 100 mg capsule 100 mg PO BID #14 caps 02/05/22 fluconazole 150 mg tablet 150 mg PO ONCE #2 tabs 03/12/22 (Diflucan) azithromycin 250 mg tablet 250 mg PO UD DOSE PK #6 t
--- NOTE | 2022-06-17 17:39 | CT_ITS ---
PROCEDURE INFORMATION: Exam: CT Abdomen And Pelvis With Contrast Exam date and time: 06/17/2022 6:30 PM Age: 22 years old Clinical indication: Abdominal pain; Localized; Right lower quadrant (rlq); Prior surgery; Surgery date: 6+ months; Surgery type: 19 months ago. ; Additional info: Rlq abdo pain TECHNIQUE: Imaging protocol: Computed tomography of the abdomen and pelvis with contrast. Radiation optimization: All CT scans at this facility use at least one of these dose optimization techniques: automated exposure control; mA and/or kV adjustment per patient size (includes targeted exams where dose is matched to clinical indication); or iterative reconstruction. Contrast material: ISOVUE; Contrast volume: 75 ml; Contrast route: IV; COMPARISON: CT ABDOMEN PELVIS W CON 08/26/2019 1:28 PM FINDINGS: Liver: Normal. No mass. Gallbladder and bile ducts: Normal. No calcified stones. No ductal dilation. Pancreas: Normal. No ductal dilation. Spleen: Normal. No splenomegaly. Adrenal glands: Normal. No mass. Kidneys and ureters: Normal. No hydronephrosis. Stomach and bowel: Unremarkable. No obstruction. No mucosal thickening. Appendix: No evidence of appendicitis. Intraperitoneal space: Unremarkable. No free air. No significant fluid collection. Vasculature: Unremarkable. No abdominal aortic aneurysm. Lymph nodes: Unremarkable. No enlarged lymph nodes. Urinary bladder: Unremarkable as visualized. Reproductive: IUD. Bones/joints: Unremarkable. No acute fracture. Soft tissues: Unremarkable. IMPRESSION: No acute findings.
[2022-06-17 18:09] LABS: Microscopic, Urine URINE MICROSCOPIC (MICROSCOPIC)
[2022-06-17 18:15] LABS: Appearance,Urine CLEAR (Clear); Bilirubin,Urine Negative (Negative); Blood, Urine Negative (Negative); Color,Urine YELLOW (Yellow); Glucose,Urine (UA) Negative (Negative); Ketones,Urine Negative (Negative); Leukocyte Esterase,Urine Negative (Negative); Nitrate,Urine Negative (Negative); Protein,Urine Negative (Negative); Specific Gravity, Urine 1.025 (1.005-1.030); Urobilinogen,Urine 0.2 EU/dl (0.2)
[2022-06-17 18:17] LABS: Urine Pregnancy, HCG Qual. Negative (Negative)
[2022-06-17 18:20] LABS: Basophils # 0.1 K/mm3 (0-0.2); Eosinophils # 0.2 K/mm3 (0.0-0.4); Eosinophils % 2.6 % (0.1-12.0); Hematocrit 45.7 % (37.0-47.0); Lymphocytes # 2.3 K/mm3 (0.7-4.5); Lymphocytes % 27.8 % (10-50); Mean Corpuscular HGB Conc 32.7 g/dL (31.8-35.4); Mean Corpuscular Volume 91.7 fl (81-99); Mean Platelet Volume 8.5 fl (7.4-10.4); Monocytes # 0.5 K/mm3 (0.1-1.0); Monocytes % 5.3 % (1.7-9.3); Neutrophils # 5.3 K/mm3 (1.8-7.8); Neutrophils % 63.3 % (37.0-80.0); Platelet Count 282 K/mm3 (142-424); Red Blood Count 4.98 M/mm3 (4.20-5.40); White Blood Count 8.4 K/mm3 (4.8-10.8)
[2022-06-17 18:27] LABS: Bacteria,Urine 1+ /lpf
[2022-06-17 18:27] LABS: Chloride 100 mmol/L (98-107); Potassium 3.8 mmoL/L (3.5-5.1); Sodium 140 mmol/L (136-145)
[2022-06-17 18:29] LABS: Blood Urea Nitrogen 8 mg/dl (7-17); Creatinine Clearance Estimated 140 mL/min (50-200); Estimated Glomerular Filt Rate 78 ml/min (>60); GFR (African American) 95 ML/MIN (>60)
[2022-06-17 18:30] LABS: Alanine Aminotransferase 26 U/L (12-78); Albumin Level 4.3 g/dl (3.5-5.0); Albumin/Globulin Ratio 1.4 (1.1-1.8); Alkaline Phosphatase 106 U/L (38-126); Anion Gap 11.8 mEq/L (5-15); Aspartate Amino Transferase 38 U/L (14-36); Bilirubin,Total 0.4 mg/dl (0.2-1.3); Calcium 9.8 mg/dl (8.4-10.2); Carbon Dioxide 32 mmol/L (22.0-30.0); Glucose 92 mg/dl (74-100); Lipase 124 U/L (23-300); Total Protein,Serum 7.3 g/dl (6.3-8.2)
--- NOTE | 2022-06-17 19:36 | PC.NURSE ---
Rechecked pt condition. No needs or complaints voiced at this time.
[2022-06-17 19:46] VITALS: BP 122/74; PULSE 80; RESP 18; TEMP 36.8; O2SAT 96
== END 2022-06-17 19:47 | disposition home or self-care (01) ==
LOC: UTC 16:30 → ER 16:51
PROVIDERS: Emergency Medicine; Emergency Provider Nurse Practitioner; PCP Physician Assistant
DX: R10.31 Right lower quadrant pain (principal)
CPT/HCPCS: 74177; 80053; 81001; 81025; 83690; 85025; 96374; 99284; Q9967

== ENCOUNTER 2022-07-13 16:45 | Emergency (ER) | payer OTHER, SELFPAY ==
[2022-07-13 18:08] VITALS: BP 112/69; PULSE 84; RESP 16; TEMP 36.8; O2SAT 95; BMI 32.3
[2022-07-13 18:25] LABS: Coronavirus 19, PCR Not Detected (NotDetected); Influenza A, PCR Not Detected (NotDetected); Influenza B, PCR Not Detected (NotDetected)
--- NOTE | 2022-07-13 18:38 | HMH.EDGENADL ---
Discharge Plan Disposition Patient Disposition: Home, Self-Care Condition: Fair Prescriptions Prescriptions: New dicyclomine 20 mg tablet 20 mg PO TID PRN (Reason: cramps) Qty: 10 0RF No Action Mirena 20 mcg/24 hours (6 yrs) 52 mg intrauterine device INTRAUTERI doxycycline hyclate 100 mg capsule 100 mg PO BID Qty: 14 0RF buspirone 7.5 mg tablet 7.5 mg PO TID cetirizine 10 mg capsule 10 mg PO DAILY fluconazole [Diflucan] 150 mg tablet 150 mg PO ONCE Qty: 2 0RF Rx Instructions: may repeat second dose 72 hrs after first dose if symptoms persist meclizine 25 MG tablet,chewable 50 mg PO Q6 PRN (Reason: Dizziness) Qty: 20 0RF azithromycin 250 MG tablet 250 mg PO UD DOSE PK Qty: 6 0RF Rx Instructions: Take two (2) tablets today, then one (1) tablet days #2 thru #5 methylprednisolone 4 MG tablets,dose pack 4 mg PO DIRECTED 6 Days Qty: 21 0RF [id number]-thykcwtay-[place] 118 ML syrup 5 ml PO Q6HP PRN (Reason: Cough) Qty: 240 0RF methocarbamol 500 mg tablet 500 mg PO TID Qty: 10 0RF cefdinir 300 mg capsule 300 mg PO BID 7 Days Qty: 14 0RF methylprednisolone [Medrol (Ethan)] 4 mg tablets,dose pack See Rx Instructions .Route .COMPLEX 6 Days Qty: 21 0RF Rx Instructions: taper pack; ondansetron 4 mg tablet,disintegrating 4 mg PO Q8H PRN (Reason: Nausea) Qty: 20 0RF albuterol sulfate 6.7 GM HFA aerosol inhaler 2 puff IH Q4-6H PRN (Reason: shortness of breath or wheezing) venlafaxine 75 MG capsule,extended release 24hr 75 mg PO DAILY Referrals Follow up/Referrals: Provider,Referral, MD [Primary Care Provider] - See instructions Activity Restrictions/Add. Instructions Additional Instructions/Restrictions: You have been evaluated for abdominal pain and vomiting. Please take Bentyl for cramps. Zofran for nausea. Follow-up with your primary care doctor in 1 to 2 days for symptom recheck. Follow bland diet. Return to the emergency department at once for any new or worsening symptoms. Clinical Impressions Clinical Impression: Enteritis, Abdominal pain Instructions Patient Instructions: DI for Nausea -- Adult, DI for Enteritis Discharge ED Provider: Elsa Jones Adult HPI General Chief complaint: Nausea/Vomiting/Diarrhea Stated complaint: Vomiting,Chilles,stomach pain Time Seen by Provider: 07/13/22 18:19 Mode of Arrival: Ambulatory Source of Information: Patient Limitations: No Limitations Description of Symptoms (Recalled from ER Triage Doc. by RN): Pt c/o vomiting, lower abd cramping, sweats and chills that began today. Pt reports exposed to flu recently. History of Present Illness HPI narrative: 22-year-old female presenting to the emergency department with fever, chills, nausea, abdominal pain. Symptom started earlier today. She would feel very hot and then have chills. She has cramping upper abdominal pain that started after an episode of vomiting. She has been unable to eat or drink much. She was exposed to influenza recently. No medications prior to arrival. No lower abdominal pain. No dysuria, hematuria. History of 1 . No other abdominal surgeries. Denies concern for . Related Data Home Medications Medication Instructions Recorded Confirmed buspirone 7.5 mg tablet 7.5 mg PO TID Depression 05/02/20 02/01/22 cetirizine 10 mg capsule 10 mg PO DAILY Allergy symptoms 05/02/20 02/01/22 albuterol sulfate 90 mcg/actuation 2 puff inhalation Q4-6H PRN 10/14/20 02/01/22 aerosol inhaler shortness of breath or wheezing venlafaxine 75 mg capsule,extended 75 mg PO DAILY Depression 11/13/20 02/01/22 release 24 hr levonorgestrel 20 mcg/24 hours (8 intrauterine 02/02/21 02/01/22 yrs) 52 mg intrauterine device (Mirena) Previous Rx's Medication Instructions Recorded meclizine 25 mg chewable tablet 50 mg PO Q6 PRN Dizziness #20 tabs 01/27/21 doxycycline hycl
--- NOTE | 2022-07-13 19:01 | PC.NURSE ---
Blood sent to lab
[2022-07-13 19:07] LABS: Basophils # 0.1 K/mm3 (0-0.2); Basophils % 0.8 % (0.1-2.0); Eosinophils # 0.2 K/mm3 (0.0-0.4); Eosinophils % 2.5 % (0.1-12.0); Hematocrit 45.7 % (37.0-47.0); Hemoglobin 14.6 g/dL (12.2-16.2); Lymphocytes # 2.3 K/mm3 (0.7-4.5); Lymphocytes % 24.1 % (10-50); Mean Corpuscular HGB Conc 32.1 g/dL (31.8-35.4); Mean Corpuscular Hemoglobin 29.4 pg (27.0-31.2); Mean Corpuscular Volume 91.5 fl (81-99); Mean Platelet Volume 8.5 fl (7.4-10.4); Monocytes # 0.5 K/mm3 (0.1-1.0); Neutrophils # 6.4 K/mm3 (1.8-7.8); Neutrophils % 67.6 % (37.0-80.0); Platelet Count 261 K/mm3 (142-424); Red Blood Count 4.99 M/mm3 (4.20-5.40); White Blood Count 9.5 K/mm3 (4.8-10.8)
[2022-07-13 19:07] LABS: Microscopic, Urine URINE MICROSCOPIC (MICROSCOPIC)
[2022-07-13 19:10] LABS: Appearance,Urine CLEAR (Clear); Bilirubin,Urine Negative (Negative); Blood, Urine Negative (Negative); Color,Urine YELLOW (Yellow); Glucose,Urine (UA) Negative (Negative); Ketones,Urine Negative (Negative); Leukocyte Esterase,Urine Negative (Negative); Nitrate,Urine Negative (Negative); PH,Urine 6.5 (5.0-8.5); Protein,Urine Negative (Negative); Specific Gravity, Urine 1.025 (1.005-1.030); Urobilinogen,Urine 0.2 EU/dl (0.2)
[2022-07-13 19:14] LABS: Urine Pregnancy, HCG Qual. Negative (Negative)
[2022-07-13 19:17] LABS: Alanine Aminotransferase 37 U/L (12-78); Albumin Level 4.2 g/dl (3.5-5.0); Albumin/Globulin Ratio 1.4 (1.1-1.8); Alkaline Phosphatase 132 U/L (38-126); Anion Gap 16.8 mEq/L (5-15); Aspartate Amino Transferase 45 U/L (14-36); Bilirubin,Total 0.4 mg/dl (0.2-1.3); Blood Urea Nitrogen 8 mg/dl (7-17); Calcium 9.5 mg/dl (8.4-10.2); Carbon Dioxide 29 mmol/L (22.0-30.0); Chloride 97 mmol/L (98-107); Creatinine Clearance Estimated 140 mL/min (50-200); Estimated Glomerular Filt Rate 78 ml/min (>60); GFR (African American) 95 ML/MIN (>60); Globulin 2.9 g/dL (1.3-3.2); Glucose 98 mg/dl (74-100); Lipase 90 U/L (23-300); Potassium 3.8 mmoL/L (3.5-5.1); Sodium 139 mmol/L (136-145); Total Protein,Serum 7.1 g/dl (6.3-8.2)
[2022-07-13 19:30] VITALS: BP 122/78; PULSE 76; O2SAT 100
--- NOTE | 2022-07-13 19:31 | CT_ITS ---
PROCEDURE INFORMATION: Exam: CT Abdomen And Pelvis With Contrast Exam date and time: 07/13/2022 8:08 PM Age: 22 years old Clinical indication: Prior surgery; Surgery date: 6+ months; Surgery type: , mirena iud placed. Patient HX: Nausea, vomiting, diarrhea all day with generalized abdominal pain. TECHNIQUE: Imaging protocol: Computed tomography of the abdomen and pelvis with contrast. Radiation optimization: All CT scans at this facility use at least one of these dose optimization techniques: automated exposure control; mA and/or kV adjustment per patient size (includes targeted exams where dose is matched to clinical indication); or iterative reconstruction. Contrast material: ISOVUE; Contrast volume: 75 ml; Contrast route: IV; COMPARISON: CT ABDOMEN PELVIS W CON 06/17/2022 6:30 PM FINDINGS: Tubes, catheters and devices: Intrauterine device is in the expected location. Liver: Normal. No mass. Gallbladder and bile ducts: Normal. No calcified stones. No ductal dilation. Pancreas: Normal. No ductal dilation. Spleen: Normal. No splenomegaly. Adrenal glands: Normal. No mass. Kidneys and ureters: Normal. No hydronephrosis. Stomach and bowel: Nonspecific bowel wall thickening of portions of the small bowel. Appendix: While the appendix is not clearly identified, there are no secondary findings to correlate with acute appendicitis. Intraperitoneal space: Unremarkable. No free air. No significant fluid collection. Vasculature: Unremarkable. No abdominal aortic aneurysm. Lymph nodes: Unremarkable. No enlarged lymph nodes. Urinary bladder: Unremarkable as visualized. Reproductive: Unremarkable as visualized. Bones/joints: Unremarkable. No acute fracture. Soft tissues: Tiny fat containing umbilical hernia. IMPRESSION: Nonspecific bowel wall thickening of portions of the small bowel. Please exclude enteritis.
[2022-07-13 19:40] LABS: WBC,Urine Occasional #/hpf (0-3)
--- NOTE | 2022-07-13 19:48 | PC.NURSE ---
shift change report given to learn and karlirn
--- NOTE | 2022-07-13 19:52 | PC.NURSE ---
Pt gone to RAD
[2022-07-13 21:40] VITALS: BP 120/75; PULSE 74; RESP 18; TEMP 36.6; O2SAT 99
== END 2022-07-13 21:54 | disposition home or self-care (01) ==
PROVIDERS: Emergency Provider Emergency Medicine
DX: R10.9 Unspecified abdominal pain (principal); R42 Dizziness and giddiness; R06.02 Shortness of breath; R50.9 Fever, unspecified; R61 Generalized hyperhidrosis; R11.2 Nausea with vomiting, unspecified; R19.7 Diarrhea, unspecified; R05.9 Cough, unspecified; M19.90 Unspecified osteoarthritis, unspecified site; G43.909 Migraine, unspecified, not intractable, without status migrainosus; Z79.3 Long term (current) use of hormonal contraceptives; Z79.51 Long term (current) use of inhaled steroids; Z79.52 Long term (current) use of systemic steroids; Z79.899 Other long term (current) drug therapy; Z88.8 Allergy status to other drugs, medicaments and biological substances; Z91.013 Allergy to seafood; Z91.048 Other nonmedicinal substance allergy status
CPT/HCPCS: 74177; 80053; 81001; 81025; 83690; 85025; 96374; 96375; 99285; C9803; J2405; Q9967; U0003; U0005

== ENCOUNTER 2022-07-21 14:25 | Emergency (ER) | payer OTHER, SELFPAY ==
[2022-07-21] VITALS (7 sets, daily range): BP systolic 96–103; BP diastolic 43–60; PULSE 83–92; RESP 18; TEMP 36.4; O2SAT 99–100; BMI 32.3
--- NOTE | 2022-07-21 14:20 | ECG_ITS ---
APPROVED REPORT Exam: Resting ECG HR:86 bpm ECG Measurements Heart Rate 86 AXES IN 134 P 48 QRSd 106 QRS 78 QT 352 T 34 QTc 396 Conclusion SINUS RHYTHM NORMAL ECG UNCONFIRMED REPORT Electronically signed by : Mauricio Valle MD 07/22/2022 20:17:30
--- NOTE | 2022-07-21 14:49 | HMH.EDGENADL ---
Discharge Plan Disposition Patient Disposition: Home, Self-Care Condition: Good Prescriptions Prescriptions: No Action Mirena 20 mcg/24 hours (6 yrs) 52 mg intrauterine device INTRAUTERI doxycycline hyclate 100 mg capsule 100 mg PO BID Qty: 14 0RF buspirone 7.5 mg tablet 7.5 mg PO TID cetirizine 10 mg capsule 10 mg PO DAILY fluconazole [Diflucan] 150 mg tablet 150 mg PO ONCE Qty: 2 0RF Rx Instructions: may repeat second dose 72 hrs after first dose if symptoms persist meclizine 25 MG tablet,chewable 50 mg PO Q6 PRN (Reason: Dizziness) Qty: 20 0RF azithromycin 250 MG tablet 250 mg PO UD DOSE PK Qty: 6 0RF Rx Instructions: Take two (2) tablets today, then one (1) tablet days #2 thru #5 methylprednisolone 4 MG tablets,dose pack 4 mg PO DIRECTED 6 Days Qty: 21 0RF [id number]-hqptriyfg-GE 118 ML syrup 5 ml PO Q6HP PRN (Reason: Cough) Qty: 240 0RF methocarbamol 500 mg tablet 500 mg PO TID Qty: 10 0RF cefdinir 300 mg capsule 300 mg PO BID 7 Days Qty: 14 0RF methylprednisolone [Medrol (Ethan)] 4 mg tablets,dose pack See Rx Instructions .Route .COMPLEX 6 Days Qty: 21 0RF Rx Instructions: taper pack; ondansetron 4 mg tablet,disintegrating 4 mg PO Q8H PRN (Reason: Nausea) Qty: 20 0RF dicyclomine 20 mg tablet 20 mg PO TID PRN (Reason: cramps) Qty: 10 0RF ondansetron 4 mg tablet,disintegrating 4 mg PO Q6H PRN (Reason: nausea and vomiting) Qty: 10 0RF albuterol sulfate 6.7 GM HFA aerosol inhaler 2 puff IH Q4-6H PRN (Reason: shortness of breath or wheezing) venlafaxine 75 MG capsule,extended release 24hr 75 mg PO DAILY Referrals Follow up/Referrals: Provider,Referral, MD [Referring] - See instructions Activity Restrictions/Add. Instructions Additional Instructions/Restrictions: Please follow-up with your primary care physician within the next 1 to 2 days. Please continue to take your antiemetic as prescribed. Please continue to drink plenty of fluids. May also take Tylenol and ibuprofen for pain control. Clinical Impressions Clinical Impression: Acute viral syndrome Instructions Patient Instructions: DI for Viral Syndrome Print Language Print Language: Welsh Discharge ED Provider: Poly Mason General Adult HPI General Chief complaint: Chest Pain Stated complaint: chest pain Time Seen by Provider: 07/21/22 14:30 Mode of Arrival: Ambulatory Source of Information: Patient Limitations: No Limitations History of Present Illness HPI narrative: Miss ramirez is a 22 yo presenting to the emergency department for chest pain. Patient reports chest pain, cough and generalzied body aches for 1-2 days. Patient denies abdominal pain, N/V/D. No known sick contacts. No recent trauma chest. Symptoms are no exacerbated by food intake. MD complaint: chest pain in setting of cough Onset (ago): day(s) Location: chest Radiation: non-radiation Severity: mild Severity scale (1-10): 3 Quality: sharp Consistency: intermittent Relieving factors: none Exacerbating factors: none Associated symptoms: cough Treatments prior to arrival: none Related Data Home Medications Medication Instructions Recorded Confirmed buspirone 7.5 mg tablet 7.5 mg PO TID Depression 05/02/20 02/01/22 cetirizine 10 mg capsule 10 mg PO DAILY Allergy symptoms 05/02/20 02/01/22 albuterol sulfate 90 mcg/actuation 2 puff inhalation Q4-6H PRN 10/14/20 02/01/22 aerosol inhaler shortness of breath or wheezing venlafaxine 75 mg capsule,extended 75 mg PO DAILY Depression 11/13/20 02/01/22 release 24 hr levonorgestrel 20 mcg/24 hours (8 intrauterine 02/02/21 02/01/22 yrs) 52 mg intrauterine device (Mirena) Previous Rx's Medication Instructions Recorded meclizine 25 mg chewable tablet 50 mg PO Q6 PRN Dizziness #20 tabs 01/27/21 doxycycline hyclate 100 mg capsule 100 mg PO BID #14 caps 02/05/22 fluconazole 150 mg tablet 15
--- NOTE | 2022-07-21 15:03 | XR_ITS ---
FINAL REPORT TECHNIQUE: Chest PA & Lateral CLINICAL HISTORY: chest pain COMPARISON: 10/2020 FINDINGS: 2 views of the chest were performed. The heart size is normal. The mediastinum is within normal limits. There is no acute cardiopulmonary process. There are no pleural effusions. There is no pneumothorax. The bony thorax appears intact. IMPRESSION: No acute cardiopulmonary process. Reviewed, Interpreted and Dictated by Shay Mojica III, MD Transcribed by Hossein Chaves Authenticated and [facility]
[2022-07-21 15:18] LABS: Basophils # 0.1 K/mm3 (0-0.2); Basophils % 0.7 % (0.1-2.0); Eosinophils # 0.2 K/mm3 (0.0-0.4); Eosinophils % 2.3 % (0.1-12.0); Hematocrit 45.2 % (37.0-47.0); Hemoglobin 14.3 g/dL (12.2-16.2); Lymphocytes # 2.1 K/mm3 (0.7-4.5); Lymphocytes % 20.2 % (10-50); Mean Corpuscular HGB Conc 31.6 g/dL (31.8-35.4); Mean Corpuscular Hemoglobin 28.8 pg (27.0-31.2); Mean Corpuscular Volume 91.1 fl (81-99); Monocytes # 0.6 K/mm3 (0.1-1.0); Monocytes % 6.1 % (1.7-9.3); Neutrophils # 7.5 K/mm3 (1.8-7.8); Neutrophils % 70.8 % (37.0-80.0); Platelet Count 286 K/mm3 (142-424); Red Blood Count 4.96 M/mm3 (4.20-5.40); White Blood Count 10.6 K/mm3 (4.8-10.8)
[2022-07-21 15:20] LABS: Amylase 61 U/L (30-110); Anion Gap 8.7 mEq/L (5-15); Blood Urea Nitrogen 6 mg/dl (7-17); Calcium 9.2 mg/dl (8.4-10.2); Carbon Dioxide 29 mmol/L (22.0-30.0); Chloride 104 mmol/L (98-107); Creatinine Clearance Estimated 126 mL/min (50-200); Estimated Glomerular Filt Rate 69 ml/min (>60); GFR (African American) 84 ML/MIN (>60); Glucose 79 mg/dl (74-100); Lipase 115 U/L (23-300); Potassium 3.7 mmoL/L (3.5-5.1); Sodium 138 mmol/L (136-145)
[2022-07-21 15:51] LABS: Troponin I < 0.01 ng/ml (0.00-0.034)
== END 2022-07-21 16:40 | disposition home or self-care (01) ==
PROVIDERS: Emergency Provider Student in an Organized Health Care Education/Training Program; PCP Pediatrics
DX: R07.9 Chest pain, unspecified (principal); B34.9 Viral infection, unspecified
CPT/HCPCS: 71046; 80048; 82150; 83690; 84484; 85025; 93005; 99284

== ENCOUNTER 2022-08-12 10:00 | Outpatient (RCR) | payer OTHER, SELFPAY | END 2022-08-12 10:05 | disposition home or self-care (01) | LOC: PT 10:00 | PROVIDERS: PCP Physician Assistant; Visit Provider Physician Assistant | DX: M54.2 Cervicalgia (principal); M54.50 Low back pain, unspecified; V89.2XXD Person injured in unspecified motor-vehicle accident, traffic, subsequent encounter | CPT/HCPCS: 97010; 97014; 97035; 97110; 97140; 97163; 97164; G0283 ==

== ENCOUNTER 2022-08-30 09:30 | Outpatient (RCR) | payer OTHER, SELFPAY | END 2022-08-30 09:35 | disposition home or self-care (01) | LOC: PT 09:30 | PROVIDERS: Visit Provider Physician Assistant | DX: M25.561 Pain in right knee (principal); V89.2XXA Person injured in unspecified motor-vehicle accident, traffic, initial encounter | CPT/HCPCS: 97010; 97014; 97016; 97033; 97035; 97110; 97163; 97164; G0283 ==

== ENCOUNTER → 2022-09-06 10:46 | Outpatient (CLI) | payer OTHER, SELFPAY ==
[2022-09-06 15:18] LABS: Basophils # 0.2 K/mm3 (0-0.2); Basophils % 3.4 % (0.1-2.0); Eosinophils # 0.1 K/mm3 (0.0-0.4); Eosinophils % 1.5 % (0.1-12.0); Hematocrit 41.9 % (37.0-47.0); Hemoglobin 14.3 g/dL (12.2-16.2); Lymphocytes # 1.7 K/mm3 (0.7-4.5); Lymphocytes % 24.6 % (10-50); Mean Corpuscular HGB Conc 34.2 g/dL (31.8-35.4); Mean Corpuscular Hemoglobin 30.1 pg (27.0-31.2); Mean Corpuscular Volume 87.9 fl (81-99); Mean Platelet Volume 8.6 fl (7.4-10.4); Monocytes # 0.4 K/mm3 (0.1-1.0); Monocytes % 5.8 % (1.7-9.3); Neutrophils # 4.4 K/mm3 (1.8-7.8); Neutrophils % 64.7 % (37.0-80.0); Platelet Count 262 K/mm3 (142-424); Red Blood Count 4.77 M/mm3 (4.20-5.40); Red Cell Distribution Width 13.2 % (11.5-17.5); White Blood Count 6.8 K/mm3 (4.8-10.8)
[2022-09-06 15:39] LABS: Alanine Aminotransferase 28 U/L (12-78); Albumin/Globulin Ratio 1.4 (1.1-1.8); Alkaline Phosphatase 92 U/L (38-126); Amylase 57 U/L (30-110); Anion Gap 10.4 mEq/L (5-15); Aspartate Amino Transferase 32 U/L (14-36); Bilirubin,Total 0.5 mg/dl (0.2-1.3); Blood Urea Nitrogen 6 mg/dl (7-17); Calcium 8.9 mg/dl (8.4-10.2); Carbon Dioxide 30 mmol/L (22.0-30.0); Chloride 104 mmol/L (98-107); Estimated Glomerular Filt Rate 78 ml/min (>60); GFR (African American) 95 ML/MIN (>60); Globulin 2.8 g/dL (1.3-3.2); Glucose 89 mg/dl (74-100); Lipase 111 U/L (23-300); Potassium 4.4 mmoL/L (3.5-5.1); Sodium 140 mmol/L (136-145); Total Protein,Serum 6.8 g/dl (6.3-8.2)
== END ==
PROVIDERS: Visit Provider Obstetrics & Gynecology
DX: R10.9 Unspecified abdominal pain (principal); M54.9 Dorsalgia, unspecified
CPT/HCPCS: 36415; 80053; 82150; 83690; 85025

== ENCOUNTER → 2022-09-10 13:44 | Outpatient (CLI) | payer OTHER, SELFPAY ==
--- NOTE | 2022-09-10 13:47 | US_ITS ---
FINAL REPORT TECHNIQUE: Transvaginal sonographic imaging of the pelvis was obtained. CLINICAL HISTORY: pelvic pain FINDINGS: An IUD is seen in good position in the uterus. Uterus is otherwise unremarkable. Ovaries are normal with appropriate flow by Doppler imaging. Follicular cysts noted bilaterally. Endometrium is within normal limits. IMPRESSION: Unremarkable exam. Reviewed, Interpreted and Dictated by Deja Saenz MD Transcribed by Rossy Rivas Authenticated and . [facility]
--- NOTE | 2022-09-10 13:47 | US_ITS ---
FINAL REPORT TECHNIQUE: Ultrasound images of the kidneys and bladder were obtained. CLINICAL HISTORY: . Right-sided back/flank pain x2 weeks FINDINGS: The right kidney measures 10 cm in length. It is normal in echogenicity. There is no hydronephrosis. The left kidney measures 12 cm in length. It is normal in echogenicity. There is no hydronephrosis. The urinary bladder is unremarkable. Liver is within normal limits. Spleen is unremarkable. Color flow is identified to the kidneys bilaterally. IMPRESSION: Unremarkable exam. Reviewed, Interpreted and Dictated by Shay Mojica III, MD Transcribed by Rossy Rivas Authenticated and [facility]
== END ==
PROVIDERS: Visit Provider Obstetrics & Gynecology
DX: R10.2 Pelvic and perineal pain (principal)
CPT/HCPCS: 76770; 76830

== ENCOUNTER → 2022-09-15 15:49 | Outpatient (CLI) | payer OTHER, SELFPAY ==
--- NOTE | 2022-09-15 15:57 | MR_ITS ---
PROCEDURE INFORMATION: Exam: MR Right Lower Extremity Joint Without Contrast, Knee Exam date and time: 09/15/2022 3:57 PM Age: 22 years old Clinical indication: Pain; Knee; Right; Additional info: Patellofemoral instability of right knee w/ pain TECHNIQUE: Imaging protocol: Magnetic resonance imaging of the Right lower extremity joint without contrast. Exam focused on the knee. COMPARISON: CR XR KNEE RT 2V 06/16/2022 12:22 PM FINDINGS: Bones and cartilage: There is minimal lateral subluxation of the patella, with a 6 mm focus of moderate to severe loss articular cartilage of the lateral facet. Good preservation of articular cartilage elsewhere. Small effusion. Joint spaces: No joint effusion. Medial meniscus: Unremarkable. No tear. Lateral meniscus: Unremarkable. No tear. Anterior cruciate ligament: Unremarkable. No tear. Posterior cruciate ligament: Unremarkable. No tear. Medial capsule and supporting structures: Unremarkable. No tear. Lateral capsule and supporting structures: Unremarkable. No tear. Extensor mechanism of knee: Unremarkable. No tear. Muscles: Unremarkable. Soft tissues: Unremarkable. IMPRESSION: 1. There is minimal lateral subluxation of the patella, with a 6 mm focus of moderate to severe loss articular cartilage of the lateral facet. Good preservation of articular cartilage elsewhere. 2. Small effusion.
== END ==
PROVIDERS: Visit Provider Family Medicine
DX: M25.561 Pain in right knee (principal); M25.361 Other instability, right knee
CPT/HCPCS: 73721

== ENCOUNTER 2022-09-16 12:04 | Emergency (ER) | payer OTHER, SELFPAY ==
[2022-09-16 12:15] VITALS: BP 113/70; PULSE 97; RESP 20; TEMP 36.6; O2SAT 99; BMI 33.9
--- NOTE | 2022-09-16 12:52 | XR_ITS ---
FINAL REPORT CLINICAL HISTORY: lungs hurt COMPARISON: 07/21/2022 FINDINGS: Two views of the chest were obtained. The heart size and pulmonary vascularity are within normal limits. The mediastinum is normal. No acute pulmonary abnormality is identified. There is no pneumothorax. The bony thorax is intact. IMPRESSION: No active cardiopulmonary disease. Reviewed, Interpreted and Dictated by Shay Mojica III, MD Transcribed by Melia Dinh Authenticated and [facility]
--- NOTE | 2022-09-16 12:59 | EXP.UTC ---
Discharge Plan Disposition Patient Disposition: Home, Self-Care Condition: Good Prescriptions Prescriptions: New albuterol sulfate 1.25 mg/3 mL solution for nebulization 1.25 mg inhalation QID PRN (Reason: shortness of breath or wheezing) Qty: 75 0RF methylprednisolone 4 mg Tablets,Dose Pack 4 mg PO DIRECTED Qty: 21 0RF No Action Mirena 20 mcg/24 hours (6 yrs) 52 mg intrauterine device INTRAUTERI buspirone 7.5 mg tablet 7.5 mg PO TID cetirizine 10 mg capsule 10 mg PO DAILY naproxen 500 mg tablet 500 mg PO BID PRN (Reason: pain) Qty: 20 0RF metronidazole 500 mg tablet 500 mg PO BID 7 Days Qty: 14 0RF albuterol sulfate 6.7 GM HFA aerosol inhaler 2 puff IH Q4-6H PRN (Reason: shortness of breath or wheezing) venlafaxine 75 MG capsule,extended release 24hr 75 mg PO DAILY Referrals Follow up/Referrals: Provider,Referral, MD [Primary Care Provider] - See instructions Activity Restrictions/Add. Instructions Additional Instructions/Restrictions: Drink plenty of fluids. Take the medications as directed. Follow up with your regular doctor. GO TO THE ER FOR ANY WORSENING SYMPTOMS Clinical Impressions Clinical Impression: Acute bronchitis due to chemical Stand Alone Forms Stand Alone Forms: Work/School Release Instructions Patient Instructions: DI for Acute Bronchitis Discharge ED Provider: Matt Morales [facility] General Stated complaint: chest congestion cough Mode of Arrival: Ambulatory Source of Information: Patient Limitations: No Limitations Time Seen by Provider: 09/16/22 12:59 Description of Symptoms (Recalled from Triage Doc. by RN): congested, lungs hurt. She was cleaning with bleached and caused her to cough and produced bloody mucus History of Present Illness Provider Complaint: She states that since yesterday she has had a cough and chest congestion. Her symptoms began after she cleaned with bleach. She thinks that the bleach has irritated her lungs. She does have a history of asthma. She denies shortness of breath. Related Data Home Medications Medication Instructions Recorded Confirmed buspirone 7.5 mg tablet 7.5 mg PO TID Depression 05/02/20 09/06/22 cetirizine 10 mg capsule 10 mg PO DAILY Allergy symptoms 05/02/20 09/06/22 albuterol sulfate 90 mcg/actuation 2 puff inhalation Q4-6H PRN 10/14/20 09/06/22 aerosol inhaler shortness of breath or wheezing venlafaxine 75 mg capsule,extended 75 mg PO DAILY Depression 11/13/20 09/06/22 release 24 hr levonorgestrel 21 mcg/24 hours (8 intrauterine 02/02/21 09/06/22 yrs) 52 mg intrauterine device (Mirena) Previous Rx's Medication Instructions Recorded naproxen 500 mg tablet 500 mg PO BID PRN pain #20 tabs 09/06/22 metronidazole 500 mg tablet 500 mg PO BID 7 days #14 tabs 09/08/22 albuterol sulfate 1.25 mg/3 mL 1.25 mg (3 mL) inhalation QID PRN 09/16/22 solution for nebulization shortness of breath or wheezing #75 mL methylprednisolone 4 mg tablets in 4 mg PO DIRECTED #21 tabs 09/16/22 a dose pack Allergies Allergy/AdvReac Type Severity Reaction Status Date / Time povidone-iodine Allergy Severe anaphylaxis Verified 09/16/22 13:19 [From Betadine] soap [From Betadine] Allergy Severe anaphylaxis Verified 09/16/22 13:19 shellfish derived Allergy Swelling Verified 09/16/22 13:19 of Lip/Tongue/Throat soy AdvReac Intermediate Vomiting Verified 09/16/22 13:19 PFSH PFS Disclaimer: The information contained in this section may have been updated after the patient was seen, as this information can be updated by other users. Medical History Acute adjustment disorder with depressed mood Anxiety Migraine Family History Other Diabetes Heart attack Social History Smoking Status: Marcelina
[2022-09-16 13:00] VITALS: BP 113/70; PULSE 97; RESP 20; TEMP 36.6; O2SAT 99; BMI 15.3
[2022-09-16 14:00] VITALS: BP 113/70; PULSE 97; RESP 20; TEMP 36.6; O2SAT 99
== END 2022-09-16 14:00 | disposition home or self-care (01) ==
LOC: ER 12:15 → UTC 12:16
PROVIDERS: Emergency Provider Nurse Practitioner Family
DX: T54.91XA Toxic effect of unspecified corrosive substance, accidental (unintentional), initial encounter (principal); J68.0 Bronchitis and pneumonitis due to chemicals, gases, fumes and vapors
CPT/HCPCS: 71046; 99212; 99213; 99214; G0463

== ENCOUNTER 2022-12-13 14:02 | Emergency (ER) | payer OTHER, SELFPAY ==
--- NOTE | 2022-12-13 14:23 | EXP.UTC ---
Discharge Plan Disposition Patient Disposition: Home, Self-Care Condition: Good Prescriptions Prescriptions: New sulfamethoxazole-trimethoprim [Bactrim DS] 800-160 mg Tablet 1 tab PO BID Qty: 20 0RF cephalexin 500 mg capsule 500 mg PO QID Qty: 40 0RF mupirocin 2 % ointment 1 applic topical TID 7 Days Qty: 15 0RF No Action Mirena 20 mcg/24 hours (6 yrs) 52 mg intrauterine device INTRAUTERI buspirone 7.5 mg tablet 7.5 mg PO TID cetirizine 10 mg capsule 10 mg PO DAILY naproxen 500 mg tablet 500 mg PO BID PRN (Reason: pain) Qty: 20 0RF metronidazole 500 mg tablet 500 mg PO BID 7 Days Qty: 14 0RF albuterol sulfate 6.7 GM HFA aerosol inhaler 2 puff IH Q4-6H PRN (Reason: shortness of breath or wheezing) venlafaxine 75 MG capsule,extended release 24hr 75 mg PO DAILY albuterol sulfate 1.25 mg/3 mL solution for nebulization 1.25 mg inhalation QID PRN (Reason: shortness of breath or wheezing) Qty: 75 0RF methylprednisolone 4 mg Tablets,Dose Pack 4 mg PO DIRECTED Qty: 21 0RF Referrals Follow up/Referrals: Ramiro Monroy PA [Primary Care Provider] - See instructions Activity Restrictions/Add. Instructions Additional Instructions/Restrictions: Apply warm wet compresses to the affected sites three or four times per day for 15 minutes as tolerated. Take the antibiotics as directed. Follow up with your regular doctor. Don't shave your underarms until this is well healed. Wait at least 1 to 2 months. GO TO THE ER FOR ANY WORSENING SYMPTOMS OR CONCERNS Clinical Impressions Clinical Impression: Cutaneous abscess of left axilla, Cellulitis Instructions Patient Instructions: DI for Cellulitis -- Adult, DI for Skin Abscess Discharge ED Provider: Matt Morales [facility] General Stated complaint: razor bumps armpit Time Seen by Provider: 12/13/22 14:22 History of Present Illness Provider Complaint: She states that for the past 4 days she has had worsening swelling and pain of her left axilla. She states that she shaved and then began to have skin rash in that area. It has got worse and worse since it started. Now there is multiple swollen areas. Related Data Home Medications Medication Instructions Recorded Confirmed buspirone 7.5 mg tablet 7.5 mg PO TID Depression 05/02/20 09/06/22 cetirizine 10 mg capsule 10 mg PO DAILY Allergy symptoms 05/02/20 09/06/22 albuterol sulfate 90 mcg/actuation 2 puff inhalation Q4-6H PRN 10/14/20 09/06/22 aerosol inhaler shortness of breath or wheezing venlafaxine 75 mg capsule,extended 75 mg PO DAILY Depression 11/13/20 09/06/22 release 24 hr levonorgestrel 21 mcg/24 hours (8 intrauterine 02/02/21 09/06/22 yrs) 52 mg intrauterine device (Mirena) Previous Rx's Medication Instructions Recorded naproxen 500 mg tablet 500 mg PO BID PRN pain #20 tabs 09/06/22 metronidazole 500 mg tablet 500 mg PO BID 7 days #14 tabs 09/08/22 albuterol sulfate 1.25 mg/3 mL 1.25 mg (3 mL) inhalation QID PRN 09/16/22 solution for nebulization shortness of breath or wheezing #75 mL methylprednisolone 4 mg tablets in 4 mg PO DIRECTED #21 tabs 09/16/22 a dose pack cephalexin 500 mg capsule 500 mg PO QID #40 caps 12/13/22 mupirocin 2 % topical ointment 1 applic topical TID 7 days #15 12/13/22 grams sulfamethoxazole 800 1 tab PO BID #20 tabs 12/13/22 mg-trimethoprim 160 mg tablet (Bactrim DS) Allergies Allergy/AdvReac Type Severity Reaction Status Date / Time povidone-iodine Allergy Severe anaphylaxis Verified 09/16/22 13:19 [From Betadine] soap [From Betadine] Allergy Severe anaphylaxis Verified 09/16/22 13:19 shellfish derived Allergy Swelling Verified 09/16/22 13:19 of Lip/Tongue/Throat soy AdvReac Intermediate Vomiting Verified 09/16/22 13:19 [facility] Disclaimer: The information contained in this section may have been updated after the patient was seen, as this
[2022-12-13 14:34] VITALS: BP 106/60; PULSE 73; RESP 20; TEMP 36.8; O2SAT 100; BMI 46.0
[2022-12-13 14:43] VITALS: BP 106/60; PULSE 73; RESP 16; TEMP 36.8; O2SAT 100
== END 2022-12-13 14:38 | disposition home or self-care (01) ==
PROVIDERS: Emergency Provider Nurse Practitioner Family; PCP Physician Assistant
DX: L02.412 Cutaneous abscess of left axilla (principal)
CPT/HCPCS: 99212; 99214; G0463; J0696

== ENCOUNTER 2022-12-15 17:30 | Outpatient (RCR) | payer OTHER, SELFPAY | END 2022-12-15 17:35 | disposition home or self-care (01) | LOC: PT 17:30 | PROVIDERS: Visit Provider Physician Assistant Surgical | DX: Z98.890 Other specified postprocedural states (principal); M95.8 Other specified acquired deformities of musculoskeletal system; M25.561 Pain in right knee | CPT/HCPCS: 97010; 97014; 97016; 97035; 97110; 97112; 97140; 97163; 97164; 97530; G0283 ==

== ENCOUNTER → 2023-01-19 16:09 | Outpatient (CLI) | payer OTHER, SELFPAY ==
[2023-01-21 21:08] LABS: Neisseria gonorrhoeae, NAA Negative (Negative)
== END ==
PROVIDERS: Visit Provider Nurse Practitioner Family
DX: R30.0 Dysuria (principal); R10.2 Pelvic and perineal pain
CPT/HCPCS: 87086; 87491; 87591

== ENCOUNTER 2023-01-27 19:42 | Emergency (ER) | payer OTHER, SELFPAY ==
[2023-01-27 20:03] VITALS: BP 119/68; PULSE 97; RESP 16; TEMP 36.8; O2SAT 99; BMI 34.7
--- NOTE | 2023-01-27 20:08 | CT_ITS ---
PROCEDURE INFORMATION: Exam: CT Abdomen And Pelvis Without Contrast Exam date and time: 01/27/2023 9:27 PM Age: 22 years old Clinical indication: Abdominal pain; Flank; Right; Additional info: R flank pain TECHNIQUE: Imaging protocol: Computed tomography of the abdomen and pelvis without contrast. Radiation optimization: All CT scans at this facility use at least one of these dose optimization techniques: automated exposure control; mA and/or kV adjustment per patient size (includes targeted exams where dose is matched to clinical indication); or iterative reconstruction. REPORTING DATA: Count of CT and Cardiac NM exams in prior 12 months: This patient has received 2 known CTs and 0 known cardiac nuclear medicine studies in the 12 months prior to the current study. COMPARISON: CT ABDOMEN PELVIS W CON 13/07/2022 20:08 FINDINGS: Tubes, catheters and devices: Intrauterine device is in the expected location. Liver: Normal. No mass. Gallbladder and bile ducts: Normal. No calcified stones. No ductal dilation. Pancreas: Normal. No ductal dilation. Spleen: Normal. No splenomegaly. Adrenal glands: Normal. No mass. Kidneys and ureters: Normal. No hydronephrosis. Stomach and bowel: Unremarkable. No obstruction. No mucosal thickening. Appendix: Unremarkable appendix. Intraperitoneal space: Unremarkable. No free air. No significant fluid collection. Vasculature: Unremarkable. No abdominal aortic aneurysm. Lymph nodes: Unremarkable. No enlarged lymph nodes. Urinary bladder: Nonspecific urinary bladder wall thickening likely due to low urine volume. Reproductive: Unremarkable as visualized. Bones/joints: Unremarkable. No acute fracture. Soft tissues: Tiny fat containing umbilical hernia. IMPRESSION: Nonspecific urinary bladder wall thickening likely due to low urine volume. Please exclude infection clinically. Otherwise, no acute findings.
[2023-01-27 20:12] LABS: Microscopic, Urine URINE MICROSCOPIC (MICROSCOPIC)
[2023-01-27 20:22] LABS: Basophils % 0.2 % (0.1-2.0); Eosinophils # 0.2 K/mm3 (0.0-0.4); Hemoglobin 14.4 g/dL (12.2-16.2); Lymphocytes % 16.9 % (10-50); Mean Corpuscular Hemoglobin 28.1 pg (27.0-31.2); Mean Corpuscular Volume 87.8 fl (81-99); Mean Platelet Volume 8.8 fl (7.4-10.4); Monocytes # 0.6 K/mm3 (0.1-1.0); Monocytes % 4.7 % (1.7-9.3); Neutrophils # 9.1 K/mm3 (1.8-7.8); Neutrophils % 76.1 % (37.0-80.0); Platelet Count 261 K/mm3 (142-424); Red Blood Count 5.13 M/mm3 (4.20-5.40)
[2023-01-27 20:23] LABS: Appearance,Urine CLEAR (Clear); Blood, Urine Negative (Negative); Color,Urine YELLOW (Yellow); Glucose,Urine (UA) Negative (Negative); Ketones,Urine Negative (Negative); Leukocyte Esterase,Urine TRACE (Negative); Nitrate,Urine Negative (Negative); Protein,Urine Negative (Negative); Specific Gravity, Urine >= 1.030 (1.005-1.030); Urobilinogen,Urine 0.2 EU/dl (0.2)
[2023-01-27 20:24] LABS: Chloride 102 mmol/L (98-107); Potassium 3.6 mmoL/L (3.5-5.1); Sodium 139 mmol/L (136-145)
[2023-01-27 20:26] LABS: Bilirubin,Urine 1+ (Negative)
[2023-01-27 20:27] LABS: Alanine Aminotransferase 43 U/L (12-78); Albumin Level 4.1 g/dl (3.5-5.0); Albumin/Globulin Ratio 1.3 (1.1-1.8); Alkaline Phosphatase 103 U/L (38-126); Amylase 78 U/L (30-110); Anion Gap 10.6 mEq/L (5-15); Aspartate Amino Transferase 40 U/L (14-36); Bilirubin,Total 0.6 mg/dl (0.2-1.3); Blood Urea Nitrogen 9 mg/dl (7-17); Calcium 9.1 mg/dl (8.4-10.2); Carbon Dioxide 30 mmol/L (22.0-30.0); Creatinine Clearance Estimated 151 mL/min (50-200); Estimated Glomerular Filt Rate 78 ml/min (>60); GFR (African American) 95 ML/MIN (>60); Globulin 3.1 g/dL (1.3-3.2); Glucose 94 mg/dl (74-100); Lipase 92 U/L (23-300); Total Protein,Serum 7.2 g/dl (6.3-8.2)
[2023-01-27 20:46] LABS: Erythrocyte Sedimentation Rate 16 mm/hr (0-20)
[2023-01-27 20:52] LABS: Bacteria,Urine 1+ /lpf; RBC,Urine Occasional #/hpf (0-3)
[2023-01-27 21:12] LABS: Urine Pregnancy, HCG Qual. Negative (Negative)
--- NOTE | 2023-01-27 21:21 | PC.NURSE ---
Johanna with pharmacy consulted for vanc consult. Vanc 2grams IV.
--- NOTE | 2023-01-27 21:29 | HMH.EDABDPAI ---
Discharge Plan Disposition Patient Disposition: Home, Self-Care Prescriptions Prescriptions: New sulfamethoxazole-trimethoprim [Bactrim DS] 800-160 mg Tablet 1 tab PO Q12H Qty: 20 0RF cephalexin [cephalexin] 500 mg capsule 500 mg PO TID Qty: 30 0RF No Action Mirena 20 mcg/24 hours (6 yrs) 52 mg intrauterine device INTRAUTERI cetirizine 10 mg capsule 10 mg PO DAILY Aimovig Autoinjector 140 mg/mL auto-injector 70 mg SQ QMONTH buspirone 15 mg tablet 15 mg PO BID ibuprofen 600 mg tablet 600 mg PO Q6H PRN (Reason: migraines) sumatriptan succinate 100 mg tablet 100 mg PO ONCE PRN (Reason: migraines) nitrofurantoin monohyd/m-cryst [Macrobid] 100 mg capsule 100 mg PO BID 7 Days Qty: 14 0RF Rx Instructions: must administer with a meal/food albuterol sulfate 6.7 GM HFA aerosol inhaler 2 puff IH Q4-6H PRN (Reason: shortness of breath or wheezing) venlafaxine 75 MG capsule,extended release 24hr 75 mg PO DAILY albuterol sulfate 1.25 mg/3 mL solution for nebulization 1.25 mg inhalation QID PRN (Reason: shortness of breath or wheezing) Qty: 75 0RF Referrals Follow up/Referrals: Ramiro Monroy PA [Primary Care Provider] - See instructions Clinical Impressions Clinical Impression: Abscess of skin, Abdominal pain Instructions Patient Instructions: DI for Skin Abscess Discharge ED Provider: Kendrick (ED)Bear Abdominal Pain HPI General Chief Complaint: Abdominal Pain Stated Complaint: spot under right arm, upset stomach Time Seen by Provider: 01/27/23 21:00 Mode of Arrival: Ambulatory Source of Information: Patient and Medical Record Limitations: No Limitations Description of Symptoms (Recalled from ER Triage Doc. by RN): pt c/o intermittant R flank pain, urinary frequency, nausea, and a abcess on her R axilla. all ongoing x2d History of Present Illness HPI narrative: pt with some rt flank pain assoc with urinary sx and rt axilla swelling /reddness and drainage - over the last 2 days - MD complaint: abdominal pain Onset (ago): day(s) Consistency: intermittent Location: R flank Severity: moderate Associated symptoms: denies other symptoms Related Data Home Medications Medication Instructions Recorded Confirmed cetirizine 10 mg capsule 10 mg PO DAILY Allergy symptoms 05/02/20 01/19/23 albuterol sulfate 90 mcg/actuation 2 puff inhalation Q4-6H PRN 10/14/20 01/19/23 aerosol inhaler shortness of breath or wheezing venlafaxine 75 mg capsule,extended 75 mg PO DAILY Depression 11/13/20 01/19/23 release 24 hr levonorgestrel 21 mcg/24 hours (8 intrauterine 02/02/21 01/19/23 yrs) 52 mg intrauterine device (Mirena) buspirone 15 mg tablet 15 mg PO BID anxiety 01/19/23 01/19/23 erenumab-aooe 140 mg/mL 70 mg SQ QMONTH migraines 01/19/23 01/19/23 subcutaneous auto-injector (Aimovig Autoinjector) ibuprofen 600 mg tablet 600 mg PO Q6H PRN migraines 01/19/23 01/19/23 sumatriptan succinate 100 mg tablet 100 mg PO ONCE PRN migraines 01/19/23 01/19/23 Previous Rx's Medication Instructions Recorded albuterol sulfate 1.25 mg/3 mL 1.25 mg (3 mL) inhalation QID PRN 09/16/22 solution for nebulization shortness of breath or wheezing #75 mL nitrofurantoin 100 mg PO BID 7 days #14 caps 01/19/23 monohydrate/macrocrystals 100 mg capsule (Macrobid) cephalexin 500 mg capsule 500 mg PO TID #30 caps 01/27/23 sulfamethoxazole 800 1 tab PO Q12H #20 tabs 01/27/23 mg-trimethoprim 160 mg tablet (Bactrim DS) Allergies Allergy/AdvReac Type Severity Reaction Status Date / Time povidone-iodine Allergy Severe anaphylaxis Verified 01/27/23 20:07 [From Betadine] soap [From Betadine] Allergy Severe anaphylaxis Verified 01/27/23 20:07 shellfish derived Allergy Swelling Verified 01/27/23 20:07 of Lip/Tongue/Throat soy AdvReac Intermediate Vomiting Verified 01/27/23 20:07 [facility] Disclaimer: The information cont
--- NOTE | 2023-01-27 22:43 | PC.NURSE ---
notified md of patient flushing red, itching. benadryl ordered. md then decided we could turn off the antibiotic at this point if necessary. patient was able to receive approx 125ml of the 250 ml filled bag. discussed with patient. iv stopped.
[2023-01-27 22:45] VITALS: BP 132/70; BP 93/48; PULSE 79; PULSE 82; RESP 16; RESP 18; TEMP 36.7; TEMP 36.8; O2SAT 99
== END 2023-01-27 23:05 | disposition home or self-care (01) ==
PROVIDERS: Emergency Provider Emergency Medicine; PCP Physician Assistant
DX: L02.411 Cutaneous abscess of right axilla (principal); R10.9 Unspecified abdominal pain; R11.0 Nausea; R35.0 Frequency of micturition; G43.909 Migraine, unspecified, not intractable, without status migrainosus; F41.9 Anxiety disorder, unspecified
CPT/HCPCS: 74176; 80053; 81001; 81025; 82150; 83690; 85025; 85651; 86140; 87070; 87077; 87186; 87205; 96361; 96365; 96366; 96375; 99284; 99285; J3370

== ENCOUNTER 2023-04-26 13:25 | Emergency (ER) | payer OTHER, SELFPAY ==
[2023-04-26 13:45] VITALS: BP 127/64; PULSE 57; RESP 17; TEMP 37.2; O2SAT 99; BMI 34.8
[2023-04-26 14:00] LABS: Microscopic, Urine URINE MICROSCOPIC (MICROSCOPIC)
[2023-04-26 14:05] LABS: Appearance,Urine CLEAR (Clear); Bilirubin,Urine Negative (Negative); Blood, Urine TRACE-I (Negative); Color,Urine YELLOW (Yellow); Glucose,Urine (UA) Negative (Negative); Ketones,Urine Negative (Negative); Leukocyte Esterase,Urine 1+ (Negative); Nitrate,Urine Negative (Negative); Protein,Urine 1+ (Negative); Urobilinogen,Urine 0.2 EU/dl (0.2)
[2023-04-26 14:14] LABS: Bacteria,Urine 4+ /lpf; Squamous Epithelial Cell,Urine TNTC #/hpf (0-5); WBC,Urine TNTC #/hpf (0-3)
--- NOTE | 2023-04-26 14:26 | EXP.UTC ---
Discharge Plan Disposition Patient Disposition: Home, Self-Care Condition: Good Prescriptions Prescriptions: New cephalexin 500 mg capsule 500 mg PO BID 10 Days Qty: 20 0RF No Action Mirena 20 mcg/24 hours (6 yrs) 52 mg intrauterine device INTRAUTERI cetirizine 10 mg capsule 10 mg PO DAILY Aimovig Autoinjector 140 mg/mL auto-injector 70 mg SQ QMONTH buspirone 15 mg tablet 15 mg PO BID ibuprofen 600 mg tablet 600 mg PO Q6H PRN (Reason: migraines) sumatriptan succinate 100 mg tablet 100 mg PO ONCE PRN (Reason: migraines) nitrofurantoin monohyd/m-cryst [Macrobid] 100 mg capsule 100 mg PO BID 7 Days Qty: 14 0RF Rx Instructions: must administer with a meal/food albuterol sulfate 6.7 GM HFA aerosol inhaler 2 puff IH Q4-6H PRN (Reason: shortness of breath or wheezing) venlafaxine 75 MG capsule,extended release 24hr 75 mg PO DAILY albuterol sulfate 1.25 mg/3 mL solution for nebulization 1.25 mg inhalation QID PRN (Reason: shortness of breath or wheezing) Qty: 75 0RF sulfamethoxazole-trimethoprim [Bactrim DS] 800-160 mg Tablet 1 tab PO Q12H Qty: 20 0RF cephalexin [cephalexin] 500 mg capsule 500 mg PO TID Qty: 30 0RF Referrals Follow up/Referrals: Provider,Referral, MD [Primary Care Provider] - See instructions Activity Restrictions/Add. Instructions Additional Instructions/Restrictions: *Increase fluids. Water not Soda or Tea *Start antibiotic immediately and be sure to take as ordered for the FULL length of time although you should start to see improvement over the next 48 hours *Be SURE to follow up anytime for new or worsening symptoms with your family doctor. AND in 48 hours for urine culture results with your family doctor, if you do not have a doctor then you may call back to the [facility] for urine culture results and further treatment. We do recommend that you choose and establish care with a Primary Care Physician. ?AND follow up with them ?in 10-14 days to repeat UA to ensure infection is resolved and blood no longer present *Be sure to let your PCP know that we sent urine cultures from the [facility] so they can follow up to ensure that you area the on the correct antibiotic Call your doctor office and make appointment for 48 hours (2 days from today) ?to follow up and get the results of your urine culture and further treatment Clinical Impressions Clinical Impression: UTI (urinary tract infection) Qualifiers: Urinary tract infection type: site unspecified Hematuria presence: with hematuria Qualified Code(s): N39.0 - Urinary tract infection, site not specified; R31.9 - Hematuria, unspecified Instructions Patient Instructions: DI for Urinary Tract Infection (UTI), Urinary Tract Infection, Cephalexin Discharge ED Provider: Rosa Elena Lawler [facility] General Stated complaint: Pain in your left side lower back. Mode of Arrival: Ambulatory Source of Information: Patient Limitations: No Limitations Time Seen by Provider: 04/26/23 14:27 Description of Symptoms (Recalled from Triage Doc. by RN): PATIENT C/O RIGHT FLANK PAIN AND BACK PAIN SINCE LAST NIGHT HEENT Symptoms (Recalled from RN notes): No Resp Symptoms (Recalled from RN notes): No Skin Symptoms (Recalled from RN notes): No MS Symptoms (Recalled from RN notes): Yes Functional Status (Recalled from RN notes): WNL History of Present Illness Provider Complaint: Patient states that she thinks she may have a UTI States that she has been having achy like feeling in her lower back/flank area and burning with urination and feeling of urgency and frequency Related Data Home Medications Medication Instructions Recorded Confirmed cetirizine 10 mg capsule 10 mg PO DAILY Allergy symptoms 05/02/20 01/19/23 albuterol sulfate 90 mcg/actuation 2 puff inhalation Q4-6H PRN 10/14/20 01/19/23 aerosol inhaler shortness of breath or wheezing venlafaxine 75 mg capsule,extended 75 mg PO DAILY Depre
[2023-04-26 14:36] VITALS: BP 127/64; PULSE 57; RESP 17; TEMP 37.2; O2SAT 99
== END 2023-04-26 14:37 | disposition home or self-care (01) ==
PROVIDERS: Emergency Provider Nurse Practitioner
DX: N39.0 Urinary tract infection, site not specified (principal); R31.9 Hematuria, unspecified; M54.59 Other low back pain; F43.21 Adjustment disorder with depressed mood
CPT/HCPCS: 81001; 87086; 99212; 99214; G0463

== ENCOUNTER 2023-05-05 10:59 | Emergency (ER) | payer OTHER, SELFPAY ==
[2023-05-05 11:02] VITALS: BP 113/70; PULSE 95; RESP 17; TEMP 36.8; O2SAT 98; BMI 33.9
[2023-05-05 11:06] VITALS: BP 113/70; PULSE 92; O2SAT 98
--- NOTE | 2023-05-05 11:13 | PC.NURSE ---
Dr. Groves at BS for pt eval
--- NOTE | 2023-05-05 11:13 | PC.NURSE ---
DR CASTILLO AT BEDSIDE
--- NOTE | 2023-05-05 11:15 | XR_ITS ---
FINAL REPORT CLINICAL HISTORY: swelling/pain FINDINGS: Left ankle Three views were obtained. There is no acute fracture or dislocation. The joint spaces appear normal. There is a rounded metallic foreign body in the plantar aspect of the foot measuring 4 mm. IMPRESSION: Soft tissue foreign body. Reviewed, Interpreted and Dictated by Law Rao MD Transcribed by Suzie Rosen Authenticated and [facility]
--- NOTE | 2023-05-05 11:18 | HMH.EDGENADL ---
Discharge Plan Disposition Patient Disposition: Home, Self-Care Condition: Good Prescriptions Prescriptions: No Action Mirena 20 mcg/24 hours (6 yrs) 52 mg intrauterine device INTRAUTERI cetirizine 10 mg capsule 10 mg PO DAILY Aimovig Autoinjector 140 mg/mL auto-injector 70 mg SQ QMONTH buspirone 15 mg tablet 15 mg PO BID ibuprofen 600 mg tablet 600 mg PO Q6H PRN (Reason: migraines) sumatriptan succinate 100 mg tablet 100 mg PO ONCE PRN (Reason: migraines) nitrofurantoin monohyd/m-cryst [Macrobid] 100 mg capsule 100 mg PO BID 7 Days Qty: 14 0RF Rx Instructions: must administer with a meal/food albuterol sulfate 6.7 GM HFA aerosol inhaler 2 puff IH Q4-6H PRN (Reason: shortness of breath or wheezing) venlafaxine 75 MG capsule,extended release 24hr 75 mg PO DAILY albuterol sulfate 1.25 mg/3 mL solution for nebulization 1.25 mg inhalation QID PRN (Reason: shortness of breath or wheezing) Qty: 75 0RF sulfamethoxazole-trimethoprim [Bactrim DS] 800-160 mg Tablet 1 tab PO Q12H Qty: 20 0RF cephalexin [cephalexin] 500 mg capsule 500 mg PO TID Qty: 30 0RF cephalexin 500 mg capsule 500 mg PO BID 10 Days Qty: 20 0RF Referrals Follow up/Referrals: Phoenix Monroy [Primary Care Provider] - See instructions Activity Restrictions/Add. Instructions Additional Instructions/Restrictions: You were evaluated in the emergency department today. There appears to be a small foreign body in the sole of your left foot. Given that you did not have any wounds or other concerns, I feel that this is likely chronic. Please keep your ankle iced, elevated, and use a compression wrap to reduce swelling. Take Tylenol and ibuprofen at home as needed for pain. Follow-up with your primary care provider. Return to the emergency department for any new or worsening symptoms. Clinical Impressions Clinical Impression: Left ankle sprain, Foreign body in foot, left Instructions Patient Instructions: DI for Ankle Sprain Discharge ED Provider: Yolanda Groves General Adult HPI General Chief complaint: Extremity Injury, Lower Stated complaint: suspected left ankle sprain Time Seen by Provider: 05/05/23 11:07 Mode of Arrival: Wheelchair Source of Information: Patient Limitations: No Limitations Description of Symptoms (Recalled from ER Triage Doc. 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 She reports that just prior to arrival, she stepped in a hole on a sidewalk and twisted her left ankle. She felt a pop. Since then, she has had significant pain with attempts at weightbearing. She has not taken any medications prior to arrival. She was well prior to this with no other concerns. She denies any numbness, tingling, or other injuries. Related Data Home Medications Medication Instructions Recorded Confirmed cetirizine 10 mg capsule 10 mg PO DAILY Allergy symptoms 05/02/20 01/19/23 albuterol sulfate 90 mcg/actuation 2 puff inhalation Q4-6H PRN 10/14/20 01/19/23 aerosol inhaler shortness of breath or wheezing venlafaxine 75 mg capsule,extended 75 mg PO DAILY Depression 11/13/20 01/19/23 release 24 hr levonorgestrel 21 mcg/24 hours (8 intrauterine 02/02/21 01/19/23 yrs) 52 mg intrauterine device (Mirena) buspirone 15 mg tablet 15 mg PO BID anxiety 01/19/23 01/19/23 erenumab-aooe 140 mg/mL 70 mg SQ QMONTH migraines 01/19/23 01/19/23 subcutaneous auto-injector (Aimovig Autoinjector) ibuprofen 600 mg tablet 600 mg PO Q6H PRN migraines 01/19/23 01/19/23 sumatriptan succinate 100 mg tablet 100 mg PO ONCE PRN migraines 01/19/23 01/19/23 Previous Rx's Medication Instructions Recorded albuterol sul
--- NOTE | 2023-05-05 11:30 | PC.NURSE ---
PT TO XR
--- NOTE | 2023-05-05 11:34 | PC.NURSE ---
PT RETURNED FROM XR
[2023-05-05 12:00] VITALS: BP 109/61; PULSE 87; O2SAT 97
--- NOTE | 2023-05-05 12:04 | PC.NURSE ---
Rounded on pt. Pt updated on expected wait times and warm blanket provided. No other needs voiced.
--- NOTE | 2023-05-05 12:28 | PC.NURSE ---
ROUNDED ON PT, PEPSI PROVIDED. UPDATED ON POC. NO NEEDS AT THIS TIME. CALL LIGHT WITHIN REACH
[2023-05-05 12:30] VITALS: BP 116/64; PULSE 77; O2SAT 97
--- NOTE | 2023-05-05 13:18 | PC.NURSE ---
Assumed patient care at this time
[2023-05-05 13:24] VITALS: BP 107/66; PULSE 78; RESP 16; TEMP 36.8; O2SAT 98
== END 2023-05-05 13:24 | disposition home or self-care (01) ==
PROVIDERS: Emergency Provider Emergency Medicine; PCP Internal Medicine Endocrinology, Diabetes & Metabolism
DX: S93.402A Sprain of unspecified ligament of left ankle, initial encounter (principal); W18.42XA Slipping, tripping and stumbling without falling due to stepping into hole or opening, initial encounter
CPT/HCPCS: 73610; 99283

== ENCOUNTER → 2023-05-13 14:51 | Outpatient (CLI) | payer OTHER, SELFPAY ==
[2023-05-18 23:12] LABS: F002-IgE Milk <0.10 kU/L (Class 0); F026-IgE Pork 0.14 kU/L (Class 0/I); F027-IgE Beef 0.15 kU/L (Class 0/I)
== END ==
PROVIDERS: Nurse Practitioner; PCP Allergy & Immunology; Visit Provider Allergy & Immunology
DX: L50.9 Urticaria, unspecified (principal); Z91.018 Allergy to other foods
CPT/HCPCS: 36415; 86003

== ENCOUNTER 2023-06-30 11:56 | Emergency (ER) | payer OTHER, SELFPAY ==
[2023-06-30 11:58] VITALS: BP 116/67; PULSE 95; RESP 16; TEMP 36.9; O2SAT 100; BMI 33.9
--- NOTE | 2023-06-30 12:25 | HMH.EDGENADL ---
Discharge Plan Disposition Patient Disposition: Home, Self-Care Prescriptions Prescriptions: New cefdinir 300 mg capsule 300 mg PO BID 5 Days Qty: 10 0RF No Action Mirena 20 mcg/24 hours (6 yrs) 52 mg intrauterine device INTRAUTERI cetirizine 10 mg capsule 10 mg PO DAILY Aimovig Autoinjector 140 mg/mL auto-injector 70 mg SQ QMONTH buspirone 15 mg tablet 15 mg PO BID ibuprofen 600 mg tablet 600 mg PO Q6H PRN (Reason: migraines) sumatriptan succinate 100 mg tablet 100 mg PO ONCE PRN (Reason: migraines) nitrofurantoin monohyd/m-cryst [Macrobid] 100 mg capsule 100 mg PO BID 7 Days Qty: 14 0RF Rx Instructions: must administer with a meal/food albuterol sulfate 6.7 GM HFA aerosol inhaler 2 puff IH Q4-6H PRN (Reason: shortness of breath or wheezing) venlafaxine 75 MG capsule,extended release 24hr 75 mg PO DAILY albuterol sulfate 1.25 mg/3 mL solution for nebulization 1.25 mg inhalation QID PRN (Reason: shortness of breath or wheezing) Qty: 75 0RF sulfamethoxazole-trimethoprim [Bactrim DS] 800-160 mg Tablet 1 tab PO Q12H Qty: 20 0RF cephalexin [cephalexin] 500 mg capsule 500 mg PO TID Qty: 30 0RF cephalexin 500 mg capsule 500 mg PO BID 10 Days Qty: 20 0RF Referrals Follow up/Referrals: Provider,Referral, MD [Primary Care Provider] - See instructions Activity Restrictions/Add. Instructions Additional Instructions/Restrictions: Call your family doctor to establish care for this visit to the emergency department and schedule follow-up within 48 hours to ensure improvement. If you have any worsening of your condition or any other concerning signs or symptoms, return to the emergency department or your primary care doctor for further evaluation. Clinical Impressions Clinical Impression: UTI (urinary tract infection) Instructions Patient Instructions: DI for Acute Abdominal Pain Discharge ED Provider: Tomas Starr General Adult HPI General Chief complaint: Abdominal Pain Stated complaint: STOMACH PAIN AND CONSTIPATION Time Seen by Provider: 06/30/23 12:00 Mode of Arrival: Ambulatory Source of Information: Patient Limitations: No Limitations Description of Symptoms (Recalled from ER Triage Doc. by RN): pt presents to ED with c/o lower belly pain, lower back pain and constipation. pt reports inability to poop for 4 days. pt has tried suppository, mag citrate, and mirilax. History of Present Illness HPI narrative: 23-year-old female history of IUD placement presenting with abdominal pain, cramping. Patient states that this has been going on for about 4 days. Last bowel movement was 4 days prior. She has tried suppositories, magnesium citrate, MiraLAX, none of these of help. Has had vomiting that is nonbloody, nonbilious x1 and decreased p.o. intake. Last menstrual period was a couple of years ago prior to IUD placement. No history of abdominal surgeries other than . Still passing gas. Related Data Home Medications Medication Instructions Recorded Confirmed cetirizine 10 mg capsule 10 mg PO DAILY Allergy symptoms 05/02/20 01/19/23 albuterol sulfate 90 mcg/actuation 2 puff inhalation Q4-6H PRN 10/14/20 01/19/23 aerosol inhaler shortness of breath or wheezing venlafaxine 75 mg capsule,extended 75 mg PO DAILY Depression 11/13/20 01/19/23 release 24 hr levonorgestrel 21 mcg/24 hours (8 intrauterine 02/02/21 01/19/23 yrs) 52 mg intrauterine device (Mirena) buspirone 15 mg tablet 15 mg PO BID anxiety 01/19/23 01/19/23 erenumab-aooe 140 mg/mL 70 mg SQ QMONTH migraines 01/19/23 01/19/23 subcutaneous auto-injector (Aimovig Autoinjector) ibuprofen 600 mg tablet 600 mg PO Q6H PRN migraines 01/19/23 01/19/23 sumatriptan succinate 100 mg tablet 100 mg PO ONCE PRN migraines 01/19/23 01/19/23 Previous Rx's Medication Instructions Recorded albuterol sulfate 1.25 mg/3 mL 1.25 mg (3 mL) inhalation QID PRN /
[2023-06-30 12:58] LABS: Microscopic, Urine URINE MICROSCOPIC (MICROSCOPIC)
[2023-06-30 13:04] LABS: Appearance,Urine CLEAR (Clear); Bilirubin,Urine Negative (Negative); Blood, Urine Negative (Negative); Color,Urine YELLOW (Yellow); Glucose,Urine (UA) Negative (Negative); Ketones,Urine Negative (Negative); Leukocyte Esterase,Urine 1+ (Negative); Nitrate,Urine Negative (Negative); PH,Urine 7.5 (5.0-8.5); Protein,Urine Negative (Negative); Specific Gravity, Urine 1.015 (1.005-1.030); Urobilinogen,Urine 0.2 EU/dl (0.2)
[2023-06-30 13:12] LABS: Bacteria,Urine 1+ /lpf
[2023-06-30 13:13] LABS: Basophils % 0.5 % (0.1-2.0); Eosinophils # 0.2 K/mm3 (0.0-0.4); Eosinophils % 2.9 % (0.1-12.0); Hematocrit 43.3 % (37.0-47.0); Hemoglobin 15.2 g/dL (12.2-16.2); Lymphocytes # 1.9 K/mm3 (0.7-4.5); Lymphocytes % 23.2 % (10-50); Mean Corpuscular Hemoglobin 30.9 pg (27.0-31.2); Mean Corpuscular Volume 88.1 fl (81-99); Mean Platelet Volume 8.8 fl (7.4-10.4); Monocytes # 0.4 K/mm3 (0.1-1.0); Monocytes % 4.9 % (1.7-9.3); Neutrophils # 5.5 K/mm3 (1.8-7.8); Neutrophils % 68.5 % (37.0-80.0); Platelet Count 221 K/mm3 (142-424); Red Blood Count 4.91 M/mm3 (4.20-5.40); White Blood Count 8.1 K/mm3 (4.8-10.8)
[2023-06-30 13:21] LABS: Chloride 102 mmol/L (98-107); Potassium 4.2 mmoL/L (3.5-5.1); Sodium 140 mmol/L (136-145)
[2023-06-30 13:24] LABS: Alanine Aminotransferase 48 U/L (12-78); Albumin Level 4.3 g/dl (3.5-5.0); Albumin/Globulin Ratio 1.3 (1.1-1.8); Alkaline Phosphatase 93 U/L (38-126); Anion Gap 9.2 mEq/L (5-15); Aspartate Amino Transferase 46 U/L (14-36); Bilirubin,Total 0.3 mg/dl (0.2-1.3); Blood Urea Nitrogen 8 mg/dl (7-17); Calcium 8.9 mg/dl (8.4-10.2); Carbon Dioxide 33 mmol/L (22.0-30.0); Creatinine Clearance Estimated 132 mL/min (50-200); Estimated Glomerular Filt Rate 69 ml/min (>60); GFR (African American) 83 ML/MIN (>60); Globulin 3.2 g/dL (1.3-3.2); Glucose 98 mg/dl (74-100); Lipase 125 U/L (23-300); Total Protein,Serum 7.5 g/dl (6.3-8.2)
[2023-06-30 13:48] VITALS: BP 97/67; PULSE 107; TEMP 36.8; O2SAT 96
[2023-06-30 13:50] LABS: HCG,Quantitative < 2 mIU/ml (0-5.42)
[2023-06-30 14:24] VITALS: BP 106/62; PULSE 96; RESP 16; TEMP 36.8
--- NOTE | 2023-07-03 08:04 | PC.NURSE ---
urine culture on worklist, notified dr. paez, states no treatment needed.
== END 2023-06-30 14:25 | disposition home or self-care (01) ==
PROVIDERS: Emergency Provider Emergency Medicine
DX: N39.0 Urinary tract infection, site not specified (principal); B96.89 Other specified bacterial agents as the cause of diseases classified elsewhere; R10.9 Unspecified abdominal pain; R11.10 Vomiting, unspecified; K59.00 Constipation, unspecified
CPT/HCPCS: 80053; 81001; 83690; 84702; 85025; 87086; 96361; 96374; 96375; 99284; J2405

== ENCOUNTER 2023-07-02 14:48 | Emergency (ER) | payer OTHER, SELFPAY ==
[2023-07-02 14:55] VITALS: BP 107/59; PULSE 90; RESP 20; TEMP 37.1; O2SAT 99; BMI 35.3
--- NOTE | 2023-07-02 15:01 | EXP.UTC ---
Discharge Plan Disposition Patient Disposition: Home, Self-Care Condition: Good Prescriptions Prescriptions: No Action Mirena 20 mcg/24 hours (6 yrs) 52 mg intrauterine device INTRAUTERI cetirizine 10 mg capsule 10 mg PO DAILY Aimovig Autoinjector 140 mg/mL auto-injector 70 mg SQ QMONTH buspirone 15 mg tablet 15 mg PO BID ibuprofen 600 mg tablet 600 mg PO Q6H PRN (Reason: migraines) sumatriptan succinate 100 mg tablet 100 mg PO ONCE PRN (Reason: migraines) nitrofurantoin monohyd/m-cryst [Macrobid] 100 mg capsule 100 mg PO BID 7 Days Qty: 14 0RF Rx Instructions: must administer with a meal/food cefdinir 300 mg capsule 300 mg PO BID 5 Days Qty: 10 0RF albuterol sulfate 6.7 GM HFA aerosol inhaler 2 puff IH Q4-6H PRN (Reason: shortness of breath or wheezing) venlafaxine 75 MG capsule,extended release 24hr 75 mg PO DAILY albuterol sulfate 1.25 mg/3 mL solution for nebulization 1.25 mg inhalation QID PRN (Reason: shortness of breath or wheezing) Qty: 75 0RF sulfamethoxazole-trimethoprim [Bactrim DS] 800-160 mg Tablet 1 tab PO Q12H Qty: 20 0RF cephalexin [cephalexin] 500 mg capsule 500 mg PO TID Qty: 30 0RF cephalexin 500 mg capsule 500 mg PO BID 10 Days Qty: 20 0RF Referrals Follow up/Referrals: Ramiro Monroy PA [Primary Care Provider] - See instructions Activity Restrictions/Add. Instructions Additional Instructions/Restrictions: Keep the wound clean and dry. Continue the antibiotic that you are already on. Watch the wound for signs of infection, such as redness, swelling, drainage, fever. etc. Take tylenol or ibuprofen for pain. Follow up with your regular doctor. GO TO THE ER FOR ANY WORSENING SYMPTOMS OR CONCERNS. Clinical Impressions Clinical Impression: Puncture wound of foot, right, Need for Tdap vaccination Instructions Patient Instructions: Tetanus, Diphtheria, and Pertussis Vaccine, DI for Puncture Wound Discharge ED Provider: Matt Morales [facility] General Stated complaint: AO 07/01, right foot pain Time Seen by Provider: 11/18/23 15:01 History of Present Illness Provider Complaint: She states that she stepped on a small nail with her right foot last night. She received a puncture wound to that foot. Her tetanus immunization is not up to date. She denies the possibility there might be a foreign body left in the wound. She refuses an x-ray of the foot. Related Data Home Medications Medication Instructions Recorded Confirmed cetirizine 10 mg capsule 10 mg PO DAILY Allergy symptoms 05/02/20 01/19/23 albuterol sulfate 90 mcg/actuation 2 puff inhalation Q4-6H PRN 10/14/20 01/19/23 aerosol inhaler shortness of breath or wheezing venlafaxine 75 mg capsule,extended 75 mg PO DAILY Depression 11/13/20 01/19/23 release 24 hr levonorgestrel 21 mcg/24 hours (8 intrauterine 02/02/21 01/19/23 yrs) 52 mg intrauterine device (Mirena) buspirone 15 mg tablet 15 mg PO BID anxiety 01/19/23 01/19/23 erenumab-aooe 140 mg/mL 70 mg SQ QMONTH migraines 01/19/23 01/19/23 subcutaneous auto-injector (Aimovig Autoinjector) ibuprofen 600 mg tablet 600 mg PO Q6H PRN migraines 01/19/23 01/19/23 sumatriptan succinate 100 mg tablet 100 mg PO ONCE PRN migraines 01/19/23 01/19/23 Previous Rx's Medication Instructions Recorded albuterol sulfate 1.25 mg/3 mL 1.25 mg (3 mL) inhalation QID PRN 09/16/22 solution for nebulization shortness of breath or wheezing #75 mL nitrofurantoin 100 mg PO BID 7 days #14 caps 01/19/23 monohydrate/macrocrystals 100 mg capsule (Macrobid) cephalexin 500 mg capsule 500 mg PO TID #30 caps 01/27/23 sulfamethoxazole 800 1 tab PO Q12H #20 tabs 01/27/23 mg-trimethoprim 160 mg tablet (Bactrim DS) cephalexin 500 mg capsule 500 mg PO BID 10 days #20 caps 04/26/23 cefdinir 300 mg capsule 300 mg PO BID 5 days #10 caps 06/30/23 Allergies Allergy/AdvReac Type
[2023-07-02 15:21] VITALS: BP 107/59; PULSE 90; RESP 20; TEMP 37.1; O2SAT 99
== END 2023-07-02 15:26 | disposition home or self-care (01) ==
PROVIDERS: Emergency Provider Nurse Practitioner Family; PCP Physician Assistant
DX: S91.331A Puncture wound without foreign body, right foot, initial encounter (principal); Z23 Encounter for immunization; W45.0XXA Nail entering through skin, initial encounter
CPT/HCPCS: 90715; 96372; 99212; 99214; G0463

== ENCOUNTER 2023-07-25 15:34 | Emergency (ER) | payer OTHER, SELFPAY ==
[2023-07-25 15:40] VITALS: BP 111/65; PULSE 76; RESP 18; TEMP 36.8; O2SAT 97; BMI 33.9
--- NOTE | 2023-07-25 15:58 | EXP.UTC ---
Discharge Plan Disposition Patient Disposition: Home, Self-Care Condition: Good Prescriptions Prescriptions: New azithromycin [Zithromax] 250 mg tablet 250 mg PO UD DOSE PK Qty: 6 0RF Rx Instructions: Take two (2) tablets today, then one (1) tablet days #2 thru #5 [id number]-ijbnbchjv-TF [Bromfed DM] 2-30-10 mg/5 mL Syrup 5 ml PO Q6H PRN (Reason: Cough) Qty: 240 0RF ondansetron 4 mg Tablet,Disintegrating 4 mg PO Q8H PRN (Reason: Nausea) Qty: 12 0RF No Action Mirena 20 mcg/24 hours (6 yrs) 52 mg intrauterine device 1 device INTRAUTERI ONCE cetirizine 10 mg capsule 10 mg PO DAILY Aimovig Autoinjector 140 mg/mL auto-injector 70 mg SQ QMONTH buspirone 15 mg tablet 15 mg PO BID sumatriptan succinate 100 mg tablet 100 mg PO ONCE PRN (Reason: migraines) albuterol sulfate 6.7 GM HFA aerosol inhaler 2 puff IH Q4-6H PRN (Reason: shortness of breath or wheezing) venlafaxine 75 MG capsule,extended release 24hr 75 mg PO DAILY albuterol sulfate 1.25 mg/3 mL solution for nebulization 1.25 mg inhalation QID PRN (Reason: shortness of breath or wheezing) Qty: 75 0RF Referrals Follow up/Referrals: Ramiro Monroy PA [Primary Care Provider] - See instructions Activity Restrictions/Add. Instructions Additional Instructions/Restrictions: Encourage her to drink fluids Watch her temperature and give her tylenol or ibuprofen for pain/fever Give the medication as prescribed. Follow up with her foot and ankle surgeon. GO TO THE EMERGENCY ROOM FOR ANY WORSENING OR LIFE THREATENING SYMPTOMS. Clinical Impressions Clinical Impression: Acute viral syndrome, Pharyngitis Stand Alone Forms Stand Alone Forms: Work/School Release Instructions Patient Instructions: DI for Pharyngitis/Tonsillopharyngitis -- Child, DI for Viral Syndrome Discharge ED Provider: Matt Morales [facility] HPI General Stated complaint: Vomiting,Body Cramping,Diarrhea Mode of Arrival: Ambulatory Source of Information: Patient Limitations: No Limitations Time Seen by Provider: 07/25/23 15:57 Description of Symptoms (Recalled from Triage Doc. by RN): vomiting, fatigue, and body aches HEENT Symptoms (Recalled from RN notes): Yes Resp Symptoms (Recalled from RN notes): No Skin Symptoms (Recalled from RN notes): No MS Symptoms (Recalled from RN notes): No Functional Status (Recalled from RN notes): n/a History of Present Illness Provider Complaint: She states that for the past 1 days she has had n/v/d and low grade fever. She denies any abdominal pain. Related Data Home Medications Medication Instructions Recorded Confirmed cetirizine 10 mg capsule 10 mg PO DAILY Allergy symptoms 05/02/20 07/25/23 albuterol sulfate 90 mcg/actuation 2 puff inhalation Q4-6H PRN 10/14/20 07/25/23 aerosol inhaler shortness of breath or wheezing venlafaxine 75 mg capsule,extended 75 mg PO DAILY Depression 11/13/20 07/25/23 release 24 hr levonorgestrel 21 mcg/24 hours (8 1 device intrauterine ONCE 02/02/21 07/25/23 yrs) 52 mg intrauterine device (Mirena) buspirone 15 mg tablet 15 mg PO BID anxiety 01/19/23 07/25/23 erenumab-aooe 140 mg/mL 70 mg SQ QMONTH migraines 01/19/23 07/25/23 subcutaneous auto-injector (Aimovig Autoinjector) sumatriptan succinate 100 mg tablet 100 mg PO ONCE PRN migraines 01/19/23 01/19/23 Previous Rx's Medication Instructions Recorded albuterol sulfate 1.25 mg/3 mL 1.25 mg (3 mL) inhalation QID PRN 09/16/22 solution for nebulization shortness of breath or wheezing #75 mL azithromycin 250 mg tablet 250 mg PO UD DOSE PK #6 tabs 07/25/23 (Zithromax) azpbrskasmuaaaq-[id number]-FS 5 ml PO Q6H PRN Cough #240 mL 07/25/23 2 mg-30 mg-10 mg/5 mL oral syrup (Bromfed DM) ondansetron 4 mg disintegrating 4 mg PO Q8H PRN Nausea #12 tabs 07/25/23 tablet Allergies Allergy/AdvReac Type Severity Reaction Status Date / Time povidone-iodine Allergy Severe anaph
[2023-07-25 16:02] LABS: UTC Influenza A Antigen Negative (Negative)
[2023-07-25 16:03] LABS: UTC Influenza B Antigen Negative (Negative)
[2023-07-25 16:48] VITALS: BP 111/65; PULSE 76; RESP 18; TEMP 36.8; O2SAT 97
== END 2023-07-25 16:48 | disposition home or self-care (01) ==
PROVIDERS: Emergency Provider Nurse Practitioner Family; PCP Physician Assistant
DX: J02.9 Acute pharyngitis, unspecified (principal); R50.9 Fever, unspecified; R11.2 Nausea with vomiting, unspecified; R19.7 Diarrhea, unspecified; R53.83 Other fatigue
CPT/HCPCS: 87635; 87804; 99212; 99214; G0463

== ENCOUNTER 2023-09-06 15:18 | Emergency (ER) | payer OTHER, SELFPAY ==
[2023-09-06 15:19] VITALS: BP 120/76; PULSE 90; RESP 18; TEMP 36.8; O2SAT 98; BMI 35.5
[2023-09-06 16:08] LABS: Microscopic, Urine URINE MICROSCOPIC (MICROSCOPIC)
[2023-09-06 16:10] LABS: Basophils # 0.1 K/mm3 (0-0.2); Basophils % 0.8 % (0.1-2.0); Chloride 100 mmol/L (98-107); Eosinophils # 0.1 K/mm3 (0.0-0.4); Hematocrit 46.2 % (37.0-47.0); Hemoglobin 15.5 g/dL (12.2-16.2); Lymphocytes # 2.6 K/mm3 (0.7-4.5); Lymphocytes % 28.9 % (10-50); Mean Corpuscular HGB Conc 33.5 g/dL (31.8-35.4); Mean Corpuscular Hemoglobin 30.1 pg (27.0-31.2); Mean Corpuscular Volume 89.8 fl (81-99); Mean Platelet Volume 8.6 fl (7.4-10.4); Monocytes # 0.5 K/mm3 (0.1-1.0); Monocytes % 5.7 % (1.7-9.3); Neutrophils # 5.7 K/mm3 (1.8-7.8); Neutrophils % 63.6 % (37.0-80.0); Platelet Count 278 K/mm3 (142-424); Red Blood Count 5.14 M/mm3 (4.20-5.40); Red Cell Distribution Width 13.4 % (11.5-17.5); Sodium 139 mmol/L (136-145)
[2023-09-06 16:11] LABS: Potassium 3.8 mmoL/L (3.5-5.1)
[2023-09-06 16:13] LABS: Alanine Aminotransferase 40 U/L (12-78); Alkaline Phosphatase 95 U/L (38-126); Anion Gap 8.8 mEq/L (5-15); Aspartate Amino Transferase 46 U/L (14-36); Bilirubin,Total 0.6 mg/dl (0.2-1.3); Blood Urea Nitrogen 6 mg/dl (7-17); Carbon Dioxide 34 mmol/L (22.0-30.0); Creatinine Clearance Estimated 153 mL/min (50-200); Estimated Glomerular Filt Rate 78 ml/min (>60); GFR (African American) 94 ML/MIN (>60)
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
[2023-09-06 16:14] LABS: Albumin Level 4.1 g/dl (3.5-5.0); Albumin/Globulin Ratio 1.4 (1.1-1.8); Glucose 99 mg/dl (74-100); Lipase 113 U/L (23-300); Total Protein,Serum 7.1 g/dl (6.3-8.2)
[2023-09-06 16:22] LABS: C-Reactive Protein 3.3 mg/L (0-4)
[2023-09-06 16:24] LABS: Appearance,Urine CLEAR (Clear); Bilirubin,Urine Negative (Negative); Blood, Urine Negative (Negative); Color,Urine YELLOW (Yellow); Glucose,Urine (UA) Negative (Negative); Ketones,Urine Negative (Negative); Leukocyte Esterase,Urine TRACE (Negative); Nitrate,Urine Negative (Negative); Protein,Urine Negative (Negative); Specific Gravity, Urine 1.015 (1.005-1.030); Urobilinogen,Urine 0.2 EU/dl (0.2)
[2023-09-06 16:30] VITALS: BP 103/63; PULSE 88; RESP 20; O2SAT 100
[2023-09-06 16:38] LABS: HCG,Quantitative < 2 mIU/ml (0-5.42)
[2023-09-06] MEDS: KETOROLAC 30MG/ML VIAL 15 MG IV (16:38)
[2023-09-06] MEDS: ACETAMINOPHEN 500MG TAB 1000 MG PO (16:38)
[2023-09-06 16:43] LABS: Bacteria,Urine Trace /lpf; Erythrocyte Sedimentation Rate 13 mm/hr (0-20); WBC,Urine Occasional #/hpf (0-3)
[2023-09-06 17:16] VITALS: BP 103/63; PULSE 88; RESP 18; TEMP 37.1; O2SAT 99
== END 2023-09-06 17:20 | disposition home or self-care (01) ==
PROVIDERS: Emergency Provider Emergency Medicine; PCP Nurse Practitioner Family
DX: M54.50 Low back pain, unspecified (principal); R10.9 Unspecified abdominal pain; R11.0 Nausea; F41.9 Anxiety disorder, unspecified; R21 Rash and other nonspecific skin eruption
CPT/HCPCS: 80053; 81001; 83690; 84702; 85025; 85651; 86140; 96374; 99285

== ENCOUNTER 2023-09-14 15:24 | Emergency (ER) | payer OTHER, SELFPAY ==
[2023-09-14 15:25] VITALS: BP 120/74; PULSE 84; RESP 16; TEMP 36.6; O2SAT 100; BMI 33.9
[2023-09-14] MEDS: LACTATED RINGERS 1000ML 1,000 ML 999 ML IV (16:02)
[2023-09-14] MEDS: PROCHLORPERAZINE 10MG/2ML VIAL 10 MG IV (16:02)
[2023-09-14] MEDS: DEXAMETHASONE 4MG/ML 1ML VIAL 10 MG IV (16:02)
[2023-09-14] MEDS: ACETAMINOPHEN 500MG TAB 1000 MG PO (16:03)
[2023-09-14] MEDS: KETOROLAC 30MG/ML VIAL 15 MG IV (16:03)
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
--- NOTE | 2023-09-14 17:42 | ECG_ITS ---
APPROVED REPORT Exam: Resting ECG HR:73 bpm ECG Measurements Heart Rate 73 AXES AK 154 P 22 QRSd 86 QRS 50 QT 375 T 47 QTc 402 Conclusion SINUS RHYTHM NORMAL ECG UNCONFIRMED REPORT Electronically signed by : Mauricio Valle MD 09/14/2023 22:35:57
--- NOTE | 2023-09-14 17:53 | PC.NURSE ---
PT C/O RAC IV SITE PAIN, SITE UNREMARKABLE. OFFERED PT NEW IV START. AGREES. #20 LAC. INFUSING WITHOUT DIFFICULTY. CALL LIGHT WITHIN REACH
[2023-09-14] MEDS: droPERidol 5MG/2ML VIAL 2.5 MG IV (17:58)
[2023-09-14 18:00] VITALS: BP 108/72; PULSE 80; RESP 18; O2SAT 99
[2023-09-14] MEDS: MAGNESIUM SULFATE IN WATER 2 GM/50 ML PIGGYBACK IV (18:19)
[2023-09-14] MEDS: SUMAtriptan 6MG/0.5ML VIAL 6 MG SQ (18:20)
[2023-09-14 18:30] VITALS: BP 130/79; PULSE 88; RESP 20; O2SAT 97
[2023-09-14 19:01] VITALS: BP 93/57; PULSE 85; O2SAT 98
--- NOTE | 2023-09-14 19:15 | PC.NURSE ---
Pt LR restarted, states medication given thus far has improved her headache, rating pain 4/10 at this time.
[2023-09-14 19:23] VITALS: BP 132/74; BP 85/68; PULSE 86; RESP 18; TEMP 36.6; O2SAT 98
[2023-09-14 19:46] VITALS: BP 132/74; PULSE 86; RESP 18; TEMP 36.6; O2SAT 98
== END 2023-09-14 19:48 | disposition home or self-care (01) ==
PROVIDERS: Emergency Provider Emergency Medicine
DX: G43.909 Migraine, unspecified, not intractable, without status migrainosus (principal)
CPT/HCPCS: 93005; 96361; 96365; 96372; 96375; 99285; J1790; J3475

== ENCOUNTER 2023-09-28 13:18 | Emergency (ER) | payer OTHER, SELFPAY ==
[2023-09-28 13:19] VITALS: BP 106/71; PULSE 88; RESP 14; TEMP 36.8; O2SAT 97; BMI 35.5
[2023-09-28 13:30] VITALS: BP 111/60; PULSE 87; O2SAT 99
--- NOTE | 2023-09-28 13:41 | XR_ITS ---
FINAL REPORT CLINICAL HISTORY: pain COMPARISON: 06/16/2022 FINDINGS: Right knee Three views were obtained. There is no acute fracture or dislocation. The joint spaces appear normal. No soft tissue abnormality is identified. There is a sclerotic area in the anterior distal femur, favor old healed fibrous cortical defect. Finding is stable since previous. IMPRESSION: No acute process. Reviewed, Interpreted and Dictated by Shay Mojica III, MD Transcribed by Suzie Rosen Authenticated and [facility]
--- NOTE | 2023-09-28 13:41 | PC.NURSE ---
DR WATERS AT BEDSIDE
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
--- NOTE | 2023-09-28 13:47 | PC.NURSE ---
PT TO XR
[2023-09-28] MEDS: ACETAMINOPHEN 500MG TAB 1000 MG PO (13:53)
[2023-09-28] MEDS: IBUPROFEN 400 MG TABLET 800 MG PO (13:53)
[2023-09-28] MEDS: LIDOCAINE 5% TRANSDERMAL PATCH 1 EACH TP (13:54)
[2023-09-28 14:01] VITALS: BP 108/59; PULSE 91; O2SAT 100
[2023-09-28 14:30] VITALS: BP 106/69; PULSE 87; O2SAT 98
--- NOTE | 2023-09-28 14:31 | PC.NURSE ---
Rounded on pt. No needs voiced. Call light within reach.
--- NOTE | 2023-09-28 14:49 | PC.NURSE ---
DR WATERS AT BEDSIDE TO UPDATE PT
[2023-09-28 15:19] VITALS: BP 106/69; PULSE 82; RESP 16; TEMP 36.7
--- NOTE | 2023-09-28 22:04 | PC.NURSE ---
chart accessed for ortho paperwork
== END 2023-09-28 15:20 | disposition home or self-care (01) ==
PROVIDERS: Emergency Provider Emergency Medicine; PCP Nurse Practitioner Family
DX: M25.561 Pain in right knee (principal); W19.XXXA Unspecified fall, initial encounter
CPT/HCPCS: 73562; 99283

== ENCOUNTER 2023-10-14 13:04 | Outpatient (CLI) | payer OTHER, SELFPAY ==
--- NOTE | 2023-10-14 13:05 | MR_ITS ---
FINAL REPORT TECHNIQUE: Multiplanar and multisequence imaging the right knee was obtained without contrast. CLINICAL HISTORY: Rt Knee Injury FINDINGS: Bones: There is no acute fracture or marrow edema. The joint space is preserved. There are no full thickness cartilage defects. Menisci: No meniscal tear is present. Ligaments: No cruciate or collateral ligament tear is present. Tendons/Muscles: The quadriceps and patellar tendons are within normal limits. The biceps femoris tendon and iliotibial tract are intact. The popliteus tendon is normal. Other: There is no joint effusion. There is mild prepatellar soft tissue edema which is nonspecific but may be posttraumatic. Remaining soft tissues are normal. IMPRESSION: Mild prepatellar soft tissue edema. No evidence of meniscal or ligamentous injury. Reviewed, Interpreted and Dictated by Willow Pollock MD Transcribed by Suzie Rosen Authenticated and [facility]
== END 2023-10-14 23:59 ==
LOC: RAD 13:05
PROVIDERS: PCP Nurse Practitioner Family; Visit Provider Orthopaedic Surgery
DX: S89.91XA Unspecified injury of right lower leg, initial encounter (principal)
CPT/HCPCS: 73721

== ENCOUNTER 2023-12-06 10:00 | Outpatient (RCR) | payer OTHER, SELFPAY ==
--- NOTE | 2023-11-09 16:57 | HMH.PTOPEV ---
PT Outpatient Evaluation Rehab PT Outpatient Evaluation Start: 11/09/23 15:57 Freq: Status: Active Protocol: Document 11/09/23 15:57 JOANNECHET (Rec: 11/09/23 16:57 NORMA [id number]) E-signed By Yolanda Anderson, PT Outpatient Therapy Subjective History Subjective History Pt is a 23 y/o female who reports onset of R anterior knee pain after a fall on 09/28. Pt reports she tripped on a step and landed on her R knee. Pt reports immediate pain, swelling and bruising. Pt denies hearing a pop. Pt reports slow improvement in pain since onset. Pt denies recent swelling or numbness/ tingling. Pt reports she went to the ED the same day and they took xrays without significant findings. Pt had a R knee MRI on 10/14/23 with impression of Mild prepatellar soft tissue edema. No evidence of meniscal or ligamentous injury. Pt reports she had a scope to cleanout her R knee last year and reports her R knee has been giving out since the surgery. Pt reports pain is aggravated by squatting, kneeling on the knee, and walking up or down a hill. Pt denies further comorbidities. New diagnosis of cancer in past 12 No months? Chief Complaint Pain,Gives out/Unstable Symptom Type Sharp Symptoms Relieved By Ice,OTC Meds Symptoms Aggravated By Physical Activity Current Functional Limitations Squatting,Recreation Activity Symptom Description Constant but Variable Level of pain today (0-10) 3 Pain scale - at its best (0-10) 2 Pain scale - at its worst (0-10) 6 Hip/Knee Eval Gait Observation General Gait Pattern Observation Antalgic Gait Assistive Device Assistive Devices None / NA Palpation Tenderness right Knee Palpation Finding Tenderness Knee Palpation Overall Comment inferior pole of the patella, quad tendon MMT Hip Flexion Strength Grade 4 Good Hip Abduction Strength Grade 4 Good Hip Adduction Strength Grade 4 Good Hip Extension Strength Grade 4 Good Knee Extension Strength Grade 4 Good Knee Flexion Strength Grade 4 Good ROM Knee Extension Active Range of Motion ( 3 degrees) Knee Extension Passive Range of Motion ( 0 degrees) Knee Flexion Active Range of Motion ( 122 degrees) Effusion joint effusion knee exam standard right Mid - Patellar Circumerential Measure ( 42 cm) Special Tests Knee Anterior Jesus Test Negative Left,Negative Right Knee Posterior Sag ([place] Drawer) Test Negative Left,Negative Right Knee Valgus Stress Test Negative Left,Negative Right Knee Varus Stress Test Negative Left,Negative Right Knee Shea Test Negative Left,Negative Right Lower Extremity Functional Index Activities Today, do you or would you have any difficulty at all with: a.Any of your usual work, housework or No difficulty school activities b. Your usual hobbies, recreational or No difficulty sporting activities c. Getting into or out of the bath A little bit of difficulty d. Walking between rooms No difficulty e. Putting on your shoes or socks No difficulty f. Squatting Moderate difficulty g. Lifting an object, like a bag of A little bit of difficulty groceries from the floor h. Performing light activities around No difficulty your home i. Performing heavy activities around Moderate difficulty your home j. Getting into or out of a car No difficulty k. Walking 2 blocks A little bit of difficulty l. Walking a mile A little bit of difficulty m. Going up or down 10 stairs (about 1 Moderate difficulty flight of stairs) n. Standing for 1 hour No difficulty o. Sitting for 1 hour No difficulty p. Running on even ground Moderate difficulty q. Running on uneven ground Moderate difficulty r. Making sharp turns while running fast Moderate difficulty s. Hopping A little bit of difficulty t. Rolling over in bed No difficulty LEFI Score Lower Extremity Functional Index Score 63 Outpatient Therapy Assessment Impairments Problems/Impairmments Palpation Tenderness,Impaired Range of Motion,Impaired Strength,Impaired Walking, Impaired Incline Stepping, Impaired Squatting,Impaired Running,Impaired Jumping, Subjective C/O Pain,Impaired Self Care/Self Management Prognosis Rehab Potential Good Clinical Impression Consistent with Diagnosis Yes Short Term Goals Number of Weeks 3 Improve Gait Pattern without Assistive Yes: non-antalgic to dec fall Device risk Decrease Subjective C/O Pain Yes: Improve pain at worst to 4/10 to improve overall QOL Improve Self Care/Self Management Yes Patient to be Ind w/ HEP Yes Retirement Goals Number of Weeks 6 Decreased Palpation Tenderness Yes: 0-1/4 TTP of R quad tendon and inferior pole of patella Increase Range of Motion Yes: Improve R knee AROM to 0- 125 Increase Strength Yes: Improve RLE MMT to 4+-5/5 grossly to assist with function Improve Incline Stepping Ability Yes: report ability to traverse a hill with pain 2/10 or less Improve Ability to Squat Yes: perform BW squat w proper mechanics & p! 2/10 or less to assist w function Improve LEFI Score Yes: Improve score to 73 to improve overall QOL Decrease Subjective C/O Pain Yes: Improve pain at worst to 2/10 to improve overall QOL Patient to be Ind w/ Advanced HEP Yes Outpatient Therapy Plan of Care Treatment Plan May Include Therapeutic Exercise Including Home Yes Exercise Program Manual Therapy Techniques Yes Neuromuscular Re-education Yes Therapeutic Activities to Return to Yes Previous Functional/Work Level ADL/Self Care Education Yes Dry Needling Yes Thermal Modalities Yes Electrical Stimulation Yes Ultrasound/Phonophoresis Yes Iontophoresis Yes Orthotics/Bracing/Splinting Yes Vasopneumatic Compression Pump Yes Eval/Re-Eval Yes Frequency Times per week 2 Duration Number of Weeks 4-6 Addendums This patient is a candidate for social No or vocational rehab? Patient/Guardian verbally acknowledges Yes understanding of treatment program and consents to further treatment? Patient/Guardian verbally acknowledges Yes understanding of diagnosis, prognosis and goals for treatment? Eval Complexity PT Charges 28339 - Low Complexity Shoulder/Elbow Eval Shoulder Objective Measurements Elbow Objective Measurements PHYSICIAN CERTIFICATION: I certify the specified therapy services for Susan Resendiz are required, authorized, and reviewed every 30 days.
== END 2023-12-06 11:10 | disposition home or self-care (01) ==
LOC: PT 10:00
PROVIDERS: Visit Provider Orthopaedic Surgery
DX: M25.561 Pain in right knee (principal); M76.51 Patellar tendinitis, right knee
CPT/HCPCS: 97035; 97110; 97163; 97530

== ENCOUNTER 2024-01-16 15:52 | Emergency (ER) | payer OTHER, SELFPAY ==
--- NOTE | 2024-01-16 16:25 | XR_ITS ---
PROCEDURE INFORMATION: Exam: XR Left Knee Exam date and time: 01/16/2024 4:26 PM Age: 23 years old Clinical indication: Pain; Knee; Left TECHNIQUE: Imaging protocol: Radiologic exam of the left knee. Views: 1 or 2 views. COMPARISON: CR XR ANKLE LT MIN 3V 05/05/2023 11:22 AM FINDINGS: Bones/joints: Normal. No fracture evident. Soft tissues: Normal. IMPRESSION: No acute findings.
[2024-01-16 16:45] VITALS: BP 105/69; PULSE 87; RESP 20; TEMP 37.4; O2SAT 98; BMI 36.3
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
[2024-01-16] MEDS: KETOROLAC 30MG/ML VIAL 30 MG IM (17:29)
[2024-01-16 17:49] VITALS: BP 105/69; PULSE 87; RESP 20; TEMP 37.4; O2SAT 98
== END 2024-01-16 17:52 | disposition home or self-care (01) ==
PROVIDERS: Emergency Provider Nurse Practitioner Family; PCP Nurse Practitioner Family
DX: S86.912A Strain of unspecified muscle(s) and tendon(s) at lower leg level, left leg, initial encounter (principal); M25.562 Pain in left knee; X50.0XXA Overexertion from strenuous movement or load, initial encounter
CPT/HCPCS: 73560; 96372; 99212; 99214; G0463

== ENCOUNTER 2024-04-08 15:52 | Emergency (ER) | payer OTHER, SELFPAY ==
[2024-04-08 16:18] VITALS: BP 112/57; PULSE 94; RESP 16; TEMP 36.8; O2SAT 97; BMI 35.8
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
[2024-04-08 17:10] VITALS: BP 112/57; PULSE 94; RESP 16; TEMP 36.8; O2SAT 97
== END 2024-04-08 17:11 | disposition home or self-care (01) ==
PROVIDERS: Emergency Provider Nurse Practitioner Family; PCP Nurse Practitioner Family
DX: L23.7 Allergic contact dermatitis due to plants, except food (principal); W60.XXXA Contact with nonvenomous plant thorns and spines and sharp leaves, initial encounter
CPT/HCPCS: 96372; 99212; 99214; G0463; J1100

== ENCOUNTER 2024-09-18 13:21 | Emergency (ER) | payer OTHER, SELFPAY ==
[2024-09-18 13:22] VITALS: BP 131/75; PULSE 105; RESP 20; TEMP 37; O2SAT 99; BMI 35.5
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
[2024-09-18 13:55] LABS: Microscopic, Urine URINE MICROSCOPIC (MICROSCOPIC)
[2024-09-18 13:58] LABS: Appearance,Urine CLEAR (Clear); Bilirubin,Urine Negative (Negative); Blood, Urine 3+ (Negative); Color,Urine YELLOW (Yellow); Glucose,Urine (UA) Negative (Negative); Ketones,Urine Negative (Negative); Leukocyte Esterase,Urine TRACE (Negative); Nitrate,Urine Negative (Negative); PH,Urine 6.5 (5.0-8.5); Protein,Urine Negative (Negative); Urine Pregnancy, HCG Qual. Negative (Negative); Urobilinogen,Urine 0.2 EU/dl (0.2)
[2024-09-18] MEDS: ONDANSETRON 4MG ODT 4 MG SL (14:09)
[2024-09-18 14:11] LABS: Bacteria,Urine 1+ /lpf; WBC,Urine Occasional #/hpf (0-3)
[2024-09-18 14:45] VITALS: BP 128/79; PULSE 80; RESP 18; TEMP 36.9; O2SAT 98
== END 2024-09-18 14:46 | disposition home or self-care (01) ==
PROVIDERS: Emergency Provider Emergency Medicine; PCP Nurse Practitioner Family
DX: R31.29 Other microscopic hematuria (principal); J98.8 Other specified respiratory disorders; R05.9 Cough, unspecified; R11.0 Nausea; J02.9 Acute pharyngitis, unspecified; Z20.828 Contact with and (suspected) exposure to other viral communicable diseases
CPT/HCPCS: 81001; 81025; 99283; Q0162

== ENCOUNTER 2024-10-26 14:22 | Outpatient (CLI) | payer OTHER, SELFPAY ==
[2024-10-26 15:28] LABS: HCG,Quantitative 17 mIU/ml (0-5.42)
[2024-10-27 08:20] LABS: Progesterone 11.6 ng/mL (.)
== END 2024-10-26 23:59 | disposition home or self-care (01) ==
LOC: LAB 14:23
PROVIDERS: PCP Nurse Practitioner Family; Visit Provider Obstetrics & Gynecology
DX: Z32.01 Encounter for pregnancy test, result positive (principal)
CPT/HCPCS: 36415; 84144; 84702

== ENCOUNTER 2024-10-30 10:44 | Outpatient (CLI) | payer OTHER, SELFPAY ==
[2024-10-30 11:12] LABS: Basophils % 0.4 % (0.1-2.0); Eosinophils # 0.1 K/mm3 (0.0-0.4); Eosinophils % 1.1 % (0.1-12.0); Hemoglobin 14.1 g/dL (12.2-16.2); Lymphocytes # 1.8 K/mm3 (0.7-4.5); Lymphocytes % 25.1 % (10-50); Mean Corpuscular HGB Conc 34.4 g/dL (31.8-35.4); Mean Corpuscular Hemoglobin 29.3 pg (27.0-31.2); Mean Corpuscular Volume 85.2 fl (81-99); Monocytes # 0.5 K/mm3 (0.1-1.0); Monocytes % 6.8 % (1.7-9.3); Neutrophils # 4.8 K/mm3 (1.8-7.8); Neutrophils % 66.3 % (37.0-80.0); Platelet Count 239 K/mm3 (142-424); Red Blood Count 4.81 M/mm3 (4.20-5.40); Red Cell Distribution Width 12.3 % (11.5-17.5); White Blood Count 7.2 K/mm3 (4.8-10.8)
[2024-10-30 12:08] LABS: Alanine Aminotransferase 30 U/L (12-78); Albumin Level 4.1 g/dl (3.5-5.0); Albumin/Globulin Ratio 1.6 (1.1-1.8); Alkaline Phosphatase 82 U/L (38-126); Anion Gap 8.9 mEq/L (5-15); Aspartate Amino Transferase 30 U/L (14-36); Bilirubin,Total 0.6 mg/dl (0.2-1.3); Blood Urea Nitrogen 10 mg/dl (7-17); Calcium 9.4 mg/dl (8.4-10.2); Carbon Dioxide 24 mmol/L (22.0-30.0); Chloride 107 mmol/L (98-107); Chol/HDL Ratio 4.3 (1-3.5); Cholesterol 195 mg/dl (140-200); Estimated Glomerular Filt Rate 77 ml/min (>60); GFR (African American) 93 ML/MIN (>60); Globulin 2.6 g/dL (1.3-3.2); Glucose 102 mg/dl (74-100); HDL Cholesterol 45 mg/dl (40-60); Potassium 3.9 mmoL/L (3.5-5.1); Sodium 136 mmol/L (136-145); Total Protein,Serum 6.7 g/dl (6.3-8.2); Triglycerides 79 mg/dl (30-150); VLDL Cholesterol 16 mg/dL (0-40)
[2024-10-30 12:20] LABS: Direct LDL Cholesterol 117.46 mg/dL (100-129)
[2024-10-30 12:26] LABS: HCG,Quantitative 178 mIU/ml (0-5.42)
[2024-10-30 12:28] LABS: 25-OH Vitamin D, Total 53.5 ng/mL (30-100)
[2024-10-30 12:41] LABS: Thyroid Stimulating Hormone 1.54 uIU/mL (0.465-4.68)
[2024-10-31 08:13] LABS: FSH 0.7 mIU/mL (.); LH <0.3 mIU/mL (.); Testosterone,Total 74 ng/dL (13-71)
[2024-10-31 14:09] LABS: Insulin Level Total 22.4 uIU/mL (2.6-24.9)
== END 2024-10-30 23:59 | disposition home or self-care (01) ==
LOC: LAB 10:45
PROVIDERS: PCP Nurse Practitioner Family; Visit Provider Obstetrics & Gynecology
DX: N92.6 Irregular menstruation, unspecified (principal); Z31.9 Encounter for procreative management, unspecified; Z32.01 Encounter for pregnancy test, result positive
CPT/HCPCS: 36415; 80053; 80061; 82306; 82670; 83001; 83002; 83036; 83525; 83735; 84403; 84443; 84550; 84702; 85025

== ENCOUNTER 2024-11-01 11:10 | Outpatient (CLI) | payer OTHER, SELFPAY ==
[2024-11-01 12:18] LABS: HCG,Quantitative 312 mIU/ml (0-5.42)
[2024-11-02 08:13] LABS: Progesterone 16.1 ng/mL (.)
== END 2024-11-01 23:59 | disposition home or self-care (01) ==
LOC: LAB 11:11
PROVIDERS: PCP Nurse Practitioner Family; Visit Provider Obstetrics & Gynecology
DX: Z32.01 Encounter for pregnancy test, result positive (principal)
CPT/HCPCS: 36415; 84144; 84702

== ENCOUNTER 2024-11-02 18:34 | Emergency (ER) | payer OTHER, SELFPAY ==
[2024-11-02 18:37] VITALS: BP 112/77; PULSE 98; RESP 18; TEMP 36.8; O2SAT 100; BMI 38.7
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
[2024-11-02] MEDS: ACETAMINOPHEN 500MG TAB 1000 MG PO (18:49)
[2024-11-02 19:00] VITALS: BP 117/69; PULSE 95; O2SAT 100
[2024-11-02 19:30] VITALS: BP 136/81; O2SAT 100
[2024-11-02 20:46] VITALS: BP 112/87; PULSE 78; RESP 18; TEMP 36.6; O2SAT 97
== END 2024-11-02 20:47 | disposition home or self-care (01) ==
PROVIDERS: Emergency Provider Emergency Medicine; PCP Nurse Practitioner Family
DX: S99.912A Unspecified injury of left ankle, initial encounter (principal); M25.572 Pain in left ankle and joints of left foot; X58.XXXA Exposure to other specified factors, initial encounter; Y93.89 Activity, other specified; Y92.89 Other specified places as the place of occurrence of the external cause; Y99.9 Unspecified external cause status
CPT/HCPCS: 73610; 99283

== ENCOUNTER 2024-11-23 15:06 | Outpatient (CLI) | payer OTHER, SELFPAY ==
[2024-11-23 15:47] LABS: Basophils % 0.4 % (0.1-2.0); Eosinophils # 0.1 K/mm3 (0.0-0.4); Eosinophils % 0.8 % (0.1-12.0); Hematocrit 41.6 % (37.0-47.0); Hemoglobin 14.2 g/dL (12.2-16.2); Lymphocytes # 1.9 K/mm3 (0.7-4.5); Lymphocytes % 22.6 % (10-50); Mean Corpuscular HGB Conc 34.1 g/dL (31.8-35.4); Mean Corpuscular Hemoglobin 29.7 pg (27.0-31.2); Mean Platelet Volume 10.3 fl (7.4-10.4); Monocytes # 0.7 K/mm3 (0.1-1.0); Monocytes % 7.8 % (1.7-9.3); Neutrophils # 5.7 K/mm3 (1.8-7.8); Neutrophils % 68.2 % (37.0-80.0); Nucleated Red Blood Cells # 0 10^3/uL; Nucleated Red Blood Cells % 0 %; Platelet Count 209 K/mm3 (142-424); Red Blood Count 4.78 M/mm3 (4.20-5.40); Red Cell Distribution Width 12.5 % (11.5-17.5); Red Cell Distribution Width-SD 39.8 fL; White Blood Count 8.4 K/mm3 (4.8-10.8)
[2024-11-23 17:08] LABS: HIV Combo NEGATIVE (Negative)
[2024-11-23 17:16] LABS: Hepatitis C Ab Qual. W/ RFX NEGATIVE (Negative)
[2024-11-24 05:11] LABS: Hepatitis B Surface Antigen Negative (Negative)
[2024-11-24 08:12] LABS: Rubella Antibodies, IgG 3.98 index (Immune >0.99)
[2024-11-24 15:47] LABS: RPR W/RFX Titers Nonreactive (Nonreactive)
== END 2024-11-23 23:59 | disposition home or self-care (01) ==
LOC: LAB 15:07
PROVIDERS: PCP Nurse Practitioner Family; Visit Provider Obstetrics & Gynecology
DX: Z34.01 Encounter for supervision of normal first pregnancy, first trimester (principal)
CPT/HCPCS: 36415; 85025; 86592; 86762; 86803; 86850; 87340; 87389

== ENCOUNTER 2025-01-03 14:50 | Emergency (ER) | payer OTHER, SELFPAY ==
[2025-01-03 15:36] VITALS: BP 114/72; PULSE 78; O2SAT 96
[2025-01-03 15:39] VITALS: BP 114/72; PULSE 91; RESP 18; TEMP 37.1; O2SAT 99; BMI 35.5
--- OUTSIDE RECORDS SUMMARY | 2025-01-03 15:41 | XMS_ITS | Continuity of Care Document ---
Author Organization [facility] Phone Care Team Providers Care Linderman Machine Operator Name Role Phone MARTELL SNOW Admitting Unavailable MARTELL SNOW Unavailable Unavailable MARTELL SNOW Primary Attending Unavailable JUDITH SINCLAIR Primary Care Unavaila ble RESULTS Patient: ESTHER SINHA Date of : 2000 7 LABORATORY RESULTS Information is not available LABORATORY NARRATIVE RESULTS Information is not available RADIOLOGY RESULTS ORDER 100: MRI LWR EXT JOINT W/O LT (LOINC: 77793-5) ORDER DATE: January 01, 2025 2:28:00 PM [facility] PERFORMING LAB: [address] [id number] Final Result Date: January 01 9:43:[address] [address] Name: ERNESTINE SANTANA Exam Date: 01/01/2025 : 2000 Age 24 years Gender: F Physician: MARTELL SNOW Facility: [facility] Facility HSV: Outpatient Exam: MRI LWR EXT JOINT W/O LT MRI left ankle without contrast Multiplanar multisequential MRI images of the left ankle were obtained Clinical indication: Ankle pain FINDINGS: Study is significantly limited in evaluation as there is metallic artifact distorting the images. Artifact appears to be along the plantar hindfoot. There is a moderate anterior tibiotalar joint effusion with some internal debris. Talar dome is smooth. Ankle mortise is preserved. IMPRESSION: Significantly limited examination due to metallic artifact. Recommend radiograph to evaluate for possible foreign body. Moderate anterior tibiotalar joint effusion with some internal debris. Electronically signed by: Bhavana Pino MD 01/01/2025 05:43 PM EDT RP Dictated By: Bhavana Pino Transcribed By: Transcribed On: 01/01/2025 5:43 PM Electronically signed by: Bhavana Pino 01/01/2025 Thank you for referring ERNESTINE SANTANA to [facility]. Legally authenticated by EVELYN DINERO 2025-01-01 17:43:50 PATHOLOGY NARRATIVE RESULTS Information is not available MICROBIOLOGY RESULTS No Micro Labs/Results Exist for Patient BLOOD ADMIN RESULTS Information is not available MEDICATIONS HOME MEDICATIONS Status RXNORM NDC Medication Dose Route Frequency Dates Comments Reported By Updated By Drug Treatment Unknown DISCHARGE MEDICATIONS Status RXNORM NDC Medication Dose Route Frequency Dates Comments Physician Updated By No Discharge Medication Info rmation Available INPATIENT MEDICATIONS Status RXNORM NDC Medication Dose Route Frequency Rat e Quantity Dates Comments Physician Updated By No Inpatient Medication Info rmation Available SOCIAL HISTORY SOCIAL HISTORY SNOMED-CT Social History Element Description Effective Dates Offered Cessation Comment UpdatedBy [id number] Smoking Status Unknown If Ever Smoked SOCIAL HISTORY - Gender Sex: Female SOCIAL HISTORY - Status : status i nformation is not available Intention in Next Year: intention information is not available SOCIAL HISTORY - Sexual Behavior Sexual Orientation Gender Identity SNOMED-CT Description SNO MED -CT Description Activity Level No of Partners Partner Type UpdatedBy Information is not available HEALTH CONCERNS Problems Concern Status Health Concern problem infor mation not available. Smoking Status Status Years Used Consumed packs p er day Health Concern smoking histo ry information not available. Family History Concern Status Health Concern family histor y information not available. ENCOUNTERS ENCOUNTER INFORMATION Reason for Visit MRI Admission January 01, 2025 2:21:[address] [id number] Discharge January 01, 2025 2:21:00 PM [facility] DISC HARGED TO HOME OR SELF CARE ENCOUNTER DIAGNOSES Notes information is not richelle ilable. Code System Diagnosis Onset Date Diagnosis information is not available. ABSTRACT DIAGNOSES Code System Diagnosis Updated By M25.571 ICD10 PAIN IN RIGHT AN KLE AND JOINTS OF RIGHT FOOT [id number] on January 03, 2025 1:53:41 PM [facility] M25.472 ICD10 EFFUSION, LEFT ANKLE [id number] on January 03, 2025 1:53:41 PM [facility] M25.571 ICD10 PAIN IN RIGHT AN KLE AND JOINTS OF RIGHT FOOT [id number] on January 03, 2025 1:53:41 PM [facility] CARE TEAM Care Linderman Machine Operator Role MARTELL SNOW Admitting MARTELL SNOW Referring MARTELL SNOW Primary Attending JUDITH SINCLAIR Primary Care CARE TEAM CARE tree killer Role on Team Status Start Date End Date Update d By YAHIR WONG PCP normal January 01, 2025 4:00:00 AM [place] January 01, 2025 2:21:00 PM [facility] [id number] on January 01, 2025 2:24:25 PM [facility] NO DEFINED PRIMARY C PCP normal December 21, 2024 5:26:25 PM [facility] January 01, 2025 4:00:00 AM [facility] [id number] on January 01, 2025 2:24:25 PM [facility] EDY Mccloud PHY Referring normal December 21, 2024 5:26:25 PM [facility] January 01, 2025 2:21:00 PM [facility] [id number] on January 01, 2025 2:24:25 PM [facility] EDY Mccloud PHY Attending normal December 21, 2024 5:26:25 PM [facility] January 01, 2025 2:21:00 PM [facility] [id number] on January 01, 2025 2:24:25 PM [facility] EDY Mccloud PHY Admitting normal December 21, 2024 5:26:25 PM [facility] January 01, 2025 2:21:00 PM [facility] [id number] on January 01, 2025 2:24:25 PM [facility]
[2025-01-03 15:49] LABS: Microscopic, Urine URINE MICROSCOPIC (MICROSCOPIC)
[2025-01-03 15:51] LABS: Appearance,Urine SL CLOUDY (Clear); Bilirubin,Urine Negative (Negative); Blood, Urine Negative (Negative); Color,Urine YELLOW (Yellow); Glucose,Urine (UA) Negative (Negative); Ketones,Urine TRACE (Negative); Leukocyte Esterase,Urine Negative (Negative); Nitrate,Urine Negative (Negative); Protein,Urine Negative (Negative); Specific Gravity, Urine >= 1.030 (1.005-1.030); Urobilinogen,Urine 0.2 EU/dl (0.2)
[2025-01-03 15:54] LABS: Urine Pregnancy, HCG Qual. Positive (Negative)
[2025-01-03 15:59] LABS: WBC,Urine Occasional #/hpf (0-3)
[2025-01-03 16:00] LABS: Bacteria,Urine 2+ /lpf; Calcium Oxalate Crystals,Urine 2+ /lpf
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
[2025-01-03 16:08] LABS: Albumin Level 3.9 g/dl (3.5-5.0); Basophils % 0.2 % (0.1-2.0); Chloride 104 mmol/L (98-107); Eosinophils # 0.4 Kmm3 (0.0-0.4); Eosinophils % 4.2 % (0.1-12.0); Hematocrit 41.9 % (37.0-47.0); Hemoglobin 14.4 g/dL (12.2-16.2); Immature Granulocytes # 0.04 10^3uL; Immature Granulocytes % 0.4 %; Lymphocytes # 1.8 K/mm3 (0.7-4.5); Lymphocytes % 17.4 % (10-50); Mean Corpuscular HGB Conc 34.4 g/dL (31.8-35.4); Mean Corpuscular Hemoglobin 29.6 pg (27.0-31.2); Mean Corpuscular Volume 86.2 fl (81-99); Mean Platelet Volume 10.3 fl (7.4-10.4); Monocytes # 0.6 K/mm3 (0.1-1.0); Monocytes % 5.6 % (1.7-9.3); Neutrophils # 7.3 K/mm3 (1.8-7.8); Neutrophils % 72.2 % (37.0-80.0); Nucleated Red Blood Cells # 0 10^3/uL; Nucleated Red Blood Cells % 0 %; Platelet Count 220 K/mm3 (142-424); Red Blood Count 4.86 M/mm3 (4.20-5.40); Red Cell Distribution Width 12.8 % (11.5-17.5); Red Cell Distribution Width-SD 39.8 fL; Sodium 137 mmol/L (136-145); White Blood Count 10.1 K/mm3 (4.8-10.8)
[2025-01-03] MEDS: ACETAMINOPHEN 500MG TAB 1000 MG PO (16:08)
[2025-01-03 16:09] LABS: Potassium 3.8 mmoL/L (3.5-5.1)
[2025-01-03 16:11] LABS: Alanine Aminotransferase 17 U/L (12-78); Albumin/Globulin Ratio 1.3 (1.1-1.8); Alkaline Phosphatase 77 U/L (38-126); Anion Gap 8.8 mEq/L (5-15); Aspartate Amino Transferase 27 U/L (14-36); Bilirubin,Total 0.2 mg/dl (0.2-1.3); Blood Urea Nitrogen 5 mg/dl (7-17); Carbon Dioxide 28 mmol/L (22.0-30.0); Creatinine Clearance Estimated 195 mL/min (50-200); Estimated Glomerular Filt Rate 103 ml/min (>60); GFR (African American) 124 ML/MIN (>60); Total Protein,Serum 6.9 g/dl (6.3-8.2)
[2025-01-03 16:12] LABS: Calcium 9.4 mg/dl (8.4-10.2); Glucose 91 mg/dl (74-100)
[2025-01-03 16:51] VITALS: BP 98/53; PULSE 87; O2SAT 99
[2025-01-03 17:00] VITALS: BP 101/57; PULSE 84; O2SAT 100
[2025-01-03] MEDS: 0.9 % SODIUM CHLORIDE 1000ML 1,000 ML 999 ML IV (17:25)
[2025-01-03 18:00] VITALS: BP 90/51; PULSE 78; O2SAT 100
[2025-01-03 18:08] VITALS: BP 106/60; PULSE 75; RESP 15; TEMP 36.8; O2SAT 99
== END 2025-01-03 18:33 | disposition home or self-care (01) ==
PROVIDERS: Emergency Provider Emergency Medicine; PCP Nurse Practitioner Family
DX: O20.9 Hemorrhage in early pregnancy, unspecified (principal); Z3A.13 13 weeks gestation of pregnancy
CPT/HCPCS: 80053; 81001; 81025; 84702; 85025; 87086; 96360; 99284; J7030

== ENCOUNTER 2025-01-12 14:20 | Emergency (ER) | payer OTHER, SELFPAY ==
[2025-01-12 14:30] VITALS: BP 107/69; PULSE 80; O2SAT 98
[2025-01-12 14:30] LABS: Microscopic, Urine URINE MICROSCOPIC (MICROSCOPIC)
[2025-01-12 14:32] LABS: Influenza A, PCR Not Detected (NotDetected); Influenza B, PCR Not Detected (NotDetected)
--- NOTE | 2025-01-12 14:32 | XR_ITS ---
PROCEDURE INFORMATION: Exam: XR Chest Exam date and time: 01/12/2025 2:53 PM Age: 24 years old Clinical indication: Cough; Additional info: Subacute cough TECHNIQUE: Imaging protocol: Radiologic exam of the chest. Views: 2 views. COMPARISON: CR XR CHEST 2V 09/16/2022 12:54 PM FINDINGS: Lungs: Unremarkable. No consolidation. Pleural spaces: Unremarkable. No pleural effusion. No pneumothorax. Heart/Mediastinum: Unremarkable. No cardiomegaly. Bones/joints: Unremarkable. IMPRESSION: No acute findings.
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
[2025-01-12 14:34] VITALS: BP 118/70; PULSE 65; RESP 18; O2SAT 96; BMI 29.9
[2025-01-12 14:40] LABS: Appearance,Urine SL CLOUDY (Clear); Bilirubin,Urine Negative (Negative); Blood, Urine Negative (Negative); Color,Urine YELLOW (Yellow); Glucose,Urine (UA) Negative (Negative); Ketones,Urine Negative (Negative); Leukocyte Esterase,Urine TRACE (Negative); Nitrate,Urine Negative (Negative); Protein,Urine Negative (Negative); Specific Gravity, Urine 1.025 (1.005-1.030); Urobilinogen,Urine 0.2 EU/dl (0.2)
--- NOTE | 2025-01-12 14:40 | ECG_ITS ---
APPROVED REPORT Exam: Resting ECG HR:82 bpm ECG Measurements Heart Rate 82 AXES [place] 155 P 24 QRSd 86 QRS 38 QT 364 T 25 QTc 402 Conclusion SINUS RHYTHM NORMAL ECG Electronically signed by : HENRRY MINER, 01/13/2025 03:06:14
[2025-01-12 14:47] LABS: Bacteria,Urine 2+ /lpf; WBC,Urine Occasional #/hpf (0-3)
[2025-01-12 15:06] LABS: Coronavirus 19, PCR Detected (NotDetected)
[2025-01-12 15:08] LABS: Adenovirus,PCR Not Detected (NotDetected); Bordetella Pertussis Not Detected (NotDetected); Chlamydophila Pneumoniae, PCR Not Detected (NotDetected); Coronavirus 229E Not Detected (NotDetected); Coronavirus NL63 Not Detected (NotDetected); Coronavirus OC43 Not Detected (NotDetected); Coronovirus HKU1,PCR Not Detected (NotDetected); Human Metapneumovirus Not Detected (NotDetected); Influenza A, PCR Not Detected (NotDetected); Influenza AH1, 2009 Not Detected (NotDetected); Influenza AH1, PCR Not Detected (NotDetected); Influenza AH3,PCR Not Detected (NotDetected); Influenza B, PCR Not Detected (NotDetected); Mycoplasma Pneumoniae, PCR Not Detected (NotDetected); Parainfluenza 1, PCR Not Detected (NotDetected); Parainfluenza 2, PCR Not Detected (NotDetected); Parainfluenza 3, PCR Not Detected (NotDetected); Parainfluenza 4, PCR Not Detected (NotDetected); Respiratory Syncytial Virus Not Detected (NotDetected); Rhinovirus/Enterovirus Not Detected (NotDetected)
[2025-01-12 15:27] LABS: Basophils % 0.3 % (0.1-2.0); Eosinophils # 0.4 Kmm3 (0.0-0.4); Hemoglobin 14.2 g/dL (12.2-16.2); Immature Granulocytes # 0.03 10^3uL; Immature Granulocytes % 0.3 %; Lymphocytes % 23.6 % (10-50); Mean Corpuscular HGB Conc 34.6 g/dL (31.8-35.4); Mean Corpuscular Hemoglobin 29.5 pg (27.0-31.2); Mean Corpuscular Volume 85.1 fl (81-99); Mean Platelet Volume 10.3 fl (7.4-10.4); Monocytes # 0.5 K/mm3 (0.1-1.0); Monocytes % 5.7 % (1.7-9.3); Neutrophils # 5.7 K/mm3 (1.8-7.8); Neutrophils % 66.1 % (37.0-80.0); Nucleated Red Blood Cells # 0 10^3/uL; Nucleated Red Blood Cells % 0 %; Platelet Count 197 K/mm3 (142-424); Red Blood Count 4.82 M/mm3 (4.20-5.40); Red Cell Distribution Width 12.7 % (11.5-17.5); Red Cell Distribution Width-SD 38.6 fL; White Blood Count 8.7 K/mm3 (4.8-10.8)
[2025-01-12 15:30] VITALS: BP 110/61; PULSE 77; O2SAT 99
[2025-01-12 15:39] LABS: Alanine Aminotransferase 16 U/L (12-78); Albumin Level 3.7 g/dl (3.5-5.0); Albumin/Globulin Ratio 1.2 (1.1-1.8); Alkaline Phosphatase 80 U/L (38-126); Anion Gap 6.6 mEq/L (5-15); Aspartate Amino Transferase 28 U/L (14-36); Bilirubin,Total 0.4 mg/dl (0.2-1.3); Blood Urea Nitrogen 4 mg/dl (7-17); Calcium 9.1 mg/dl (8.4-10.2); Carbon Dioxide 29 mmol/L (22.0-30.0); Chloride 103 mmol/L (98-107); Creatinine Clearance Estimated 160 mL/min (50-200); Estimated Glomerular Filt Rate 103 ml/min (>60); GFR (African American) 124 ML/MIN (>60); Globulin 3.2 g/dL (1.3-3.2); Glucose 88 mg/dl (74-100); Potassium 3.6 mmoL/L (3.5-5.1); Sodium 135 mmol/L (136-145); Total Protein,Serum 6.9 g/dl (6.3-8.2)
[2025-01-12 15:44] LABS: D-Dimer 1.43 ug/mL (0.0-0.5)
[2025-01-12 15:51] LABS: Troponin I < 0.01 ng/ml (0.00-0.034)
[2025-01-12 16:06] LABS: Coronavirus 19, PCR Detected (NotDetected)
[2025-01-12 16:12] VITALS: BP 120/78; PULSE 80; RESP 20; TEMP 36.8; O2SAT 98
== END 2025-01-12 16:13 | disposition home or self-care (01) ==
PROVIDERS: Emergency Provider Emergency Medicine; PCP Nurse Practitioner Family
DX: O98.512 Other viral diseases complicating pregnancy, second trimester (principal); U07.1 COVID-19; J20.8 Acute bronchitis due to other specified organisms; R04.2 Hemoptysis; R50.9 Fever, unspecified; Z3A.14 14 weeks gestation of pregnancy
CPT/HCPCS: 0223U; 71046; 80053; 81001; 84484; 85025; 85378; 87086; 87633; 87636; 93005; 99284

== ENCOUNTER 2025-02-19 13:58 | Outpatient (CLI) | payer OTHER, SELFPAY ==
--- NOTE | 2025-02-19 14:00 | US_ITS ---
PROCEDURE: US OB /MATERNAL DETAIL CLINICAL INDICATION: 20 wk anatomy scan in 5 wks COMPARISON: No exams were available for comparison FINDINGS: Transabdominal sonographic images of the pelvis were obtained. From her established due date she is 20 weeks 1 day. Single viable intrauterine gestation. Breech position. Placenta: Anteriorplacenta grade 1. There is an average amount of fluid. The cervix appears satisfactory. Closed and measuring 3.05 cm in length. Complete survey performed and was unremarkable on the submitted images as in PACS. No discrete anomalies identified on survey imaging by technologist. Active fetus. Three-vessel cord with satisfactory umbilical cord insertion. 4- chamber heart noted. Situs, aortic arch, LVOT, RVOT, three-vessel view appear normal. Survey of brain & ventricles Unremarkable. Cerebellum, thalamus, choroid plexus, cisterna magna appear normal. Face and neck survey unremarkable. Profile, nasion, lips and nose appeared normal. Diaphragm and chest views unremarkable. Abdomen: Both kidneys noted and unremarkable. Stomach and bladder noted and satisfactory. Spine: Survey of the spine satisfactory with no anomalies identified nor imaged. Cervical, thoracic, lower spine appear normal. Both arms and legs noted. Amniotic Fluid: Adequate. MVP 3.38 cm Measurements: Average ultrasound age 20weeks 1day. Estimated due date by ultrasound age 1107/08/2025. Estimated weight 312g BPD = 20weeks 2days HC = 20weeks 2days AC = 19weeks 5days FL = 19weeks 6days Growth Percentile= 26 Heart Rate = 140bpm Cerebellum = 20weeks 1day Humerus = 19weeks 5days HC/AC is 1.24 FL/BPD is 0.68 FL/AC is 0.22 IMPRESSION: 1. Viable fetus in the breech presentation with an anterior placenta grade 1. 2. The fluid is within normal limits with an MVP 3.38 cm. 3. Anatomical scan appears normal. Difficult exam secondary to maternal body habitus. 4. Heart views were difficult to obtain and would suggest a repeat scan in 4 weeks. There was mild bilateral renal pelvis dilation less than 4 mm. Suggest looking at the kidneys again in 4 weeks as well. 5. biometry is consistent with the dates. Dictated by: Donnie Restrepo MD 02/20/2025 13:39 Donnie Restrepo MD in OV 02/20/2025 13:39
--- OUTSIDE RECORDS SUMMARY | 2025-02-19 14:01 | XMS_ITS | Encounter Summary ---
Author Organization [facility] ([place], [place], [place], [place]) Address [address] [place] [address] Care Team Providers Care Cabinet Worker Name Role Phone Unavailable Primary Care Provider Unavailabl e Encounter Details Date Type Department Care Team (Late st Contact Info) Description 10/21/2018 Transcribed Document [facility] [place] [facility] [place] [address] ProviderCharley MD [facility] [place] [address] Social History Tobacco Use Types Packs/Day Years Used Date Smoking Tobacco: Never Assessed Comments Unknown Sex and Gender Information Value Date Recorded Sex Assigned at Female 02/11/2022 4:49 PM CDT Legal Sex Female 6:30 PM CDT Gender Identity Female 02/11/2022 4:49 PM CDT Sexual Orientation Not on file documented as of this encounter Miscellaneous Notes * [employer] Conversion Note - Historical ProviderMD - 10/21/2018 9:00 PM 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 ACCOUNTING CLERK ED Discharge Entered On: 10/21/2018 21:01 EST Performed On: 10/21/2018 21:00 EST by Angelica Philip RN Discharge Process Patient Disposition : Discharge Personal Belongings With Patient : Yes Patient Education Completed : Yes Teaching Evaluation : Returns demonstration, Verbalizes understanding Link to Valuables and Belongings form : No IV Discontinued : Yes Nursing Documentation Completed : Yes Angelica Philip RN - 10/21/2018 21:00 EST ED Discharge Discharge To : Home without planned follow-up Mode Of Departure : Ambulatory Accompanied By : Father, Mother Discharge Instructions Reviewed With, Opportunity For Questions Given : Patient Prescriptions Given to Patient : Yes Medications Given to Patient : Yes Angelica Philip RN - 10/21/2018 21:00 EST Electronically signed by Dwight [facility] Conversion Patient Services Technician Cerner at 11/30/2022 6:40 PM CDT documented in this encounter Plan of Treatment Not on file documented as of this encounter Visit Diagnoses Not on filedocumented in this encounter
--- OUTSIDE RECORDS SUMMARY | 2025-02-19 14:01 | XMS_ITS | Encounter Summary ---
Author Organization [employer] ([place], [place], [place], [place]) Address [address] [place] [id number] Care Team Providers Care Endocrinology Teacher Name Role Phone Unavailable Primary Care Provider Unavailabl e Encounter Details Date Type Department Care Team (Late st Contact Info) Description 10/21/[address] [facility] [place] [facility] [place] [address] ProviderCharley MD [facility] [place] [address] Social History Tobacco Use Types [...] Conversion Note - Historical ProviderMD - 10/21/2018 7:22 PM MEAT CARRIER Electronically signed by Dwight, [facility] Conversion Spout Positioner Cerner at 11/30/2022 6:41 PM CDT documented in this encounter Plan of Treatment Not on file documented as of this encounter Visit Diagnoses Not on filedocumented in this encounter
--- OUTSIDE RECORDS SUMMARY | 2025-02-19 14:01 | XMS_ITS | Encounter Summary ---
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 Name Role Phone Unavailable Primary Care Provider Unavailabl e Encounter Details Date Type Department Care Team (Late st Contact Info) Description 10/21/2018 Transcribed Document [facility] [place] [facility] [place] [address] ProviderCharley MD [address] [place] [id number] Social History Tobacco Use Types Packs/Day Years Used Date Smoking Tobacco: Never Assessed Comments Unknown Sex and Gender Information Value Date Recorded Sex Assigned at Female 02/11/2022 4:49 PM CDT Legal Sex Female 6:30 PM CDT Gender Identity Female 02/11/2022 4:49 PM CDT Sexual Orientation Not on file documented as of this encounter Miscellaneous Notes * Cerner Conversion Note - Charley ProviderMD - 10/21/2018 9:07 PM TEST BAKER [address] [place] [address] Patient Information Name: SUSAN RESENDIZ Age: 18 Years Date of : 2000 Arrival Time: 10/21/2018 15:23:00 Diagnosis Acute dehydration; Influenza Primary Care Physician: MOI ROGERS [facility] Provider Information Primary Provider: JULIETA MCKEE PA Secondary Provider: RESENDIZSUSAN ACE has been given the following list of patient education materials, prescriptions and follow-up instructions: Follow-up Instructions: With: Address: When: REST AT HOME AND DRINK PLENTY OF FLUIDS. RETURN IF WORSE. MONITER FOR FEVER AND TREAT WITH MOTRIN OR TYLENOL. USE TAMIFLU RX Within 2 to 3 days With: Address: When: [address] [address] [facility] [place] [address] [facility] (1) Within 2 to 3 days Patient Education Materials: Influenza, Adult Influenza (?the flu ) is an infection in the lungs, nose, and throat (respiratory tract). It is caused by a virus. The flu causes many common cold symptoms, as well as a high fever and body aches. It can make you feel very sick. The flu spreads easily from person to person (is contagious). Getting a flu shot (influenza vaccination) every year is the best way to prevent the flu. Follow these instructions at home: ??? Take jjan-gui-jonduww and prescription medicines only as told by your doctor. ??? Use a cool mist humidifier to add moisture (humidity) to the air in your home. This can make it easier to breathe. ??? Rest as needed. ??? Drink enough fluid to keep your pee (urine) clear or pale yellow. ??? Cover your mouth and nose when you cough or sneeze. ??? Wash your hands with soap and water often, especially after you cough or sneeze. If you cannot use soap and water, use hand guest services representative. ??? Stay home from work or school as told by your doctor. Unless you are visiting your doctor, try to avoid leaving home until your fever has been gone for 24 hours without the use of medicine. ??? Keep all follow-up visits as told by your doctor. This is important. How is this prevented? Getting a yearly (annual) flu shot is the best way to avoid getting the flu. You may get the flu shot in late summer, fall, or winter. Ask your doctor when you should get your flu shot. ??? Wash your hands often or use hand guest services representative often. ??? Avoid contact with people who are sick during cold and flu season. ??? Eat healthy foods. ??? Drink plenty of fluids. ??? Get enough sleep. ??? Exercise regularly. Contact a doctor if: ??? You get new symptoms. ??? You have: ? Chest pain. ? Watery poop (diarrhea). ? A fever. ??? Your cough gets worse. ??? You start to have more mucus. ??? You feel sick to your stomach (nauseous). ??? You throw up (vomit). Get help right away if: ??? You start to be short of breath or have trouble breathing. ??? Your skin or nails turn a bluish color. ??? You have very bad pain or stiffness in your neck. ??? You get a sudden headache. ??? You get sudden pain in your face or ear. ??? You cannot stop throwing up. This information is not intended to replace advice given to you by your health care provider. Make sure you discuss any questions you have with your health care provider. Document Released: 05/10/2009 Document Revised: 01/06/2017 Document Reviewed: 05/25/2016 [employer] Interactive Patient Education ? 2017 [employer] Viral Illness, Adult Viruses are tiny germs that can get into a person's body and cause illness. There are many different types of viruses, and they cause many types of illness. Viral illnesses can range from mild to severe. They can affect various parts of the body. Common illnesses that are caused by a virus include colds and the flu. Viral illnesses also include serious conditions such as HIV/AIDS (human immunodeficiency virus/acquired immunodeficiency syndrome). A few viruses have been linked to certain cancers. What are the causes? Many types of viruses can cause illness. Viruses invade cells in your body, multiply, and cause the infected cells to malfunction or . When the cell dies, it releases more of the virus. When this happens, you develop symptoms of the illness, and the virus continues to spread to other cells. If the virus takes over the function of the cell, it can cause the cell to divide and grow out of control, as is the case when a virus causes cancer. Different viruses get into the body in different ways. You can get a virus by: ??? Swallowing food or water that is contaminated with the virus. ??? Breathing in droplets that have been coughed or sneezed into the air by an infected person. ??? Touching a surface that has been contaminated with the virus and then touching your eyes, nose, or mouth. ??? Being bitten by an insect or animal that carries the virus. ??? Having sexual contact with a person who is infected with the virus. ??? Being exposed to blood or fluids that contain the virus, either through an open cut or during a transfusion. If a virus enters your body, your body's defense system (immune system) will try to fight the virus. You may be at higher risk for a viral illness if your immune system is weak. What are the signs or symptoms? Symptoms vary depending on the type of virus and the location of the cells that it invades. Common symptoms of the main types of viral illnesses include: Cold and flu viruses??? Fever. ??? Headache. ??? Sore throat. ??? Muscle aches. ??? Nasal congestion. ??? Cough. Digestive system (gastrointestinal) viruses??? Fever. ??? Abdominal pain. ??? Nausea. ??? Diarrhea. Liver viruses (hepatitis)??? Loss of appetite. ??? Tiredness. ??? Yellowing of the skin (jaundice). Brain and spinal cord viruses??? Fever. ??? Headache. ??? Stiff neck. ??? Nausea and vomiting. ??? Confusion or sleepiness. Skin viruses??? Warts. ??? Itching. ??? Rash. Sexually transmitted viruses??? Discharge. ??? Swelling. ??? Redness. ??? Rash. How is this treated? Viruses can be difficult to treat because they live within cells. Antibiotic medicines do not treat viruses because these drugs do not get inside cells. Treatment for a viral illness may include: ??? Resting and drinking plenty of fluids. ??? Medicines to relieve symptoms. These can include klqo-zmb-rqegxyz medicine for pain and fever, medicines for cough or congestion, and medicines to relieve diarrhea. ??? Antiviral medicines. These drugs are available only for certain types of viruses. They may help reduce flu symptoms if taken early. There are also many antiviral medicines for hepatitis and HIV/AIDS. Some viral illnesses can be prevented with vaccinations. A common example is the flu shot. Follow these instructions at home: Medicines ??? Take qums-zwv-itktlol and prescription medicines only as told by your health care provider. ??? If you were prescribed an antiviral medicine, take it as told by your health care provider. Do not stop taking the medicine even if you start to feel better. ??? Be aware of when antibiotics are needed and when they are not needed. Antibiotics do not treat viruses. If your health care provider thinks that you may have a bacterial infection as well as a viral infection, you may get an antibiotic. ? Do notask for an antibiotic prescription if you have been diagnosed with a viral illness. That will not make your illness go away faster. ? Frequently taking antibiotics when they are not needed can lead to antibiotic resistance. When this develops, the medicine no longer works against the bacteria that it normally fights. General instructions ??? Drink enough fluids to keep your urine clear or pale yellow. ??? Rest as much as possible. ??? Return to your normal activities as told by your health care provider. Ask your health care provider what activities are safe for you. ??? Keep all follow-up visits as told by your health care provider. This is important. How is this prevented? Take these actions to reduce your risk of viral infection: ??? Eat a healthy diet and get enough rest. ??? Wash your hands often with soap and water. This is especially important when you are in public places. If soap and water are not available, use hand guest services representative. ??? Avoid close contact with friends and family who have a viral illness. ??? If you travel to areas where viral gastrointestinal infection is common, avoid drinking water or eating raw food. ??? Keep your immunizations up to date. Get a flu shot every year as told by your health care provider. ??? Do notshare toothbrushes, nail clippers, razors, or needles with other people. ??? Always practice safe sex. Contact a health care provider if: ??? You have symptoms of a viral illness that do not go away. ??? Your symptoms come back after going away. ??? Your symptoms get worse. Get help right away if: ??? You have trouble breathing. ??? You have a severe headache or a stiff neck. ??? You have severe vomiting or abdominal pain. This information is not intended to replace advice given to you by your health care provider. Make sure you discuss any questions you have with your health care provider. Document Released: 12/10/2016 Document Revised: 01/12/2017 Document Reviewed: 12/10/2016 [employer] Interactive Patient Education ? 2017 [employer] Rehydration, Adult Rehydration is the replacement of body fluids and salts and minerals (electrolytes) that are lost during dehydration. Dehydration is when there is not enough fluid or water in the body. This happens when you lose more fluids than you take in. Common causes of dehydration include: ??? Vomiting. ??? Diarrhea. ??? Excessive sweating, such as from heat exposure or exercise. ??? Taking medicines that cause the body to lose excess fluid (diuretics). ??? Impaired kidney function. ??? Not drinking enough fluid. ??? Certain illnesses or infections. ??? Certain poorly controlled long-term (chronic) illnesses, such as diabetes, heart disease, and kidney disease. Symptoms of mild dehydration may include thirst, dry lips and mouth, dry skin, and dizziness. Symptoms of severe dehydration may include increased heart rate, confusion, fainting, and not urinating. You can rehydrate by drinking certain fluids or getting fluids through an IV tube, as told by your health care provider. What are the risks? Generally, rehydration is safe. However, one problem that can happen is taking in too much fluid (overhydration). This is rare. If overhydration happens, it can cause an electrolyte imbalance, kidney failure, or a decrease in salt (sodium) levels in the body. How to rehydrate Follow instructions from your health care provider for rehydration. The kind of fluid you should drink and the amount you should drink depend on your condition. ??? If directed by your health care provider, drink an oral rehydration solution (ORS). This is a drink designed to treat dehydration that is found in pharmacies and retail stores. ? Make an ORS by following instructions on the package. ? Start by drinking small amounts, about ? cup (120 mL) every 5?10 minutes. ? Slowly increase how much you drink until you have taken the amount recommended by your health care provider. ??? Drink enough clear fluids to keep your urine clear or pale yellow. If you were instructed to drink an ORS, finish the ORS first, then start slowly drinking other clear fluids. Drink fluids such as: ? Water. Do not drink only water. Doing that can lead to having too little sodium in your body (hyponatremia). ? Ice chips. ? Fruit juice that you have added water to (diluted juice). ? Low-calorie sports drinks. ??? If you are severely dehydrated, your health care provider may recommend that you receive fluids through an IV tube in the hospital. ??? Do nottake sodium tablets. Doing that can lead to the condition of having too much sodium in your body (hypernatremia). Eating while you rehydrate Follow instructions from your health care provider about what to eat while you rehydrate. Your health care provider may recommend that you slowly begin eating regular foods in small amounts. ??? Eat foods that contain a healthy balance of electrolytes, such as bananas, oranges, potatoes, tomatoes, and spinach. ??? Avoid foods that are greasy or contain a lot of fat or sugar. In some cases, you may get nutrition through a feeding tube that is passed through your nose and into your stomach (nasogastric tube, or NG tube). This may be done if you have uncontrolled vomiting or diarrhea. Beverages to avoid Certain beverages may make dehydration worse. While you rehydrate, avoid: ??? Alcohol. ??? Caffeine. ??? Drinks that contain a lot of sugar. These include: ? High-calorie sports drinks. ? Fruit juice that is not diluted. ? Soda. Check nutrition labels to see how much sugar or caffeine a beverage contains. Signs of dehydration recovery You may be recovering from dehydration if: ??? You are urinating more often than before you started rehydrating. ??? Your urine is clear or pale yellow. ??? Your energy level improves. ??? You vomit less frequently. ??? You have diarrhea less frequently. ??? Your appetite improves or returns to normal. ??? You feel less dizzy or less light-headed. ??? Your skin tone and color start to look more normal. Contact a health care provider if: ??? You continue to have symptoms of mild dehydration, such as: ? Thirst. ? Dry lips. ? Slightly dry mouth. ? Dry, warm skin. ? Dizziness. ??? You continue to vomit or have diarrhea. Get help right away if: ??? You have symptoms of dehydration that get worse. ??? You feel: ? Confused. ? Weak. ? Like you are going to faint. ??? You have not urinated in 6?8 hours. ??? You have very dark urine. ??? You have trouble breathing. ??? Your heart rate while sitting still is over 100 beats a minute. ??? You cannot drink fluids without vomiting. ??? You have vomiting or diarrhea that: ? Gets worse. ? Does not go away. ??? You have a fever. This information is not intended to replace advice given to you by your health care provider. Make sure you discuss any questions you have with your health care provider. Document Released: 10/23/2012 Document Revised: 02/18/2017 Document Reviewed: 09/24/2016 [employer] Interactive Patient Education ? 2017 [employer] Cough, Adult Introduction A cough helps to clear your throat and lungs. A cough may last only 2?3 weeks (acute), or it may last longer than 8 weeks (chronic). Many different things can cause a cough. A cough may be a sign of an illness or another medical condition. Follow these instructions at home: ??? Pay attention to any changes in your cough. ??? Take medicines only as told by your doctor.? If you were prescribed an antibiotic medicine, take it as told by your doctor. Do not stop taking it even if you start to feel better. ? Talk with your doctor before you try using a cough medicine. ??? Drink enough fluid to keep your pee (urine) clear or pale yellow. ??? If the air is dry, use a cold steam vaporizer or humidifier in your home. ??? Stay away from things that make you cough at work or at home. ??? If your cough is worse at night, try using extra pillows to raise your head up higher while you sleep. ??? Do notsmoke, and try not to be around smoke. If you need help quitting, ask your doctor. ??? Do nothave caffeine. ??? Do notdrink alcohol. ??? Rest as needed. Contact a doctor if: ??? You have new problems (symptoms). ??? You cough up yellow fluid (pus). ??? Your cough does not get better after 2?3 weeks, or your cough gets worse. ??? Medicine does not help your cough and you are not sleeping well. ??? You have pain that gets worse or pain that is not helped with medicine. ??? You have a fever. ??? You are losing weight and you do not know why. ??? You have night sweats. Get help right away if: ??? You cough up blood. ??? You have trouble breathing. ??? Your heartbeat is very fast. This information is not intended to replace advice given to you by your health care provider. Make sure you discuss any questions you have with your health care provider. Document Released: 04/13/2012 Document Revised: 01/06/2017 Document Reviewed: 10/08/2015 ? 2017 [employer] Dehydration, Adult Dehydration is when there is not enough fluid or water in your body. This happens when you lose more fluids than you take in. Dehydration can range from mild to very bad. It should be treated right away to keep it from getting very bad. Symptoms of mild dehydration may include:??? Thirst. ??? Dry lips. ??? Slightly dry mouth. ??? Dry, warm skin. ??? Dizziness. Symptoms of moderate dehydration may include:??? Very dry mouth. ??? Muscle cramps. ??? Dark pee (urine). Pee may be the color of tea. ??? Your body making less pee. ??? Your eyes making fewer tears. ??? Heartbeat that is uneven or faster than normal (palpitations). ??? Headache. ??? Light-headedness, especially when you stand up from sitting. ??? Fainting (syncope). Symptoms of very bad dehydration may include:??? Changes in skin, such as: ? Cold and clammy skin. ? Blotchy (mottled) or pale skin. ? Skin that does not quickly return to normal after being lightly pinched and let go (poor skin turgor). ??? Changes in body fluids, such as: ? Feeling very thirsty. ? Your eyes making fewer tears. ? Not sweating when body temperature is high, such as in hot weather. ? Your body making very little pee. ??? Changes in vital signs, such as: ? Weak pulse. ? Pulse that is more than 100 beats a minute when you are sitting still. ? Fast breathing. ? Low blood pressure. ??? Other changes, such as: ? Sunken eyes. ? Cold hands and feet. ? Confusion. ? Lack of energy (lethargy). ? Trouble waking up from sleep. ? Short-term weight loss. ? Unconsciousness. Follow these instructions at home: ??? If told by your doctor, drink an ORS: ? Make an ORS by using instructions on the package. ? Start by drinking small amounts, about ? cup (120 mL) every 5?10 minutes. ? Slowly drink more until you have had the amount that your doctor said to have. ??? Drink enough clear fluid to keep your pee clear or pale yellow. If you were told to drink an ORS, finish the ORS first, then start slowly drinking clear fluids. Drink fluids such as: ? Water. Do not drink only water by itself. Doing that can make the salt (sodium) level in your body get too low (hyponatremia). ? Ice chips. ? Fruit juice that you have added water to (diluted). ? Low-calorie sports drinks. ??? Avoid: ? Alcohol. ? Drinks that have a lot of sugar. These include high-calorie sports drinks, fruit juice that does not have water added, and soda. ? Caffeine. ? Foods that are greasy or have a lot of fat or sugar. ??? Take kjnx-qvx-motirjk and prescription medicines only as told by your doctor. ??? Do nottake salt tablets. Doing that can make the salt level in your body get too high (hypernatremia). ??? Eat foods that have minerals (electrolytes). Examples include bananas, oranges, potatoes, tomatoes, and spinach. ??? Keep all follow-up visits as told by your doctor. This is important. Contact a doctor if: ??? You have belly (abdominal) pain that: ? Gets worse. ? Stays in one area (localizes). ??? You have a rash. ??? You have a stiff neck. ??? You get angry or annoyed more easily than normal (irritability). ??? You are more sleepy than normal. ??? You have a harder time waking up than normal. ??? You feel: ? Weak. ? Dizzy. ? Very thirsty. ??? You have peed (urinated) only a small amount of very dark pee during 6?8 hours. Get help right away if: ??? You have symptoms of very bad dehydration. ??? You cannot drink fluids without throwing up (vomiting). ??? Your symptoms get worse with treatment. ??? You have a fever. ??? You have a very bad headache. ??? You are throwing up or having watery poop (diarrhea) and it: ? Gets worse. ? Does not go away. ??? You have blood or something green (bile) in your throw-up. ??? You have blood in your poop (stool). This may cause poop to look black and tarry. ??? You have not peed in 6?8 hours. ??? You pass out (faint). ??? Your heart rate when you are sitting still is more than 100 beats a minute. ??? You have trouble breathing. This information is not intended to replace advice given to you by your health care provider. Make sure you discuss any questions you have with your health care provider. Document Released: 05/28/2010 Document Revised: 02/18/2017 Document Reviewed: 09/24/2016 [employer] Interactive Patient Education ? 2017 [employer]. Allergies: No Known Medication Allergies Medication Information: Prescription Display ondansetron (Zofran ODT 4 mg oral tablet, disintegrating) 1 Tab, Oral, Q4H, PRN Nausea/Vomiting, # 12 Tab, 0 Refill(s) oseltamivir (Tamiflu 75 mg oral capsule) 1 Cap, Oral, Cap, BID, X 5 Day(s), # 10 Cap, 0 Refill(s) promethazine (promethazine 25 mg oral tablet) 1 Tab, Oral, Tab, Q4H, PRN as needed for nausea/vomiting, CAN MAKE YOU SLEEPY, # 18 Tab, 0 Refill(s) Laboratory or Other Results This Visit (last charted value for your 10/21/2018 visit) Hematology 10/21/18 15:55:00 WBC: 10.8 K/uL -- Normal range between ( 3.9 and 10.0 ) RBC: 4.81 Million/uL -- Normal range between ( 3.93 and 5.22 ) Hct: 42.1 % -- Normal range between ( 34.1 and 44.9 ) Hgb: 14.2 Gram/dL -- Normal range between ( 11.2 and 15.7 ) Platelet Count: 215 K/uL -- Normal range between ( 163 and 369 ) MCH: 29.5 pg -- Normal range between ( 25.6 and 32.2 ) MCHC: 33.7 Gram/dL -- Normal range between ( 32.3 and 36.5 ) MCV: 87.5 fL -- Normal range between ( 79.0 and 94.8 ) Slide Review: No Eos %: 0.2 % -- Normal range between ( 1.0 and 7.0 ) [place] #: 0.53 K/uL -- Normal range between ( 0.24 and 0.82 ) Eos #: 0.02 K/uL -- Normal range between ( 0.04 and 0.54 ) [place] %: 4.9 % -- Normal range between ( 4.7 and 12.5 ) Baso %: 0.2 % -- Normal range between ( 0.0 and 1.0 ) Baso #: 0.02 K/uL -- Normal range between ( 0.01 and 0.08 ) RDW: 12.0 % -- Normal range between ( 11.6 and 14.4 ) Neut %: 80.5 % -- Normal range between ( 34.0 and 71.0 ) Neut #: 8.67 K/uL -- Normal range between ( 1.56 and 6.13 ) Lymph %: 13.7 % -- Normal range between ( 19.3 and 53.0 ) Lymph #: 1.48 K/uL -- Normal range between ( 1.18 and 3.74 ) MPV: 10.0 fL -- Normal range between ( 9.4 and 12.4 ) IG#: 0 x10(3)/uL IG%: 0 % -- Normal range between ( 0 and 1 ) Urinalysis 10/21/18 15:55:00 Ur RBC: None Seen Urine Nitrite: Negative Urine Leukocyte Esterase: Trace Ur Epithelial Cells: 2-5 /HPF Urine Appearance: Turbid Urine Glucose Dipstick: Negative Urine Blood Dipstick: Negative Urine Type: U CleanCatch Urine Urobilinogen Dipstick: 1.0 EU/dL -- Normal range between ( 0.2 and 1.0 ) Urine Protein Dipstick: 100 Ur Amorph: 3+ Ur Bacteria: Trace Urine Color: DK YELLOW Ur WBC: 0-2 /HPF Urine Ketones Dipstick: 40 Urine pH Dipstick: 5.5 -- Normal range between ( 6.0 and 8.0 ) Urine Bilirubin Dipstick: Small Urine Specific [place]: 1.037 -- Normal range between ( 1.005 and 1.030 ) Microbiology 10/21/18 17:45:00 Influenza A+B Antigen: POS Rapid Strep Test: See Result General Chemistry 10/21/18 17:44:00 Magnesium Level: 2.0 mg/dL -- Normal range between ( 1.5 and 2.4 ) 10/21/18 15:59:00 Glucose POC2: 127 mg/dL -- Normal range between ( 70 and 110 ) 10/21/18 15:55:00 Creatinine Level: 0.79 mg/dL -- Normal range between ( 0.55 and 1.02 ) Sodium Level: 138 mmol/L -- Normal range between ( 136 and 146 ) Potassium Level: 3.8 mmol/L -- Normal range between ( 3.5 and 5.1 ) Chloride Level: 104 mmol/L -- Normal range between ( 102 and 112 ) Carbon Dioxide Level: 27 mmol/L -- Normal range between ( 21 and 32 ) Anion Gap: 11 -- Normal range between ( 9 and 20 ) Bilirubin Total: 0.5 mg/dL -- Normal range between ( 0.2 and 1.3 ) A/G Ratio: 1.1 -- Normal range between ( 1.1 and 2.5 ) ALT: 21 Units/Liter -- Normal range between ( 12 and 78 ) AST: 21 Units/Liter -- Normal range between ( 5 and 37 ) Globulin: 3.6 Gram/dL -- Normal range between ( 1.5 and 4.5 ) Alk Phos: 65 Units/Liter -- Normal range between ( 27 and 136 ) Bun/Creatinine: 10.1 -- Normal range between ( 8.0 and 20.0 ) Calcium Level: 8.8 mg/dL -- Normal range between ( 8.5 and 10.1 ) eGFR : >60 mL/min/1.73m2 eGFR NonAfrican: >60 mL/min/1.73m2 Glucose Level: 129 mg/dL -- Normal range between ( 74 and 106 ) Blood Urea Nitrogen: 8 mg/dL -- Normal range between ( 7 and 22 ) Protein Total: 7.6 Gram/dL -- Normal range between ( 6.4 and 8.2 ) Albumin Level: 4.0 Gram/dL -- Normal range between ( 3.4 and 5.0 ) Endocrinology 10/21/18 17:51:00 HCG Serum Quant: <1.0 mIU/mL 10/21/18 17:44:00 TSH: 0.818 mcInt Units/mL -- Normal range between ( 0.358 and 3.740 ) FT4: 1.16 ng/dL -- Normal range between ( 0.76 and 1.46 ) 10/21/18 15:55:00 HCG Urine Qualitative: Negative Toxicology 10/21/18 17:42:00 UDS Amp: Negative UDS Ashley: Negative UDS Benzo: Negative UDS Salomon: Negative UDS Meth: Negative UDS Opi: Negative UDS Oxy: Negative UDS PCP: Negative UDS TCA: Negative UDS THC: Negative Buprenorphine Screen, Urine: Negative Heroin Metab (6AM) by LC-MS/MS, Urine: Negative SpGravity, Urine: 1.039 Propoxyphene, Urine: Negative UDS pH: 5.8 Fentanyl, Urine: Negative UDS Creatinine, Toxicology: 427.3 mg/dL Computed Tomography 10/21/18 18:07:17 CT Abdomen Pelvis WO: CT Abdomen Pelvis WO 10/21/18 18:06:34 CT Head WO: CT Head WO Medication Comment: Procedures: Laboratory Orders Name Status .STREP A CONF Ordered AutoDiff Completed CBCD Completed CMP Completed ED UDS Completed FT4 Completed HCGQT Completed MG Completed POCGLUC Completed RAPID FLU Completed RAPID STREP Completed TSH Completed UAMICIND Completed UAMICRX Completed UHCG Completed Radiology Orders Name Status CR Chest [address] Abdomen Pelvis WO Completed CT Head WO Completed Cardiology Orders No cardiology orders were placed. This statement is to verify that SUSAN RESENDIZ was seen at [facility] Emergency Department on ,10/21/2018 21:07:20. This is not a work excuse, if a work excuse was needed it will be in addition to this statement as a separate form. IMPORTANT: The examination and treatment you have received in the Emergency Department has been done to provide an appropriate evaluation and stabilizing treatment on an emergency basis only. Given the limited resources, it is not meant to be a substitute for complete medical care. The follow-up doctor you named will receive a copy of your records and all test reports. IT IS IMPORTANT THAT YOU SCHEDULE A FOLLOW-UP APPOINTMENT AND ARE RE-EVALUATED. You should report any new complaints, symptoms, or remaining problems at that time. IT IS IMPOSSIBLE FOR THE EMERGENCY DEPARTMENT TO RECOGNIZE AND TREAT ALL ELEMENTS OF INJURY OR ILLNESS IN A SINGLE VISIT. If you have been referred to a specialist physician, it means that we believe you may have a condition that requires the expertise of a specialist. KEEP IN MIND THAT THE SPECIALIST HAS HIS/HER OWN OFFICE POLICIES WHICH MAY REQUIRE PROPER INSURANCE OR PAYMENT UP FRONT BEFORE THE SPECIALIST WILL SEE YOU. It is your responsibility to call the specialist physician to make an appointment. We do not have the ability to identify specialists/physicians that work with specific insurance companies. Please be advised that all financial charges or billing practices are determined by that practice, not the hospital. If your insurance company requires that you see a specialist from their approved list, it is your responsibility to contact your insurance company to make those arrangements. It is also your responsibility to follow any other requirements of your insurance company necessary to obtain coverage for claims submitted. If you had special tests, such as EKG???s or X-rays, the interpretation of your tests given to you by the Emergency Dept. Physician is a preliminary report. Some fractures and illnesses fail to show up on preliminary tests. We will review them again within 24-48 hours. We will call you if there are any new suggestions. If your symptoms continue notify your physician. After you leave, you should follow the instructions below. In all events, you may obtain a copy of your Emergency Department visit from Medical Records. Please call to be directed to this department. We will bill your insurance; however, you are responsible today for any co-pay amounts. You will receive a separate bill for any services you may have received including: emergency, radiology, or pathology physicians. Please be sure we have an accurate contact phone number and address, should we need to call you for any reason. CIGARETTE SMOKING: The facts are clear; cigarette smoking will shorten your life. Smoking can cause many illnesses along the way. As a healthcare provider, [facility] recommends that you stop smoking. Assistance with quitting is available by contacting 7-772-WJQA-NOW. This is a free resource providing counseling, support, and referral. Or you may contact your personal physician. As part of your treatment plan, your physician may have prescribed a limited course of a controlled substance. This medication may be given to help people with moderate or severe pain or for other medical conditions, but there are risks involved with treatment. Common side effects may include nausea, constipation, drowsiness, sweating, itching, dry mouth, and rash. More serious side effects may include cognitive and motor impairment, like problems with thinking, concentrating, alertness, and movement (e.g. slowed reflexes), and driving and operating heavy machinery can be dangerous. It is important for you to talk to your physician if you have these side effects or questions. These controlled substances can produce physical dependence and be habit-forming if taken for an extended period of time, which means that the body has gotten used to them and may experience withdrawal symptoms if they are abruptly stopped. Withdrawal symptoms can include runny nose, sweating, goose bumps, diarrhea, abdominal cramping, rapid heartbeat, difficulty sleeping, and nervousness. The home medications listed are only as accurate as the information you provided. Please continue taking all of your medications prescribed by your Primary Care Provider unless specifically told to change or discontinue the medication. Please direct any questions regarding your home medications to your Primary Care Provider. YOU ARE THE MOST IMPORTANT FACTOR IN YOUR RECOVERY. ?? Follow your instructions carefully ?? Take your medicines as prescribed ?? Most important, see a provider as discussed. If you do not have a provider, we can provide a list of clinics Confidential This message and accompanying documents are covered by Electronic Communications Privacy Act 18 U.S.C. ???Sections 5469-5963,?? and contain information intended for the specified individual(s) only. This information is confidential. If you are not the intended recipient or an agent responsible for delivering it to the intended recipient, you are hereby notified that you have received the document in error and that any review, dissemination, copying, or the taking of any action based on the contents of this information is strictly prohibited. If you have received this communication in error, please notify us immediately by email, and delete the original message. 4 WAYS TO GET AHEAD OF SEPSIS SEPSIS is a MEDICAL EMERGENCY. Time matters! Infections put you and your family at risk for a life-threatening condition called sepsis. Sepsis is the body???s extreme response to an infection. It is life-threatening, and without timely treatment, sepsis can rapidly lead to tissue damage, organ failure, and . Sepsis happens when an infection you already have???in your skin, lungs, urinary tract or somewhere else???triggers a chain reaction throughout your body. 1 PREVENT INFECTIONS Take good care of chronic conditions. Talk to your doctor about getting the recommended vaccines. 2 PRACTICE GOOD HYGIENE Wash your hands frequently. Keep cuts or open sores clean and covered until they are healed. 3 KNOW THE SYMPTOMS Confusion or disorientation Shortness of breath High heart rate Fever, shivering, or feeling very cold Extreme pain or discomfort Clammy or sweaty skin 4 ACT FAST Get medical care IMMEDIATELY if you suspect sepsis or if you have an infection that???s not getting better or is getting worse. To learn more about sepsis and how to prevent infections, visit www.cdc.gov/sepsis. STROKE is an EMERGENCY Every [employer] Counts ACT F.A.S.T! FACE ?? Facial droop ?? Uneven smile ARM ?? Arm numbness ?? Arm weakness SPEECH ?? Slurred speech ?? Difficulty speaking or understanding TIME ?? Call 911 and get to the hospital immediately Have the ambulance go to the nearest stroke center. STROKE Risk Factors High blood pressure High cholesterol Heart Disease Diabetes Smoking Heavy alcohol use Physical inactivity and obesity Atrial Fibrillation (irregular heartbeat) Family history of stroke Acknowledgment I hereby acknowledge receipt of these instructions and information above. I understand that I have received Emergency Treatment only which is not a substitute for complete medical care and acknowledge that all of my medical problems may not be known, identified, or treated prior to my release. I UNDERSTAND THE NEED TO ARRANGE FOLLOW-UP CARE WITH THE PHYSICIAN INDICATED. I UNDERSTAND THAT I SHOULD CONTACT MY PHYSICIAN IMMEDIATELY OR RETURN TO THE EMERGENCY DEPARTMENT IF MY CONDITION WORSENS, FAILS TO IMPROVE, OR NEW SYMPTOMS APPEAR. Vital Signs B/P PULSE RESP. RATE TEMPERATURE PULSE OX Signature of Emergency Provider Date / Time Signature of Emergency Nurse Date / Time Reminder: Be sure to sign up for the [facility] patient portal, which gives you 07/03 access to your medical information ??? including these discharge instructions ??? using your computer, smartphone, or tablet. Just go to [email or web address] to get started. Questions? Call . Acknowledgment I hereby acknowledge receipt of these instructions and information above. I understand that I have received Emergency Treatment only which is not a substitute for complete medical care and acknowledge that all of my medical problems may not be known, identified, or treated prior to my release. I UNDERSTAND THE NEED TO ARRANGE FOLLOW-UP CARE WITH THE PHYSICIAN INDICATED. I UNDERSTAND THAT I SHOULD CONTACT MY PHYSICIAN IMMEDIATELY OR RETURN TO THE EMERGENCY DEPARTMENT IF MY CONDITION WORSENS, FAILS TO IMPROVE, OR NEW SYMPTOMS APPEAR. Signature of Patient / Responsible Person Date / Time Please provide a telephone number where you can be reached. The best time to call is between: It is permissible to leave a message if no answer: Yes____ No____ Nurse Providing Instructions: Emergency Physician: documented in this encounter Plan of Treatment Not on file documented as of this encounter Visit Diagnoses Not on filedocumented in this encounter
--- OUTSIDE RECORDS SUMMARY | 2025-02-19 14:01 | XMS_ITS | Encounter Summary ---
Author Organization [employer] ([place], [place], [place], [place]) Address [address] [place] [id number] Care Team Providers Care Correctional Officer Lieutenant Name Role Phone Unavailable Primary Care Provider Unavailabl e Encounter Details Date Type Department Care Team (Late st Contact Info) Description 10/22/2018 Transcribed Document [facility] Family Medicine [address] [place] [address] ProviderCharley MD [facility] [place] [address] Social History Tobacco Use Types [...] Cerner Conversion Note - Historical ProviderMD - 10/22/2018 10:41 AM CDT CR Chest 2 Vws Ordered: 10/21/2018 Auth (Verified) Reason for Exam: dizzy 10/22/2018 09:10 10/22/2018 10:41 (SANGITA FRANCO) No further action required Electronically signed by Tai Quintanilla Conversion Commercial Helicopter Pilot Cerner at 11/30/2022 6:40 PM CDT documented in this encounter Plan of Treatment Not on file documented as of this encounter Visit Diagnoses Not on filedocumented in this encounter
--- OUTSIDE RECORDS SUMMARY | 2025-02-19 14:01 | XMS_ITS | Referral Summary ---
Author Organization [employer] ([place], [place], [place], [place]) Address [address] [place] [id number] Care Team Providers Care Special Effects Technician Name Role Phone Unavailable Primary Care Provider Unavailabl e Social History Tobacco Use Types Packs/Day Years Used Date Smoking Tobacco: Never Assessed Comments Unknown Sex and Gender Information Value Date Recorded Sex Assigned at Female 02/11/2022 4:49 PM CDT Legal Sex Female 6:30 PM CDT Gender Identity Female 02/11/2022 4:49 PM CDT Sexual Orientation Not on file Plan of Treatment Not on file
--- OUTSIDE RECORDS SUMMARY | 2025-02-19 14:01 | XMS_ITS | Encounter Summary ---
Author Organization [employer] ([place], [place], [place], [place]) Address [address] [place] [id number] Care Team Providers Care Substation Superintendent Name Role Phone Unavailable Primary Care Provider Unavailabl e Encounter Details Date Type Department Care Team (Late st Contact Info) Description 10/21/2018 Transcribed Document [facility] [place] [facility] [place] [address] ProviderCharley MD [facility] [place] [address] Social History Tobacco Use Types [...] Conversion Note - Historical ProviderMD - 10/21/2018 8:24 PM BALANCE SCREWHEAD POLISHER Vital Signs ED Entered On: 10/21/2018 20:27 EST Performed On: 10/21/2018 20:24 EST by Angelica Philip RN Vital Signs ED Temperature Source : Oral Temperature Mode : Fahrenheit Temperature, Fahrenheit : 98 Deg F ED Pain : No Clinical Temperature, C : 36.7 Deg C Oxygen Therapy Mode : Room air Peripheral Pulse Rate : 96 bpm Respiratory Rate : 18 Breaths/Min Systolic Blood Pressure : 104 mmHg Diastolic Blood Pressure : 59 mmHg (LOW) Oxygen Saturation : 98 % Angelica Philip RN - 10/21/2018 20:24 EST Electronically signed by Dwight [facility] Conversion Finance Specialist Cerner at 11/30/2022 6:50 PM CDT documented in this encounter Plan of Treatment Not on file documented as of this encounter Visit Diagnoses Not on filedocumented in this encounter
--- OUTSIDE RECORDS SUMMARY | 2025-02-19 14:01 | XMS_ITS | Encounter Summary ---
Author Organization [employer] ([place], [place], [place], [place]) Address [address] [place] [address] Care Team Providers Care Export Packer Name Role Phone Unavailable Primary Care Provider Unavailabl e Encounter Details Date Type Department Care Team (Late st Contact Info) Description 10/21/2018 Transcribed Document [facility] Radiology [address] [place] [address] Oli Glover MD [address] [place] [address] Dept. [place] [address] Social History Tobacco Use Types Packs/Day Years Used Date Smoking Tobacco: Never Assessed Comments Unknown Sex and Gender Information Value Date Recorded Sex Assigned at Female 02/11/2022 4:49 PM CDT Legal Sex Female 6:30 PM CDT Gender Identity Female 02/11/2022 4:49 PM CDT Sexual Orientation Not on file documented as of this encounter Miscellaneous Notes * Cerner Conversion Note - Oli Glover MD - 10/21/2018 6:44 PM EST Patient: SUSAN RESENDIZ Age: 18 years Sex: Female : 2000 Associated Diagnoses: Influenza; Acute dehydration; Nauseated; CHONG - Headache Author: JULIETA MCKEE PA Basic Information Time seen: Date & time 10/21/2018 17:35:00. History source: Patient. Arrival mode: Private vehicle. History limitation: None. Additional information: Chief Complaint from Nursing Triage Note : Chief Complaint 10/21/2018 15:45 EST Chief Complaint C/o headache, slurred spech, aoox 4, active vomiting in triage. LMP Oct 09 . History of Present Illness The patient presents with headache, migraine and PT PRESENTS AFTER ONSET OF BAD MIGRAINE SHE TOOK HER SUBQ MEDICATION BUT NOT HELPING. THIS H/A UNLIKE ANY OTHER ENTIRE HEAD INVOLVED. WITH BAD N/V NO RECENT ILL BUT SOME SORE THROAT PT WAS CONFUSED AND PUPILS DILATED EARLIER AND MOM VERY WORRIED PT DENIES DRUG USE AND DENIES . SHE FEEL WEAK AND DENIES NECK PAIN. NO RECENT TRAUMA MOM WITH FLU RECENTLY PT DENIES FLU SYMPTOSMS BUT CHILLING TODAY . The onset was 1 hours ago. The course/duration of symptoms is constant. Location: Bilateral generalized. Radiating pain: none. The character of symptoms is tightness, throbbing and dull. The degree at onset was moderate. The degree at maximum was moderate. The degree at present is moderate. There are exacerbating factors including light and noise but not exertion, neck motion, coughing, bending over or standing. The relieving factor is light avoidance. Risk factors consist of not diabetes mellitus, not hypertension, not anticoagulated, not lumbar puncture, not meningitis exposure, not prior brain surgery and not family history of cerebral aneurysm. Prior episodes: none. Therapy today: prescription medications. Preceding symptoms: none. Associated symptoms: nausea, vomiting, dizziness, photophobia, chills, denies altered vision, denies fever, denies neck pain, denies syncope, denies rash, denies altered speech, denies altered level of consciousness and denies seizure. Review of Systems Constitutional symptoms: Chills, weakness, fatigue, decreased activity, No fever, Skin symptoms: No rash, Eye symptoms: Vision unchanged. ENMT symptoms: Sore throat, no ear pain, no nasal congestion, no sinus pain. Respiratory symptoms: No shortness of breath, no cough. Cardiovascular symptoms: Tachycardia, no chest pain, no palpitations. Gastrointestinal symptoms: Abdominal pain, moderate, cramping, pain, nausea, vomiting, No diarrhea, Genitourinary symptoms: No dysuria, Musculoskeletal symptoms: No back pain, no Muscle pain. Neurologic symptoms: Headache, dizziness, altered level of consciousness, weakness, MOM SAYS SHE IS NOT HERSELF VERY WEAK, no numbness, no tingling. Psychiatric symptoms: No anxiety, no depression. Hematologic/Lymphatic symptoms: Bleeding tendency negative, Additional review of systems information: All other systems reviewed and otherwise negative. Health Status Allergies: Allergic Reactions (Selected) No Known Medication Allergies. Medications: (Selected) Inpatient Medications Ordered promethazine: 12.5 mg, IV Push, 1-Time Prescriptions Prescribed Tamiflu 75 mg oral capsule: 1 Cap, Oral, BID, for 5 Day(s), 10 Cap, 0 Refill(s) Zofran ODT 4 mg oral tablet, disintegratin Tab, Oral, Q4H, for 2 Day(s), PRN: Nausea/Vomiting, 12 Tab, 0 Refill(s). Menstrual history: Per nurse's notes, LMP LAST WEEK TAKES BCP. history: Never . Past Medical/ Family/ Social History Medical history Negative. Surgical history: Negative. Family history: No family history items have been selected or recorded., DIABETIC IN GRANPARENT. Social history: Social & Psychosocial Habits No Data Available . Problem list: Active Problems (1) No Chronic Problems . Physical Examination Vital Signs Vital Signs/Vital Measures 10/21/2018 15:45 EST Temperature Source Tympanic Temperature Mode Fahrenheit Temperature, Fahrenheit 97 Deg F Clinical Temperature, C 36.1 Deg C Peripheral Pulse Rate 98 bpm Respiratory Rate 18 Breaths/Min Systolic Blood Pressure 110 mmHg Diastolic Blood Pressure 67 mmHg Oxygen Saturation 98 % . Oxygen Saturation 10/21/2018 15:45 EST Oxygen Saturation 98 % . General: Alert, no acute distress, PT IS PALE AND TIRED APPEAR RESPONDS WELL AND FOLLOWS ALL COMMANDS SHE IS CONVERSANT AND NOT SOMULENT PUPILS NOT DILATED, not anxious, not ill-appearing. Skin: Warm, dry, pink, intact, no rash, normal for ethnicity, pale. Head: Normocephalic, atraumatic. Neck: Supple, trachea midline, no tenderness, NO NUCHAL RIGIDITY. Eye: Pupils are equal, round and reactive to light, extraocular movements are intact. Ears, nose, mouth and throat: Tympanic membranes clear, oral mucosa moist, no pharyngeal erythema or exudate. Cardiovascular: Regular rate and rhythm, No murmur, Normal peripheral perfusion, No edema. Respiratory: Lungs are clear to auscultation, respirations are non-labored, breath sounds are equal, Symmetrical chest wall expansion. Gastrointestinal: Nontender, Non distended, Normal bowel sounds, No organomegaly, TENDER GENERALIZED. Back: Normal range of motion. Musculoskeletal: Normal ROM. Neurological: Level of consciousness: Slow, not confused, not arousable, not lethargic, not stuporous, not unresponsive, not uncooperative, Cranial nerves II - XII: Intact, Speech: Normal. Lymphatics: No lymphadenopathy. Psychiatric: Cooperative, appropriate mood & affect, normal judgment. Medical Decision Making Electrocardiogram: Time 10/21/2018 16:05:00, rate 3, ST. Results review: Lab results : Lab Results 10/21/2018 17:51 EST HCG Serum Quant <1.0 mIU/mL NA 10/21/2018 17:45 EST Rapid Strep Test See Result Influenza A+B Antigen POS 10/21/2018 17:44 EST Magnesium Level 2.0 mg/dL TSH 0.818 mcInt Units/mL FT4 1.16 ng/dL 10/21/2018 17:42 EST UDS pH 5.8 NA UDS Amp Negative UDS Ashley Negative UDS Benzo Negative UDS Salomon Negative UDS Meth Negative UDS Opi Negative UDS Oxy Negative UDS PCP Negative UDS TCA Negative UDS THC Negative Buprenorphine Screen, Urine Negative Fentanyl, Urine Negative Heroin Metab (6AM) by LC-MS/MS, Urine Negative Propoxyphene, Urine Negative SpGravity, Urine 1.039 NA UDS Creatinine, Toxicology 427.3 mg/dL NA 10/21/2018 15:59 EST Glucose POC2 127 mg/dL HI 10/21/2018 15:55 EST Sodium Level 138 mmol/L Potassium Level 3.8 mmol/L Chloride Level 104 mmol/L Carbon Dioxide Level 27 mmol/L Anion Gap 11 Glucose Level 129 mg/dL HI Blood Urea Nitrogen 8 mg/dL CREATININE 0.79 mg/dL eGFR >60 mL/min/1.73m2 eGFR NonAfrican >60 mL/min/1.73m2 Bun/Creatinine 10.1 Calcium Level 8.8 mg/dL Protein Total 7.6 Gram/dL Albumin Level 4.0 Gram/dL Globulin 3.6 Gram/dL A/G Ratio 1.1 Bilirubin Total 0.5 mg/dL Alk Phos 65 Units/Liter AST 21 Units/Liter ALT 21 Units/Liter WBC 10.8 K/uL HI RBC 4.81 Million/uL Hgb 14.2 Gram/dL Hct 42.1 % MCV 87.5 fL MCH 29.5 pg MCHC 33.7 Gram/dL Platelet Count 215 K/uL MPV 10.0 fL RDW 12.0 % Neut % 80.5 % HI Neut # 8.67 K/uL HI Lymph % 13.7 % LOW Lymph # 1.48 K/uL Lincoln % 4.9 % Lincoln # 0.53 K/uL Eos % 0.2 % LOW Eos # 0.02 K/uL LOW Baso % 0.2 % Baso # 0.02 K/uL Slide Review No IG# 0 x10(3)/uL IG% 0 % Urine Type U CleanCatch Urine Color DK YELLOW Urine Appearance Turbid Urine Specific [place] 1.037 HI Urine pH Dipstick 5.5 LOW Urine Leukocyte Esterase Trace Urine Nitrite Negative Urine Protein Dipstick 100 Urine Glucose Dipstick Negative Urine Ketones Dipstick 40 Urine Urobilinogen Dipstick 1.0 EU/dL Urine Bilirubin Dipstick Small Urine Blood Dipstick Negative Ur RBC None Seen Ur WBC 0-2 /HPF Ur Bacteria Trace Ur Amorph 3+ Ur Epithelial Cells 2-5 /HPF HCG Urine Qualitative Negative . Radiology results: Radiology Results (Last 48 hours) [id number] -- 10/21/2018 15:23 CT Head WO (10/21/2018 18:06) Result: STUDY: CT Head without contrastCLINICAL HISTORY: Slurred speechFINDINGS: Multiple contiguous transaxial slices through the head wereobtained without the intravenous administration of contrast with coronalreformatted images. This study was performed with techniques to keepradiation doses as low as reasonably achievable, (ALARA). Individualizeddose reduction techniques using automated exposure control or adjustmentof mA and/or kV according to the patient size were employed.The brain parenchyma is normal in morphology and attenuation withoutacute infarct, hemorrhage or mass effect. Ventricles are symmetric. Nosinus air fluid level is seen. The calvarium is intact.IMPRESSION: No acute intracranial abnormality. CT Abdomen Pelvis WO (10/21/2018 18:07) Result: STUDY: CT Abdomen and Pelvis without contrastCLINICAL HISTORY: Pain. Chills and vomiting dysuriaDESCRIPTION: Multiple contiguous transaxial slices through the abdomenand pelvis were obtained without the intravenous administration ofcontrast with coronal reformatted images. This study was performed withtechniques to keep radiation doses as low as reasonably achievable,(ALARA). Individualized dose reduction techniques using automatedexposure control or adjustment of mA and/or kV according to the patientsize were employed.Evaluation is limited without intravenous contrast.There is no renal or ureteral stone or hydronephrosis. The bladder isdecompressed. Uterus is diminutive consistent with age. Right ovary isnot distinguishable from unopacified bowel. There is a 3.2 cm leftovarian cyst. There is no free fluid.The liver, gallbladder, spleen, pancreas and adrenal glands areunremarkable. The bowel gas pattern is non-obstructive. The appendixappears normal.IMPRESSION: Limited evaluation without contrast. Small left ovariancyst, otherwise unremarkable . Reexamination/ Reevaluation Time: 10/21/2018 19:20:00 . Vital signs PT HAS SLEPT WELL AND DOING BETTER NO VOMITING TO REPORT. SHE IS IMPROVED ACKNOWLEDGES SHE HAS FLU Course: VOMITED THE TAMIFLU 30 MIN AFTER. . Interventions: PT MUCH IMPROVED WANTS SOME SPRITE WILL AMBULATE AND DC IF NEAR BASELINE FUNCTION TO GO HOME FAMILY AT BEDSIDE TO ASSIST. Impression and Plan Diagnosis Influenza - Discharge, Emergency medicine, Medical Acute dehydration - Discharge, Emergency medicine, Medical Complaint of Nauseated - Reason For Visit, Emergency medicine, Medical Complaint of CHONG - Headache - Reason For Visit, Emergency medicine, Medical Acute dehydration - Discharge, Emergency medicine, Medical Influenza - Discharge, Emergency medicine, Medical Plan Condition: Improved, Stable, Guarded. Disposition: Discharged Admit/Transfer/Discharge: Discharge (Order): Start: 10/21/2018 20:36 EST, Discharge to: Home. Prescriptions: Prescription [facility]: Zofran ODT 4 mg oral tablet, disintegrating (Prescribe): 1 Tab, Oral, Q4H, for 2 Day(s), PRN: Nausea/Vomiting, 12 Tab, 0 Refill(s), Prescription [facility]: Tamiflu 75 mg oral capsule (Prescribe): 1 Cap, Oral, BID, for 5 Day(s), 10 Cap, 0 Refill(s), Prescription [facility]: promethazine 25 mg oral tablet (Prescribe): 1 Tab, Oral, Q4H, for 3 Day(s), CAN MAKE YOU SLEEPY, PRN: as needed for nausea/vomiting, 18 Tab, 0 Refill(s). Patient was given the following educational materials: Dehydration, Adult, Sghs-[id number], Cough, Adult, Yeun-ak-Jfts, Rehydration, Adult, Viral Illness, Adult, Influenza, Adult, Zcym-so-Siun. Limitations: Limited activity. Follow up with: KHARRI KEN Within 2 to 3 days; REST AT HOME AND DRINK PLENTY OF FLUIDS. RETURN IF WORSE. MONITER FOR FEVER AND TREAT WITH MOTRIN OR TYLENOL. USE TAMIFLU RX Within 2 to 3 days. Counseled: Patient, Family, Regarding diagnosis, Regarding diagnostic results, Regarding treatment plan, Regarding prescription, Patient indicated understanding of instructions. documented in this encounter Plan of Treatment Not on file documented as of this encounter Visit Diagnoses Not on filedocumented in this encounter
--- OUTSIDE RECORDS SUMMARY | 2025-02-19 14:01 | XMS_ITS | Encounter Summary ---
Author Organization [employer] ([place], [place], [place], [place]) Address [address] [place] [address] Care Team Providers Care Logistic Specialist Name Role Phone Unavailable Primary Care Provider Unavailabl e Encounter Details Date Type Department Care Team (Late st Contact Info) Description 10/21/2018 Transcribed Document [facility] [place] [facility] [place] [address] ProviderCharley MD [address] [place] [address] Social History Tobacco Use Types Packs/Day [...] Conversion Note - Historical ProviderMD - 10/21/2018 9:07 PM DOPER OPERATOR [address] [place] [address] PERSON INFORMATION Name SUSAN RESENDIZ Age 18 Years 2000 Sex Female Language Palestinian PCP MOI ROGERS [facility] Marital Status Single Med Service Emergency Medicine Acct# Arrival 10/21/2018 15:23:00 Visit Reason Nauseated; CHONG - Headache; NUMB BODY,SLURRED SPEECH,EYES DIALATED Acuity 2 - Emergent LOS 000 05:44 Depart Date: 10/21/18 09:07 PM Address: [address] [place] [address] [place] [address] Comment: PROVIDER INFORMATION Provider Role Assigned Unassigned JULIETA MCKEE PA ED Physician 10/21/2018 17:35:12 Matt Abraham, meat manager Nurse 10/21/2018 18:52:47 10/21/2018 19:45:24 Angelica Philip, PET TRAINER Nurse 10/21/2018 19:45:25 DIAGNOSIS Acute dehydration; Influenza PHYS DOC NOTES VITALS INFORMATION Vital Sign Triage Latest Temp Source Tympanic Oral Temp Mode Fahrenheit Fahrenheit Temp Fahrenheit 97 Deg F 98 Deg F Temp Celsius 02 Sat 98 % 98 % Respiratory Rate 18 Breaths/Min 18 Breaths/Min Peripheral Pulse Rate 98 bpm 96 bpm Apical Heart Rate Blood Pressure 110 mmHg / 67 mmHg 104 mmHg / 59 mmHg Comment: MEDICAL INFORMATION Allergy Info: No Known Medication Allergies Medications: Prescription Display ondansetron (Zofran ODT 4 mg [...] YOU SLEEPY, # 18 Tab, 0 Refill(s) Comment: DISCHARGE INFORMATION Discharge Disposition: Home Discharge Location: PATIENT EDUCATION INFORMATION Instructions: Influenza, Adult, Djew-tt-[id number]; Viral Illness, Adult; Rehydration, Adult; Cough, Adult, Mxyk-pn-Mwtk; Dehydration, Adult, Ziur-pe-Dbdc Follow up: With: Address: When: REST AT HOME AND DRINK PLENTY OF FLUIDS. RETURN IF WORSE. MONITER FOR FEVER AND TREAT WITH MOTRIN OR TYLENOL. USE TAMIFLU RX Within 2 to 3 days With: Address: When: MOI ROGERS [address] [place] [address] [facility] ([facility] Within 2 to 3 days Comment: documented in this encounter Plan of Treatment Not on file documented as of this encounter Visit Diagnoses Not on filedocumented in this encounter
--- OUTSIDE RECORDS SUMMARY | 2025-02-19 14:01 | XMS_ITS | Clinical Summary ---
Author Organization [employer] ([place], [place], [place], [place]) Address [address] [place] [address] Care Team Providers Care Parking Assistant Name Role Phone Unavailable Primary Care Provider [...]
--- OUTSIDE RECORDS SUMMARY | 2025-02-19 14:01 | XMS_ITS | Encounter Summary ---
Author Organization [employer] ([place], [place], [place], [place]) Address [address] [place] [address] Care Team Providers Care Security Solutions Architect Name Role Phone Unavailable Primary Care Provider Unavailabl e Encounter Details Date Type Department Care Team (Late st Contact Info) Description 10/22/2018 Transcribed Document [facility] [place] Family Medicine [address] [place] [address] ProviderCharley MD [address] [place] [address] Social History Tobacco Use Types [...] for Exam: dizzy 10/22/2018 09:10 10/22/2018 10:41 (Sakina Smiley, Commercial Loan Analyst) No further action required 10/22/2018 10:41 (SANGITA FRANCO) No further action required documented in this encounter Plan of Treatment Not on file documented as of this encounter Visit Diagnoses Not on filedocumented in this encounter
--- OUTSIDE RECORDS SUMMARY | 2025-02-19 14:01 | XMS_ITS | Encounter Summary ---
Author Organization [facility] ([place], [place], [place], [place]) Address [address] [place] [address] Care Team Providers Care Herd Tester Name Role Phone Unavailable Primary Care Provider Unavailabl e Encounter Details Date Type Department Care Team (Late st Contact Info) Description 10/21/2018 Transcribed Document [facility] [place] [facility] [place] [address] ProviderCharley MD [facility] [place] [address] Social History Tobacco Use Types [...] Conversion Note - Historical ProviderMD - 10/21/2018 3:23 PM LEGAL BILLING COORDINATOR ED Triage Entered On: 10/21/2018 15:53 EST Performed On: 10/21/2018 15:45 EST by KARO ZHONG ED Triage Across the Room Triage Date/Time : 10/21/2018 15:45 EST Chief Complaint : C/o headache, slurred spech, aoox 4, active vomiting in triage. LMP FEb 25 KARO ZHONG - 10/21/2018 15:45 EST AMANKARO Luna - 10/21/2018 15:45 EST DCP GENERIC CODE Tracking Group : [facility] ED East FARHEENKARO - 10/21/2018 15:45 EST Tracking Acuity : 2 - Emergent AMANKARO Luna - 10/21/2018 15:53 EST Mode of Arrival : Ambulatory Transported to ED by : Private vehicle To Room Via : Ambulate Accompanied By : Unaccompanied ED Vital Signs : Document Height & Weight : Document ED Allergies : Document ED Reason for Visit : Document FARHEEN KARO - 10/21/2018 15:45 EST Infectious Disease History Infectious Disease History : None Fever/Chills Last 48 Hours : No Travel To Regions with Travel Advisories : No Travel Outside [place] Within Last 30 Days : No Contact With Traveler to Advisory Region : No Tuberculosis Symptoms : None KARO ZHONG - 10/21/2018 15:45 EST Vital Signs ED Temperature Source : Tympanic Temperature Mode : Fahrenheit Temperature, Fahrenheit : 97 Deg F Clinical Temperature, C : 36.1 Deg C Peripheral Pulse Rate : 98 bpm Respiratory Rate : 18 Breaths/Min Systolic Blood Pressure : 110 mmHg Diastolic Blood Pressure : 67 mmHg Oxygen Saturation : 98 % KARO ZHONG - 10/21/2018 15:45 EST Allergy (As Of: 10/21/2018 15:53:26 EST) Allergies (Active) No Known Medication Allergies Estimated Onset Date: Unspecified ; Created By: KARO ZHONG; Reaction Status: Active ; Category: Drug ; Substance: No Known Medication Allergies ; Type: Allergy ; Updated By: KARO ZHONG; Reviewed Date: 10/21/2018 15:47 EST Diagnosis Control ED (As Of: 10/21/2018 15:53:26 EST) Problems(Active) No Chronic Problems (Cerner :NKP ) Name of Problem: No Chronic Problems ; Recorder: KARO ZHONG; Code: NKP ; Last Updated: 10/21/2018 15:48 EST ; Life Cycle Date: 10/21/2018 ; Life Cycle Status: Active ; Vocabulary: Cerner Diagnoses(Active) CHONG - Headache Date: 10/21/2018 ; Diagnosis Type: Reason For Visit ; Confirmation: Complaint of ; Clinical Dx: CHONG - Headache ; Classification: Medical ; Clinical Service: Emergency medicine ; Code: PNED ; Probability: 0 ; Diagnosis Code: [id number] Nauseated Date: 10/21/2018 ; Diagnosis Type: Reason For Visit ; Confirmation: Complaint of ; Clinical Dx: Nauseated ; Classification: Medical ; Clinical Service: Emergency medicine ; Code: PNED ; Probability: 0 ; Diagnosis Code: [id number] ED Height and Weight Height Source : Stated Height Entry Format : Luce Height, Feet : 5 ft(Converted to: 152 cm, 60 Inch) Height, Inches : 6 Inch(Converted to: 0 ft 6 Inch, 15.24 cm) Clinical Height : 167.64 cm Weight Source, ED : Critical estimated dosing weight Weight Entry Format : Luce Weight, Pounds : 145 lb Clinical Dosing Weight : 65.91 kg Body Surface Area (BSA) : 1.75 m2 Body Mass Index : 23.5 kg/m2 [place] Body Weight (IBW) : 58.88 kg KARO ZHONG - 10/21/2018 15:45 EST documented in this encounter Plan of Treatment Not on file documented as of this encounter Visit Diagnoses Not on filedocumented in this encounter
--- OUTSIDE RECORDS SUMMARY | 2025-02-19 14:01 | XMS_ITS | Encounter Summary ---
Author Organization [employer] ([place], [place], [place], [place]) Address [address] [place] [address] Care Team Providers Care Director Radio Name Role Phone Unavailable Primary Care Provider Unavailabl e Encounter Details Date Type Department Care Team (Late st Contact Info) Description 10/21/2018 Transcribed Document [facility] [place] [facility] [place] [address] ProviderCharley MD [facility] [place] [address] Social History Tobacco Use Types [...] Conversion Note - Charley ProviderMD - 10/21/2018 3:23 PM FACTORY ASSEMBLER ED Assessment Entered On: 10/21/2018 18:49 EST Performed On: 10/21/2018 18:48 EST by Matt Abraham Rn ED Quick Look Assessment Level of Consciousness : Alert Affect/Behavior : Appropriate, Calm, Cooperative Matt Abraham Rn - 10/21/2018 18:48 EST ED General-Functional Assess Information Obtained From : Patient Preferred Communication Mode : Verbal Communication Barrier : None Primary Language : Albanian Any Spiritual/Cultural Needs or Requests : No Currently in Unsafe Situation : No Matt Abraham Rn - 10/21/2018 18:48 EST Social Habits Smoking Status : Never (less than 100 in lifetime; none in last 30 days) Smokeless Tobacco Status : Never Desires Tobacco Cessation Calc : 0 Matt Abraham Rn - 10/21/2018 18:48 EST Social History (As Of: 10/21/2018 18:49:58 EST) Gastrointestinal ED Gastrointestinal Symptoms : Abdominal pain, Nausea, Vomiting Frequency of Vomiting : Multiple times Matt Abraham Rn - 10/21/2018 18:48 EST documented in this encounter Plan of Treatment Not on file documented as of this encounter Visit Diagnoses Not on filedocumented in this encounter
== END 2025-02-19 23:59 | disposition home or self-care (01) ==
LOC: RAD 13:59
PROVIDERS: PCP Nurse Practitioner Family; Visit Provider Obstetrics & Gynecology
DX: O32.1XX0 Maternal care for breech presentation, not applicable or unspecified (principal); O28.3 Abnormal ultrasonic finding on antenatal screening of mother; O46.92 Antepartum hemorrhage, unspecified, second trimester; O99.212 Obesity complicating pregnancy, second trimester; E66.9 Obesity, unspecified; Z3A.20 20 weeks gestation of pregnancy
CPT/HCPCS: 76811

== ENCOUNTER 2025-02-25 12:43 | Outpatient (CLI) | payer OTHER, SELFPAY ==
--- OUTSIDE RECORDS SUMMARY | 2025-02-25 12:45 | XMS_ITS | Encounter Summary ---
Author Organization [employer] ([place], [place], [place], [place]) Address [address] [place] [address] Care Team Providers Care Doctor Naturopathic Name Role Phone Unavailable Primary Care Provider Unavailabl e Encounter Details Date Type Department Care Team (Late st Contact Info) Description 10/21/[address] [facility] [place] [facility] [place] [address] ProviderCharley MD [facility] [place] [address] Social History Tobacco Use Types [...] - Historical ProviderMD - 10/21/2018 9:00 PM LEAD SCIENTIST ED Discharge Entered On: 10/21/2018 21:01 EST [...] 10/21/2018 21:00 EST Electronically signed by [facility] Conversion Iphone Developer [employer] at 11/30/2022 6:40 PM CDT documented in this encounter Plan of Treatment Not on file documented as of this encounter Visit Diagnoses Not on filedocumented in this encounter
--- OUTSIDE RECORDS SUMMARY | 2025-02-25 12:45 | XMS_ITS | Encounter Summary ---
Author Organization [employer] ([place], [place], [place], [place]) Address [address] [place] [address] Care Team Providers Care Senior Center Director Name Role Phone Unavailable Primary Care Provider Unavailabl e Encounter Details Date Type Department Care Team (Late st Contact Info) Description 10/22/[address] [facility] [place] Family Medicine [address] [place] [address] ProviderCharley MD [facility] [place] [address] Social History Tobacco Use Types [...]
--- OUTSIDE RECORDS SUMMARY | 2025-02-25 12:45 | XMS_ITS | Encounter Summary ---
Author Organization [employer] ([place], [place], [place], [place]) Address [address] [place] [address] Care Team Providers Care Mobile Lounge Driver Name Role Phone Unavailable Primary Care Provider Unavailabl e Encounter Details Date Type Department Care Team (Late st Contact Info) Description 10/21/2018 Transcribed Document [facility] Family Medicine [facility] [place] [address] ProviderCharley MD [facility] [place] [address] Social History Tobacco Use Types [...] - Historical ProviderMD - 10/21/2018 7:22 PM STRIPPER AND OPAQUER APPRENTICE Electronically signed by Dwight, [facility] Conversion Corrosion Control Specialist Cerner at 11/30/2022 6:41 PM CDT documented in this encounter Plan of Treatment Not on file documented as of this encounter Visit Diagnoses Not on filedocumented in this encounter
--- OUTSIDE RECORDS SUMMARY | 2025-02-25 12:45 | XMS_ITS | Encounter Summary ---
Author Organization [employer] ([place], [place], [place], [place]) Address [address] [place] [address] Care Team Providers Care Management Sme Name Role Phone Unavailable Primary Care Provider Unavailabl e Encounter Details Date Type Department Care Team (Late st Contact Info) Description 10/21/2018 Transcribed Document [facility] [place] Family Medicine [facility] [place] [address] ProviderCharley MD [address] [place] [address] Social History Tobacco Use Types Packs/Day [...] - Charley ProviderMD - 10/21/2018 9:07 PM HIGH FREQUENCY MILL OPERATOR [address] [place] [address] Patient Information Name: SUSAN RESENDIZ Age: 18 Years Date of : 2000 Arrival Time: 10/21/2018 15:23:00 Diagnosis Acute dehydration; Influenza Primary Care Physician: MOI ROGERS PA-[facility] Provider Information Primary Provider: JULIETA MCKEE PA Secondary Provider: RESENDIZSUSAN ACE has been given the following list of patient education materials, prescriptions and follow-up instructions: Follow-up Instructions: With: Address: When: REST AT HOME AND DRINK PLENTY OF FLUIDS. RETURN IF WORSE. MONITER FOR FEVER AND TREAT WITH MOTRIN OR TYLENOL. USE TAMIFLU RX Within 2 to 3 days With: Address: When: [address] [facility] [address] [facility] (1) Within 2 to 3 days Patient [...] Follow these instructions at home: ??? Take gczb-uxp-wtrlzbi and prescription medicines only as told by [...] cannot use soap and water, use hand land title examiner. ??? Stay home from work or school [...] Wash your hands often or use hand land title examiner often. ??? Avoid contact with people who [...] 05/10/2009 Document Revised: 01/06/2017 Document Reviewed: 05/25/2016 Bling Nation Interactive Patient Education ? 2017 [employer]. Viral Illness, Adult Viruses are tiny [...] Medicines to relieve symptoms. These can include umda-vyr-whrdeoq medicine for pain and fever, medicines for [...] these instructions at home: Medicines ??? Take nmst-kpy-sshdbiv and prescription medicines only as told by [...] and water are not available, use hand land title examiner. ??? Avoid close contact with friends and [...] 12/10/2016 Document Revised: 01/12/2017 Document Reviewed: 12/10/2016 ElseCisiv Interactive Patient Education ? 2017 Elsevier Inc. [...] 10/23/2012 Document Revised: 02/18/2017 Document Reviewed: 09/24/2016 Bling Nation Interactive Patient Education ? 2017 [employer]. Cough, Adult Introduction A cough helps [...] lot of fat or sugar. ??? Take ruar-fsi-fghsbyt and prescription medicines only as told by [...] 05/28/2010 Document Revised: 02/18/2017 Document Reviewed: 09/24/2016 Bling Nation Interactive Patient Education ? 2017 [employer]. Allergies: No Known Medication Allergies Medication Information: [...] range between ( 1.0 and 7.0 ) [place] #: 0.53 K/uL -- Normal range between ( 0.24 and 0.82 ) Eos #: 0.02 K/uL -- Normal range between ( 0.04 and 0.54 ) [place] %: 4.9 % -- Normal range between [...] ) Urine Bilirubin Dipstick: Small Urine Specific [place]: 1.037 -- Normal range between ( 1.005 [...] verify that SUSAN RESENDIZ was seen at [facility] Emergency Department on ,10/21/2018 21:07:20. This [...] Assistance with quitting is available by contacting 6-676-AFKY-NOW. This is a free resource providing counseling, [...] Electronic Communications Privacy Act 18 U.S.C. ???Sections 7688-8840,?? and contain information intended for the specified [...] computer, smartphone, or tablet. Just go to [employer] to get started. Questions? Call . Acknowledgment [...]
--- OUTSIDE RECORDS SUMMARY | 2025-02-25 12:45 | XMS_ITS | Clinical Summary ---
Author Organization [employer] ([place], [place], [place], [place]) Address [address] [place] [address] Care Team Providers Care Synchronizer Name Role Phone Unavailable Primary Care Provider [...]
--- OUTSIDE RECORDS SUMMARY | 2025-02-25 12:45 | XMS_ITS | Encounter Summary ---
Author Organization [employer] ([place], [place], [place], [place]) Address [address] [place] [address] Care Team Providers Care Corn Husk Baler Name Role Phone Unavailable Primary Care Provider Unavailabl e Encounter Details Date Type Department Care Team (Late st Contact Info) Description 10/21/2018 Transcribed Document [facility] [place] [facility] [place] [address] ProviderCharley MD [facility] [place] [address] Social History Tobacco Use Types [...] - Historical ProviderMD - 10/21/2018 8:24 PM PRODUCTION SUPERVISOR TRAINEE Vital Signs ED Entered On: 10/21/2018 20:27 [...] 10/21/2018 20:24 EST Electronically signed by Dwight [facility] Conversion Bleach Chlorinator Cerner at 11/30/2022 6:50 PM CDT documented in this encounter Plan of Treatment Not on file documented as of this encounter Visit Diagnoses Not on filedocumented in this encounter
--- OUTSIDE RECORDS SUMMARY | 2025-02-25 12:45 | XMS_ITS | Encounter Summary ---
Author Organization [employer] ([place], [place], [place], [place]) Address [address] [place] [address] Care Team Providers Care Bar Roller Name Role Phone Unavailable Primary Care Provider Unavailabl e Encounter Details Date Type Department Care Team (Late st Contact Info) Description 10/21/2018 Transcribed Document [facility] 1 [place] [address] Oli Glover MD [address] [place] [address] Dept[place] [address] Social History Tobacco Use Types [...] 13.7 % LOW Lymph # 1.48 K/uL Boyle % 4.9 % [place] # 0.53 K/uL Eos % 0.2 % LOW Eos # 0.02 K/uL LOW Baso % 0.2 % Baso # 0.02 K/uL Slide Review No IG# 0 x10(3)/uL IG% 0 % Urine Type U CleanCatch Urine Color DK YELLOW Urine Appearance Turbid Urine Specific [place] 1.037 HI Urine pH Dipstick 5.5 LOW [...] Radiology results: Radiology Results (Last 48 hours) [id number] -- 10/21/2018 15:23 CT Head WO (10/21/2018 [...] 20:36 EST, Discharge to: Home. Prescriptions: Prescription Locker Room Clerk Pharmacy: Zofran ODT 4 mg oral tablet, disintegrating (Prescribe): 1 Tab, Oral, Q4H, for 2 Day(s), PRN: Nausea/Vomiting, 12 Tab, 0 Refill(s), Prescription Locker Room Clerk Pharmacy: Tamiflu 75 mg oral capsule (Prescribe): 1 Cap, Oral, BID, for 5 Day(s), 10 Cap, 0 Refill(s), Prescription Locker Room Clerk Pharmacy: promethazine 25 mg oral tablet (Prescribe): 1 Tab, Oral, Q4H, for 3 Day(s), CAN MAKE YOU SLEEPY, PRN: as needed for nausea/vomiting, 18 Tab, 0 Refill(s). Patient was given the following educational materials: Dehydration, Adult, Vjjv-ub-Opzp, Cough, Adult, Hlqp-oa-Pxkb, Rehydration, Adult, Viral Illness, Adult, Influenza, Adult, Epci-vb-Caqs. Limitations: Limited activity. Follow up with: KHARRI [...]
--- OUTSIDE RECORDS SUMMARY | 2025-02-25 12:45 | XMS_ITS | Encounter Summary ---
Author Organization [employer] ([place], [place], [place], [place]) Address [address] [place] [address] Care Team Providers Care Admissions Specialist Name Role Phone Unavailable Primary Care Provider Unavailabl e Encounter Details Date Type Department Care Team (Late st Contact Info) Description 10/21/2018 Transcribed Document [facility] Family Medicine [facility] [place] [address] ProviderCharley MD [facility] [place] [address] Social History Tobacco Use Types [...] - Historical ProviderMD - 10/21/2018 3:23 PM PRODUCT DESIGN MANAGER ED Triage Entered On: 10/21/2018 15:53 EST Performed On: 10/21/2018 15:45 EST by KARO ZHONG ED Triage Across the Room Triage Date/Time : 10/21/2018 15:45 EST Chief Complaint : C/o headache, slurred spech, aoox 4, active vomiting in triage. LMP FEb 25 KARO ZHONG - 10/21/2018 15:45 EST AMANKARO Luna - 10/21/2018 15:45 EST DCP GENERIC CODE Tracking Group : [facility] ED East FARHEENKARO - 10/21/2018 15:45 [...] PNED ; Probability: 0 ; Diagnosis Code: [id number] Nauseated Date: 10/21/2018 ; Diagnosis Type: Reason For Visit ; Confirmation: Complaint of ; Clinical Dx: Nauseated ; Classification: Medical ; Clinical Service: Emergency medicine ; Code: PNED ; Probability: 0 ; Diagnosis Code: [id number] ED Height and Weight Height Source : Stated Height Entry Format : [place] Height, Feet : 5 ft(Converted to: 152 cm, 60 Inch) Height, Inches : 6 Inch(Converted to: 0 ft 6 Inch, 15.24 cm) Clinical Height : 167.64 cm Weight Source, ED : Critical estimated dosing weight Weight Entry Format : [place] Weight, Pounds : 145 lb Clinical Dosing Weight : 65.91 kg Body Surface Area (BSA) : 1.75 m2 Body Mass Index : 23.5 kg/m2 [place] Body Weight (IBW) : 58.88 kg KARO ZHONG - 10/21/2018 15:45 EST documented in this encounter Plan of Treatment Not on file documented as of this encounter Visit Diagnoses Not on filedocumented in this encounter
--- OUTSIDE RECORDS SUMMARY | 2025-02-25 12:45 | XMS_ITS | Encounter Summary ---
Author Organization [employer] ([place], [place], [place], [place]) Address [address] [place] [address] Care Team Providers Care Residential Property Tax Appraiser Name Role Phone Unavailable Primary Care Provider Unavailabl e Encounter Details Date Type Department Care Team (Late st Contact Info) Description 10/22/2018 Transcribed Document [facility] Family Medicine [address] [place] [address] ProviderCharley MD [address] [place] [address] Social History Tobacco Use Types [...] dizzy 10/22/2018 09:10 10/22/2018 10:41 (Sakina Smiley, Audio Visual Aids Director) No further action required 10/22/2018 10:41 (SANGITA FRANCO) No further action required Electronically signed by Tai Quintanilla Conversion Enterprise Resource Planning Consultant Cerner at 11/30/2022 6:36 PM CDT documented in this encounter Plan of Treatment Not on file documented as of this encounter Visit Diagnoses Not on filedocumented in this encounter
--- OUTSIDE RECORDS SUMMARY | 2025-02-25 12:45 | XMS_ITS | Encounter Summary ---
Author Organization [facility] ([place], [place], [place], [place]) Address [address] [place] [address] Care Team Providers Care Personal Banking Representative Name Role Phone Unavailable Primary Care Provider Unavailabl e Encounter Details Date Type Department Care Team (Late st Contact Info) Description 10/21/2018 Transcribed Document [facility] Family Medicine [facility] [address] ProviderCharley MD [facility] [address] Social History Tobacco Use Types [...] - Charley ProviderMD - 10/21/2018 3:23 PM HOOK PULLER ED Assessment Entered On: 10/21/2018 18:49 EST Performed On: 10/21/2018 18:48 EST by Matt Abraham Rn ED Quick Look Assessment Level of Consciousness : Alert Affect/Behavior : Appropriate, Calm, Cooperative Matt Abraham Rn - 10/21/2018 18:48 EST ED General-Functional Assess Information Obtained From : Patient Preferred Communication Mode : Verbal Communication Barrier : None Primary Language : Burkinan Any Spiritual/Cultural Needs or Requests : No [...]
--- OUTSIDE RECORDS SUMMARY | 2025-02-25 12:45 | XMS_ITS | Referral Summary ---
Author Organization [employer] ([place], [place], [place], [place]) Address [address] [place] [address] Care Team Providers Care Insole Channeler Name Role Phone Unavailable Primary Care Provider [...]
--- OUTSIDE RECORDS SUMMARY | 2025-02-25 12:45 | XMS_ITS | Encounter Summary ---
Author Organization [employer] ([place], [place], [place], [place]) Address [address] [place] [address] Care Team Providers Care Behavioral Science Chair Name Role Phone Unavailable Primary Care Provider Unavailabl e Encounter Details Date Type Department Care Team (Late st Contact Info) Description 10/21/2018 Transcribed Document [facility] [place] [facility] [place] [address] ProviderCharley MD [address] [place] [address] Social History Tobacco Use Types Packs/Day [...] - Historical ProviderMD - 10/21/2018 9:07 PM ECOLOGY TEACHER [address] [place] [address] PERSON INFORMATION Name SUSAN RESENDIZ Age 18 Years 2000 Sex Female Language Vietnamese PCP MOI ROGERS PA-[facility] Marital Status Single Med Service Emergency Medicine Acct# Arrival 10/21/2018 15:23:00 Visit Reason Nauseated; CHONG - Headache; NUMB BODY,SLURRED SPEECH,EYES DIALATED Acuity 2 - Emergent LOS 000 05:44 Depart Date: 10/21/18 09:07 PM Address: [address] [place] [address] [place] [address] Comment: PROVIDER INFORMATION Provider Role Assigned Unassigned JULIETA MCKEE PA ED Physician 10/21/2018 17:35:12 Matt Abraham, pit shoveler Nurse 10/21/2018 18:52:47 10/21/2018 19:45:24 Angelica Philip, PROPERTY MANAGEMENT BOOKKEEPER Nurse 10/21/2018 19:45:25 DIAGNOSIS Acute dehydration; Influenza [...] Location: PATIENT EDUCATION INFORMATION Instructions: Influenza, Adult, Mype-ms-Ylbh; Viral Illness, Adult; Rehydration, Adult; Cough, Adult, Abjd-sd-Dnzj; Dehydration, Adult, Dwje-op-Inyl Follow up: With: Address: When: REST AT HOME AND DRINK PLENTY OF FLUIDS. RETURN IF WORSE. MONITER FOR FEVER AND TREAT WITH MOTRIN OR TYLENOL. USE TAMIFLU RX Within 2 to 3 days With: Address: When: MOI ROGERS [address] [place] [address] [facility] Within 2 to 3 days Comment: Electronically signed by Tai Quintanilla Conversion Balance Wheel Arm Burnisher Cerner at 11/30/2022 6:36 PM CDT documented in this encounter Plan of Treatment Not on file documented as of this encounter Visit Diagnoses Not on filedocumented in this encounter
--- NOTE | 2025-02-25 13:00 | US_ITS ---
PROCEDURE: US OB FOLLOW UP CLINICAL INDICATION: heart and kidney views COMPARISON: US US OB /MATERNAL DETAIL from 02/19/2025 FINDINGS: Transabdominal sonographic images of the pelvis were obtained. The following parameters are obtained: From her established due date she is 21weeks 0 days Viable fetus in the cephalic presentation with an anterior placenta grade 1. The cervix measures 3.62 cm heart rate: 147bpm bpm. Amniotic fluid: MVP 3.64 cm No obvious anomalies evident. profile seen, stomach, bladder, kidneys, three-vessel cord, four chamber heart appear normal. Kidneys: Bilateral renal pelvis dilation measuring 7.0 mm and 5.9 mm Heart: Three-vessel view, LVOT, RVOT, four-chamber heart appear normal. IMPRESSION: 1. Viable fetus in the cephalic presentation with an anterior placenta grade 1. 2. The fluid is within normal limits with an MVP 3.64 cm. 3. Cardiac views today appear normal. 4. There continues to be bilateral renal pelvis dilation that has increased and now measures 7.0 mm and 5.9 mm. Suggest follow-up at 28 weeks. 5. The rest of the limited anatomical scan appears normal. Dictated by: Donnie Restrepo MD 02/25/2025 13:59 Donnie Restrepo MD in [place] 02/25/2025 13:59
== END 2025-02-25 23:59 | disposition home or self-care (01) ==
LOC: RAD 12:43
PROVIDERS: PCP Nurse Practitioner Family; Visit Provider Obstetrics & Gynecology
DX: O99.891 Other specified diseases and conditions complicating pregnancy (principal); O99.212 Obesity complicating pregnancy, second trimester; E66.9 Obesity, unspecified; N28.89 Other specified disorders of kidney and ureter; Z3A.21 21 weeks gestation of pregnancy
CPT/HCPCS: 76816

== ENCOUNTER 2025-03-11 17:07 | Outpatient (CLI) | payer OTHER, SELFPAY ==
--- OUTSIDE RECORDS SUMMARY | 2025-03-11 17:11 | XMS_ITS | Encounter Summary ---
Author Organization [employer] ([place], [place], [place], [place]) Address [address] [place] [address] Care Team Providers Care Press Feeder Name Role Phone Unavailable Primary Care Provider Unavailabl e Encounter Details Date Type Department Care Team (Late st Contact Info) Description 10/21/2018 Transcribed Document [facility] [place] [facility] [place] [address] ProviderCharley MD [address] [place] [address] Social History Tobacco Use Types Packs/Day [...] - Charley ProviderMD - 10/21/2018 9:07 PM TRANSCRIPT CLERK [address] [place] [address] Patient Information Name: SUSAN RESENDIZ Age: 18 Years Date of : 2000 Arrival Time: 10/21/2018 15:23:00 Diagnosis Acute dehydration; Influenza Primary Care Physician: MOI ROGERS PA-[facility] Provider Information Primary Provider: JULIETA MCKEE PA Secondary Provider: RESENDIZSUSAN ACE has been given the following list of patient education materials, prescriptions and follow-up instructions: Follow-up Instructions: With: Address: When: REST AT HOME AND DRINK PLENTY OF FLUIDS. RETURN IF WORSE. MONITER FOR FEVER AND TREAT WITH MOTRIN OR TYLENOL. USE TAMIFLU RX Within 2 to 3 days With: Address: When: [address] [place] [address] [facility] (1) Within 2 to 3 days Patient [...] Follow these instructions at home: ??? Take tuua-beo-mocjobj and prescription medicines only as told by [...] cannot use soap and water, use hand medical service technician. ??? Stay home from work or school [...] Wash your hands often or use hand medical service technician often. ??? Avoid contact with people who [...] 05/10/2009 Document Revised: 01/06/2017 Document Reviewed: 05/25/2016 Aeluros Interactive Patient Education ? 2017 [employer]. Viral Illness, Adult Viruses are tiny [...] Medicines to relieve symptoms. These can include qnxv-vet-qynmiea medicine for pain and fever, medicines for [...] these instructions at home: Medicines ??? Take hwkr-peu-lmziqgq and prescription medicines only as told by [...] and water are not available, use hand medical service technician. ??? Avoid close contact with friends and [...] 12/10/2016 Document Revised: 01/12/2017 Document Reviewed: 12/10/2016 ElseCedexis Interactive Patient Education ? 2017 Elsevier Inc. [...] 10/23/2012 Document Revised: 02/18/2017 Document Reviewed: 09/24/2016 Aeluros Interactive Patient Education ? 2017 [employer]. Cough, Adult Introduction A cough helps [...] lot of fat or sugar. ??? Take orbr-yen-gkzfpnq and prescription medicines only as told by [...] 05/28/2010 Document Revised: 02/18/2017 Document Reviewed: 09/24/2016 Ael[employer]s Interactive Patient Education ? 2017 [employer]. Allergies: No Known Medication Allergies Medication Information: [...] range between ( 1.0 and 7.0 ) [place] #: 0.53 K/uL -- Normal range between ( 0.24 and 0.82 ) Eos #: 0.02 K/uL -- Normal range between ( 0.04 and 0.54 ) [place] %: 4.9 % -- Normal range between [...] ) Urine Bilirubin Dipstick: Small Urine Specific [place]: 1.037 -- Normal range between ( 1.005 [...] verify that SUSAN RESENDIZ was seen at [facility] Emergency Department on ,10/21/2018 21:07:20. This is [...] Assistance with quitting is available by contacting 7-153-LCUI-NOW. This is a free resource providing counseling, [...] Electronic Communications Privacy Act 18 U.S.C. ???Sections 9981-6402,?? and contain information intended for the specified [...] computer, smartphone, or tablet. Just go to [employer] to get started. Questions? Call . Acknowledgment [...]
--- OUTSIDE RECORDS SUMMARY | 2025-03-11 17:11 | XMS_ITS | Encounter Summary ---
Author Organization [employer] ([place], [place], [place], [place]) Address [address] [place] [address] Care Team Providers Care Mailroom Coordinator Name Role Phone Unavailable Primary Care Provider Unavailabl e Encounter Details Date Type Department Care Team (Late st Contact Info) Description 10/21/2018 Transcribed Document [facility] Radiology 1 [place] [address] Oli Glover MD [address] [place] [address] Dept. [place] [address] Social History Tobacco Use Types [...] 13.7 % LOW Lymph # 1.48 K/uL [place] % 4.9 % [place] # 0.53 K/uL Eos % 0.2 % LOW Eos # 0.02 K/uL LOW Baso % 0.2 % Baso # 0.02 K/uL Slide Review No IG# 0 x10(3)/uL IG% 0 % Urine Type U CleanCatch Urine Color DK YELLOW Urine Appearance Turbid Urine Specific [place] 1.037 HI Urine pH Dipstick 5.5 LOW [...] Radiology results: Radiology Results (Last 48 hours) [id number] -- 10/21/2018 15:23 CT Head WO (10/21/2018 [...] 20:36 EST, Discharge to: Home. Prescriptions: Prescription Crew Director Pharmacy: Zofran ODT 4 mg oral tablet, disintegrating (Prescribe): 1 Tab, Oral, Q4H, for 2 Day(s), PRN: Nausea/Vomiting, 12 Tab, 0 Refill(s), Prescription Crew Director Pharmacy: Tamiflu 75 mg oral capsule (Prescribe): 1 Cap, Oral, BID, for 5 Day(s), 10 Cap, 0 Refill(s), Prescription Crew Director Pharmacy: promethazine 25 mg oral tablet (Prescribe): 1 Tab, Oral, Q4H, for 3 Day(s), CAN MAKE YOU SLEEPY, PRN: as needed for nausea/vomiting, 18 Tab, 0 Refill(s). Patient was given the following educational materials: Dehydration, Adult, Wtul-cs-Kplv, Cough, Adult, Wxve-am-Nihv, Rehydration, Adult, Viral Illness, Adult, Influenza, Adult, Gbhq-uk-Qfrs. Limitations: Limited activity. Follow up with: KHARRI KEN Within 2 to 3 days; REST AT HOME AND DRINK PLENTY OF FLUIDS. RETURN IF WORSE. MONITER FOR FEVER AND TREAT WITH MOTRIN OR TYLENOL. USE TAMIFLU RX Within 2 to 3 days. Counseled: Patient, Family, Regarding diagnosis, Regarding diagnostic results, Regarding treatment plan, Regarding prescription, Patient indicated understanding of instructions. Electronically signed by Tai Quintanilla Conversion Plating Tank Operator Apprentice Cerner at 11/30/2022 6:41 PM CDT documented in this encounter Plan of Treatment Not on file documented as of this encounter Visit Diagnoses Not on filedocumented in this encounter
--- OUTSIDE RECORDS SUMMARY | 2025-03-11 17:11 | XMS_ITS | Encounter Summary ---
Author Organization [employer] ([place], [place], [place], [place]) Address [address] [place] [address] Care Team Providers Care Headhunter Name Role Phone Unavailable Primary Care Provider Unavailabl e Encounter Details Date Type Department Care Team (Late st Contact Info) Description 10/21/2018 Transcribed Document [facility] [place] [facility] [place] [address] ProviderCharley MD [place] [address] Social History Tobacco Use Types [...] - Charley ProviderMD - 10/21/2018 3:23 PM SUBSCRIPTION CLERK ED Assessment Entered On: 10/21/2018 18:49 EST Performed On: 10/21/2018 18:48 EST by Matt Abraham Rn ED Quick Look Assessment Level of Consciousness : Alert Affect/Behavior : Appropriate, Calm, Cooperative Matt Abraham Rn - 10/21/2018 18:48 EST ED General-Functional Assess Information Obtained From : Patient Preferred Communication Mode : Verbal Communication Barrier : None Primary Language : Anguillan Any Spiritual/Cultural Needs or Requests : No [...]
--- OUTSIDE RECORDS SUMMARY | 2025-03-11 17:11 | XMS_ITS | Encounter Summary ---
Author Organization [employer] ([place], [place], [place], [place]) Address [address] [place] [address] Care Team Providers Care Bakery Deliverer Name Role Phone Unavailable Primary Care Provider Unavailabl e Encounter Details Date Type Department Care Team (Late st Contact Info) Description 10/21/2018 Transcribed Document [facility] Family Medicine [facility] [place] [address] ProviderCharley MD [facility] [place] [address] Social History Tobacco Use Types [...] - Historical ProviderMD - 10/21/2018 9:00 PM RADIATOR REPAIRER ED Discharge Entered On: 10/21/2018 21:01 EST [...] 10/21/2018 21:00 EST Electronically signed by Dwight [facility] Conversion Metallographer Cerner at 11/30/2022 6:40 PM CDT documented in this encounter Plan of Treatment Not on file documented as of this encounter Visit Diagnoses Not on filedocumented in this encounter
--- OUTSIDE RECORDS SUMMARY | 2025-03-11 17:11 | XMS_ITS | Encounter Summary ---
Author Organization [employer] ([place], [place], [place], [place]) Address [address] [place] [address] Care Team Providers Care Director Of Archives Name Role Phone Unavailable Primary Care Provider Unavailabl e Encounter Details Date Type Department Care Team (Late st Contact Info) Description 10/21/2018 Transcribed Document [facility] [place] Medicine [place] [address] ProviderCharley MD [place] [address] Social History Tobacco Use Types [...] - Historical ProviderMD - 10/21/2018 3:23 PM DIVERSITY INTERN ED Triage Entered On: 10/21/2018 15:53 EST Performed On: 10/21/2018 15:45 EST by KARO ZHONG ED Triage Across the Room Triage Date/Time : 10/21/2018 15:45 EST Chief Complaint : C/o headache, slurred spech, aoox 4, active vomiting in triage. LMP FEb 25 KARO ZHONG - 10/21/2018 15:45 EST AMANKARO Luna - 10/21/2018 15:45 EST DCP GENERIC CODE Tracking Group : [facility] ED East FARHEENKARO - 10/21/2018 15:45 EST [...] PNED ; Probability: 0 ; Diagnosis Code: [id number] Nauseated Date: 10/21/2018 ; Diagnosis Type: Reason For Visit ; Confirmation: Complaint of ; Clinical Dx: Nauseated ; Classification: Medical ; Clinical Service: Emergency medicine ; Code: PNED ; Probability: 0 ; Diagnosis Code: [id number] ED Height and Weight Height Source : Stated Height Entry Format : [place] Height, Feet : 5 ft(Converted to: 152 cm, 60 Inch) Height, Inches : 6 Inch(Converted to: 0 ft 6 Inch, 15.24 cm) Clinical Height : 167.64 cm Weight Source, ED : Critical estimated dosing weight Weight Entry Format : [place] Weight, Pounds : 145 lb Clinical Dosing Weight : 65.91 kg Body Surface Area (BSA) : 1.75 m2 Body Mass Index : 23.5 kg/m2 [place] Body Weight (IBW) : 58.88 kg KARO ZHONG - 10/21/2018 15:45 EST documented in this encounter Plan of Treatment Not on file documented as of this encounter Visit Diagnoses Not on filedocumented in this encounter
--- OUTSIDE RECORDS SUMMARY | 2025-03-11 17:11 | XMS_ITS | Encounter Summary ---
Author Organization [employer] ([place], [place], [place], [place]) Address [address] [place] [address] Care Team Providers Care Stone Cleaner Name Role Phone Unavailable Primary Care Provider Unavailabl e Encounter Details Date Type Department Care Team (Late st Contact Info) Description 10/21/2018 Transcribed Document [facility] [place] [facility] [place] [address] ProviderCharley MD [address] [place] [address] Social History Tobacco Use Types Packs/Day [...] - Historical ProviderMD - 10/21/2018 9:07 PM CANOE INSPECTOR [address] [place] [address] PERSON INFORMATION Name SUSAN RESENDIZ Age 18 Years 2000 Sex Female Language Faroese PCP MOI ROGERS [facility] Marital Status Single Med Service Emergency Medicine Acct# Arrival 10/21/2018 15:23:00 Visit Reason Nauseated; CHONG - Headache; NUMB BODY,SLURRED SPEECH,EYES DIALATED Acuity 2 - Emergent LOS 000 05:44 Depart Date: 10/21/18 09:07 PM Address: [address] [place] [address] [place] [address] Comment: PROVIDER INFORMATION Provider Role Assigned Unassigned JULIETA MCKEE PA ED Physician 10/21/2018 17:35:12 Matt Abraham, houseman Nurse 10/21/2018 18:52:47 10/21/2018 19:45:24 Angelica Philip, HOOKER LASTER Nurse 10/21/2018 19:45:25 DIAGNOSIS Acute dehydration; Influenza [...] Location: PATIENT EDUCATION INFORMATION Instructions: Influenza, Adult, [id number]; Viral Illness, Adult; Rehydration, Adult; Cough, Adult, [id number]; Dehydration, Adult, [id number] Follow up: With: Address: When: REST AT HOME AND DRINK PLENTY OF FLUIDS. RETURN IF WORSE. MONITER FOR FEVER AND TREAT WITH MOTRIN OR TYLENOL. USE TAMIFLU RX Within 2 to 3 days With: Address: When: MOI ROGERS [address] [place] [address] [facility] ([employer] Within 2 to 3 days Comment: documented in this encounter Plan of Treatment Not on file documented as of this encounter Visit Diagnoses Not on filedocumented in this encounter
--- OUTSIDE RECORDS SUMMARY | 2025-03-11 17:12 | XMS_ITS | Encounter Summary ---
Author Organization [employer] ([place], [place], [place], [place]) Address [address] [place] [address] Care Team Providers Care Computer Equipment Repairer Name Role Phone Unavailable Primary Care Provider Unavailabl e Encounter Details Date Type Department Care Team (Late st Contact Info) Description 10/21/2018 Transcribed Document [facility] [place] Family Medicine [facility] [place] [address] ProviderCharley MD [facility] [place] [address] Social History Tobacco Use Types [...] - Historical ProviderMD - 10/21/2018 7:22 PM OPERATIONS AND MAINTENANCE TECHNICAN Electronically signed by Dwight, [facility] Conversion High School Biology Teacher Cerner at 11/30/2022 6:41 PM CDT documented in this encounter Plan of Treatment Not on file documented as of this encounter Visit Diagnoses Not on filedocumented in this encounter
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
--- OUTSIDE RECORDS SUMMARY | 2025-03-11 17:12 | XMS_ITS | Referral Summary ---
Author Organization [email or web address] ([place], [place], [place], [place]) Address [address] [place] [address] Care Team Providers Care Protection Mgr Name Role Phone Unavailable Primary Care Provider [...]
--- OUTSIDE RECORDS SUMMARY | 2025-03-11 17:12 | XMS_ITS | Encounter Summary ---
Author Organization [employer] ([place], [place], [place], [place]) Address [address] [place] [address] Care Team Providers Care Application Internship Name Role Phone Unavailable Primary Care Provider Unavailabl e Encounter Details Date Type Department Care Team (Late st Contact Info) Description 10/21/2018 Transcribed Document [facility] [place] [facility] [place] [address] ProviderCharley MD [facility] [place] [address] Social History Tobacco Use Types [...] - Historical ProviderMD - 10/21/2018 8:24 PM MAILS SUPERVISOR Vital Signs ED Entered On: 10/21/2018 20:27 [...] 10/21/2018 20:24 EST Electronically signed by Dwight [facility] Conversion Land Management Forester Cerner at 11/30/2022 6:50 PM CDT documented in this encounter Plan of Treatment Not on file documented as of this encounter Visit Diagnoses Not on filedocumented in this encounter
--- OUTSIDE RECORDS SUMMARY | 2025-03-11 17:12 | XMS_ITS | Clinical Summary ---
Author Organization [employer] ([place], [place], [place], [place]) Address [address] [place] [address] Care Team Providers Care Wicker Molded Candles Name Role Phone Unavailable Primary Care Provider [...]
--- OUTSIDE RECORDS SUMMARY | 2025-03-11 17:12 | XMS_ITS | Encounter Summary ---
Author Organization [employer] ([place], [place], [place], [place]) Address [address] [place] [address] Care Team Providers Care Non Profit Job Titles Name Role Phone Unavailable Primary Care Provider Unavailabl e Encounter Details Date Type Department Care Team (Late st Contact Info) Description 10/22/2018 Transcribed Document [facility] [place] [address] [place] [address] ProviderCharley MD [address] [place] [address] Social History Tobacco Use Types [...] dizzy 10/22/2018 09:10 10/22/2018 10:41 (Sakina Smiley, Anaesthesiologist) No further action required 10/22/2018 10:41 (SANGITA FRANCO) No further action required documented in this encounter Plan of Treatment Not on file documented as of this encounter Visit Diagnoses Not on filedocumented in this encounter
--- OUTSIDE RECORDS SUMMARY | 2025-03-11 17:12 | XMS_ITS | Encounter Summary ---
Author Organization [employer] ([place], [place], [place], [place]) Address [address] [place] [address] Care Team Providers Care Powder Mill Operator Name Role Phone Unavailable Primary Care Provider Unavailabl e Encounter Details Date Type Department Care Team (Late st Contact Info) Description 10/22/2018 Transcribed Document [facility] [place] [address] [place] [address] ProviderCharley MD [facility] [place] [address] Social History Tobacco Use Types [...]
[2025-03-11 17:14] VITALS: RESP 20; BMI 36.8
[2025-03-11 17:25] LABS: Microscopic, Urine URINE MICROSCOPIC (MICROSCOPIC)
[2025-03-11 17:40] LABS: Bilirubin,Urine Negative (Negative); Color,Urine YELLOW (Yellow); Glucose,Urine (UA) Negative (Negative); Ketones,Urine Negative (Negative); Leukocyte Esterase,Urine 1+ (Negative); PH,Urine 7.0 (5.0-8.5); Protein,Urine Negative (Negative); Specific Gravity, Urine <= 1.005 (1.005-1.030); Urobilinogen,Urine 0.2 EU/dl (0.2)
[2025-03-11 18:20] LABS: Bacteria,Urine Trace /lpf
[2025-03-11] MEDS: NITROFURANTOIN 100MG CAPSULE 100 MG PO (18:28)
== END 2025-03-11 18:43 | disposition home or self-care (01) ==
LOC: OBOUT 17:10 → OB 17:10
PROVIDERS: PCP Nurse Practitioner Family; Visit Provider Nurse Practitioner Obstetrics & Gynecology
DX: O99.212 Obesity complicating pregnancy, second trimester (principal); E66.9 Obesity, unspecified; Z3A.20 20 weeks gestation of pregnancy
CPT/HCPCS: 81001; 87086

== ENCOUNTER 2025-03-14 13:30 | Outpatient (CLI) | payer OTHER, SELFPAY ==
--- OUTSIDE RECORDS SUMMARY | 2025-03-15 11:58 | XMS_ITS | Encounter Summary ---
Author Organization [employer] ([place], [place], [place], [place]) Address [address] [place] [address] Care Team Providers Care Sales Service Technician Name Role Phone Unavailable Primary Care Provider Unavailabl e Encounter Details Date Type Department Care Team (Late st Contact Info) Description 10/21/2018 Transcribed Document [facility] [place] [facility] [place] [address] ProviderCharley MD [facility] [place] [address] Social History Tobacco Use Types [...] - Historical ProviderMD - 10/21/2018 9:00 PM INTERACTIVE MEDIA MARKETING SPECIALIST ED Discharge Entered On: 10/21/2018 21:01 EST [...] Angelica Philip RN - 10/21/2018 21:00 EST documented in this encounter Plan of Treatment Not on file documented as of this encounter Visit Diagnoses Not on filedocumented in this encounter
--- OUTSIDE RECORDS SUMMARY | 2025-03-15 11:58 | XMS_ITS | Encounter Summary ---
Author Organization [employer] ([place], [place], [place], [place]) Address [address] [place] [address] Care Team Providers Care Automatic Log Cut Off Sawyer Name Role Phone Unavailable Primary Care Provider Unavailabl e Encounter Details Date Type Department Care Team (Late st Contact Info) Description 10/22/2018 Transcribed Document [facility] [place] [address] [place] [address] ProviderCharley MD [address] [place] [address] Social History Tobacco Use Types [...] dizzy 10/22/2018 09:10 10/22/2018 10:41 (Sakina Smiley, Women'S Basketball Coach) No further action required 10/22/2018 10:41 (SANGITA FRANCO) No further action required documented in this encounter Plan of Treatment Not on file documented as of this encounter Visit Diagnoses Not on filedocumented in this encounter
--- OUTSIDE RECORDS SUMMARY | 2025-03-15 11:58 | XMS_ITS | Clinical Summary ---
Author Organization [facility] Address [address] [place] [id number] Care Team Providers Care Internal Controls Manager Name Role Phone Ramiro Monroy Primary Care Provider [phone] Allergies Active Allergy Reactions Criticality Noted Date [...] HPV VACCINES Completed 07/11/2018, 01/14, 02/11/2017 Insurance [facility] [employer] Advance Directives Documents on File Type Date Recorded Patient Batch Or Continuous Still Operator Expl anation POWER OF CONSTRUCTION CODE ADMINISTRATOR - SCAN 09/25/2021 8:41 AM STANDARD POA POWER OF CONSTRUCTION CODE ADMINISTRATOR - SCAN 09/25/2021 7:22 AM STANDARD POA Care Teams Internal Controls Manager Relationship Specialty Start Date End Date Ramiro [place] [address] PCP - General Physician Hotel Reservation Agent 03/04/21
--- OUTSIDE RECORDS SUMMARY | 2025-03-15 11:58 | XMS_ITS | Encounter Summary ---
Author Organization [employer] ([place], [place], [place], [place]) Address [address] [place] [address] Care Team Providers Care Remote Sensing Scientist Name Role Phone Unavailable Primary Care Provider Unavailabl e Encounter Details Date Type Department Care Team (Late st Contact Info) Description 10/21/2018 Transcribed Document [facility] [place] [facility] [address] ProviderCharley MD [facility] [place] [address] Social History Tobacco Use Types [...] - Historical ProviderMD - 10/21/2018 7:22 PM FLATWORK CATCHER Electronically signed by Dwight, [facility] Conversion Customs Compliance Specialist Cerner at 11/30/2022 6:41 PM CDT documented in this encounter Plan of Treatment Not on file documented as of this encounter Visit Diagnoses Not on filedocumented in this encounter
--- OUTSIDE RECORDS SUMMARY | 2025-03-15 11:58 | XMS_ITS | Encounter Summary ---
Author Organization [employer] ([place], [place], [place], [place]) Address [address] [place] [address] Care Team Providers Care Healthcare Market Consultant Name Role Phone Unavailable Primary Care Provider Unavailabl e Encounter Details Date Type Department Care Team (Late st Contact Info) Description 10/22/2018 Transcribed Document [facility] [place] [address] [place] [address] ProviderCharley MD [facility] [place] [address] Social History Tobacco Use Types [...]
--- OUTSIDE RECORDS SUMMARY | 2025-03-15 11:58 | XMS_ITS | Encounter Summary ---
Author Organization [employer] ([place], [place], [place], [place]) Address [address] [place] [address] Care Team Providers Care Bullet Slugs Inspector Name Role Phone Unavailable Primary Care Provider Unavailabl e Encounter Details Date Type Department Care Team (Late st Contact Info) Description 10/21/2018 Transcribed Document [facility] [place] Family Medicine [facility] [place] [address] ProviderCharley MD [facility] [place] [address] Social History Tobacco Use Types [...] - Charley ProviderMD - 10/21/2018 3:23 PM INSTRUMENT CHECKER ED Assessment Entered On: 10/21/2018 18:49 EST Performed On: 10/21/2018 18:48 EST by Matt Abraham Rn ED Quick Look Assessment Level of Consciousness : Alert Affect/Behavior : Appropriate, Calm, Cooperative Matt Abraham Rn - 10/21/2018 18:48 EST ED General-Functional Assess Information Obtained From : Patient Preferred Communication Mode : Verbal Communication Barrier : None Primary Language : Japanese Any Spiritual/Cultural Needs or Requests : No [...]
--- OUTSIDE RECORDS SUMMARY | 2025-03-15 11:58 | XMS_ITS | Encounter Summary ---
Author Organization [employer] ([place], [place], [place], [place]) Address [address] [place] [address] Care Team Providers Care Harbor Boat Pilot Name Role Phone Unavailable Primary Care Provider Unavailabl e Encounter Details Date Type Department Care Team (Late st Contact Info) Description 10/21/2018 Transcribed Document [facility] [place] [facility] [address] ProviderCharley [place] [address] Social History Tobacco Use Types [...] - Historical ProviderMD - 10/21/2018 3:23 PM ZMT OPERATOR ED Triage Entered On: 10/21/2018 15:53 EST Performed On: 10/21/2018 15:45 EST by KARO ZHONG ED Triage Across the Room Triage Date/Time : 10/21/2018 15:45 EST Chief Complaint : C/o headache, slurred spech, aoox 4, active vomiting in triage. LMP FEb 25 KARO ZHONG - 10/21/2018 15:45 EST AMANKARO Luna - 10/21/2018 15:45 EST DCP GENERIC CODE Tracking Group : [facility] ED East FARHEENKARO - 10/21/2018 15:45 EST [...] PNED ; Probability: 0 ; Diagnosis Code: [id number] Nauseated Date: 10/21/2018 ; Diagnosis Type: Reason For Visit ; Confirmation: Complaint of ; Clinical Dx: Nauseated ; Classification: Medical ; Clinical Service: Emergency medicine ; Code: PNED ; Probability: 0 ; Diagnosis Code: [id number] ED Height and Weight Height Source : Stated Height Entry Format : [place] Height, Feet : 5 ft(Converted to: 152 cm, 60 Inch) Height, Inches : 6 Inch(Converted to: 0 ft 6 Inch, 15.24 cm) Clinical Height : 167.64 cm Weight Source, ED : Critical estimated dosing weight Weight Entry Format : [place] Weight, Pounds : 145 lb Clinical Dosing Weight : 65.91 kg Body Surface Area (BSA) : 1.75 m2 Body Mass Index : 23.5 kg/m2 [place] Body Weight (IBW) : 58.88 kg KARO ZHONG - 10/21/2018 15:45 EST documented in this encounter Plan of Treatment Not on file documented as of this encounter Visit Diagnoses Not on filedocumented in this encounter
--- OUTSIDE RECORDS SUMMARY | 2025-03-15 11:58 | XMS_ITS | Encounter Summary ---
Author Organization [employer] ([place], [place], [place], [place]) Address [address] [place] [address] Care Team Providers Care Coping Machine Assembler Name Role Phone Unavailable Primary Care Provider Unavailabl e Encounter Details Date Type Department Care Team (Late st Contact Info) Description 10/21/2018 Transcribed Document [facility] [place] [facility] [place] [address] ProviderCharley MD [facility] [place] [address] Social History Tobacco Use Types [...] - Historical ProviderMD - 10/21/2018 8:24 PM SOFTWARE PRODUCT SPECIALIST Vital Signs ED Entered On: 10/21/2018 20:27 [...] 10/21/2018 20:24 EST Electronically signed by Dwight [facility] Conversion Executive Team Leader Cerner at 11/30/2022 6:50 PM CDT documented in this encounter Plan of Treatment Not on file documented as of this encounter Visit Diagnoses Not on filedocumented in this encounter
--- OUTSIDE RECORDS SUMMARY | 2025-03-15 11:58 | XMS_ITS | Encounter Summary ---
Author Organization [employer] ([place], [place], [place], [place]) Address [address] [place] [address] Care Team Providers Care Resident Program Specialist Name Role Phone Unavailable Primary Care Provider Unavailabl e Encounter Details Date Type Department Care Team (Late st Contact Info) Description 10/21/2018 Transcribed Document [facility] [place] Family Medicine [facility] [place] [address] ProviderCharley MD [address] [place] [address] Social History Tobacco Use Types Packs/Day [...] - Historical ProviderMD - 10/21/2018 9:07 PM PUBLIC RELATIONS INTERN [address] [place] [address] PERSON INFORMATION Name SUSAN RESENDIZ Age 18 Years 2000 Sex Female Language Austrian PCP MOI ROGERS PA-[facility] Marital Status Single Med Service Emergency Medicine Acct# Arrival 10/21/2018 15:23:00 Visit Reason Nauseated; CHONG - Headache; NUMB BODY,SLURRED SPEECH,EYES DIALATED Acuity 2 - Emergent LOS 000 05:44 Depart Date: 10/21/18 09:07 PM Address: [address] [place] [address] [place] [address] Comment: PROVIDER INFORMATION Provider Role Assigned Unassigned JULIETA MCKEE PA ED Physician 10/21/2018 17:35:12 Matt Abraham, rounder hand Nurse 10/21/2018 18:52:47 10/21/2018 19:45:24 Angelica Philip, HANDLE ATTACHER Nurse 10/21/2018 19:45:25 DIAGNOSIS Acute dehydration; Influenza [...] Location: PATIENT EDUCATION INFORMATION Instructions: Influenza, Adult, Nozq-be-Lpqd; Viral Illness, Adult; Rehydration, Adult; Cough, Adult, Huke-ct-Cmtd; Dehydration, Adult, Wnop-zc-Xnzp Follow up: With: Address: When: REST AT HOME AND DRINK PLENTY OF FLUIDS. RETURN IF WORSE. MONITER FOR FEVER AND TREAT WITH MOTRIN OR TYLENOL. USE TAMIFLU RX Within 2 to 3 days With: Address: When: MOI ROGERS [address] [place] [address] [facility] ([employer] Within 2 to 3 days Comment: Electronically signed by Tai Quintanilla Conversion Hydroelectric Powerplant Supervisor Cerner at 11/30/2022 6:36 PM CDT documented in this encounter Plan of Treatment Not on file documented as of this encounter Visit Diagnoses Not on filedocumented in this encounter
--- OUTSIDE RECORDS SUMMARY | 2025-03-15 11:58 | XMS_ITS | Referral Summary ---
Author Organization [employer] ([place], [place], [place], [place]) Address [address] [place] [address] Care Team Providers Care Support Assistant Name Role Phone Unavailable Primary Care [...]
--- OUTSIDE RECORDS SUMMARY | 2025-03-15 11:58 | XMS_ITS | Clinical Summary ---
Author Organization [employer] ([place], [place], [place], [place]) Address [address] [place] [address] Care Team Providers Care Bag Sealer Name Role Phone Unavailable Primary Care Provider [...]
--- OUTSIDE RECORDS SUMMARY | 2025-03-15 11:58 | XMS_ITS | Encounter Summary ---
Author Organization [employer] ([place], [place], [place], [place]) Address [address] [place] [address] Care Team Providers Care Electrical Engineering Technologist Name Role Phone Unavailable Primary Care Provider Unavailabl e Encounter Details Date Type Department Care Team (Late st Contact Info) Description 10/21/2018 Transcribed Document [facility] [place] Family Medicine [facility] [place] [address] ProviderCharley MD [address] [place] [address] Social History Tobacco Use Types Packs/Day [...] - Charley ProviderMD - 10/21/2018 9:07 PM TRANSFER TABLE OPERATOR HELPER [address] [place] [address] Patient Information Name: SUSAN RESENDIZ Age: 18 Years Date of : 2000 Arrival Time: 10/21/2018 15:23:00 Diagnosis Acute dehydration; Influenza Primary Care Physician: MOI ROGERS PA[facility] Provider Information Primary Provider: JULIETA MCKEE PA Secondary Provider: SUSAN RESENDIZ has been given the following list of patient education materials, prescriptions and follow-up instructions: Follow-up Instructions: With: Address: When: REST AT HOME AND DRINK PLENTY OF FLUIDS. RETURN IF WORSE. MONITER FOR FEVER AND TREAT WITH MOTRIN OR TYLENOL. USE TAMIFLU RX Within 2 to 3 days With: Address: When: [address] [facility] [place] [address] [facility] (1) Within 2 to 3 days Patient [...] Follow these instructions at home: ??? Take oxjq-uyd-eaiygyz and prescription medicines only as told by [...] cannot use soap and water, use hand paint technician. ??? Stay home from work or [...] Wash your hands often or use hand paint technician often. ??? Avoid contact with people [...] 05/10/2009 Document Revised: 01/06/2017 Document Reviewed: 05/25/2016 [employer] Interactive Patient Education ? 2017 [employer]utation Inc. Viral Illness, Adult Viruses are tiny [...] Medicines to relieve symptoms. These can include srvs-ypo-zumwjdo medicine for pain and fever, medicines for [...] these instructions at home: Medicines ??? Take dmye-vkq-jyhrplm and prescription medicines only as told by [...] and water are not available, use hand paint technician. ??? Avoid close contact with friends [...] 12/10/2016 Document Revised: 01/12/2017 Document Reviewed: 12/10/2016 [employer] Interactive Patient Education ? 2017 Elsevier Inc. [...] 10/23/2012 Document Revised: 02/18/2017 Document Reviewed: 09/24/2016 [employer] Interactive Patient Education ? 2017 [employer] Inc. Cough, Adult Introduction A cough helps [...] lot of fat or sugar. ??? Take qbfm-bqu-cuemlxf and prescription medicines only as told by [...] 05/28/2010 Document Revised: 02/18/2017 Document Reviewed: 09/24/2016 [employer] Interactive Patient Education ? 2017 [employer]. Allergies: No Known Medication Allergies Medication Information: [...] range between ( 1.0 and 7.0 ) [place] #: 0.53 K/uL -- Normal range between ( 0.24 and 0.82 ) Eos #: 0.02 K/uL -- Normal range between ( 0.04 and 0.54 ) [place] %: 4.9 % -- Normal range between [...] ) Urine Bilirubin Dipstick: Small Urine Specific [place]: 1.037 -- Normal range between ( 1.005 [...] verify that SUSAN RESENDIZ was seen at [facility] Emergency Department on ,10/21/2018 21:07:20. This [...] Assistance with quitting is available by contacting 6-806-UJJQ-NOW. This is a free resource providing counseling, [...] Electronic Communications Privacy Act 18 U.S.C. ???Sections 4427-2077,?? and contain information intended for the specified [...] computer, smartphone, or tablet. Just go to [email or web address] to get started. Questions? Call . Acknowledgment [...]
--- OUTSIDE RECORDS SUMMARY | 2025-03-15 11:58 | XMS_ITS | Encounter Summary ---
Author Organization [employer] ([place], [place], [place], [place]) Address [address] [place] [address] Care Team Providers Care Service Observer Name Role Phone Unavailable Primary Care Provider Unavailabl e Encounter Details Date Type Department Care Team (Late st Contact Info) Description 10/21/2018 Transcribed Document [facility] Radiology [address] [place] [address] Oli Glover MD [address] [place] [address] Dept[place] [address] Social History Tobacco Use Types [...] 13.7 % LOW Lymph # 1.48 K/uL Cherry % 4.9 % Cherry # 0.53 K/uL Eos % 0.2 % LOW Eos # 0.02 K/uL LOW Baso % 0.2 % Baso # 0.02 K/uL Slide Review No IG# 0 x10(3)/uL IG% 0 % Urine Type U CleanCatch Urine Color DK YELLOW Urine Appearance Turbid Urine Specific [place] 1.037 HI Urine pH Dipstick 5.5 LOW [...] Radiology results: Radiology Results (Last 48 hours) [id number] -- 10/21/2018 15:23 CT Head WO (10/21/2018 [...] 20:36 EST, Discharge to: Home. Prescriptions: Prescription [facility]: Zofran ODT 4 mg oral tablet, disintegrating (Prescribe): 1 Tab, Oral, Q4H, for 2 Day(s), PRN: Nausea/Vomiting, 12 Tab, 0 Refill(s), Prescription [facility]: Tamiflu 75 mg oral capsule (Prescribe): 1 Cap, Oral, BID, for 5 Day(s), 10 Cap, 0 Refill(s), Prescription [facility]: promethazine 25 mg oral tablet (Prescribe): 1 Tab, Oral, Q4H, for 3 Day(s), CAN MAKE YOU SLEEPY, PRN: as needed for nausea/vomiting, 18 Tab, 0 Refill(s). Patient was given the following educational materials: Dehydration, Adult, Umqi-wt-Yqlg, Cough, Adult, Ujva-wa-Ntnv, Rehydration, Adult, Viral Illness, Adult, Influenza, Adult, Chnv-ij-Scpz. Limitations: Limited activity. Follow up with: KHARRI [...] instructions. Electronically signed by Tai Quintanilla Conversion Microstrategy Reports Developer Cerner at 11/30/2022 6:41 PM CDT documented in this encounter Plan of Treatment Not on file documented as of this encounter Visit Diagnoses Not on filedocumented in this encounter
[2025-03-15 20:10] LABS: Neisseria gonorrhoeae, NAA Negative (Negative)
== END 2025-03-14 23:59 | disposition home or self-care (01) ==
LOC: LAB.DROPOF 03-15 11:57
PROVIDERS: PCP Obstetrics & Gynecology; Visit Provider Obstetrics & Gynecology
DX: O20.9 Hemorrhage in early pregnancy, unspecified (principal); O99.210 Obesity complicating pregnancy, unspecified trimester; R10.9 Unspecified abdominal pain
CPT/HCPCS: 87086; 87491; 87591; 87798; 87801

== ENCOUNTER 2025-04-18 12:45 | Outpatient (CLI) | payer OTHER, SELFPAY ==
--- OUTSIDE RECORDS SUMMARY | 2025-04-18 12:48 | XMS_ITS | Clinical Summary ---
Author Organization [facility] Address [address] [place] [id number] Care Team Providers Care Forest Fire Warden Name Role Phone Ramiro Monroy Primary Care Provider [phone] Allergies Active Allergy Reactions Criticality Noted Date [...] HPV VACCINES Completed 07/11/2018, 01/14, 02/11/2017 Insurance [facility] [employer] Advance Directives Documents on File Type Date Recorded Patient Photoengraver Expl anation POWER OF TRAVEL JOURNALIST - SCAN 09/25/2021 8:41 AM STANDARD POA POWER OF TRAVEL JOURNALIST - SCAN 09/25/2021 7:22 AM STANDARD POA Care Teams Forest Fire Warden Relationship Specialty Start Date End Date Rami[place] [address] PCP - General Physician President & Ceo 03/04/21
--- NOTE | 2025-04-18 13:00 | US_ITS ---
PROCEDURE: US OB FOLLOW UP CLINICAL INDICATION: growth and renal dilation COMPARISON: US US OB /MATERNAL DETAIL from 02/19/2025 US US OB FOLLOW UP from 02/25/2025 FINDINGS: Transabdominal sonographic images of the pelvis were obtained. The following parameters are obtained: From her established due date she is 28weeks 3days Viable fetus in the cephalic presentation with an anterior placenta grade 1. The cervix measures 3.2 cm heart rate: 150bpm bpm. Average ultrasound age 29 weeks 2 days Estimated weight 1305 grams, 2 lb 14 oz BPD: 30weeks 2days, 88 percentile HC: 28weeks 5days, 26 percentile AC: 28weeks 3days, 42 percentile FL: 29weeks 4days, 66 percentile HC/AC: 1.09 FL/BPD: 0.74 FL/AC: 0.23 Growth percentile: 56 Amniotic fluid index: 11.72cm, MVP 4.82 cm No obvious anomalies evident. profile seen, stomach, bladder, kidneys, three-vessel cord, four chamber heart appear normal. There continues to be mild bilateral renal pelvis dilation measuring 6 mm and 5.2 mm. IMPRESSION: 1. Viable fetus in the cephalic presentation with anterior placenta grade 1. 2. The fluid is within normal limits with an amniotic fluid index 11.72 cm, MVP 4.82 cm. 3. There has been good interval growth with the fetus currently 56th percentile. 4. There continues to be mild bilateral renal pelvis dilation measuring 6 mm and 5.2 mm. 5. The rest of the anatomical scan appears normal. Dictated by: Donnie Restrepo MD 04/19/2025 07:30 Donnie Restrepo MD in [place] 04/19/2025 07:30
== END 2025-04-18 23:59 | disposition home or self-care (01) ==
LOC: RAD 12:46
PROVIDERS: PCP Nurse Practitioner Family; Visit Provider Obstetrics & Gynecology
DX: O99.891 Other specified diseases and conditions complicating pregnancy (principal); O99.213 Obesity complicating pregnancy, third trimester; E66.9 Obesity, unspecified; N28.89 Other specified disorders of kidney and ureter; Z3A.28 28 weeks gestation of pregnancy
CPT/HCPCS: 76816

== ENCOUNTER 2025-04-23 09:03 | Outpatient (CLI) | payer OTHER, SELFPAY ==
--- NOTE | 2025-04-23 09:00 | US_ITS ---
FINAL REPORT TECHNIQUE: Sonographic images of the right upper quadrant were obtained. CLINICAL HISTORY: upper abdominal pain COMPARISON: None FINDINGS: PANCREAS: Not well-visualized secondary to overlying bowel gas. LIVER: Homogeneous. No focal hepatic lesion. No intrahepatic biliary ductal dilatation. GALLBLADDER: No gallstones. There is a small amount of sludge present in the gallbladder. No gallbladder wall thickening or pericholecystic fluid. COMMON DUCT: 3 mm. Normal for age. RIGHT KIDNEY: The right kidney measures 10.8 cm. There is no hydronephrosis, mass, or stone. FREE FLUID: None. IMPRESSION: Small amount of sludge is present in the gallbladder without evidence of biliary ductal dilatation or gallbladder wall thickening. Reviewed, Interpreted and Dictated by Willow Pollock MD Transcribed by Diane Kennedy Authenticated and [facility]
--- OUTSIDE RECORDS SUMMARY | 2025-04-23 09:13 | XMS_ITS | Clinical Summary ---
Author Organization [facility] Address [address] [place] [id number] Care Team Providers Care Recoverer Name Role Phone Ramiro Monroy Primary Care Provider [phone] Allergies Active Allergy Reactions Criticality Noted Date [...] Tdap) 01/24/2022 01/25/2012 COVID-19 Vaccine ( season) 2025 INFLUENZA VACCINE 05/15/2025 Pneumococcal Vaccine 0-49 Aged Out 2000, 2001, 2000, Additional history exists No longer eligible based on patient's age to complete this topic HPV VACCINES Completed 07/11/2018, 01/14, 02/11/2017 Insurance [facility] [employer] Advance Directives Documents on File Type Date Recorded Patient Disaster Recovery Manager Expl anation POWER OF FLEET SALESPERSON - SCAN 09/25/2021 8:41 AM STANDARD POA POWER OF FLEET SALESPERSON - SCAN 09/25/2021 7:22 AM STANDARD POA Care Teams Recoverer Relationship Specialty Start Date End Date Ramiro [place] [address] PCP - General Physician Grades 7 And 8 Visiting Teacher 03/04/21
[2025-04-23 10:51] LABS: Hematocrit 37.3 % (37.0-47.0); Hemoglobin 12.5 g/dL (12.2-16.2); Immature Granulocytes % 0.4 %; Mean Corpuscular HGB Conc 33.5 g/dL (31.8-35.4); Mean Corpuscular Hemoglobin 29.8 pg (27.0-31.2); Mean Corpuscular Volume 88.8 fl (81-99); Nucleated Red Blood Cells % 0 %; Platelet Count 156 K/mm3 (142-424); Red Blood Count 4.20 M/mm3 (4.20-5.40); Red Cell Distribution Width-SD 42.8 fL; White Blood Count 9.9 K/mm3 (4.8-10.8)
[2025-04-23 11:02] LABS: Glucose 1 Hour 170 mg/dL (74-100)
[2025-04-23 11:43] LABS: Alanine Aminotransferase 15 U/L (12-78); Albumin Level 3.1 g/dl (3.5-5.0); Albumin/Globulin Ratio 1.1 (1.1-1.8); Alkaline Phosphatase 101 U/L (38-126); Anion Gap 7.7 mEq/L (5-15); Aspartate Amino Transferase 25 U/L (14-36); Bilirubin,Total 0.4 mg/dl (0.2-1.3); Blood Urea Nitrogen 4 mg/dl (7-17); Calcium 8.6 mg/dl (8.4-10.2); Carbon Dioxide 25 mmol/L (22.0-30.0); Chloride 105 mmol/L (98-107); Creatinine,Serum 0.50 mg/dl (0.52-1.04); Estimated Glomerular Filt Rate 150 ml/min (>60); GFR (African American) 182 ML/MIN (>60); Globulin 2.7 g/dL (1.3-3.2); Glucose 162 mg/dl (74-100); Lipase 121 U/L (23-300); Potassium 3.7 mmoL/L (3.5-5.1); Sodium 134 mmol/L (136-145); Total Protein,Serum 5.8 g/dl (6.3-8.2)
[2025-04-23 16:17] LABS: RPR W/RFX Titers Nonreactive (Nonreactive)
== END 2025-04-23 23:59 | disposition home or self-care (01) ==
PROVIDERS: Obstetrics & Gynecology; PCP Nurse Practitioner Obstetrics & Gynecology; Visit Provider Nurse Practitioner Obstetrics & Gynecology
DX: O26.899 Other specified pregnancy related conditions, unspecified trimester (principal); O99.210 Obesity complicating pregnancy, unspecified trimester; O20.9 Hemorrhage in early pregnancy, unspecified; K82.8 Other specified diseases of gallbladder; E66.9 Obesity, unspecified; R10.10 Upper abdominal pain, unspecified; Z3A.00 Weeks of gestation of pregnancy not specified
CPT/HCPCS: 36415; 76705; 80053; 82947; 83690; 85025; 86592

== ENCOUNTER 2025-04-25 08:38 | Outpatient (CLI) | payer OTHER, SELFPAY ==
--- OUTSIDE RECORDS SUMMARY | 2025-04-25 08:56 | XMS_ITS | Encounter Summary ---
Author Organization [employer] ([place], [place], [place], [place]) Address [address] [place] [address] Care Team Providers Care Certified Nurse Name Role Phone Unavailable Primary Care Provider Unavailabl e Encounter Details Date Type Department Care Team (Late st Contact Info) Description 10/21/2018 Transcribed Document [facility] Family Medicine [facility] [place] [address] ProviderCharley MD [facility] [place] [address] Social History Tobacco Use Types [...] - Historical ProviderMD - 10/21/2018 8:24 PM INDUSTRY ANALYST Vital Signs ED Entered On: 10/21/2018 20:27 [...] - 10/21/2018 20:24 EST Electronically signed by [facility] [facility] Conversion Production Machine Shop Supervisor Cerner at 11/30/2022 6:50 PM CDT documented in this encounter Plan of Treatment Not on file documented as of this encounter Visit Diagnoses Not on filedocumented in this encounter
--- OUTSIDE RECORDS SUMMARY | 2025-04-25 08:56 | XMS_ITS | Encounter Summary ---
Author Organization [employer] ([place], [place], [place], [place]) Address [address] [place] [address] Care Team Providers Care Timber Management Assistant Name Role Phone Unavailable Primary Care Provider Unavailabl e Encounter Details Date Type Department Care Team (Late st Contact Info) Description 10/22/2018 Transcribed Document [facility] [place] [address] [place] [address] ProviderCharley MD [address] [place] [address] Social History Tobacco Use Types [...] dizzy 10/22/2018 09:10 10/22/2018 10:41 (Sakina Smiley, Mixing Machine Feeder) No further action required 10/22/2018 10:41 (SANGITA FRANCO) No further action required documented in this encounter Plan of Treatment Not on file documented as of this encounter Visit Diagnoses Not on filedocumented in this encounter
--- OUTSIDE RECORDS SUMMARY | 2025-04-25 08:56 | XMS_ITS | Encounter Summary ---
Author Organization [employer] ([place], [place], [place], [place]) Address [address] [place] [address] Care Team Providers Care Automatic Lump Making Machine Tender Name Role Phone Unavailable Primary Care Provider Unavailabl e Encounter Details Date Type Department Care Team (Late st Contact Info) Description 10/21/2018 Transcribed Document [facility] [place] [facility] [place] [address] ProviderCharley MD [address] [place] [address] Social History Tobacco Use Types Packs/Day [...] - Charley ProviderMD - 10/21/2018 9:07 PM DELINQUENT TAX COLLECTION ASSISTANT [address] [place] [address] Patient Information Name: SUSAN RESENDIZ Age: 18 Years Date of : 2000 Arrival Time: 10/21/2018 15:23:00 Diagnosis Acute dehydration; Influenza Primary Care Physician: MOI ROGERS [facility] Provider Information Primary Provider: JULIETA MCKEE PA Secondary Provider: SUSAN RESENDIZ has been given the following list of patient education materials, prescriptions and follow-up instructions: Follow-up Instructions: With: Address: When: REST AT HOME AND DRINK PLENTY OF FLUIDS. RETURN IF WORSE. MONITER FOR FEVER AND TREAT WITH MOTRIN OR TYLENOL. USE TAMIFLU RX Within 2 to 3 days With: Address: When: [address] [place] [address] [facility] (1) Within 2 to 3 days Patient [...] Follow these instructions at home: ??? Take emss-nyw-xnaswjs and prescription medicines only as told by [...] cannot use soap and water, use hand slime plant operator helper. ??? Stay home from work or school [...] Wash your hands often or use hand slime plant operator helper often. ??? Avoid contact with people who [...] 05/10/2009 Document Revised: 01/06/2017 Document Reviewed: 05/25/2016 [employer] Interactive Patient Education ? 2017 Property [employer] Inc. Viral Illness, Adult Viruses are tiny [...] Medicines to relieve symptoms. These can include kklq-sam-cxixkpy medicine for pain and fever, medicines for [...] these instructions at home: Medicines ??? Take ameu-vaa-edkjoje and prescription medicines only as told by [...] and water are not available, use hand slime plant operator helper. ??? Avoid close contact with friends and [...] 12/10/2016 Document Revised: 01/12/2017 Document Reviewed: 12/10/2016 ElseAB Tasty Interactive Patient Education ? 2017 Elsevier Inc. [...] 10/23/2012 Document Revised: 02/18/2017 Document Reviewed: 09/24/2016 [employer] Interactive Patient Education ? 2017 [employer] Inc. Cough, Adult Introduction A cough helps [...] lot of fat or sugar. ??? Take pwpn-qyn-ehdumjm and prescription medicines only as told by [...] 05/28/2010 Document Revised: 02/18/2017 Document Reviewed: 09/24/2016 [employer] Interactive Patient Education ? 2017 [employer]rik. Allergies: No Known Medication Allergies Medication Information: [...] range between ( 1.0 and 7.0 ) [place] #: 0.53 K/uL -- Normal range between ( 0.24 and 0.82 ) Eos #: 0.02 K/uL -- Normal range between ( 0.04 and 0.54 ) [place] %: 4.9 % -- Normal range between [...] ) Urine Bilirubin Dipstick: Small Urine Specific [place]: 1.037 -- Normal range between ( 1.005 [...] verify that SUSAN RESENDIZ was seen at [facility] Emergency Department on ,10/21/2018 21:07:20. [...] Assistance with quitting is available by contacting 8-068-SDFG-NOW. This is a free resource providing counseling, [...] Electronic Communications Privacy Act 18 U.S.C. ???Sections 3157-3437,?? and contain information intended for the specified [...] computer, smartphone, or tablet. Just go to [employer] to get started. Questions? Call . Acknowledgment [...]
--- OUTSIDE RECORDS SUMMARY | 2025-04-25 08:56 | XMS_ITS | Encounter Summary ---
Author Organization [employer] ([place], [place], [place], [place]) Address [address] [place] [address] Care Team Providers Care Repair Department Supervisor Name Role Phone Unavailable Primary Care Provider Unavailabl e Encounter Details Date Type Department Care Team (Late st Contact Info) Description 10/21/2018 Transcribed Document [facility] [place] [facility] [place] [address] ProviderCharley MD [facility] [place] [address] Social History Tobacco Use Types [...] - Historical ProviderMD - 10/21/2018 9:00 PM SURGEON ASSISTANT ED Discharge Entered On: 10/21/2018 21:01 EST [...] 10/21/2018 21:00 EST Electronically signed by [facility] Conversion Progressive Care Manager Cerner at 11/30/2022 6:40 PM CDT documented in this encounter Plan of Treatment Not on file documented as of this encounter Visit Diagnoses Not on filedocumented in this encounter
--- OUTSIDE RECORDS SUMMARY | 2025-04-25 08:56 | XMS_ITS | Referral Summary ---
Author Organization [employer] ([place], [place], [place], [place]) Address [address] [place] [address] Care Team Providers Care Pet Walker Name Role Phone Unavailable Primary Care Provider [...]
--- OUTSIDE RECORDS SUMMARY | 2025-04-25 08:56 | XMS_ITS | Encounter Summary ---
Author Organization [employer] ([place], [place], [place], [place]) Address [address] [place] [address] Care Team Providers Care Pattern Maker Programer Name Role Phone Unavailable Primary Care Provider Unavailabl e Encounter Details Date Type Department Care Team (Late st Contact Info) Description 10/21/2018 Transcribed Document [facility] [place] [facility] [place] [address] ProviderCharley MD [facility] [place] [address] Social History Tobacco Use Types [...] - Historical ProviderMD - 10/21/2018 3:23 PM FUNERAL HOME ASSISTANT ED Triage Entered On: 10/21/2018 15:53 EST Performed On: 10/21/2018 15:45 EST by KARO ZHONG ED Triage Across the Room Triage Date/Time : 10/21/2018 15:45 EST Chief Complaint : C/o headache, slurred spech, aoox 4, active vomiting in triage. LMP FEb 25 KARO ZHONG - 10/21/2018 15:45 EST AMANKARO Luna - 10/21/2018 15:45 EST DCP GENERIC CODE Tracking Group : [facility] ED [place] FARHEENKARO - 10/21/2018 15:45 EST Tracking Acuity : 2 - Emergent KARO ZHONG - 10/21/2018 15:53 EST Mode of Arrival [...] PNED ; Probability: 0 ; Diagnosis Code: [id number] Nauseated Date: 10/21/2018 ; Diagnosis Type: Reason For Visit ; Confirmation: Complaint of ; Clinical Dx: Nauseated ; Classification: Medical ; Clinical Service: Emergency medicine ; Code: PNED ; Probability: 0 ; Diagnosis Code: [id number] ED Height and Weight Height Source : Stated Height Entry Format : [place] Height, Feet : 5 ft(Converted to: 152 cm, 60 Inch) Height, Inches : 6 Inch(Converted to: 0 ft 6 Inch, 15.24 cm) Clinical Height : 167.64 cm Weight Source, ED : Critical estimated dosing weight Weight Entry Format : [place] Weight, Pounds : 145 lb Clinical Dosing Weight : 65.91 kg Body Surface Area (BSA) : 1.75 m2 Body Mass Index : 23.5 kg/m2 [place] Body Weight (IBW) : 58.88 kg KARO ZHONG - 10/21/2018 15:45 EST documented in this encounter Plan of Treatment Not on file documented as of this encounter Visit Diagnoses Not on filedocumented in this encounter
--- OUTSIDE RECORDS SUMMARY | 2025-04-25 08:56 | XMS_ITS | Clinical Summary ---
Author Organization [facility] Address [address] [place] [id number] Care Team Providers Care Jalousie Installer Name Role Phone Ramiro Monroy Primary Care Provider Allergies Active Allergy Reactions Criticality Noted Date [...] HPV VACCINES Completed 07/11/2018, 01/14, 02/11/2017 Insurance [facility] [employer] [place] Advance Directives Documents on File Type Date Recorded Patient Order Builder Loader Expl anation POWER OF LANE MARKER INSTALLER - SCAN 09/25/2021 8:41 AM STANDARD POA POWER OF LANE MARKER INSTALLER - SCAN 09/25/2021 7:22 AM STANDARD POA Care Teams Jalousie Installer Relationship Specialty Start Date End Date Ramiro [place] [address] PCP - General Physician Tour Actor 03/04/21
--- OUTSIDE RECORDS SUMMARY | 2025-04-25 08:56 | XMS_ITS | Encounter Summary ---
Author Organization [employer] ([place], [place], [place], [place]) Address [address] [place] [address] Care Team Providers Care Program Coordinator Name Role Phone Unavailable Primary Care Provider Unavailabl e Encounter Details Date Type Department Care Team (Late st Contact Info) Description 10/21/2018 Transcribed Document [facility] [place] [facility] [place] [address] ProviderCharley MD [address] [place] [address] Social History Tobacco Use Types Packs/Day [...] - Historical ProviderMD - 10/21/2018 9:07 PM ELECTRICAL AUTOMATION ENGINEER [address] [place] [address] PERSON INFORMATION Name SUSAN RESENDIZ Age 18 Years 2000 Sex Female Language Korean PCP MOI ROGERS PA-[employer] Marital Status Single Med Service Emergency Medicine Acct# Arrival 10/21/2018 15:23:00 Visit Reason Nauseated; CHONG - Headache; NUMB BODY,SLURRED SPEECH,EYES DIALATED Acuity 2 - Emergent LOS 000 05:44 Depart Date: 10/21/18 09:07 PM Address: [address] [place] [address] [place] [address] Comment: PROVIDER INFORMATION Provider Role Assigned Unassigned JULIETA MCKEE PA ED Physician 10/21/2018 17:35:12 Matt Abraham, doll maker Nurse 10/21/2018 18:52:47 10/21/2018 19:45:24 Angelica Philip, ANNEALING OVEN OPERATOR Nurse 10/21/2018 19:45:25 DIAGNOSIS Acute dehydration; Influenza [...] Location: PATIENT EDUCATION INFORMATION Instructions: Influenza, Adult, Wmkx-fg-Hivo; Viral Illness, Adult; Rehydration, Adult; Cough, Adult, Hisu-ck-Dkjg; Dehydration, Adult, Nzbf-kp-Ookb Follow up: With: Address: When: REST AT HOME AND DRINK PLENTY OF FLUIDS. RETURN IF WORSE. MONITER FOR FEVER AND TREAT WITH MOTRIN OR TYLENOL. USE TAMIFLU RX Within 2 to 3 days With: Address: When: MOI ROGERS [address] [place] [address] [facility] ([employer] Within 2 to 3 days Comment: documented in this encounter Plan of Treatment Not on file documented as of this encounter Visit Diagnoses Not on filedocumented in this encounter
--- OUTSIDE RECORDS SUMMARY | 2025-04-25 08:56 | XMS_ITS | Encounter Summary ---
Author Organization [employer] ([place], [place], [place], [place]) Address [address] [place] [address] Care Team Providers Care Home Paraprofessional Name Role Phone Unavailable Primary Care Provider Unavailabl e Encounter Details Date Type Department Care Team (Late st Contact Info) Description 10/21/2018 Transcribed Document [facility] Radiology [address] [place] [address] Oli Glover MD [address] [place] [address] Dept. [place] [address] Social History Tobacco Use Types [...] Acute dehydration; Nauseated; CHONG - Headache Author: JUILETA MCKEE PA Basic Information Time seen: Date [...] 13.7 % LOW Lymph # 1.48 K/uL Avery % 4.9 % Avery # 0.53 K/uL Eos % 0.2 % LOW Eos # 0.02 K/uL LOW Baso % 0.2 % Baso # 0.02 K/uL Slide Review No IG# 0 x10(3)/uL IG% 0 % Urine Type U CleanCatch Urine Color DK YELLOW Urine Appearance Turbid Urine Specific [place] 1.037 HI Urine pH Dipstick 5.5 LOW [...] Radiology results: Radiology Results (Last 48 hours) [id number] -- 10/21/2018 15:23 CT Head WO (10/21/2018 [...] 20:36 EST, Discharge to: Home. Prescriptions: Prescription [facility]: Zofran ODT 4 mg oral tablet, disintegrating (Prescribe): 1 Tab, Oral, Q4H, for 2 Day(s), PRN: Nausea/Vomiting, 12 Tab, 0 Refill(s), Prescription [facility]: Tamiflu 75 mg oral capsule (Prescribe): 1 Cap, Oral, BID, for 5 Day(s), 10 Cap, 0 Refill(s), Prescription [facility]: promethazine 25 mg oral tablet (Prescribe): 1 Tab, Oral, Q4H, for 3 Day(s), CAN MAKE YOU SLEEPY, PRN: as needed for nausea/vomiting, 18 Tab, 0 Refill(s). Patient was given the following educational materials: Dehydration, Adult, Jxvv-ub-Xigd, Cough, Adult, Jrvr-zz-Cpuw, Rehydration, Adult, Viral Illness, Adult, Influenza, Adult, Xhzc-yq-Sgbs. Limitations: Limited activity. Follow up with: KHARRI [...]
--- OUTSIDE RECORDS SUMMARY | 2025-04-25 08:56 | XMS_ITS | Encounter Summary ---
Author Organization [employer] ([place], [place], [place], [place]) Address [address] [place] [address] Care Team Providers Care Curriculum Developer Name Role Phone Unavailable Primary Care Provider Unavailabl e Encounter Details Date Type Department Care Team (Late st Contact Info) Description 10/22/2018 Transcribed Document [facility] [place] Family Medicine [address] [place] [address] ProviderCharley MD [facility] [place] [address] Social History Tobacco Use Types [...] required Electronically signed by Tai Quintanilla Conversion Chemical Operations And Training Cerner at 11/30/2022 6:40 PM CDT documented in this encounter Plan of Treatment Not on file documented as of this encounter Visit Diagnoses Not on filedocumented in this encounter
--- OUTSIDE RECORDS SUMMARY | 2025-04-25 08:56 | XMS_ITS | Clinical Summary ---
Author Organization [employer] ([place], [place], [place], [place]) Address [address] [place] [address] Care Team Providers Care Gamb Cutter Name Role Phone Unavailable Primary Care Provider [...]
--- OUTSIDE RECORDS SUMMARY | 2025-04-25 08:56 | XMS_ITS | Encounter Summary ---
Author Organization [employer] ([place], [place], [place], [place]) Address [address] [place] [address] Care Team Providers Care Aircraft Engine Technician Name Role Phone Unavailable Primary Care Provider Unavailabl e Encounter Details Date Type Department Care Team (Late st Contact Info) Description 10/21/2018 Transcribed Document [facility] [place] [facility] [place] [address] ProviderCharley MD [facility] [place] [address] Social History Tobacco Use Types [...] - Charley ProviderMD - 10/21/2018 3:23 PM HARDWARE SUPPLIES SALES REPRESENTATIVE ED Assessment Entered On: 10/21/2018 18:49 EST Performed On: 10/21/2018 18:48 EST by Matt Abraham Rn ED Quick Look Assessment Level of Consciousness : Alert Affect/Behavior : Appropriate, Calm, Cooperative Matt Abraham Rn - 10/21/2018 18:48 EST ED General-Functional Assess Information Obtained From : Patient Preferred Communication Mode : Verbal Communication Barrier : None Primary Language : Danish Any Spiritual/Cultural Needs or Requests : No [...] Matt Abraham Rn - 10/21/2018 18:48 EST Electronically signed by Tai Quintanilla Conversion Semiautomatic Stitcher Operator Cerner at 11/30/2022 6:41 PM CDT documented in this encounter Plan of Treatment Not on file documented as of this encounter Visit Diagnoses Not on filedocumented in this encounter
--- OUTSIDE RECORDS SUMMARY | 2025-04-25 08:56 | XMS_ITS | Encounter Summary ---
Author Organization [employer] ([place], [place], [place], [place]) Address [address] [place] [address] Care Team Providers Care Automation Lead Name Role Phone Unavailable Primary Care Provider Unavailabl e Encounter Details Date Type Department Care Team (Late st Contact Info) Description 10/21/2018 Transcribed Document [facility] [place] [facility] [place] [address] ProviderCharley MD [facility] [place] [address] Social History Tobacco Use Types [...] - Historical ProviderMD - 10/21/2018 7:22 PM SHIPPING TECHNICIAN Electronically signed by Dwight, [facility] Conversion Christmas Tree Contractor Cerner at 11/30/2022 6:41 PM CDT documented in this encounter Plan of Treatment Not on file documented as of this encounter Visit Diagnoses Not on filedocumented in this encounter
[2025-04-25 09:02] LABS: Hematocrit 38.3 % (37.0-47.0); Hemoglobin 13.1 g/dL (12.2-16.2); Immature Granulocytes % 0.6 %; Mean Corpuscular HGB Conc 34.2 g/dL (31.8-35.4); Mean Corpuscular Hemoglobin 30.4 pg (27.0-31.2); Mean Corpuscular Volume 88.9 fl (81-99); Nucleated Red Blood Cells % 0 %; Platelet Count 160 K/mm3 (142-424); Red Blood Count 4.31 M/mm3 (4.20-5.40); Red Cell Distribution Width-SD 43.0 fL; White Blood Count 10.9 K/mm3 (4.8-10.8)
[2025-04-25 09:10] LABS: Glucose,Fasting 87 mg/dl (74-100)
[2025-04-25 17:18] LABS: Glucose 1 Hour 133 mg/dL (74-100); Glucose 2 Hour 121 mg/dL (74-100); Glucose 3 Hour 54 mg/dL (74-100)
== END 2025-04-25 23:59 | disposition home or self-care (01) ==
LOC: LAB 08:39
PROVIDERS: PCP Nurse Practitioner Family; Visit Provider Obstetrics & Gynecology
DX: O20.9 Hemorrhage in early pregnancy, unspecified (principal); O99.210 Obesity complicating pregnancy, unspecified trimester; O35.EXX0 Maternal care for other (suspected) fetal abnormality and damage, fetal genitourinary anomalies, not applicable or unspecified; R73.09 Other abnormal glucose; E66.9 Obesity, unspecified; Z3A.00 Weeks of gestation of pregnancy not specified
CPT/HCPCS: 36415; 82951; 85025

== ENCOUNTER 2025-05-14 15:20 | Outpatient (CLI) | payer OTHER, SELFPAY ==
--- OUTSIDE RECORDS SUMMARY | 2025-05-14 15:23 | XMS_ITS | Clinical Summary ---
Author Organization [facility] Address [address] [place] [id number] Care Team Providers Care Boardinghouse Keeper Name Role Phone Ramiro Monroy Primary Care Provider [phone] Allergies Active Allergy Reactions Criticality Noted Date [...] (2 - Td or Tdap) 01/24/2022 01/25/2012 INFLUENZA VACCINE 03/15/2025 Pneumococcal Vaccine 0-49 Aged Out 2000, 2001, 2000, Additional history exists No longer eligible based on patient's age to complete this topic HPV VACCINES Completed 07/11/2018, 01/14, 02/11/2017 Insurance [facility] [employer] [facility] Advance Directives Documents on File Type Date Recorded Patient Chef Instructor Expl anation POWER OF BOX SEALING MACHINE OPERATOR - SCAN 09/25/2021 8:41 AM STANDARD POA POWER OF BOX SEALING MACHINE OPERATOR - SCAN 09/25/2021 7:22 AM STANDARD POA Care Teams Boardinghouse Keeper Relationship Specialty Start Date End Date Ramiro Monroy [place] [address] PCP - General Physician Chemistry Laboratory Technician 03/04/21
[2025-05-14 15:48] VITALS: BP 109/63; PULSE 98; RESP 18; TEMP 37.2; O2SAT 96; BMI 37.4
[2025-05-14 15:49] LABS: Microscopic, Urine URINE MICROSCOPIC (MICROSCOPIC)
[2025-05-14 16:28] LABS: Bilirubin,Urine Negative (Negative); Color,Urine YELLOW (Yellow); Glucose,Urine (UA) Negative (Negative); Ketones,Urine TRACE (Negative); Leukocyte Esterase,Urine Negative (Negative); PH,Urine 8.5 (5.0-8.5); Protein,Urine TRACE (Negative); Specific Gravity, Urine 1.015 (1.005-1.030); Urobilinogen,Urine 0.2 EU/dl (0.2)
[2025-05-14 16:45] LABS: Bacteria,Urine 2+ /lpf
== END 2025-05-14 17:16 | disposition home or self-care (01) ==
LOC: OBOUT 15:22 → OB 15:22
PROVIDERS: PCP Nurse Practitioner Family; Visit Provider Nurse Practitioner Obstetrics & Gynecology
DX: O26.893 Other specified pregnancy related conditions, third trimester (principal); R10.2 Pelvic and perineal pain; Z3A.32 32 weeks gestation of pregnancy
CPT/HCPCS: 59025; 81001; 87086; 99212; G0463

== ENCOUNTER 2025-05-30 09:33 | Outpatient (CLI) | payer OTHER, SELFPAY ==
--- NOTE | 2025-05-30 09:30 | US_ITS ---
PROCEDURE: US OB BPP W/FET-MAT S/D CLINICAL INDICATION: needs the week of 05/27/25; BPP and growth COMPARISON: US US OB /MATERNAL DETAIL from 02/19/2025 US US OB FOLLOW UP from 02/25/2025 US US OB FOLLOW UP from 04/18/2025 FINDINGS: Transabdominal sonographic images of the uterus were obtained. From her established due date she is 34weeks 3days. The following parameters are obtained: Viable Fetus in the cephalic presentation with an anterior placenta grade 2. Cervix measures 2.93 cm in length. Average ultrasound age is 34weeks 0 days Estimated weight 2,209g, 4 lb 14 oz Measurements: heart Rate = 135bpm BPD = 34weeks 6days, 63 percentile HC = 34weeks 2days, 12 percentile AC = 33weeks 3days, 23 percentile FL = 33weeks 2days, 13 percentile HC/AC is 1.05 FL/BPD is 0.74 FL/AC is 0.22 20 percentile Amniotic fluid index: 9.6cm, MVP 5.20 cm Qualitative AFV:2 Breathing movements: 2 Gross Body Movements: 2 Tone: 2 Biophysical profile score: 8 Doppler evaluation of the umbilical artery: SD ratio: 2.10-2.18. Resistive index: 0.54 No obvious anomalies evident.Profile, stomach, bladder, four-chamber heart, three-vessel cord appear normal. kidneys: There continues to be bilateral renal pelvis dilation measuring 7.2 mm and 6.7 mm IMPRESSION: 1. Viable fetus in the cephalic presentation with an anterior placenta grade 2. 2. The fluid is within normal limits with an amniotic fluid index 9.60 cm, MVP 5.2 cm. 3. Biophysical profile is 8/8 with good breathing movement and movement seen. 4. SD ratio is normal 2.10-2.18. 5. There has been good interval growth with the fetus currently 20th percentile. 6. There continues to be mild bilateral renal pelvis dilation measuring 6.7 mm and 7.2 mm. Suggest follow-up with the hoop punch and coiler operator helper . 7. The rest of the limited anatomical scan appears normal. Dictated by: Donnie Restrepo MD 05/30/2025 16:37 Donnie Restrepo MD in [place] 05/30/2025 16:37
--- OUTSIDE RECORDS SUMMARY | 2025-05-30 09:44 | XMS_ITS | Encounter Summary ---
Author Organization [employer] ([place], [place], [place], [place]) Address [address] [place] [address] Care Team Providers Care Online Merchandising Manager Name Role Phone Unavailable Primary Care Provider Unavailabl e Encounter Details Date Type Department Care Team (Late st Contact Info) Description 10/21/2018 Transcribed Document [facility] [place] [facility] [place] [address] ProviderCharley MD [address] [place] [address] Social History Tobacco Use Types Packs/Day [...] - Historical ProviderMD - 10/21/2018 9:07 PM MINT MACHINE OPERATOR [address] [place] [address] PERSON INFORMATION Name SUSAN RESENDIZ Age 18 Years 2000 Sex Female Language Yakut PCP MOI ROGERS PA[facility] Marital Status Single Med Service Emergency Medicine Acct# Arrival 10/21/2018 15:23:00 Visit Reason Nauseated; CHONG - Headache; NUMB BODY,SLURRED SPEECH,EYES DIALATED Acuity 2 - Emergent LOS 000 05:44 Depart Date: 10/21/18 09:07 PM Address: [address] [place] [address] [place] [address] Comment: PROVIDER INFORMATION Provider Role Assigned Unassigned JULIETA MCKEE PA ED Physician 10/21/2018 17:35:12 Matt Abrhaam, contracting executive Nurse 10/21/2018 18:52:47 10/21/2018 19:45:24 Angelica Philip, INTELLIGENCE RESEARCH SPECIALIST Nurse 10/21/2018 19:45:25 DIAGNOSIS Acute dehydration; Influenza [...] Location: PATIENT EDUCATION INFORMATION Instructions: Influenza, Adult, Tcjq-vs-Cszx; Viral Illness, Adult; Rehydration, Adult; Cough, Adult, Debq-qf-Hput; Dehydration, Adult, Bdri-eh-Lnla Follow up: With: Address: When: REST AT HOME AND DRINK PLENTY OF FLUIDS. RETURN IF WORSE. MONITER FOR FEVER AND TREAT WITH MOTRIN OR TYLENOL. USE TAMIFLU RX Within 2 to 3 days With: Address: When: MOI ROGERS [address] [place] [address] [facility] ([employer] Within 2 to 3 days Comment: documented in this encounter Plan of Treatment Not on file documented as of this encounter Visit Diagnoses Not on filedocumented in this encounter
--- OUTSIDE RECORDS SUMMARY | 2025-05-30 09:44 | XMS_ITS | Clinical Summary ---
Author Organization [facility] Address [address] [place] [id number] Care Team Providers Care Towel Stretcher Name Role Phone Ramiro Monroy Primary Care Provider [phone] Allergies Active Allergy Reactions Criticality Noted Date [...] HPV VACCINES Completed 07/11/2018, 01/14, 02/11/2017 Insurance [facility] [employer] [facility] Advance Directives Documents on File Type Date Recorded Patient Sweat Band Sewer Expl anation POWER OF MARINE FIREFIGHTER - SCAN 09/25/2021 8:41 AM STANDARD POA POWER OF MARINE FIREFIGHTER - SCAN 09/25/2021 7:22 AM STANDARD POA Care Teams Towel Stretcher Relationship Specialty Start Date End Date Ramiro [place] [address] PCP - General Physician Electrician Bus 03/04/21
--- OUTSIDE RECORDS SUMMARY | 2025-05-30 09:44 | XMS_ITS | Encounter Summary ---
Author Organization [employer] ([place], [place], [place], [place]) Address [address] [place] [address] Care Team Providers Care Wood Crew Supervisor Name Role Phone Unavailable Primary Care Provider Unavailabl e Encounter Details Date Type Department Care Team (Late st Contact Info) Description 10/21/2018 Transcribed Document [facility] [place] [facility] [place] [address] ProviderCharley MD [address] [place] [address] Social History Tobacco Use Types Packs/Day [...] - Charley ProviderMD - 10/21/2018 9:07 PM STRIPPER OPAQUER [address] [place] [address] Patient Information Name: SUSAN RESENDIZ Age: 18 Years Date of : 2000 Arrival Time: 10/21/2018 15:23:00 Diagnosis Acute dehydration; Influenza Primary Care Physician: MOI ROGERS [facility] Provider Information Primary Provider: JULIETA MCKEE PA Secondary Provider: SUSAN RESENDIZ has been given the following list of patient education materials, prescriptions and follow-up instructions: Follow-up Instructions: With: Address: When: REST AT HOME AND DRINK PLENTY OF FLUIDS. RETURN IF WORSE. MONITER FOR FEVER AND TREAT WITH MOTRIN OR TYLENOL. USE TAMIFLU RX Within 2 to 3 days With: Address: When: [facility] [address] [place] [address] [facility] (1) Within 2 to 3 [...] Follow these instructions at home: ??? Take xjep-tzx-udzajyo and prescription medicines only as told by [...] cannot use soap and water, use hand belt machine operator. ??? Stay home from work or school [...] Wash your hands often or use hand belt machine operator often. ??? Avoid contact with people who [...] 05/10/2009 Document Revised: 01/06/2017 Document Reviewed: 05/25/2016 [employer] Interactive Patient Education ? 2017 [employer] Viral Illness, Adult Viruses are tiny [...] Medicines to relieve symptoms. These can include gqsx-anp-emcrqbm medicine for pain and fever, medicines for [...] these instructions at home: Medicines ??? Take hkyp-vry-miwwffb and prescription medicines only as told by [...] and water are not available, use hand belt machine operator. ??? Avoid close contact with friends and [...] 12/10/2016 Document Revised: 01/12/2017 Document Reviewed: 12/10/2016 [employer] Interactive Patient Education ? 2017 [employer] Inc. [...] 10/23/2012 Document Revised: 02/18/2017 Document Reviewed: 09/24/2016 [employer] Interactive Patient Education ? 2017 [employer] Cough, Adult Introduction A cough helps [...] lot of fat or sugar. ??? Take dlhl-jrl-ncdjygf and prescription medicines only as told by [...] 05/28/2010 Document Revised: 02/18/2017 Document Reviewed: 09/24/2016 [employer] Interactive Patient Education ? 2017 [employer]. Allergies: No Known Medication Allergies Medication Information: [...] range between ( 1.0 and 7.0 ) [place] #: 0.53 K/uL -- Normal range between ( 0.24 and 0.82 ) Eos #: 0.02 K/uL -- Normal range between ( 0.04 and 0.54 ) [place] %: 4.9 % -- Normal range between [...] ) Urine Bilirubin Dipstick: Small Urine Specific [place]: 1.037 -- Normal range between ( 1.005 [...] verify that SUSAN RESENDIZ was seen at [facility] Emergency Department on ,10/21/2018 21:07:20. [...] Assistance with quitting is available by contacting 4-661-UQEF-NOW. This is a free resource providing counseling, [...] Electronic Communications Privacy Act 18 U.S.C. ???Sections 6412-9255,?? and contain information intended for the specified [...] computer, smartphone, or tablet. Just go to [employer] to get started. Questions? Call . Acknowledgment [...]
--- OUTSIDE RECORDS SUMMARY | 2025-05-30 09:44 | XMS_ITS | Encounter Summary ---
Author Organization [employer] ([place], [place], [place], [place]) Address [address] [place] [address] Care Team Providers Care Straight Truck Driver Name Role Phone Unavailable Primary Care Provider Unavailabl e Encounter Details Date Type Department Care Team (Late st Contact Info) Description 10/22/2018 Transcribed Document [facility] [place] Family Medicine [address] [place] [address] ProviderCharley MD [facility] [place] [address] Social History Tobacco Use Types [...]
--- OUTSIDE RECORDS SUMMARY | 2025-05-30 09:44 | XMS_ITS | Encounter Summary ---
Author Organization [employer] ([place], [place], [place], [place]) Address [address] [place] [address] Care Team Providers Care Director Of Supply Chain Name Role Phone Unavailable Primary Care Provider Unavailabl e Encounter Details Date Type Department Care Team (Late st Contact Info) Description 10/21/2018 Transcribed Document [facility] [place] [facility] [place] [address] ProviderCharley MD [facility] [place] [place] [address] Social History Tobacco Use Types [...] - Historical ProviderMD - 10/21/2018 8:24 PM INFORMATION SYSTEMS ADMINISTRATOR Vital Signs ED Entered On: 10/21/2018 20:27 [...] 10/21/2018 20:24 EST Electronically signed by Dwight [employer] Conversion Head Sawyer Automatic Cerner at 11/30/2022 6:50 PM CDT documented in this encounter Plan of Treatment Not on file documented as of this encounter Visit Diagnoses Not on filedocumented in this encounter
--- OUTSIDE RECORDS SUMMARY | 2025-05-30 09:44 | XMS_ITS | Encounter Summary ---
Author Organization [employer] ([place], [place], [place], [place]) Address [address] [place] [address] Care Team Providers Care Fitness Leader Name Role Phone Unavailable Primary Care Provider Unavailabl e Encounter Details Date Type Department Care Team (Late st Contact Info) Description 10/21/2018 Transcribed Document [facility] Radiology [address] [place] [address] Oli Glover MD [address] [place] [address] Dept[place] [address] Social History Tobacco Use Types [...] 13.7 % LOW Lymph # 1.48 K/uL [place] % 4.9 % [place] # 0.53 K/uL Eos % 0.2 % LOW Eos # 0.02 K/uL LOW Baso % 0.2 % Baso # 0.02 K/uL Slide Review No IG# 0 x10(3)/uL IG% 0 % Urine Type U CleanCatch Urine Color DK YELLOW Urine Appearance Turbid Urine Specific [place] 1.037 HI Urine pH Dipstick 5.5 LOW [...] Radiology results: Radiology Results (Last 48 hours) [id number] -- 10/21/2018 15:23 CT Head WO (10/21/2018 [...] 20:36 EST, Discharge to: Home. Prescriptions: Prescription [facility]: Zofran ODT 4 mg oral tablet, disintegrating (Prescribe): 1 Tab, Oral, Q4H, for 2 Day(s), PRN: Nausea/Vomiting, 12 Tab, 0 Refill(s), Prescription [facility]: Tamiflu 75 mg oral capsule (Prescribe): 1 Cap, Oral, BID, for 5 Day(s), 10 Cap, 0 Refill(s), Prescription [facility]: promethazine 25 mg oral tablet (Prescribe): 1 Tab, Oral, Q4H, for 3 Day(s), CAN MAKE YOU SLEEPY, PRN: as needed for nausea/vomiting, 18 Tab, 0 Refill(s). Patient was given the following educational materials: Dehydration, Adult, Qqus-pe-Grca, Cough, Adult, Ajer-ku-Yadc, Rehydration, Adult, Viral Illness, Adult, Influenza, Adult, Tkrq-sn-Mzbv. Limitations: Limited activity. Follow up with: KHARRI [...]
--- OUTSIDE RECORDS SUMMARY | 2025-05-30 09:44 | XMS_ITS | Clinical Summary ---
Author Organization [email or web address] ([place], [place], [place], [place]) Address [address] [place] [address] Care Team Providers Care Cutter And Paster Press Clippings Name Role Phone Unavailable Primary Care Provider [...]
--- OUTSIDE RECORDS SUMMARY | 2025-05-30 09:44 | XMS_ITS | Referral Summary ---
Author Organization [employer] ([place], [place], [place], [place]) Address [address] [place] [address] Care Team Providers Care Carpenter Streetcar Name Role Phone Unavailable Primary Care Provider [...]
--- OUTSIDE RECORDS SUMMARY | 2025-05-30 09:44 | XMS_ITS | Encounter Summary ---
Author Organization [employer] ([place], [place], [place], [place]) Address [address] [place] [address] Care Team Providers Care Stage Electrician Helper Name Role Phone Unavailable Primary Care Provider Unavailabl e Encounter Details Date Type Department Care Team (Late st Contact Info) Description 10/21/2018 Transcribed Document [facility] [place] [facility] [place] [address] ProviderCharley MD [facility] [place] [address] Social History Tobacco Use Types [...] - Historical ProviderMD - 10/21/2018 3:23 PM TEMPLATE CLERK ED Triage Entered On: 10/21/2018 15:53 EST Performed On: 10/21/2018 15:45 EST by KARO ZHONG ED Triage Across the Room Triage Date/Time : 10/21/2018 15:45 EST Chief Complaint : C/o headache, slurred spech, aoox 4, active vomiting in triage. LMP FEb 25 KARO ZHONG - 10/21/2018 15:45 EST AMANKARO Luna - 10/21/2018 15:45 EST DCP GENERIC CODE Tracking Group : [facility] ED [place] AMANKARO Luna - 10/21/2018 15:45 EST Tracking Acuity : [...] PNED ; Probability: 0 ; Diagnosis Code: [id number] Nauseated Date: 10/21/2018 ; Diagnosis Type: Reason For Visit ; Confirmation: Complaint of ; Clinical Dx: Nauseated ; Classification: Medical ; Clinical Service: Emergency medicine ; Code: PNED ; Probability: 0 ; Diagnosis Code: [id number] ED Height and Weight Height Source : Stated Height Entry Format : [place] Height, Feet : 5 ft(Converted to: 152 cm, 60 Inch) Height, Inches : 6 Inch(Converted to: 0 ft 6 Inch, 15.24 cm) Clinical Height : 167.64 cm Weight Source, ED : Critical estimated dosing weight Weight Entry Format : [place] Weight, Pounds : 145 lb Clinical Dosing Weight : 65.91 kg Body Surface Area (BSA) : 1.75 m2 Body Mass Index : 23.5 kg/m2 [place] Body Weight (IBW) : 58.88 kg KARO ZHONG - 10/21/2018 15:45 EST documented in this encounter Plan of Treatment Not on file documented as of this encounter Visit Diagnoses Not on filedocumented in this encounter
--- OUTSIDE RECORDS SUMMARY | 2025-05-30 09:44 | XMS_ITS | Encounter Summary ---
Author Organization [employer] ([place], [place], [place], [place]) Address [address] [place] [address] Care Team Providers Care Rate Analyst Name Role Phone Unavailable Primary Care Provider Unavailabl e Encounter Details Date Type Department Care Team (Late st Contact Info) Description 10/22/2018 Transcribed Document [facility] Family Medicine [address] [place] [address] ProviderCharley MD [address] [place], [...] dizzy 10/22/2018 09:10 10/22/2018 10:41 (Sakina Smiley, Rug Clipper) No further action required 10/22/2018 10:41 (SANGITA FRANCO) No further action required Electronically signed by Tai Quintanilla Conversion Insurance And Benefits Clerk Cerner at 11/30/2022 6:36 PM CDT documented in this encounter Plan of Treatment Not on file documented as of this encounter Visit Diagnoses Not on filedocumented in this encounter
--- OUTSIDE RECORDS SUMMARY | 2025-05-30 09:44 | XMS_ITS | Encounter Summary ---
Author Organization [employer] ([place], [place], [place], [place]) Address [address] [place] [address] Care Team Providers Care Name Role Phone Unavailable Primary Care Provider Unavailabl e Encounter Details Date Type Department Care Team (Late st Contact Info) Description 10/21/2018 Transcribed Document [facility] Family Medicine [facility] [place] [address] ProviderCharley MD [place] [address] Social History Tobacco Use Types [...] - Historical ProviderMD - 10/21/2018 7:22 PM DRIVING SCHOOL INSTRUCTOR Electronically signed by Dwight, [facility] Conversion Bag Machine Adjuster Cerner at 11/30/2022 6:41 PM CDT documented in this encounter Plan of Treatment Not on file documented as of this encounter Visit Diagnoses Not on filedocumented in this encounter
--- OUTSIDE RECORDS SUMMARY | 2025-05-30 09:44 | XMS_ITS | Encounter Summary ---
Author Organization [employer] ([place], [place], [place], [place]) Address [address] [place] [address] Care Team Providers Care Contract Assistant Name Role Phone Unavailable Primary Care Provider Unavailabl e Encounter Details Date Type Department Care Team (Late st Contact Info) Description 10/21/2018 Transcribed Document [facility] Family Medicine [facility] [place] [address] ProviderCharley MD [facility] [place] [address] Social History Tobacco Use Types [...] - Charley ProviderMD - 10/21/2018 3:23 PM ADMINISTRATIVE APPEALS TRIBUNAL MEMBER ED Assessment Entered On: 10/21/2018 18:49 EST Performed On: 10/21/2018 18:48 EST by Matt Abraham Rn ED Quick Look Assessment Level of Consciousness : Alert Affect/Behavior : Appropriate, Calm, Cooperative Matt Abraham Rn - 10/21/2018 18:48 EST ED General-Functional Assess Information Obtained From : Patient Preferred Communication Mode : Verbal Communication Barrier : None Primary Language : Italian Any Spiritual/Cultural Needs or Requests : No [...]
--- OUTSIDE RECORDS SUMMARY | 2025-05-30 09:44 | XMS_ITS | Encounter Summary ---
Author Organization [employer] ([place], [place], [place], [place]) Address [address] [place] [address] Care Team Providers Care Incident Response Specialist Name Role Phone Unavailable Primary Care Provider Unavailabl e Encounter Details Date Type Department Care Team (Late st Contact Info) Description 10/21/2018 Transcribed Document [facility] [place] [facility] [place] [address] ProviderCharley MD [facility] [place] [address] Social History Tobacco Use Types [...] - Historical ProviderMD - 10/21/2018 9:00 PM TRAINING SYSTEMS OFFICER ED Discharge Entered On: 10/21/2018 21:01 EST [...] 21:00 EST Electronically signed by Dwight [facility] Conversion Web Analytics Specialist Cerner at 11/30/2022 6:40 PM CDT documented in this encounter Plan of Treatment Not on file documented as of this encounter Visit Diagnoses Not on filedocumented in this encounter
== END 2025-05-30 23:59 | disposition home or self-care (01) ==
LOC: RAD 09:33
PROVIDERS: PCP Nurse Practitioner Family; Visit Provider Obstetrics & Gynecology
DX: O35.EXX0 Maternal care for other (suspected) fetal abnormality and damage, fetal genitourinary anomalies, not applicable or unspecified (principal); O99.213 Obesity complicating pregnancy, third trimester; E66.9 Obesity, unspecified; Z3A.34 34 weeks gestation of pregnancy
CPT/HCPCS: 76811; 76819; 76820

== ENCOUNTER 2025-06-02 18:21 | Outpatient (CLI) | payer OTHER, SELFPAY ==
--- OUTSIDE RECORDS SUMMARY | 2025-06-02 18:25 | XMS_ITS | Clinical Summary ---
Author Organization [facility] Address [address] [place] [id number] Care Team Providers Care Forensic Materials Engineer Name Role Phone Ramiro Monroy Primary Care Provider [phone] Allergies Active Allergy Reactions Criticality Noted Date [...] 01/14, 02/11/2017 Insurance [facility] [employer] [facility] Advance Directives Documents on File Type Date Recorded Patient Administrative Assistant Receptionist Expl anation POWER OF VACUUM SYSTEM TESTER - SCAN 09/25/2021 8:41 AM STANDARD POA POWER OF VACUUM SYSTEM TESTER - SCAN 09/25/2021 7:22 AM STANDARD POA Care Teams Forensic Materials Engineer Relationship Specialty Start Date End Date Ramiro [place]roy [place] [address] PCP - General Physician [place] Dental Lab Technician 03/04/21
[2025-06-02 18:54] VITALS: BP 107/68; PULSE 110; RESP 18; TEMP 36.9; O2SAT 95; BMI 38.7
[2025-06-02 18:58] LABS: Microscopic, Urine URINE MICROSCOPIC (MICROSCOPIC)
[2025-06-02 19:07] LABS: Bilirubin,Urine Negative (Negative); Color,Urine YELLOW (Yellow); Glucose,Urine (UA) Negative (Negative); Ketones,Urine Negative (Negative); Leukocyte Esterase,Urine 1+ (Negative); PH,Urine 6.0 (5.0-8.5); Protein,Urine Negative (Negative); Specific Gravity, Urine 1.010 (1.005-1.030); Urobilinogen,Urine 0.2 EU/dl (0.2)
[2025-06-02 19:14] LABS: Fetal Membrane Rupture (Rapid) Negative (Negative)
== END 2025-06-02 19:43 | disposition home or self-care (01) ==
LOC: OBOUT 18:23 → OB 18:25
PROVIDERS: PCP Student in an Organized Health Care Education/Training Program; Visit Provider Obstetrics & Gynecology
DX: Z34.83 Encounter for supervision of other normal pregnancy, third trimester (principal); Z3A.35 35 weeks gestation of pregnancy
CPT/HCPCS: 59025; 81001; 84112; 87086; 99212; G0463

== ENCOUNTER 2025-06-10 10:17 | Outpatient (CLI) | payer OTHER, SELFPAY ==
--- NOTE | 2025-06-10 10:15 | US_ITS ---
PROCEDURE: US OB FOLLOW UP CLINICAL INDICATION: growth and renal dilation follow up COMPARISON: US US OB /MATERNAL DETAIL from 02/19/2025 US US OB FOLLOW UP from 02/25/2025 US US OB FOLLOW UP from 04/18/2025 US US OB BPP W/FET-MAT S/D from 05/30/2025 FINDINGS: Transabdominal sonographic images of the pelvis were obtained. The following parameters are obtained: From her established due date she is 36weeks 0 days Viable fetus in the cephalic presentation with an anterior placenta grade 2. The cervix measures 3.58 cm in length. 11.4 cm, MVP 7.31 cm. heart rate: 144bpm bpm. Average ultrasound age 35 weeks 5 days Estimated weight 2610 grams, 5 lb 12 oz BPD: 36weeks 1day, 61 percentile HC: 35weeks 5days, 15 percentile AC: 34weeks 5days, 21 percent FL: 35weeks 6day, 38 per s HC/AC: 1.04 FL/BPD: 0.78 FL/AC: 0.23 Growth percentile: 28 Amniotic fluid index: 11.4cm, MVP 7.31 cm No obvious anomalies evident. profile seen, stomach, bladder, kidneys, three-vessel cord, four chamber heart appear normal. There is mild bilateral renal pelvis dilation measuring 5.7 mm and 6.5 mm. IMPRESSION: 1. Viable fetus in the cephalic presentation with an anterior placenta grade 2. 2. The fluid is within normal limits with an amniotic fluid index 11.4 cm, MVP 7.31 cm. 3. There has been good interval growth with the fetus currently 28th percentile. 4. There continues to be mild bilateral renal pelvis dilation measuring 5.7 mm and 6.5 mm. Considered normal at this stage of . 5. The rest of the limited anatomical scan appears normal. Dictated by: Donnie Restrepo MD 06/10/2025 15:54 Donnie Restrepo MD in [place] 06/10/2025 15:54
--- OUTSIDE RECORDS SUMMARY | 2025-06-10 10:28 | XMS_ITS | Clinical Summary ---
Author Organization [facility] Address [address] [place] [id number] Care Team Providers Care Dog Beautician Name Role Phone Ramiro Monroy Primary Care Provider [phone] Allergies Active Allergy Reactions Criticality Noted Date [...] HPV VACCINES Completed 07/11/2018, 01/14, 02/11/2017 Insurance [facility] [employer] [facility] Advance Directives Documents on File Type Date Recorded Patient Medical Geneticist Expl anation POWER OF MIXING TANK OPERATOR - SCAN 09/25/2021 8:41 AM STANDARD POA POWER OF MIXING TANK OPERATOR - SCAN 09/25/2021 7:22 AM STANDARD POA Care Teams Dog Beautician Relationship Specialty Start Date End Date Ramiro Monroy [place] [address] PCP - General Physician Trolley Operator 03/04/21
== END 2025-06-10 23:59 | disposition home or self-care (01) ==
LOC: RAD 10:17
PROVIDERS: PCP Nurse Practitioner Family; Visit Provider Obstetrics & Gynecology
DX: O35.EXX0 Maternal care for other (suspected) fetal abnormality and damage, fetal genitourinary anomalies, not applicable or unspecified (principal); O99.513 Diseases of the respiratory system complicating pregnancy, third trimester; O99.213 Obesity complicating pregnancy, third trimester; J45.909 Unspecified asthma, uncomplicated; E66.9 Obesity, unspecified; Z3A.36 36 weeks gestation of pregnancy
CPT/HCPCS: 76816

== ENCOUNTER 2025-06-14 18:26 | Outpatient (CLI) | payer OTHER, SELFPAY ==
--- OUTSIDE RECORDS SUMMARY | 2025-06-14 18:29 | XMS_ITS | Encounter Summary ---
Author Organization [employer] ([place], [place], [place], [place], [place]) Address [address] [place] [address] Care Team Providers Care Web Services Architect Name Role Phone Unavailable Primary Care Provider Unavailabl e Encounter Details Date Type Department Care Team (Late st Contact Info) Description 10/22/2018 Transcribed Document [facility] Family Medicine [address] [place] [address] ProviderCharley MD [address] [place] [address] Social History Tobacco Use Types [...]
--- OUTSIDE RECORDS SUMMARY | 2025-06-14 18:29 | XMS_ITS | Encounter Summary ---
Author Organization [employer] ([place], [place], [place], [place], [place]) Address [address] [place] [address] Care Team Providers Care Senior Cyber Security Analyst Name Role Phone Unavailable Primary Care Provider Unavailabl e Encounter Details Date Type Department Care Team (Late st Contact Info) Description 10/21/2018 Transcribed Document [facility] Family Medicine [facility] [place] [address] ProviderCharley MD [facility] [place] [address] Social History Tobacco Use Types [...] - Historical ProviderMD - 10/21/2018 9:00 PM COMMUNITY MENTAL HEALTH SOCIAL WORKER ED Discharge Entered On: 10/21/2018 21:01 EST [...] 10/21/2018 21:00 EST Electronically signed by Dwight [facility] Conversion Cement Despatch Operator Cerner at 11/30/2022 6:40 PM CDT documented in this encounter Plan of Treatment Not on file documented as of this encounter Visit Diagnoses Not on filedocumented in this encounter
--- OUTSIDE RECORDS SUMMARY | 2025-06-14 18:29 | XMS_ITS | Encounter Summary ---
Author Organization [employer] ([place], [place], [place], [place], [place]) Address [address] [place] [address] Care Team Providers Care Cytogenetics Technologist Name Role Phone Unavailable Primary Care Provider Unavailabl e Encounter Details Date Type Department Care Team (Late st Contact Info) Description 10/21/2018 Transcribed Document [facility] [place] [facility] [place] [address] ProviderCharley MD [facility] [place] [address] Social History Tobacco Use Types [...] - Historical ProviderMD - 10/21/2018 9:07 PM CERTIFIED ENERGY MANAGER [address] [address] Patient Information Name: SUSAN RESENDIZ Age: 18 Years Date of : 2000 Arrival Time: 10/21/2018 15:23:00 Diagnosis Acute dehydration; Influenza Primary Care Physician: MOI ROGERS [facility] Provider Information Primary Provider: JULIETA MCKEE PA Secondary Provider: RESENDIZSUSAN ACE has been given the following list of patient education materials, prescriptions and follow-up instructions: Follow-up Instructions: With: Address: When: REST AT HOME AND DRINK PLENTY OF FLUIDS. RETURN IF WORSE. MONITER FOR FEVER AND TREAT WITH MOTRIN OR TYLENOL. USE TAMIFLU RX Within 2 to 3 days With: Address: When: [address] [facility] [place] [address] Business (1) Within 2 to 3 days Patient [...] Follow these instructions at home: ??? Take grcz-mva-rctyhwv and prescription medicines only as told by [...] cannot use soap and water, use hand button tufter. ??? Stay home from work or school [...] Wash your hands often or use hand button tufter often. ??? Avoid contact with people who [...] 05/10/2009 Document Revised: 01/06/2017 Document Reviewed: 05/25/2016 [employer] Interactive Patient Education ? 2017 [employer] Viral Illness, Adult Viruses are tiny [...] Medicines to relieve symptoms. These can include sdgw-fjk-uoovamj medicine for pain and fever, medicines for [...] these instructions at home: Medicines ??? Take ibyr-qjq-rkqdbvo and prescription medicines only as told by [...] and water are not available, use hand button tufter. ??? Avoid close contact with friends and [...] 12/10/2016 Document Revised: 01/12/2017 Document Reviewed: 12/10/2016 [employer] Interactive Patient Education ? 2017 [employer] Rehydration, Adult Rehydration is the replacement [...] 10/23/2012 Document Revised: 02/18/2017 Document Reviewed: 09/24/2016 [employer] Interactive Patient Education ? 2017 [employer] Cough, Adult Introduction A cough helps [...] lot of fat or sugar. ??? Take chip-ytk-laottdr and prescription medicines only as told by [...] 05/28/2010 Document Revised: 02/18/2017 Document Reviewed: 09/24/2016 [employer] Interactive Patient Education ? 2017 [employer]. Allergies: No Known Medication Allergies Medication Information: [...] range between ( 1.0 and 7.0 ) Oliver #: 0.53 K/uL -- Normal range between ( 0.24 and 0.82 ) Eos #: 0.02 K/uL -- Normal range between ( 0.04 and 0.54 ) Oliver %: 4.9 % -- Normal range between [...] ) Urine Bilirubin Dipstick: Small Urine Specific [place]: 1.037 -- Normal range between ( 1.005 [...] verify that SUSAN RESENDIZ was seen at [facility] Emergency Department on ,10/21/2018 21:07:20. This [...] along the way. As a healthcare provider, E recommends that you stop smoking. Assistance with quitting is available by contacting 8-942-HQPM-NOW. This is a free resource providing counseling, [...] Electronic Communications Privacy Act 18 U.S.C. ???Sections 9230-5951,?? and contain information intended for the specified [...] computer, smartphone, or tablet. Just go to [employer]IR to get started. Questions? Call . Acknowledgment [...]
--- OUTSIDE RECORDS SUMMARY | 2025-06-14 18:29 | XMS_ITS | Encounter Summary ---
Author Organization [employer] ([place], [place], [place], [place], [place]) Address [address] [place] [address] Care Team Providers Care Acquisition Lead Name Role Phone Unavailable Primary Care Provider Unavailabl e Encounter Details Date Type Department Care Team (Late st Contact Info) Description 10/21/2018 Transcribed Document [facility] [place] Family Medicine [address] [place] [address] ProviderCharley MD [address] [place] [address] Social History Tobacco Use Types [...] - Historical ProviderMD - 10/21/2018 8:24 PM LIFE ENRICHMENT ASSISTANT Vital Signs ED Entered On: 10/21/2018 20:27 [...] 10/21/2018 20:24 EST Electronically signed by Dwight [facility] Conversion Latin American Studies Professor Cerner at 11/30/2022 6:50 PM CDT documented in this encounter Plan of Treatment Not on file documented as of this encounter Visit Diagnoses Not on filedocumented in this encounter
--- OUTSIDE RECORDS SUMMARY | 2025-06-14 18:29 | XMS_ITS | Encounter Summary ---
Author Organization [employer] ([place], [place], [place], [place], [place]) Address [address] [place] [address] Care Team Providers Care Photographer Name Role Phone Unavailable Primary Care Provider Unavailabl e Encounter Details Date Type Department Care Team (Late st Contact Info) Description 10/21/2018 Transcribed Document [facility] Family Medicine [address] [place] [address] ProviderCharley MD [address] [place] [address] Social History Tobacco Use Types [...] - Historical ProviderMD - 10/21/2018 7:22 PM TEXTILE MACHINE MECHANIC Electronically signed by Dwight [facility] Conversion Management Planner Cerner at 11/30/2022 6:41 PM CDT documented in this encounter Plan of Treatment Not on file documented as of this encounter Visit Diagnoses Not on filedocumented in this encounter
--- OUTSIDE RECORDS SUMMARY | 2025-06-14 18:29 | XMS_ITS | Clinical Summary ---
Author Organization [facility] Address [address] [place] [id number] Care Team Providers Care Forest Resources Professor Name Role Phone Ramiro Monroy Primary Care Provider [phone] Allergies Active Allergy Reactions Criticality Noted Date Comments Amoxicillin-Pot Clavulanate Nausea And Vomiting Low 12/13/2016 Shellfish Protein-Containing Drug Products Swelling Medium 08/03/2016 Medications levocetirizine (XYZAL) 5 MG tablet 2 [...] Diabetes Maternal Grandmother Bernabe Hypertension Maternal Grandmother Bernabe No Known Problems Mother Relation Name Status Comments Father Alive Maternal Grandmother Mambenedicto Mother Alive Social History Tobacco Use Types [...] HPV VACCINES Completed 07/11/2018, 01/14, 02/11/2017 Insurance [facility] [employer] [facility] Advance Directives Documents on File Type Date Recorded Patient Primer Press Operator Expl anation POWER OF COMMUNITY HEALTH WORKER - SCAN 09/25/2021 8:41 AM STANDARD POA POWER OF COMMUNITY HEALTH WORKER - SCAN 09/25/2021 7:22 AM STANDARD POA Care Teams Forest Resources Professor Relationship Specialty Start Date End Date Ramiro [place] [address] PCP - General Physician Yard Stocker 03/04/21
--- OUTSIDE RECORDS SUMMARY | 2025-06-14 18:29 | XMS_ITS | Encounter Summary ---
Author Organization [employer] ([place], [place], [place], [place], [place]) Address [address] [place] [address] Care Team Providers Care Dye Jig Operator Name Role Phone Unavailable Primary Care Provider Unavailabl e Encounter Details Date Type Department Care Team (Late st Contact Info) Description 10/21/2018 Transcribed Document [facility] [place] Medicine [facility] [place] [address] ProviderCharley MD [address] [place] [address] Social History Tobacco Use Types [...] - Historical ProviderMD - 10/21/2018 3:23 PM SQUAD SERGEANT ED Triage Entered On: 10/21/2018 15:53 EST Performed On: 10/21/2018 15:45 EST by KARO ZHONG ED Triage Across the Room Triage Date/Time : 10/21/2018 15:45 EST Chief Complaint : C/o headache, slurred spech, aoox 4, active vomiting in triage. LMP b KARO ZHONG - 10/21/2018 15:45 EST AMANKARO Luna - 10/21/2018 15:45 EST DCP GENERIC CODE Tracking Group : [facility] ED East FARHEENKARO - 10/21/2018 15:45 [...] ; Life Cycle Status: Active ; Vocabulary: Coral Diagnoses(Active) CHONG - Headache Date: 10/21/2018 ; Diagnosis Type: Reason For Visit ; Confirmation: Complaint of ; Clinical Dx: CHONG - Headache ; Classification: Medical ; Clinical Service: Emergency medicine ; Code: PNED ; Probability: 0 ; Diagnosis Code: [id number] Nauseated Date: 10/21/2018 ; Diagnosis Type: Reason For Visit ; Confirmation: Complaint of ; Clinical Dx: Nauseated ; Classification: Medical ; Clinical Service: Emergency medicine ; Code: PNED ; Probability: 0 ; Diagnosis Code: [id number] ED Height and Weight Height Source : Stated Height Entry Format : [place] Height, Feet : 5 ft(Converted to: 152 cm, 60 Inch) Height, Inches : 6 Inch(Converted to: 0 ft 6 Inch, 15.24 cm) Clinical Height : 167.64 cm Weight Source, ED : Critical estimated dosing weight Weight Entry Format : [place] Weight, Pounds : 145 lb Clinical Dosing Weight : 65.91 kg Body Surface Area (BSA) : 1.75 m2 Body Mass Index : 23.5 kg/m2 [place] Body Weight (IBW) : 58.88 kg KARO ZHONG - 10/21/2018 15:45 EST documented in this encounter Plan of Treatment Not on file documented as of this encounter Visit Diagnoses Not on filedocumented in this encounter
--- OUTSIDE RECORDS SUMMARY | 2025-06-14 18:29 | XMS_ITS | Clinical Summary ---
Author Organization [employer] ([place], [place], [place], [place], [place]) Address [address] [place] [address] Care Team Providers Care Laboratory Supervisor Name Role Phone Unavailable Primary Care [...]
--- OUTSIDE RECORDS SUMMARY | 2025-06-14 18:29 | XMS_ITS | Encounter Summary ---
Author Organization [employer] ([place], [place], [place], [place], [place]) Address [address] [place] [address] Care Team Providers Care Silverware Assembler Name Role Phone Unavailable Primary Care Provider Unavailabl e Encounter Details Date Type Department Care Team (Late st Contact Info) Description 10/21/2018 Transcribed Document [facility] [place] Family Medicine [address] [place] [address] ProviderCharley MD [address] [place] [address] Social History Tobacco Use Types [...] - Historical ProviderMD - 10/21/2018 3:23 PM SECURITY OPERATIONS ENGINEER ED Assessment Entered On: 10/21/2018 18:49 EST Performed On: 10/21/2018 18:48 EST by Matt Abraham Rn ED Quick Look Assessment Level of Consciousness : Alert Affect/Behavior : Appropriate, Calm, Cooperative Matt Abraham Rn - 10/21/2018 18:48 EST ED General-Functional Assess Information Obtained From : Patient Preferred Communication Mode : Verbal Communication Barrier : None Primary Language : Cape Verdean Any Spiritual/Cultural Needs or Requests : No [...] - 10/21/2018 18:48 EST Electronically signed by Dwight, Tai Conversion Sales And Marketing Professional Cerner at 11/30/2022 6:41 PM CDT documented in this encounter Plan of Treatment Not on file documented as of this encounter Visit Diagnoses Not on filedocumented in this encounter
--- OUTSIDE RECORDS SUMMARY | 2025-06-14 18:29 | XMS_ITS | Encounter Summary ---
Author Organization [employer] ([place], [place], [place], [place], [place]) Address [address] [place] [address] Care Team Providers Care Sales And Customer Relations Rep Name Role Phone Unavailable Primary Care Provider Unavailabl e Encounter Details Date Type Department Care Team (Late st Contact Info) Description 10/22/2018 Transcribed Document [facility] [place] Family Medicine [address] [place] [address] ProviderCharley MD [address] [place] [address] Social History Tobacco Use Types [...] dizzy 10/22/2018 09:10 10/22/2018 10:41 (Sakina Smiley, Vocational Aide) No further action required 10/22/2018 10:41 (SANGITA FRANCO) No further action required documented in this encounter Plan of Treatment Not on file documented as of this encounter Visit Diagnoses Not on filedocumented in this encounter
--- OUTSIDE RECORDS SUMMARY | 2025-06-14 18:29 | XMS_ITS | Encounter Summary ---
Author Organization [employer] ([place], [place], [place], [place], [place]) Address [address] [place] [address] Care Team Providers Care Prosthetist Name Role Phone Unavailable Primary Care Provider Unavailabl e Encounter Details Date Type Department Care Team (Late st Contact Info) Description 10/21/2018 Transcribed Document [facility] Radiology [address] [place] [address] Oli Glover MD [address] [place] [address] Dept[place] [address] Social History Tobacco Use Types [...] 13.7 % LOW Lymph # 1.48 K/uL [place] % 4.9 % [place] # 0.53 K/uL Eos % 0.2 % LOW Eos # 0.02 K/uL LOW Baso % 0.2 % Baso # 0.02 K/uL Slide Review No IG# 0 x10(3)/uL IG% 0 % Urine Type U CleanCatch Urine Color DK YELLOW Urine Appearance Turbid Urine Specific [place] 1.037 HI Urine pH Dipstick 5.5 LOW [...] Radiology results: Radiology Results (Last 48 hours) [id number] -- 10/21/2018 15:23 CT Head WO (10/21/2018 [...] 20:36 EST, Discharge to: Home. Prescriptions: Prescription [facility]: Zofran ODT 4 mg oral tablet, disintegrating (Prescribe): 1 Tab, Oral, Q4H, for 2 Day(s), PRN: Nausea/Vomiting, 12 Tab, 0 Refill(s), Prescription [facility]: Tamiflu 75 mg oral capsule (Prescribe): 1 Cap, Oral, BID, for 5 Day(s), 10 Cap, 0 Refill(s), Prescription [facility]: promethazine 25 mg oral tablet (Prescribe): 1 Tab, Oral, Q4H, for 3 Day(s), CAN MAKE YOU SLEEPY, PRN: as needed for nausea/vomiting, 18 Tab, 0 Refill(s). Patient was given the following educational materials: Dehydration, Adult, Kxhd-en-Pdst, Cough, Adult, Mffy-pn-Ykfe, Rehydration, Adult, Viral Illness, Adult, Influenza, Adult, Kebw-oj-Uqos. Limitations: Limited activity. Follow up with: [facility] [...]
--- OUTSIDE RECORDS SUMMARY | 2025-06-14 18:29 | XMS_ITS | Referral Summary ---
Author Organization [employer] ([place], [place], [place], [place], [place]) Address [address] [place] [address] Care Team Providers Care Insurance Claims Clerk Name Role Phone Unavailable Primary Care Provider [...]
--- OUTSIDE RECORDS SUMMARY | 2025-06-14 18:29 | XMS_ITS | Encounter Summary ---
Author Organization [employer] ([place], [place], [place], [place], [place]) Address [address] [place] [address] Care Team Providers Care Ems Helicopter Pilot Name Role Phone Unavailable Primary Care Provider Unavailabl e Encounter Details Date Type Department Care Team (Late st Contact Info) Description 10/21/2018 Transcribed Document [facility] [place] Family Medicine [facility] [place] [address] ProviderCharley MD [address] [place] [address] Social History Tobacco Use Types Packs/Day [...] - Historical ProviderMD - 10/21/2018 9:07 PM DOORSHAKER [address] [place] [address] PERSON INFORMATION Name SUSAN RESENDIZ Age 18 Years 2000 Sex Female Language Danish PCP MOI ROGERS PA-[facility] Marital Status Single Med Service Emergency Medicine Acct# Arrival 10/21/2018 15:23:00 Visit Reason Nauseated; CHONG - Headache; NUMB BODY,SLURRED SPEECH,EYES DIALATED Acuity 2 - Emergent LOS 000 05:44 Depart Date: 10/21/18 09:07 PM Address: [address] [place], [place] [address]NICOLE YONATHAN NICHOLSON [address] Comment: PROVIDER INFORMATION Provider Role Assigned Unassigned JULIETA MCKEE PA ED Physician 10/21/2018 17:35:12 Matt Abraham, peoplesoft fscm developer Nurse 10/21/2018 18:52:47 10/21/2018 19:45:24 Angelica Philip TELEGRAPHIC TYPEWRITER OPERATOR Nurse 10/21/2018 19:45:25 DIAGNOSIS Acute dehydration; [...] Location: PATIENT EDUCATION INFORMATION Instructions: Influenza, Adult, Furc-nb-Bykr; Viral Illness, Adult; Rehydration, Adult; Cough, Adult, Cmwa-dr-Uhss; Dehydration, Adult, Iyno-iz-Ufgn Follow up: With: Address: When: REST AT HOME AND DRINK PLENTY OF FLUIDS. RETURN IF WORSE. MONITER FOR FEVER AND TREAT WITH MOTRIN OR TYLENOL. USE TAMIFLU RX Within 2 to 3 days With: Address: When: MOI ROGERS [address] [place] [address] [facility] (Aut[facility] Response Within 2 to 3 days Comment: documented in this encounter Plan of Treatment Not on file documented as of this encounter Visit Diagnoses Not on filedocumented in this encounter
[2025-06-14 18:55] VITALS: BMI 36.3
[2025-06-14 18:59] LABS: Microscopic, Urine URINE MICROSCOPIC (MICROSCOPIC)
[2025-06-14 19:00] VITALS: BP 106/63; PULSE 102; RESP 16; TEMP 36.9; O2SAT 98; BMI 36.3
[2025-06-14 19:03] LABS: Bilirubin,Urine Negative (Negative); Color,Urine YELLOW (Yellow); Glucose,Urine (UA) Negative (Negative); Ketones,Urine Negative (Negative); Leukocyte Esterase,Urine 1+ (Negative); PH,Urine 6.5 (5.0-8.5); Protein,Urine TRACE (Negative); Specific Gravity, Urine 1.025 (1.005-1.030); Urobilinogen,Urine 0.2 EU/dl (0.2)
[2025-06-14 19:15] LABS: Fetal Membrane Rupture (Rapid) Negative (Negative)
[2025-06-14] MEDS: ACETAMINOPHEN 500MG TAB 1000 MG PO (19:36)
[2025-06-14] MEDS: LACTATED RINGERS 1000ML 1,000 ML 999 ML IV (19:37)
[2025-06-14 20:20] LABS: Bacteria,Urine 1+ /lpf
[2025-06-14] MEDS: 0.9 % SODIUM CHLORIDE 1000ML 1,000 ML 999 ML IV (21:27)
== END 2025-06-14 22:29 | disposition home or self-care (01) ==
LOC: OBOUT 18:27 → OB 18:29
PROVIDERS: PCP Nurse Practitioner Family; Visit Provider Obstetrics & Gynecology
DX: R10.9 Unspecified abdominal pain; Z3A.36 36 weeks gestation of pregnancy; O99.891 Other specified diseases and conditions complicating pregnancy
CPT/HCPCS: 59025; 81001; 84112; 87086; 96360; 96361; 99212; G0463; J0696; J7030; J7120

== ENCOUNTER 2025-06-26 11:33 | Outpatient (CLI) | payer OTHER, SELFPAY ==
[2025-06-26 08:52] VITALS: BMI 37.1
--- OUTSIDE RECORDS SUMMARY | 2025-06-26 11:41 | XMS_ITS | Encounter Summary ---
Author Organization [employer] ([place], [place], [place], [place], [place]) Address [address] [place] [address] Care Team Providers Care Truck Body Builder Apprentice Name Role Phone Unavailable Primary Care Provider Unavailabl e Encounter Details Date Type Department Care Team (Late st Contact Info) Description 10/21/2018 Transcribed Document [facility] [place] Family Medicine [address] [place] [address] ProviderCharley MD [address] [place] [address] Social History Tobacco Use Types [...] - Historical ProviderMD - 10/21/2018 7:22 PM SVP MARKETING Electronically signed by Dwight [facility] Conversion Nursing Home Administrator Cerner at 11/30/2022 6:41 PM CDT documented in this encounter Plan of Treatment Not on file documented as of this encounter Visit Diagnoses Not on filedocumented in this encounter
--- OUTSIDE RECORDS SUMMARY | 2025-06-26 11:41 | XMS_ITS | Clinical Summary ---
Author Organization [facility] Address [address] [place] [id number] Care Team Providers Care Globe Mounter Name Role Phone Ramiro Monroy Primary Care Provider [phone] Allergies Active Allergy Reactions Criticality Noted Date [...] HPV VACCINES Completed 07/11/2018, 01/14, 02/11/2017 Insurance [facility] [employer] [facility] Advance Directives Documents on File Type Date Recorded Patient Assistant Administrator Expl anation POWER OF CUSTOMER EXPERIENCE RETAIL CLERK - SCAN 09/25/2021 8:41 AM STANDARD POA POWER OF CUSTOMER EXPERIENCE RETAIL CLERK - SCAN 09/25/2021 7:22 AM STANDARD POA Care Teams Globe Mounter Relationship Specialty Start Date End Date Ramiro [place] [address] PCP - General Physician Doctor Assistant 03/04/21
--- OUTSIDE RECORDS SUMMARY | 2025-06-26 11:41 | XMS_ITS | Encounter Summary ---
Author Organization [employer] ([place], [place], [place], [place], [place]) Address [address] [place] [address] Care Team Providers Care Inclusion Intern Name Role Phone Unavailable Primary Care Provider Unavailabl e Encounter Details Date Type Department Care Team (Late st Contact Info) Description 10/21/2018 Transcribed Document [facility] [place] [facility] [place] [address] ProviderCharley MD [address] [place] [address] Social History Tobacco Use Types [...] - Historical ProviderMD - 10/21/2018 3:23 PM LEAD PRESS OPERATOR ED Triage Entered On: 10/21/2018 15:53 EST Performed On: 10/21/2018 15:45 EST by KARO ZHONG ED Triage Across the Room Triage Date/Time : 10/21/2018 15:45 EST Chief Complaint : C/o headache, slurred spech, aoox 4, active vomiting in triage. LMP b 25 KARO ZHONG - 10/21/2018 15:45 EST AMANKARO Luna - 10/21/2018 15:45 EST DCP GENERIC CODE Tracking Group : [facility] ED East FARHEENKARO - 10/21/2018 [...] PNED ; Probability: 0 ; Diagnosis Code: [id number] Nauseated Date: 10/21/2018 ; Diagnosis Type: Reason For Visit ; Confirmation: Complaint of ; Clinical Dx: Nauseated ; Classification: Medical ; Clinical Service: Emergency medicine ; Code: PNED ; Probability: 0 ; Diagnosis Code: [id number] ED Height and Weight Height Source : Stated Height Entry Format : [place] Height, Feet : 5 ft(Converted to: 152 cm, 60 Inch) Height, Inches : 6 Inch(Converted to: 0 ft 6 Inch, 15.24 cm) Clinical Height : 167.64 cm Weight Source, ED : Critical estimated dosing weight Weight Entry Format : [place] Weight, Pounds : 145 lb Clinical Dosing Weight : 65.91 kg Body Surface Area (BSA) : 1.75 m2 Body Mass Index : 23.5 kg/m2 [place] Body Weight (IBW) : 58.88 kg KARO ZHONG - 10/21/2018 15:45 EST Electronically signed by Long Quintanilla Conversion Visual Merchandising Specialist Cerner at 11/30/2022 6:38 PM CDT documented in this encounter Plan of Treatment Not on file documented as of this encounter Visit Diagnoses Not on filedocumented in this encounter
--- OUTSIDE RECORDS SUMMARY | 2025-06-26 11:41 | XMS_ITS | Encounter Summary ---
Author Organization [employer] ([place], [place], [place], [place], [place]) Address [address] [place] [address] Care Team Providers Care Predatory Animal Hunter Name Role Phone Unavailable Primary Care Provider Unavailabl e Encounter Details Date Type Department Care Team (Late st Contact Info) Description 10/22/2018 Transcribed Document [facility] [facility] [place] [address] [place] [address] ProviderCharley MD [address] [place] [address] Social History Tobacco Use Types [...]
--- OUTSIDE RECORDS SUMMARY | 2025-06-26 11:41 | XMS_ITS | Encounter Summary ---
Author Organization [employer] ([place], [place], [place], [place], [place]) Address [address] [place] [address] Care Team Providers Care Harp Regulator Name Role Phone Unavailable Primary Care Provider Unavailabl e Encounter Details Date Type Department Care Team (Late st Contact Info) Description 10/22/2018 Transcribed Document [facility] [place] Family Medicine [address] [place] [address] ProviderCharley MD [address] [place] [address] Social History Tobacco Use Types [...] dizzy 10/22/2018 09:10 10/22/2018 10:41 (Sakina Smiley, Manager Personnel Selection) No further action required 10/22/2018 10:41 (SANGITA FRANCO) No further action required documented in this encounter Plan of Treatment Not on file documented as of this encounter Visit Diagnoses Not on filedocumented in this encounter
--- OUTSIDE RECORDS SUMMARY | 2025-06-26 11:41 | XMS_ITS | Encounter Summary ---
Author Organization [employer] ([place], [place], [place], [place], [place]) Address [address] [place] [address] Care Team Providers Care Selling Manager Name Role Phone Unavailable Primary Care Provider Unavailabl e Encounter Details Date Type Department Care Team (Late st Contact Info) Description 10/21/2018 Transcribed Document [facility] [place] Family Medicine [facility] [place] [address] ProviderCharley MD [facility] [address] Social History Tobacco Use Types [...] - Historical ProviderMD - 10/21/2018 9:07 PM FLOW TRADER [address] [address] Patient Information Name: SUSAN RESENDIZ Age: 18 Years Date of : 2000 Arrival Time: 10/21/2018 15:23:00 Diagnosis Acute dehydration; Influenza Primary Care Physician: MOI ROGERS PA[facility] Provider Information Primary Provider: JULIETA [...] to 3 days With: Address: When: [address] [facility] [place] [address] Business (1) Within 2 to [...] Follow these instructions at home: ??? Take gcyz-flc-knpaikc and prescription medicines only as told by [...] cannot use soap and water, use hand iron assorter. ??? Stay home from work or school [...] Wash your hands often or use hand iron assorter often. ??? Avoid contact with people who [...] 05/10/2009 Document Revised: 01/06/2017 Document Reviewed: 05/25/2016 [employer] Patient Education ? 2017 [employer] Viral Illness, Adult Viruses are tiny [...] Medicines to relieve symptoms. These can include jcyt-fbr-pchjlhz medicine for pain and fever, medicines for [...] these instructions at home: Medicines ??? Take omhh-vqk-efcvmqz and prescription medicines only as told by [...] and water are not available, use hand iron assorter. ??? Avoid close contact with friends and [...] 12/10/2016 Document Revised: 01/12/2017 Document Reviewed: 12/10/2016 [employer] Patient Education ? 2017 [employer] Rehydration, Adult Rehydration is the replacement [...] 10/23/2012 Document Revised: 02/18/2017 Document Reviewed: 09/24/2016 [employer] Patient Education ? 2017 [employer] Cough, Adult Introduction A cough helps [...] lot of fat or sugar. ??? Take fymn-yfg-mcevzhp and prescription medicines only as told by [...] 05/28/2010 Document Revised: 02/18/2017 Document Reviewed: 09/24/2016 [employer] Patient Education ? 2017 [employer]. Allergies: No Known Medication Allergies Medication Information: [...] range between ( 1.0 and 7.0 ) Bell #: 0.53 K/uL -- Normal range between ( 0.24 and 0.82 ) Eos #: 0.02 K/uL -- Normal range between ( 0.04 and 0.54 ) Bell %: 4.9 % -- Normal range between [...] ) Urine Bilirubin Dipstick: Small Urine Specific Odell: 1.037 -- Normal range between ( 1.005 [...] verify that SUSAN RESENDIZ was seen at [facility] Emergency Department on ,10/21/2018 21:07:20. [...] Assistance with quitting is available by contacting 3-226-MUHK-NOW. This is a free resource providing counseling, [...] Electronic Communications Privacy Act 18 U.S.C. ???Sections 5860-7802,?? and contain information intended for the specified [...] computer, smartphone, or tablet. Just go to [employer] to get started. Questions? Call . Acknowledgment [...]
--- OUTSIDE RECORDS SUMMARY | 2025-06-26 11:41 | XMS_ITS | Encounter Summary ---
Author Organization [employer] ([place], [place], [place], [place], [place]) Address [address] [place] [address] Care Team Providers Care Recreation Officer Name Role Phone Unavailable Primary Care Provider Unavailabl e Encounter Details Date Type Department Care Team (Late st Contact Info) Description 10/21/2018 Transcribed Document [facility] Radiology [address] [place] [address] Oli Glover MD [address] [place] [address] Dept. [place] [address] Social History Tobacco Use Types [...] 13.7 % LOW Lymph # 1.48 K/uL [place] % 4.9 % [place] # 0.53 K/uL Eos % 0.2 % LOW Eos # 0.02 K/uL LOW Baso % 0.2 % Baso # 0.02 K/uL Slide Review No IG# 0 x10(3)/uL IG% 0 % Urine Type U CleanCatch Urine Color DK YELLOW Urine Appearance Turbid Urine Specific [place] 1.037 HI Urine pH Dipstick 5.5 LOW [...] Radiology results: Radiology Results (Last 48 hours) [id number] -- 10/21/2018 15:23 CT Head WO (10/21/2018 [...] 20:36 EST, Discharge to: Home. Prescriptions: Prescription Envelope Folding Machine Operator Pharmacy: Zofran ODT 4 mg oral tablet, disintegrating (Prescribe): 1 Tab, Oral, Q4H, for 2 Day(s), PRN: Nausea/Vomiting, 12 Tab, 0 Refill(s), Prescription Envelope Folding Machine Operator Pharmacy: Tamiflu 75 mg oral capsule (Prescribe): 1 Cap, Oral, BID, for 5 Day(s), 10 Cap, 0 Refill(s), Prescription Envelope Folding Machine Operator Pharmacy: promethazine 25 mg oral tablet (Prescribe): 1 Tab, Oral, Q4H, for 3 Day(s), CAN MAKE YOU SLEEPY, PRN: as needed for nausea/vomiting, 18 Tab, 0 Refill(s). Patient was given the following educational materials: Dehydration, Adult, Nvqt-uk-Wcge, Cough, Adult, Lekm-im-Vkxr, Rehydration, Adult, Viral Illness, Adult, Influenza, Adult, Lsbr-fh-Pavx. Limitations: Limited activity. Follow up with: K[facility]AR[facility] [...]
--- OUTSIDE RECORDS SUMMARY | 2025-06-26 11:41 | XMS_ITS | Encounter Summary ---
Author Organization [employer] ([place], [place], [place], [place], [place]) Address [address] [place] [address] Care Team Providers Care Regulatory Agency Director Name Role Phone Unavailable Primary Care Provider Unavailabl e Encounter Details Date Type Department Care Team (Late st Contact Info) Description 10/21/2018 Transcribed Document [facility] [place] [address] [place] [address] ProviderCharley MD [address] [place] [address] Social History Tobacco Use [...] - Historical ProviderMD - 10/21/2018 3:23 PM STUDENT SERVICES REPRESENTATIVE ED Assessment Entered On: 10/21/2018 18:49 EST Performed On: 10/21/2018 18:48 EST by Matt Abraham Rn ED Quick Look Assessment Level of Consciousness : Alert Affect/Behavior : Appropriate, Calm, Cooperative Matt Abraham Rn - 10/21/2018 18:48 EST ED General-Functional Assess Information Obtained From : Patient Preferred Communication Mode : Verbal Communication Barrier : None Primary Language : Macedonian Any Spiritual/Cultural Needs or Requests : No [...]
--- OUTSIDE RECORDS SUMMARY | 2025-06-26 11:41 | XMS_ITS | Clinical Summary ---
Author Organization [employer] ([place], [place], [place], [place], [place]) Address [address] [place] [address] Care Team Providers Care Foil Wrapper Name Role Phone Unavailable Primary Care Provider [...]
--- OUTSIDE RECORDS SUMMARY | 2025-06-26 11:41 | XMS_ITS | Encounter Summary ---
Author Organization [employer] ([place], [place], [place], [place], [place]) Address [address] [place] [address] Care Team Providers Care Irrigator Sprinkling System Name Role Phone Unavailable Primary Care Provider Unavailabl e Encounter Details Date Type Department Care Team (Late st Contact Info) Description 10/21/2018 Transcribed Document [facility] [place] [facility] [place] [address] ProviderCharley MD [facility] [place] [address] Social History Tobacco Use [...] - Historical ProviderMD - 10/21/2018 9:00 PM CLEAR COAT SPRAYER ED Discharge Entered On: 10/21/2018 21:01 EST [...]
--- OUTSIDE RECORDS SUMMARY | 2025-06-26 11:41 | XMS_ITS | Encounter Summary ---
Author Organization [employer] ([place], [place], [place], [place], [place]) Address [address] [place] [address] Care Team Providers Care Transferrer Name Role Phone Unavailable Primary Care Provider Unavailabl e Encounter Details Date Type Department Care Team (Late st Contact Info) Description 10/21/2018 Transcribed Document [facility] [place] [address] [place] [address] ProviderCharley MD [address] [place] [address] Social History Tobacco Use Types [...] - Historical ProviderMD - 10/21/2018 8:24 PM GOLF CLUB MANAGER Vital Signs ED Entered On: 10/21/2018 20:27 [...] 10/21/2018 20:24 EST Electronically signed by Dwight [facility] Conversion Cotton Classer Cerner at 11/30/2022 6:50 PM CDT documented in this encounter Plan of Treatment Not on file documented as of this encounter Visit Diagnoses Not on filedocumented in this encounter
--- OUTSIDE RECORDS SUMMARY | 2025-06-26 11:41 | XMS_ITS | Encounter Summary ---
Author Organization [employer] ([place], [place], [place], [place], [place]) Address [address] [place] [address] Care Team Providers Care Postal Carrier Name Role Phone Unavailable Primary Care Provider Unavailabl e Encounter Details Date Type Department Care Team (Late st Contact Info) Description 10/21/2018 Transcribed Document [facility] [place] [facility] [place] [address] ProviderCharley MD [address] [place] [address] Social History Tobacco Use Types Packs/Day [...] - Historical ProviderMD - 10/21/2018 9:07 PM LIBRARY CLERK [address] [place] [address] PERSON INFORMATION Name SUSAN RESENDIZ Age 18 Years 2000 Sex Female Language Danish PCP MOI ROGERS [facility] Marital Status Single Med Service Emergency Medicine Acct# Arrival 10/21/2018 15:23:00 Visit Reason Nauseated; CHONG - Headache; NUMB BODY,SLURRED SPEECH,EYES DIALATED Acuity 2 - Emergent LOS 000 05:44 Depart Date: 10/21/18 09:07 PM Address: [address] [place], [place] [address]NICOLE YONATHAN NICHOLSON [address] Comment: PROVIDER INFORMATION Provider Role Assigned Unassigned JULIETA MCKEE PA ED Physician 10/21/2018 17:35:12 Matt Abraham, software build engineer Nurse 10/21/2018 18:52:47 10/21/2018 19:45:24 Angelica Philip COMMUNITY LEADER Nurse 10/21/2018 19:45:25 DIAGNOSIS Acute dehydration; Influenza [...] Location: PATIENT EDUCATION INFORMATION Instructions: Influenza, Adult, Mkhu-wg-Gelh; Viral Illness, Adult; Rehydration, Adult; Cough, Adult, Qsbb-hw-Ovws; Dehydration, Adult, Mlun-vq-Hdui Follow up: With: Address: When: REST AT HOME AND DRINK PLENTY OF FLUIDS. RETURN IF WORSE. MONITER FOR FEVER AND TREAT WITH MOTRIN OR TYLENOL. USE TAMIFLU RX Within 2 to 3 days With: Address: When: MOI ROGERS [address] [place] [address] [facility] ([employer] Within 2 to 3 days Comment: documented in this encounter Plan of Treatment Not on file documented as of this encounter Visit Diagnoses Not on filedocumented in this encounter
--- OUTSIDE RECORDS SUMMARY | 2025-06-26 11:41 | XMS_ITS | Referral Summary ---
Author Organization [employer] ([place], [place], [place], [place], [place]) Address [address] [place] [address] Care Team Providers Care Multimedia Author Name Role Phone Unavailable Primary Care Provider [...]
[2025-06-26 12:06] LABS: Hematocrit 37.0 % (37.0-47.0); Hemoglobin 12.6 g/dL (12.2-16.2); Immature Granulocytes % 0.6 %; Mean Corpuscular HGB Conc 34.1 g/dL (31.8-35.4); Mean Corpuscular Hemoglobin 30.2 pg (27.0-31.2); Mean Corpuscular Volume 88.7 fl (81-99); Nucleated Red Blood Cells % 0 %; Platelet Count 134 K/mm3 (142-424); Red Blood Count 4.17 M/mm3 (4.20-5.40); Red Cell Distribution Width-SD 42.3 fL; White Blood Count 10.8 K/mm3 (4.8-10.8)
[2025-06-26 12:33] LABS: Anion Gap 8.5 mEq/L (5-15); Blood Urea Nitrogen 5 mg/dl (7-17); Calcium 8.9 mg/dl (8.4-10.2); Carbon Dioxide 24 mmol/L (22.0-30.0); Chloride 103 mmol/L (98-107); Creatinine Clearance Estimated 202 mL/min (50-200); Creatinine,Serum 0.70 mg/dl (0.52-1.04); Estimated Glomerular Filt Rate 102 ml/min (>60); GFR (African American) 123 ML/MIN (>60); Glucose 115 mg/dl (74-100); Potassium 3.5 mmoL/L (3.5-5.1); Sodium 132 mmol/L (136-145)
== END 2025-06-26 23:59 | disposition home or self-care (01) ==
LOC: PREOP 11:34
PROVIDERS: PCP Nurse Practitioner Family; Visit Provider Obstetrics & Gynecology
DX: Z01.812 Encounter for preprocedural laboratory examination (principal)
CPT/HCPCS: 80048; 85025

== ENCOUNTER 2025-06-29 11:54 | Inpatient (IN) | payer OTHER, SELFPAY ==
[2025-06-29 11:05] VITALS: BMI 37.4
[2025-06-29 11:24] LABS: Microscopic, Urine URINE MICROSCOPIC (MICROSCOPIC)
[2025-06-29 11:25] LABS: Bilirubin,Urine Negative (Negative); Color,Urine YELLOW (Yellow); Glucose,Urine (UA) Negative (Negative); Ketones,Urine Negative (Negative); Leukocyte Esterase,Urine Negative (Negative); PH,Urine 7.0 (5.0-8.5); Protein,Urine Negative (Negative); Specific Gravity, Urine 1.020 (1.005-1.030); Urobilinogen,Urine 0.2 EU/dl (0.2)
[2025-06-29 11:37] VITALS: BP 120/76; PULSE 95; RESP 17; TEMP 37.4; O2SAT 100; BMI 37.4
[2025-06-29 11:37] LABS: Fetal Membrane Rupture (Rapid) Positive (Negative)
[2025-06-29 11:45] LABS: RBC,Urine Occasional #/hpf (0-3); WBC,Urine Occasional #/hpf (0-3)
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
[2025-06-29 12:33] VITALS: BP 120/76; PULSE 95; RESP 17; TEMP 37.4; O2SAT 100
[2025-06-29 12:33] LABS: Hematocrit 36.4 % (37.0-47.0); Hemoglobin 12.9 g/dL (12.2-16.2); Immature Granulocytes % 0.6 %; Mean Corpuscular HGB Conc 35.4 g/dL (31.8-35.4); Mean Corpuscular Hemoglobin 30.9 pg (27.0-31.2); Mean Corpuscular Volume 87.3 fl (81-99); Nucleated Red Blood Cells % 0 %; Platelet Count 145 K/mm3 (142-424); Red Blood Count 4.17 M/mm3 (4.20-5.40); Red Cell Distribution Width-SD 41.1 fL; White Blood Count 10.4 K/mm3 (4.8-10.8)
[2025-06-29] MEDS: LACTATED RINGERS 1000ML 1,000 ML 250 ML IV (12:45)
[2025-06-29 13:23] LABS: RPR W/RFX Titers Nonreactive (Nonreactive)
--- NOTE | 2025-06-29 14:15 | EXP.OP.NOTE ---
Date of procedure: 06/29/25 Pre-op Diagnosis:: 1. IUP at 38w6d 2. Premature rupture of membranes 3. History of x 1 4. Maternal obesity 5. Asthma in Post-op Diagnosis:: 1. IUP at 38w6d 2. Premature rupture of membranes 3. History of x 1 4. Maternal obesity 5. Asthma in Procedure performed:: Repeat Low Transverse Section Surgeon:: María Elena Bush DO Patient Centered Care Specialist(s):: Tr Tinoco MD [employer] SUPERVISOR:: Nicko Parkinson Anesthesia: spinal Estimated blood loss (mL): 700 Clinical Note:: Ms Susan Resendiz is a 25 yo at 38w6d whoh presents to [facility] L&D with complaint of leakage of fluid. She admits she felt more wet discharge last night. This morning around 1000 when she woke up she felt more wet than last night and decided to come to [facility]. Upon arrival to [facility] she had a large gush and has been leaking since. She admits to increased discomfort and irregular contractions. Baby is active. Denies vaginal bleeding. She has had good care. History of x 1. complicated by maternal obesity and asthma. OB ultrasound 06/10 demonstrated EFW 28 %ile, TERENCE wnl and mild bilateral renal pelvis dilation measuring 5.7 mm and 6.5 mm. Amnisure positive. Operative findings:: 1. Live male baby, David, weighing 7 lb 1 oz. Apgars 8 (1 min), 9 (5 min) 2. Nuchal cord x 1, easily reduced 3. Grossly normal appearing uterus, bilateral fallopian tubes and ovaries Operative note:: The risks, benefits and alternatives of the procedure were reviewed with the patient. Informed consent was obtained. Patient was taken to the operating room where spinal anesthesia was placed. The patient received 2 grams of Ancef preoperatively. Patient was placed in dorsal supine position with a leftward tilt. SCDs in place. Pizano catheter was inserted and draining clear urine prior to the start of the procedure. heart tones were obtained. Vagina was prepped with Hibiclens swabs x 3. Patient was then prepped and draped in normal sterile fashion. Allis clamp test was performed to ensure adequate anesthesia. A Pfannenstiel skin incision was made 2 cm above pubic symphysis along prior Pfannenstiel scar. This was carried through to underlying layer of fascia. Fascia was incised in midline, extended laterally with Morales scissors. Superior aspect of fascial incision was grasped with two Clover clamps, elevated up, and rectus muscle dissected off bluntly and sharply with Morales scissors. Inferior aspect of fascial incision was grasped with two Clover clamps, elevated up, and rectus muscle dissected off bluntly and sharply with Morales scissors. The retcus muscle was then in the midline and the peritoneum was entered bluntly with a digit. Peritoneal incision was then extended superiorly and inferiorly with good visualization of the bladder. Yonas retractor was inserted. The lower uterine segment was incised in a transverse fashion. Clear amniotic fluid was noted. Head was delivered without difficulty. Nuchal x 1 was easily reduced. Remainder of body was delivered without difficulty. Mouth and nares were bulb suctioned. Spontaneous cry was noted. Delayed cord clamping was performed for 60 seconds. The umbilical cord was clamped and cut. The was handed to awaiting pediatric staff in stable condition. Dr. Paiz was present. Apgars were 8(1 min), 9(5 min). Cord blood was obtained. Gentle traction on the umbilical cord and uterine fundal massage delivered the placenta. Placenta was intact. Placenta will be sent to pathology for review. Uterus was cleared of all clots and debris with a moist laparotomy sponge. Corners of the uterine incision were grasped with Allis clamps. The uterine incision was reapproximated with # 1 Vicryl suture in a running, locked stitch. Second layer of the same stitch was used to imbricate the incision. Vesicouterine peritoneum was reapproximated in a running locked stitch with 2-0 Vicryl suture. Hemostasis was noted. Posterior cul-de-sac was cleaned with moist laparotomy sponge. Gutters cleared of all clots and debris with a moist laparotomy sponge. Reinspection of the lower uterine segment demonstrated small amount of oozing. Chica was applied over uterine incision. Hemostasis was noted. At this point all instruments and sponges were removed from the pelvis.? The peritoneum was grasped with Johanna clamps x 3. The peritoneum was reapproximated with 0 Vicryl suture in a running stitch. The corners of the fascia were grasped with Clover clamps, and the fascia was reapproximated with two # 1 Vicryl suture overlapped to the right of midline. Subcutaneous tissue was irrigated with clear return of fluids. The subcutaneous tissue was reapproximated with 3-0 Vicryl. The skin was reapproximated with Insorb nanette. Steri strips and Telfa was placed over closed Pfannenstiel skin incision. At the end of the procedure, the uterus was firm with minimal vaginal bleeding. Patient tolerated the procedure well. Instrument, sponges and needle counts were correct x 2. Mom and baby were transported to recovery room in stable condition. Condition: stable Disposition: floor Specimens:: 1. Placenta and umbilical cord 2. Cord blood Complications:: None
[2025-06-29] MEDS: OXYTOCIN/RINGERS LACTATE 30 UNITS/500 ML BAG 999 UNITS IV (14:30)
[2025-06-29] MEDS: LACTATED RINGERS 1000ML 1,000 ML 125 ML IV (14:30)
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
[2025-06-29 14:38] VITALS: BP 91/53; PULSE 102; RESP 16; TEMP 36.6; O2SAT 98
--- NOTE | 2025-06-29 14:38 | P.PNANES_ITS ---
[facility] Anesthesia Record Part I Anesthesia Record I Intake, IV Amount: 2,000 Hydration: Adequate Estimated blood loss (mL): 700 Urine output (mL): 150 Blood Products used (#): none Blood Pressure: 91/53 SaO2: 98 Pulse Rate: 102 Airway Patency: Patent Respiratory Rate: 16 Temperature: 97.8 F Patient is:: Awake and Stable Stable to PACU at:: 14:20
[2025-06-29 14:58] LABS: Hematocrit 35.7 % (37.0-47.0); Hemoglobin 12.1 g/dL (12.2-16.2)
[2025-06-29] MEDS: ACETAMINOPHEN 500MG TAB 1000 MG PO ×2 (16:56→23:25)
[2025-06-29] MEDS: OXYCODONE 5MG IMMEDIATE RELEASE TABLET 5 MG PO (16:56)
--- NOTE | 2025-06-29 19:00 | PC.NURSE ---
All care from Juan David Bullock student RN netting inspector done under my direct supervision
[2025-06-29 20:03] VITALS: BP 114/66; PULSE 90; RESP 18; TEMP 36.9; O2SAT 97
[2025-06-29] MEDS: KETOROLAC 30MG/ML VIAL 30 MG IV (20:34)
[2025-06-30] MEDS: KETOROLAC 30MG/ML VIAL 30 MG IV ×2 (02:50→08:09)
[2025-06-30 04:35] VITALS: BP 95/54; PULSE 80; RESP 16; TEMP 36.4; O2SAT 98
[2025-06-30] MEDS: ACETAMINOPHEN 500MG TAB 1000 MG PO ×4 (04:38→23:24)
[2025-06-30 08:28] LABS: Hematocrit 28.7 % (37.0-47.0); Immature Granulocytes % 0.5 %; Mean Corpuscular HGB Conc 34.5 g/dL (31.8-35.4); Mean Corpuscular Hemoglobin 30.8 pg (27.0-31.2); Mean Corpuscular Volume 89.4 fl (81-99); Nucleated Red Blood Cells % 0 %; Platelet Count 123 K/mm3 (142-424); Red Blood Count 3.21 M/mm3 (4.20-5.40); Red Cell Distribution Width-SD 42.7 fL; White Blood Count 8.2 K/mm3 (4.8-10.8)
[2025-06-30 08:37] LABS: Hemoglobin 10.0 g/dL (12.2-16.2)
[2025-06-30] MEDS: OXYCODONE 5MG IMMEDIATE RELEASE TABLET 5 MG PO (10:38)
--- NOTE | 2025-06-30 11:47 | P.PN_ITS ---
Subjective *Date: 06/30/25 *Time: 11:47 Interval history: POD # 1 s/p RLTCS Feeling well. Pain controlled. Formula feeding. Lochia is appropriate. Voiding without difficulty and passing flatus. Tolerating regular diet. Denies fever/chills, chest pain and shortness of breath. No headaches, vision changes, lightheadedness/dizziness. No lower extremity swelling. Ambulating well ad tai. Medical Exam Vital signs and Labs for Last 24 Hours: Vital Signs Temp Pulse Pulse Resp BP BP Pulse Ox 06/30/25 04:35 97.6 F 80 16 95/54 L 98 06/29/25 20:03 98.4 F 90 18 114/66 97 06/29/25 14:38 97.8 F 102 H 16 91/53 L 06/29/25 12:33 99.3 F 95 H 17 120/76 100 O2 Del Method 06/30/25 04:35 Room Air 06/29/25 20:03 Room Air 06/29/25 14:38 06/29/25 12:33 Room Air Intake and Output 06/29/25 06/30/25 06/30/25 23:59 07:59 15:59 Intake Total 1225.25 / 3575.00 100 / 100 Output Total 450 / 450 850 / 850 Balance 775.25 / 3125.00 -750 / -750 Intake: Intake, Total IV Amount 1225.25 / 1575.00 100 / 100 Cefazolin Sodium 2 gm In 0.9 % 100 / 100 100 / 100 Sodium Chloride 100 ml @ 200 mls/hr IV Q8H ELYSE Rx#:[id number] Lactated Ringers 1000ML 1,000 875 / 875 ml @ 125 mls/hr IV .Q8H ELYSE Rx# :[id number] Oxytocin/Ringers Lactate 30 250.25 / 500.00 units In 500 ml @ 40 mls/hr IV .[id number] ELYSE Rx#:[id number] Output: Output, Urine Amount 850 / 850 Output, Urine Amount (Catheter) 450 / 450 Pizano 450 / 450 Laboratory Results - last 24 hr 06/29/25 11:50: WBC 10.4, RBC 4.17 L, Hgb 12.9, Hct 36.4 L, MCV 87.3, MCH 30.9, MCHC 35.4, RDW 13.2, Plt Count 145, MPV 11.9 H, Neut % (Auto) 78.7, Lymph % (Auto) 14.8, [place] % (Auto) 4.9, Eos % (Auto) 0.7, Baso % (Auto) 0.3, Neut # (Auto) 8.2 H, Lymph # (Auto) 1.5, [place] # (Auto) 0.5, Eos # (Auto) 0.1, Baso # (Auto) 0.0, RPR w/Rflx to Titer Nonreactive, Blood Type B Positive, Antibody Screen Negative, Crossmatch (AHG) See Detail 06/29/25 14:50: Hgb 12.1 L, Hct 35.7 L 06/30/25 08:00: WBC 8.2, RBC 3.21 L, Hgb 10.0 L D, Hct 28.7 L, MCV 89.4, MCH 30.8, MCHC 34.5, RDW 13.2, Plt Count 123 L, MPV 11.7 H, Neut % (Auto) 65.5, Lymph % (Auto) 24.8, [place] % (Auto) 7.3, Eos % (Auto) 1.5, Baso % (Auto) 0.4, Neut # (Auto) 5.4, Lymph # (Auto) 2.0, [place] # (Auto) 0.6, Eos # (Auto) 0.1, Baso # (Auto) 0.0 I & O for Labs for Last 24 Hours: Intake & Output 06/27/25 06/28/25 06/29/25 06/30/25 23:59 23:59 23:59 23:59 Intake Total 3575.00 / 3575.00 100 / 100 Output Total 450 / 450 850 / 850 Balance 3125.00 / 3125.00 -750 / -750 Weight 232 lb Head: Present atraumatic and normocephalic ENT: Present normal exam Neck: Present normal inspection and full ROM Respiratory: Present CTA bilaterally and normal respiratory effort Cardiac: Present Reg Rate and Rhythm GI: Present soft; Absent distention, tenderness or guarding Comments:: Pfannenstiel incision clean/dry/intact Rectal (female): Present deferred (female): Present deferred Extremities: Present normal inspection and full ROM; Absent calf tenderness Neuro: Present alert, awake and moves all extremities Assessment and Plan *Assessment and plan (1) S/P section: Status: Acute Category: Surgical Code(s): Z98.891 - History of uterine scar from previous surgery (2) Premature rupture of membranes: Status: Resolved Qualifiers: PROM onset of labor timing: unspecified duration between rupture of membranes and onset of labor PROM gestational age: full term Qualified Code(s): O42.92 - Full-term premature rupture of membranes, unspecified as to length of time between rupture and onset of labor Category: Medical Code(s): O42.90 - Premature rupture of membranes, unspecified as to length of time between rupture and onset of labor, unspecified weeks of gestation (3) 38 weeks gestation of : Status: Acute Category: Medical Code(s): Z3A.38 - 38 weeks gestation of (4) Asthma complicating , antepartum: Status: Acute Category: Medical Code(s): O99.519 - Diseases of the respiratory system complicating , unspecified trimester; J45.909 - Unspecified asthma, uncomplicated (5) Maternal obesity affecting , antepartum: Status: Acute Qualifiers: Obesity type affecting : unspecified obesity Qualified Code(s): O99.210 - Obesity complicating , unspecified trimester Category: Medical Code(s): O99.210 - Obesity complicating , unspecified trimester (6) History of section: Status: Acute Category: Surgical Code(s): Z98.891 - History of uterine scar from previous surgery (7) Anxiety and depression: Status: Acute Category: Medical Code(s): F41.9 - Anxiety disorder, unspecified; F32.A - Depression, unspecified (8) hemorrhage: Problem Comment: QBL [id number] cc Status: Acute Qualifiers: hemorrhage type: unspecified Qualified Code(s): O72.1 - Other immediate hemorrhage Category: Medical Code(s): O72.1 - Other immediate hemorrhage (9) Acute blood loss anemia: Status: Acute Category: Medical Code(s): D62 - Acute posthemorrhagic anemia Plan Continue routine care Encouraged increased ambulation AM Hgb 10.0 (12.1 on admission) Continue home meds for anxiety and depression Plan d/c home tomorrow, POD # 2
[2025-06-30] MEDS: IBUPROFEN 400 MG TABLET 800 MG PO ×2 (15:24→23:24)
[2025-06-30] MEDS: PRENATAL MULTIVITAMIN W/IRON 1 EACH PO (17:03)
[2025-06-30 20:43] VITALS: BP 98/61; PULSE 91; RESP 18; TEMP 36.7; O2SAT 99
[2025-06-30] MEDS: FAMOTIDINE 20MG TABLET 20 MG PO (20:47)
[2025-06-30] MEDS: VENLAFAXINE XR 75MG CAPSULE 75 MG PO (20:48)
[2025-06-30] MEDS: BUSPIRONE HCL 10 MG TABLET 15 MG PO (20:48)
[2025-06-30] MEDS: LORATADINE 10MG TABLET 10 MG PO (20:48)
[2025-07-01 04:49] VITALS: BP 108/50; PULSE 81; RESP 18; TEMP 36.6; O2SAT 99
[2025-07-01] MEDS: ACETAMINOPHEN 500MG TAB 1000 MG PO (04:52)
--- NOTE | 2025-07-01 06:32 | P.PNANES_ITS ---
[facility] Anesthesia Record Part II Anesthesia Record Part II Discharge Time: 14:50 Destination: Obstetric PACU nurse assessment reviewed?: Yes Patient Condition:: Good Anesthesia Complications:: None Swallowing reflex intact?: Yes Airway Patency: Patent Cyanosis?: No Blood Pressure: 95/58 SaO2: 98 Respiratory Rate: 17 Pulse Rate: 86 Temperature: 97.8 F Mental Status: Alert & Oriented Pain level:: 0 Nausea and/or vomitting:: None Intake, IV Amount: 0 Hydration: Adequate
[2025-07-01 06:33] VITALS: BP 95/58; PULSE 86; RESP 17; TEMP 36.6; O2SAT 98
--- NOTE | 2025-07-01 07:09 | EXP.DC.SUM ---
General Admission date:: 06/29/25 Discharge date: 07/01/25 HPI HPI HPI: POD # 2 s/p RLTCS Feeling well. Pain controlled. Formula feeding. Lochia is light. Voiding without difficulty and passing flatus. Tolerating regular diet. Denies fever/chills, chest pain and shortness of breath. No headaches, vision changes, lightheadedness/dizziness. No lower extremity swelling. Ambulating well ad tai. Hospital Course Hospital Course Hospital Course: Ms Susan Resendiz is a 25 yo at 38w6d who presents to [facility] L&D with complaint of leakage of fluid. She admits she felt more wet discharge the evening of 06/28. The morning of 06/29 around 1000 when she woke up she felt more wet than the night before and decided to come to [facility]. Upon arrival to [facility] she had a large gush and has been leaking since. She admits to increased discomfort and irregular contractions. Baby is active. Denies vaginal bleeding. She has had good care. History of x 1. complicated by maternal obesity and asthma. She underwent repeat on 06/29/25. She delivered a live male baby, David, weighing 7 lb 1 oz. Apgars 8 (1 min), 9 (5 min). EBL 700 mL. QBL reached 1044 mL after delivery. She did well /postoperatively. Pain controlled. Formula feeding. Light lochia. Voiding without difficulty and passing flatus. Tolerating regular diet. Denies fever/chills, chest pain and shortness of breath. No headaches, dizziness/lightheadedness or vision changes. Vital signs stable, afebrile. Heart regular rate and rhythm. Lungs clear to auscultation. Abdomen soft, nontender. No lower extremity swelling. Ambulating well ad tai. Normal hospital course. She was discharged to home on POD # 2 with instructions to follow-up in the office in 2 weeks or sooner if needed. Exam Data for Last 24 hours Vital signs and Labs for Last 24 Hours: Temp Pulse Resp BP Pulse Ox O2 Del Method 97.9 F 81 17 108/50 L 99 Room Air 07/01/25 04:49 07/01/25 04:49 07/01/25 06:33 07/01/25 04:49 07/01/25 04:49 07/01/25 04:49 Laboratory Results - last 24 hr 06/30/25 08:00: WBC 8.2, RBC 3.21 L, Hgb 10.0 L D, Hct 28.7 L, MCV 89.4, MCH 30.8, MCHC 34.5, RDW 13.2, Plt Count 123 L, MPV 11.7 H, Neut % (Auto) 65.5, Lymph % (Auto) 24.8, [place] % (Auto) 7.3, Eos % (Auto) 1.5, Baso % (Auto) 0.4, Neut # (Auto) 5.4, Lymph # (Auto) 2.0, [place] # (Auto) 0.6, Eos # (Auto) 0.1, Baso # (Auto) 0.0 I & O for Last 24 hours: Intake & Output 06/28/25 06/29/25 06/30/25 07/01/25 23:59 23:59 23:59 23:59 Intake Total 3575.00 / 3575.00 100 / 100 0 / 0 Output Total 450 / 450 850 / 850 Balance 3125.00 / 3125.00 -750 / -750 0 / 0 Weight 232 lb Constitutional Constitutional: no acute distress and cooperative *Routine HEENT Exam Head: Present normocephalic and atraumatic Eye: Absent conjunctivae pink ENT: Present mucous membranes moist *Routine Neck Exam Neck: Present full ROM *Routine Respiratory Exam Respiratory: Present CTA bilaterally and normal respiratory effort *Routine Cardiovascular Exam Cardiovascular: Present RRR *Routine Abdominal Exam Abdominal: Present soft (Gravid); Absent tenderness *Routine Rectal Exam Patient deferred: visual exam *Routine Exam Patient deferred: external exam *Routine Extremities Exam Extremities: Present full ROM; Absent edema or calf tenderness *Routine Neurological Exam Neurological: Present alert, moving all extremities and normal speech Routine Psychiatric Exam Psychiatric: Present normal affect and cooperative Results Data Completed and Pending Labs on day of discharge: Labs from last 24 hours 06/30/25 08:00 WBC 8.2 RBC 3.21 L Hgb 10.0 L D Hct 28.7 L MCV 89.4 MCH 30.8 MCHC 34.5 RDW 13.2 Plt Count 123 L MPV 11.7 H Neut % (Auto) 65.5 Lymph % (Auto) 24.8 [place] % (Auto) 7.3 Eos % (Auto) 1.5 Baso % (Auto) 0.4 Neut # (Auto) 5.4 Lymph # (Auto) 2.0 [place] # (Auto) 0.6 Eos # (Auto) 0.1 Baso # (Auto) 0.0 DS: Diagnosis Discharge Diagnosis (1) S/P section: Status: Acute Code(s): Z98.891 - History of uterine scar from previous surgery (2) Premature rupture of membranes: Status: Resolved Code(s): O42.90 - Premature rupture of membranes, unspecified as to length of time between rupture and onset of labor, unspecified weeks of gestation Qualifiers: PROM onset of labor timing: unspecified duration between rupture of membranes and onset of labor PROM gestational age: full term Qualified Code(s): O42.92 - Full-term premature rupture of membranes, unspecified as to length of time between rupture and onset of labor (3) 38 weeks gestation of : Status: Resolved Code(s): Z3A.38 - 38 weeks gestation of (4) Asthma complicating , antepartum: Status: Resolved Code(s): O99.519 - Diseases of the respiratory system complicating , unspecified trimester; J45.909 - Unspecified asthma, uncomplicated (5) Maternal obesity affecting , antepartum: Status: Resolved Code(s): O99.210 - Obesity complicating , unspecified trimester Qualifiers: Obesity type affecting : unspecified obesity Qualified Code(s): O99.210 - Obesity complicating , unspecified trimester (6) History of section: Status: Inactive Code(s): Z98.891 - History of uterine scar from previous surgery (7) Anxiety and depression: Status: Acute Code(s): F41.9 - Anxiety disorder, unspecified; F32.A - Depression, unspecified (8) hemorrhage: Status: Acute Code(s): O72.1 - Other immediate hemorrhage Qualifiers: hemorrhage type: unspecified Qualified Code(s): O72.1 - Other immediate hemorrhage Problem details: QBL 1044 cc (9) Acute blood loss anemia: Status: Acute Code(s): D62 - Acute posthemorrhagic anemia Meds Home Medications and Allergies Home Medications ?Medication ?Instructions ?Recorded ?Confirmed ?Type venlafaxine 75 mg capsule,extended 75 mg PO DAILY Depression #90 caps 11/22/24 06/29/25 Rx release 24 hr vits no.126-ferrous fum 1 tab PO DAILY #30 tabs 12/11/24 06/29/25 Rx 28 mg iron-folic acid 800 mcg tablet (Classic ) pantoprazole 40 mg tablet,delayed 40 mg PO DAILY #30 tabs 05/01/25 06/29/25 Rx release (Protonix) cetirizine 10 mg tablet 10 mg PO QHS 30 days #30 tabs 05/23/25 06/29/25 Rx buspirone 15 mg tablet 15 mg PO BID 06/30/25 06/30/25 History famotidine 20 mg tablet 20 mg PO DAILY 06/30/25 06/30/25 History ibuprofen 800 mg tablet 800 mg PO Q8H PRN pain #20 tabs 06/30/25 Rx oxycodone 5 mg tablet 5 mg PO Q4HP PRN Moderate Pain 07/01/25 Rx (4-6) #20 tabs New Prescriptions to Start Prescriptions: ibuprofen María Elena Bush oxycodone María Elena Bush Allergies Allergy/AdvReac Type Severity Reaction Status Date / Time povidone-iodine (From Allergy Severe anaphylaxis Verified 06/27/25 13:29 Betadine) soap (From Betadine) Allergy Severe anaphylaxis Verified 06/27/25 13:29 shellfish derived Allergy Swelling Verified 06/27/25 13:29 of Lip/Tongue/Throat soy AdvReac Intermediate Vomiting Verified 06/27/25 13:29 Discharge Plan Disposition Patient Disposition: Home, Self-Care Condition: Good Discharge Order Discharge Orders: Discharge Order (Routine); Ordered 07/01/25 Ordered By: María Elena Bush Follow up Plan Follow up with: María Elena Bush DO [Staff Physician, NURSING EDUCATOR] - 2 weeks Prescriptions/Medication Reconciliation: New ibuprofen 800 mg tablet 800 mg PO Q8H PRN (Reason: pain) Qty: 20 0RF oxycodone 5 mg Tablet 5 mg PO Q4HP PRN (Reason: Moderate Pain (4-6)) Qty: 20 0RF Continued pantoprazole [Protonix] 40 mg tablet,delayed release (DR/EC) 40 mg PO DAILY Qty: 30 2RF venlafaxine 75 mg capsule,extended release 24hr 75 mg PO DAILY Qty: 90 2RF Classic 28 mg iron- 800 mcg tablet 1 tab PO DAILY Qty: 30 11RF cetirizine 10 mg tablet 10 mg PO QHS 30 Days Qty: 30 2RF famotidine 20 mg tablet 20 mg PO DAILY buspirone 15 mg tablet 15 mg PO BID Problem Reconciliation Problems Reviewed?: Yes Patient Discharge Instructions ACTIVITY: Limited activity DIET: continue same diet and regular diet Additional Instructions: Congratulations! Discharge: 1. Take 800 mg Ibuprofen every 8 hours as needed for pain. You can also take 500-1000 mg of Tylenol in between doses, every 6-8 hours. If pain persists you can take Oxycodone 5 mg, 1 tablet every 4-6 hours or longer as needed. 2. Nothing in the vagina for 6 weeks - no intercourse, douching or tampons. No tub baths/hot tubs or swimming pools - Drink plenty of fluids. - No strenuous activity or driving until released by your doctor. - Don't lift anything heavier than your in the pumpkin seat 3. Reasons to return to L&D or call On-Call doctor - fever (greater than 100.4) - heavy vaginal bleeding (soaking through 1 pad in less than 2 hours) - vaginal discharge (malodorous and/or purulent) - severe headaches not resolved by medication or rest 4. depression/blues - Normal to feel anxious/overwhelmed for first 2 weeks - Talk to your doctor if: severe anxiety, trouble bonding with baby, withdrawing from other family members, thoughts of harming yourself or others Print Language: Portuguese Providers Primary Care Provider: Nikki Thomas Admyin Provider: María Elena Bush Attending Provider: María Elena Bush
[2025-07-01] MEDS: IBUPROFEN 400 MG TABLET 800 MG PO (08:16)
[2025-07-01] MEDS: FAMOTIDINE 20MG TABLET 20 MG PO (08:16)
== END 2025-07-01 10:45 | disposition home or self-care (01) | DRG 787 ==
LOC: OBOUT 11:56 → OB 11:56
PROVIDERS: Nurse Anesthetist, Certified Registered; Admitting Provider Obstetrics & Gynecology; PCP Nurse Practitioner Family; Visit Provider Obstetrics & Gynecology
DX: O42.02 Full-term premature rupture of membranes, onset of labor within 24 hours of rupture (principal); D62 Acute posthemorrhagic anemia; O72.1 Other immediate postpartum hemorrhage; Z3A.38 38 weeks gestation of pregnancy; Z37.0 Single live birth; O34.211 Maternal care for low transverse scar from previous cesarean delivery; O99.513 Diseases of the respiratory system complicating pregnancy, third trimester; J45.909 Unspecified asthma, uncomplicated; O99.214 Obesity complicating childbirth; O99.344 Other mental disorders complicating childbirth; F41.9 Anxiety disorder, unspecified; F32.A Depression, unspecified; O69.81X0 Labor and delivery complicated by cord around neck, without compression, not applicable or unspecified; O90.81 Anemia of the puerperium; Z23 Encounter for immunization; Z91.013 Allergy to seafood; Z88.8 Allergy status to other drugs, medicaments and biological substances; Z91.018 Allergy to other foods; Z79.899 Other long term (current) drug therapy
CPT/HCPCS: 36415; 59025; 81001; 84112; 85014; 85018; 85025; 86592; 86850; J1885; J2210; J7120